=== PATIENT | male | born 1940 | race Caucasian/White ===

== ENCOUNTER 2016-11-11 07:38 | Outpatient (RCR) | payer MEDICARE ==
[2016-08-24] MEDS: OMALIZUMAB SUB-Q 150 MG (XOLAIR) VIAL SQ SCH (08:40)
[2016-08-24 08:45] VITALS: BP 122/71
[2016-09-07 07:50] VITALS: BP 112/60
[2016-09-07] MEDS: OMALIZUMAB SUB-Q 150 MG (XOLAIR) VIAL SQ SCH (07:55)
[2016-09-21] MEDS: OMALIZUMAB SUB-Q 150 MG (XOLAIR) VIAL SQ SCH (08:21)
[2016-09-21 08:27] VITALS: BP 125/58
[2016-10-05] MEDS: OMALIZUMAB SUB-Q 150 MG (XOLAIR) VIAL SQ SCH (08:27)
[2016-10-05 08:29] VITALS: BP 136/66
[2016-10-19] MEDS: OMALIZUMAB SUB-Q 150 MG (XOLAIR) VIAL SQ SCH (08:30)
[2016-10-19 09:19] VITALS: BP 118/66
[~2016-11-11] VITALS: Ht 180.3 cm; Wt 92.5 kg
[~2016-11-11 07:38] MED LIST: AC325T PO; ALPR0.5T3 PO; ASPI-892 PO; BO30SU PR; DOFE125C2 PO; ENAL20TA; ENAL5TAB PO; FLUT16SP22 NS; FNST5T PO; FURO40TA4 PO; FURO80TA3 PO; GLUC1TAB60 PO; HC A28.3 PR; KCL20TCR PO; LEVA0.63 IH; METO50TA7; MNTL10T PO; MTP25TSR PO; MULT-608 PO; MULT1CAP27 PO; NIA500ERT PO; NYST1000 PO; OMG1KC PO; OXYC-12 PO; PHYT1LIQ; PNT40TEC PO; POTA10CA43 PO; SIMV40TA2; SIMV40TA2 PO; TMSL.4C PO; WRF2.5T; WRF2.5T PO; WRF5T PO; [UNRECOGNIZED DRUG - CODE]
[2016-11-11 08:12] VITALS: BP 116/52
[2016-11-11] MEDS ORDERED: OMALIZUMAB SUB-Q 150 MG (XOLAIR) VIAL SQ SCH (08:15)
== END 2016-11-22 | disposition home or self-care (01) ==
LOC: SDC 07:38
PROVIDERS: ATTEND Nurse Practitioner Family
DX: J45.40 Moderate persistent asthma, uncomplicated (principal)
CPT/HCPCS: 96372

== ENCOUNTER 2017-02-22 07:51 | Outpatient (RCR) | payer MEDICARE ==
[2016-11-30 07:57] VITALS: BP 130/81
[2016-11-30] MEDS: OMALIZUMAB SUB-Q 150 MG (XOLAIR) VIAL SQ SCH (08:40)
[2016-12-14 07:50] VITALS: BP 138/70
[2016-12-14] MEDS: OMALIZUMAB SUB-Q 150 MG (XOLAIR) VIAL SQ SCH (08:30)
[2016-12-28] MEDS: OMALIZUMAB SUB-Q 150 MG (XOLAIR) VIAL SQ SCH (07:40)
[2016-12-28 07:45] VITALS: BP 136/67
[2017-01-11 07:50] VITALS: BP 125/70
[2017-01-11] MEDS: OMALIZUMAB SUB-Q 150 MG (XOLAIR) VIAL SQ SCH (07:50)
[2017-01-25] MEDS: OMALIZUMAB SUB-Q 150 MG (XOLAIR) VIAL SQ SCH (07:58)
[2017-01-25 07:59] VITALS: BP 127/79
[2017-02-08] MEDS: OMALIZUMAB SUB-Q 150 MG (XOLAIR) VIAL SQ SCH (07:52)
[2017-02-08 07:58] VITALS: BP 139/95
[~2017-02-22] VITALS: Ht 180.3 cm; Wt 95.7 kg
[2017-02-22] MEDS: OMALIZUMAB SUB-Q 150 MG (XOLAIR) VIAL SQ SCH (08:22)
[2017-02-22 08:23] VITALS: BP 124/62
== END 2017-02-28 | disposition home or self-care (01) ==
LOC: SDC 07:51
PROVIDERS: ATTEND Nurse Practitioner Family
DX: J45.40 Moderate persistent asthma, uncomplicated (principal)
CPT/HCPCS: 96372

== ENCOUNTER 2017-05-31 06:54 | Outpatient (RCR) | payer MEDICARE ==
[2017-03-08 07:45] VITALS: BP 129/69
[2017-03-08] MEDS: OMALIZUMAB SUB-Q 150 MG (XOLAIR) VIAL SQ SCH (08:32)
[2017-03-22] MEDS: OMALIZUMAB SUB-Q 150 MG (XOLAIR) VIAL SQ SCH (08:24)
[2017-03-22 08:34] VITALS: BP 135/74
[2017-04-05] MEDS: OMALIZUMAB SUB-Q 150 MG (XOLAIR) VIAL SQ SCH (08:25)
[2017-04-05 08:36] VITALS: BP 143/78
[2017-04-19] MEDS: OMALIZUMAB SUB-Q 150 MG (XOLAIR) VIAL SQ SCH (07:56)
[2017-04-19 08:00] VITALS: BP 124/70
[2017-05-03] MEDS: OMALIZUMAB SUB-Q 150 MG (XOLAIR) VIAL SQ SCH (08:29)
[2017-05-03 08:40] VITALS: BP 128/71
[2017-05-17] MEDS: OMALIZUMAB SUB-Q 150 MG (XOLAIR) VIAL SQ SCH (07:45)
[2017-05-17 08:25] VITALS: BP 121/60
[~2017-05-31] VITALS: Ht 180.3 cm; Wt 95.7 kg
[2017-05-31] MEDS: OMALIZUMAB SUB-Q 150 MG (XOLAIR) VIAL SQ SCH (08:01)
[2017-05-31 08:14] VITALS: BP 139/66
== END 2017-06-06 | disposition home or self-care (01) ==
LOC: SDC 06:54
PROVIDERS: ATTEND Nurse Practitioner Family
DX: J45.40 Moderate persistent asthma, uncomplicated (principal)
CPT/HCPCS: 96372

== ENCOUNTER 2017-07-12 06:35 | Outpatient (RCR) | payer MEDICARE ==
[2017-06-14 08:25] VITALS: BP 126/66
[2017-06-14] MEDS: OMALIZUMAB SUB-Q 150 MG (XOLAIR) VIAL SQ SCH (08:25)
[2017-06-28] MEDS: OMALIZUMAB SUB-Q 150 MG (XOLAIR) VIAL SQ SCH (10:07)
[2017-06-28 10:10] VITALS: BP 133/75
[~2017-07-12] VITALS: Ht 180.3 cm; Wt 95.7 kg
[2017-07-12] MEDS: OMALIZUMAB SUB-Q 150 MG (XOLAIR) VIAL SQ SCH (08:00)
[2017-07-12 08:23] VITALS: BP 132/66
== END 2017-07-23 | disposition home or self-care (01) ==
LOC: SDC 06:35
PROVIDERS: ATTEND Nurse Practitioner Family
DX: J45.40 Moderate persistent asthma, uncomplicated (principal)
CPT/HCPCS: 96372

== ENCOUNTER 2017-10-18 09:46 | Outpatient (RCR) | payer MEDICARE, OTHER ==
[2017-07-26] MEDS: OMALIZUMAB SUB-Q 150 MG (XOLAIR) VIAL SQ SCH (08:23)
[2017-07-26 08:26] VITALS: BP 125/67
[2017-08-09 09:05] VITALS: BP 129/60
[2017-08-09] MEDS: OMALIZUMAB SUB-Q 150 MG (XOLAIR) VIAL SQ SCH (09:06)
[2017-08-23 13:13] VITALS: BP 127/58
[2017-09-06] MEDS: OMALIZUMAB SUB-Q 150 MG (XOLAIR) VIAL SQ SCH (08:05)
[2017-09-06 08:11] VITALS: BP 138/71
[2017-09-20] MEDS: OMALIZUMAB SUB-Q 150 MG (XOLAIR) VIAL SQ SCH (08:10)
[2017-09-20 08:30] VITALS: BP 118/76
[2017-10-04 08:30] VITALS: BP 117/61
[2017-10-04] MEDS: OMALIZUMAB SUB-Q 150 MG (XOLAIR) VIAL SQ SCH (08:54)
[~2017-10-18] VITALS: Ht 180.3 cm; Wt 95.7 kg
== END 2017-10-24 | disposition home or self-care (01) ==
LOC: SDC 09:46
PROVIDERS: ATTEND Nurse Practitioner Family
DX: J45.40 Moderate persistent asthma, uncomplicated (principal)
CPT/HCPCS: 96372

== ENCOUNTER 2017-12-27 07:39 | Outpatient (RCR) | payer MEDICARE, OTHER ==
[2017-11-02] MEDS: OMALIZUMAB SUB-Q 150 MG (XOLAIR) VIAL SQ SCH (11:55)
[2017-11-02 12:14] VITALS: BP 129/65
[2017-11-15] MEDS: OMALIZUMAB SUB-Q 150 MG (XOLAIR) VIAL SQ SCH (07:55)
[2017-11-15 07:56] VITALS: BP 115/51
[2017-11-29] MEDS: OMALIZUMAB SUB-Q 150 MG (XOLAIR) VIAL SQ SCH (08:12)
[2017-11-29 08:21] VITALS: BP 121/48
[2017-12-13] MEDS: OMALIZUMAB SUB-Q 150 MG (XOLAIR) VIAL SQ SCH (07:52)
[2017-12-13 07:56] VITALS: BP 122/56
[~2017-12-27] VITALS: Ht 180.3 cm; Wt 95.7 kg
[2017-12-27] MEDS: OMALIZUMAB SUB-Q 150 MG (XOLAIR) VIAL SQ SCH (07:49)
[2017-12-27 07:50] VITALS: BP 125/55
== END 2018-01-31 | disposition home or self-care (01) ==
LOC: SDC 07:39
PROVIDERS: ATTEND Nurse Practitioner Family
DX: J45.40 Moderate persistent asthma, uncomplicated (principal)
CPT/HCPCS: 96372

== ENCOUNTER → 2018-11-01 | Outpatient (CLI) | payer MEDICARE ==
[~2018-11-01] MED LIST changes: +RT-ALBUTEROL SULF 2.5 MG/3 ML PRE-MIX VIAL INH ONE
== END ==
LOC: RT 11:35
PROVIDERS: ATTEND Nurse Practitioner Family
DX: G47.30 Sleep apnea, unspecified (principal); J44.9 Chronic obstructive pulmonary disease, unspecified; J30.2 Other seasonal allergic rhinitis
CPT/HCPCS: 94060; 94726; 94729

== ENCOUNTER → 2018-11-13 | Outpatient (CLI) | payer MEDICARE ==
[~2018-11-13] MED LIST changes: -RT-ALBUTEROL SULF 2.5 MG/3 ML PRE-MIX VIAL INH ONE
[2018-11-13 08:52] LABS: BASOPHILS # (AUTO) 0.1 10^3/uL (0.0-0.1); BASOPHILS % (AUTO) 1 % (0-10); EOSINOPHILS # (AUTO) 0.3 10^3/uL (0.0-0.3); EOSINOPHILS % (AUTO) 5 % (0-10); HEMATOCRIT 46 % (40-54); HEMOGLOBIN 14.5 G/DL (13.3-17.7); LYMPHOCYTES # (AUTO) 2.1 X 10^3 (1.0-4.0); LYMPHOCYTES % (AUTO) 30 % (12-44); MEAN CORPUSCULAR HEMOGLOBIN 31 PG (25-34); MEAN CORPUSCULAR HGB CONC 32 G/DL (32-36); MEAN CORPUSCULAR VOLUME 97 FL (80-99); MEAN PLATELET VOLUME 9.2 FL (7.4-10.4); MONOCYTES # (AUTO) 0.8 X 10^3 (0.0-1.0); MONOCYTES % (AUTO) 11 % (0-12); NEUTROPHILS # (AUTO) 3.7 X 10^3 (1.8-7.8); NEUTROPHILS % (AUTO) 53 % (42-75); PLATELET COUNT 158 10^3/uL (130-400); RED BLOOD COUNT 4.73 10^6/uL (4.35-5.85); RED CELL DISTRIBUTION WIDTH 15.5 % (10.0-14.5); WHITE BLOOD COUNT 7.1 10^3/uL (4.3-11.0)
[2018-11-13 09:09] LABS: CREATININE SERUM 1.98 MG/DL (0.60-1.30)
== END ==
LOC: LAB 08:35
PROVIDERS: ATTEND Nurse Practitioner Family
DX: R94.2 Abnormal results of pulmonary function studies (principal); J98.4 Other disorders of lung; J30.2 Other seasonal allergic rhinitis; G47.33 Obstructive sleep apnea (adult) (pediatric); J45.909 Unspecified asthma, uncomplicated
CPT/HCPCS: 36415; 82565; 84520; 85025

== ENCOUNTER → 2018-11-20 | Outpatient (CLI) | payer MEDICARE ==
[2018-11-20 08:59] LABS: CREATININE SERUM 2.11 MG/DL (0.60-1.30)
--- NOTE | 2018-11-20 11:51 | Diagnostic Imaging Report ---
PROCEDURE: CT chest without contrast. TECHNIQUE: Multiple contiguous axial images were obtained through the chest without the use of intravenous contrast. INDICATION: Decreased diffusion capacity of lungs. FINDINGS: The previous CT chest exam of 01/06/2011 noted cardiomegaly and right lower lobe atelectasis/infiltrate with a right pleural effusion. There were also coronary artery calcifications, sternotomy wires and surgical clips, and left-sided defibrillator device placed. On this exam, there is persistent cardiomegaly and coronary artery disease. The sternotomy wires and surgical clips and the left-sided defibrillator device seen previously are again evident and no different. The atelectasis/pneumonia and fluid involving the right lung base seen previously has resolved. There are mild chronic pulmonary changes present but there is no evidence for failure, pneumonia, or for significant pleural effusion. There is no mediastinal or hilar adenopathy. The aorta is not abnormally dilated. On the prior exam, the aortic root measured approximately 3.1 cm. On this exam, it measures 3.6 cm. The thyroid gland was not well visualized. There is increased density in both retroareolar regions. This has developed in the interval since the prior exam and most likely represents gynecomastia. Clinical followup is recommended. The sections through the upper abdomen fail to show any sign of an acute abnormality. In the interval since the prior study, however small gallstone has developed within the gallbladder. The bone windows show no evidence for fracture or for destructive lesion. 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 IMPRESSION: 1. There is cardiomegaly, coronary artery disease, and evidence of prior cardiac surgery. There are chronic pulmonary changes evident but there is no sign of an acute cardiopulmonary abnormality. 2. The increased density in both retroareolar regions does suggest gynecomastia. Clinical followup is recommended. 3. There is cholelithiasis but there is no evidence for acute cholecystitis. If further evaluation of the gallbladder is desired, then ultrasound would be recommended. 4. 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 Dictated by: Dictated on workstation # [id number]
== END ==
LOC: RAD 08:21
PROVIDERS: ATTEND Nurse Practitioner Family
DX: J45.909 Unspecified asthma, uncomplicated (principal); G47.33 Obstructive sleep apnea (adult) (pediatric); J98.4 Other disorders of lung; M89.9 Disorder of bone, unspecified; M50.30 Other cervical disc degeneration, unspecified cervical region; K80.20 Calculus of gallbladder without cholecystitis without obstruction; I25.10 Atherosclerotic heart disease of native coronary artery without angina pectoris; I51.7 Cardiomegaly; Z98.890 Other specified postprocedural states
CPT/HCPCS: 36415; 71250; 82565; 84520

== ENCOUNTER 2019-01-30 20:27 | Outpatient (CLI) | payer MEDICARE | END 2019-01-31 06:58 | disposition home or self-care (01) | LOC: SLEEP 20:27 | PROVIDERS: ATTEND Nurse Practitioner Family | DX: G47.33 Obstructive sleep apnea (adult) (pediatric) (principal) | CPT/HCPCS: 95811 ==

== ENCOUNTER 2019-04-28 06:31 | Emergency (ER) | payer MEDICARE ==
[~2019-04-28] VITALS: Ht 177.8 cm; Wt 89.8 kg
--- OUTSIDE RECORDS SUMMARY | 2019-04-28 06:40 | XMS REPORT | Continuity of Care Document ---
Author Organization Unknown Address Unknown Allergies Active Description Code Type Severity Reaction Onset Reported/Identified Relationship to Patient Clinical Status Yes No Known Drug Allergies [id number] Drug Allergy Unknown N/A 03/05/2009 Medications There is no data. 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 05/07/2011 Ot 401.9 HYPERTENSION NOS 05/07/2011 Ot 414.00 CORON ATHEROSCLER NOS TYPE VESSEL, NATIV 05/07/2011 Ot 414.8 CHR ISCHEMIC HRT DIS NEC 05/07/2011 Ot 425.4 PRIM CARDIOMYOPATHY NEC 05/07/2011 Ot 427.31 ATRIAL FIBRILLATION 05/07/2011 Ot 428.0 CONGESTIVE HEART FAILURE NOS 05/07/2011 Ot 428.23 ACUTE CHRONIC SYSTOLIC HRT FAILURE 05/07/2011 Ot 493.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 OBSTRUCTIVE ASTHMA, NOS 05/07/2011 Ot 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.5 POST TRAUM PULM INSUFFIC 05/07/2011 Ot 552.1 UMBILICAL HERNIA W OBSTR 05/07/2011 Ot 567.21 PERITONITIS (ACUTE) GENERALIZED 05/07/2011 Ot 569.83 PERFORATION OF INTESTINE 05/07/2011 Ot 571.5 CIRRHOSIS OF LIVER NOS 05/07/2011 Ot 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.0 BLADDER NECK OBSTRUCTION 05/07/2011 Ot 600.01 HYPERTROPHY (BENIGN) OF PROSTATE W URINA 05/07/2011 Ot 780.52 INSOMNIA, UNSPECIFIED 05/07/2011 Ot 788.20 RETENTION OF URINE NOS 05/07/2011 Ot 794.31 ABNORM ELECTROCARDIOGRAM 05/07/2011 Ot E937.8 ADV EFF SEDAT/HYPNOT NEC 05/07/2011 Ot E944.4 ADV EFF DIURETICS NEC 05/07/2011 Ot V45.02 AUTO IMPLANTABLE CARDIAC DEFIBRILLATOR I 05/07/2011 Ot V45.81 AORTOCORONARY BYPASS 03/01/2013 PAULETTE GONZALEZ, KELLY Fitch Ot 401.9 HYPERTENSION NOS 03/01/2013 PAULETTE GONZALEZ, KELLY Fitch Ot V58.69 OTH MED,LT,CURRENT USE 08/16/2013 LAKSHMI GONZALEZ, IGNACIO A Ot 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, NOS 10/17/2013 LAKSHMI GONZALEZ, IGNACIO A Ot 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, NOS 01/30/2014 LAKSHMI GONZALEZ, IGNACIO A Ot 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, NOS 05/06/2014 LAKSHMI GONZALEZ, IGNACIO A Ot 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, NOS 05/10/2014 BRIELLE WHITAKER SHEET METAL SUPERINTENDENT Ot 726.79 ANKLE ENTHESOPATHY NEC 05/10/2014 BRIELLE WHITAKER SHEET METAL SUPERINTENDENT Ot 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.5 JUV OSTEOCHONDROSIS FOOT 05/10/2014 BRIELLE WHITAKER SHEET METAL SUPERINTENDENT Ot V57.1 PHYSICAL THERAPY NEC 08/05/2014 LAKSHMI GONZALEZ, IGNACIO A Ot 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, NOS 09/17/2014 LAKSHMI GONZALEZ, IGNACIO A Ot 493.00 09/25/2014 LAKSHMI GONZALEZ, IGNACIO A Ot 493.00 10/01/2014 LAKSHMI GONZALEZ, IGNACIO A Ot 493.00 10/10/2014 LAKSHMI GONZALEZ, IGNACIO A Ot 493.00 10/10/2014 LAKSHMI GONZALEZ, IGNACIO A Ot 493.00 10/14/2014 LAKSHMI GONZALEZ, IGNACIO A Ot 493.00 10/15/2014 LAKSHMI GONZALEZ, IGNACIO A Ot 493.00 10/15/2014 LAKSHMI GONZALEZ, IGNACIO A Ot 493.00 10/29/2014 LAKSHMI GONZALEZ, IGNACIO A Ot 493.00 10/29/2014 LAKSHMI GONZALEZ, IGNACIO A Ot 493.00 11/04/2014 LAKSHMI GONZALEZ, IGNACIO A Ot 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, NOS 11/12/2014 ALEIDA BOYD DO Ot 493.00 11/12/2014 DEB DO, ALEIDA M Ot 493.00 11/12/2014 DEB DO, ALEIDA M Ot 493.00 11/12/2014 DEB DO, ALEIDA M Ot 493.00 11/13/2014 DEB DO, ALEIDA M Ot 493.00 11/15/2014 DEB DO, ALEIDA M Ot 493.00 11/20/2014 DEB DO, ALEIDA M Ot 493.00 11/22/2014 DEB DO, ALEIDA M Ot 493.00 11/26/2014 DEB DO, ALEIDA M Ot 493.00 11/26/2014 DEB DO, ALEIDA M Ot 493.00 12/10/2014 DEB DO, ALEIDA M Ot 493.00 12/10/2014 DEB DO, ALEIDA M Ot 493.00 12/13/2014 DEB DO, ALEIDA M Ot 493.00 12/13/2014 DEB DO, ALEIDA M Ot 493.00 12/19/2014 DEB DO, ALEIDA M Ot 493.00 01/14/2015 DEB DO, ALEIDA M Ot 493.00 01/14/2015 DEB DO, ALEIDA M Ot 493.00 01/22/2015 DEB DO, ALEIDA M Ot 493.00 01/28/2015 DEB DO, ALEIDA M Ot 493.00 02/10/2015 DEB DO, ALEIDA M Ot 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, NOS 02/11/2015 DEB DO, ALEIDA M Ot 493.00 02/11/2015 DEB DO, ALEIDA M Ot 493.00 02/11/2015 DEB DO, ALEIDA M Ot 493.00 02/11/2015 DEB DO, ALEIDA M Ot 493.00 02/11/2015 DEB DO, ALEIDA M Ot 493.00 02/11/2015 DEB DO, ALEIDA M Ot 493.00 02/11/2015 DEB DO, ALEIDA M Ot 493.00 02/12/2015 DEB DO, ALEIDA M Ot 493.00 02/19/2015 Ot 278.00 02/19/2015 Ot 493.20 02/19/2015 Ot 780.57 02/25/2015 DEB DO, ALEIDA M Ot 493.00 03/11/2015 DEB DO, ALEIDA M Ot 493.00 03/11/2015 DEB DO, ALEIDA M Ot 493.00 03/22/2015 DEB DO, ALEIDA M Ot 493.00 03/25/2015 DEB DO, ALEIDA M Ot 493.00 03/25/2015 DEB DO, ALEIDA M Ot 493.00 04/08/2015 DEB DO, ALEIDA M Ot 493.00 04/08/2015 DEB DO, ALEIDA M Ot 493.00 04/22/2015 DEB DO, ALEIDA M Ot 493.00 04/22/2015 DEB DO, ALEIDA M Ot 493.00 04/29/2015 DEB DO, ALEIDA M Ot 493.00 05/06/2015 DEB DO, ALEIDA M Ot 493.00 05/12/2015 DEB DO, ALEIDA M Ot 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, NOS 05/20/2015 DEB DO, ALEIDA M Ot 493.00 05/20/2015 DEB DO, ALEIDA M Ot 493.00 05/20/2015 DEB DO, ALEIDA M Ot 493.00 05/20/2015 DEB DO, ALEIDA M Ot 493.00 05/20/2015 DBE DO, ALEIDA M Ot 493.00 05/20/2015 DEB DO, ALEIDA M Ot 493.00 05/20/2015 DEB DO, ALEIDA M Ot 493.00 05/21/2015 DEB DO, ALEIDA M Ot 493.00 05/21/2015 DEB DO, ALEIDA M Ot 493.00 05/21/2015 DEB DO, ALEIDA M Ot 493.00 06/03/2015 DEB DO, ALEIDA M Ot 493.00 06/03/2015 DEB DO, ALEIDA M Ot 493.00 06/17/2015 DEB DO, ALEIDA M Ot 493.00 06/17/2015 DEB DO, ALEIDA M Ot 493.00 06/17/2015 DEB DO, ALEIDA M Ot 493.00 07/01/2015 DEB DO, ALEIDA M Ot 493.00 07/15/2015 DEB DO, ALEIDA M Ot 493.00 07/23/2015 DEB DO, ALEIDA M Ot 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, NOS 07/29/2015 Ot 433.10 07/29/2015 Ot 786.05 07/29/2015 Ot 397.0 07/29/2015 Ot 424.0 07/29/2015 Ot 511.9 07/29/2015 Ot 786.05 07/29/2015 Ot 511.9 07/29/2015 Ot 782.4 07/29/2015 Ot 511.9 07/29/2015 Ot 553.1 07/29/2015 Ot 600.00 07/29/2015 Ot 789.59 07/29/2015 Ot 789.59 07/29/2015 Ot 477.9 07/29/2015 Ot 397.0 07/29/2015 Ot 414.8 07/29/2015 Ot 424.0 07/29/2015 Ot 428.0 07/29/2015 Ot 493.00 07/29/2015 Ot 278.00 07/29/2015 Ot 493.20 07/29/2015 Ot 780.57 07/29/2015 ALEIDA BOYD DO Ot 493.00 08/12/2015 ALEIDA BOYD DO Ot J45.909 08/26/2015 ALEIDA BOYD DO Ot J45.909 09/09/2015 ALEIDA BOYD DO Ot J45.909 09/15/2015 ALEIDA BOYD DO Ot J45.909 09/23/2015 ALEIDA BOYD DO Ot J45.909 09/25/2015 ALEIDA BOYD DO Ot J45.909 10/07/2015 ALEIDA BOYD DO Ot J45.909 10/21/2015 ALEIDA BOYD DO Ot J45.909 10/23/2015 Ot I12.9 10/23/2015 Ot I50.22 10/23/2015 Ot N18.3 10/23/2015 Ot N40.1 10/27/2015 ALEIDA BOYD DO Ot J45.909 UNSPECIFIED ASTHMA, UNCOMPLICATED 11/04/2015 ALEIDA BOYD DO Ot J45.909 11/04/2015 ALEIDA BOYD DO Ot J45.909 11/05/2015 ALEIDA BOYD DO Ot J45.909 11/06/2015 Ot I12.9 11/06/2015 Ot I50.22 11/06/2015 Ot N18.3 11/06/2015 Ot N40.1 11/18/2015 ALEIDA BOYD DO Ot J45.909 11/18/2015 DEB TRACEY ALEIDA M Ot J45.909 11/18/2015 ALEIDA BOYD DO Ot J45.909 11/18/2015 DEB TRACEY ALEIDA M Ot J45.909 11/26/2015 ALEIDA BOYD DO Ot J45.909 12/02/2015 ALEIDA BOYD DO Ot J45.909 12/16/2015 ALEIDA BOYD DO Ot J45.909 12/16/2015 DEB TRACEY ALEIDA M Ot J45.909 12/19/2015 ALEIDA BOYD DO Ot J45.909 12/30/2015 ALEIDA BOYD DO Ot J45.909 12/30/2015 DEB TRACEY ALEIDA M Ot J45.909 01/13/2016 DEB TRACEY ALEIDA M Ot J45.909 01/13/2016 ALEIDA BOYD DO Ot J45.909 01/27/2016 ALEIDA BOYD DO Ot J45.909 01/27/2016 ALEIDA BOYD DO Ot J45.909 01/27/2016 DEB TRACEY ALEIDA M Ot J45.909 02/02/2016 ALEIDA BOYD DO Ot J45.909 UNSPECIFIED ASTHMA, UNCOMPLICATED 02/03/2016 ALEIDA BOYD DO Ot J45.909 02/10/2016 Ot 786.05 SHORTNESS OF BREATH 02/10/2016 Ot 397.0 TRICUSPID VALVE DISEASE 02/10/2016 Ot 424.0 MITRAL VALVE DISORDER 02/10/2016 Ot 511.9 PLEURAL EFFUSION NOS 02/10/2016 Ot 786.05 SHORTNESS OF BREATH 02/10/2016 Ot 511.9 PLEURAL EFFUSION NOS 02/10/2016 Ot 782.4 JAUNDICE NOS 02/10/2016 Ot 511.9 PLEURAL EFFUSION NOS 02/10/2016 Ot 553.1 UMBILICAL HERNIA 02/10/2016 Ot 600.00 HYPERTROPHY (BENIGN) OF PROSTATE W/O URI 02/10/2016 Ot 789.59 OTHER ASCITES 02/10/2016 Ot 789.59 OTHER ASCITES 02/10/2016 Ot 477.9 ALLERGIC RHINITIS NOS 02/10/2016 Ot 397.0 TRICUSPID VALVE DISEASE 02/10/2016 Ot 414.8 CHR ISCHEMIC HRT DIS NEC 02/10/2016 Ot 424.0 MITRAL VALVE DISORDER 02/10/2016 Ot 428.0 CONGESTIVE HEART FAILURE NOS 02/10/2016 Ot 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, NOS 02/10/2016 Ot 278.00 OBESITY, NOS 02/10/2016 Ot 493.20 CHRONIC OBSTRUCTIVE ASTHMA, NOS 02/10/2016 Ot 780.57 UNSPECIFIED SLEEP APNEA 02/10/2016 DEB TRACEY ALEIDA M Ot 493.00 02/10/2016 Ot I12.9 HYPERTENSIVE CHRONIC KIDNEY DISEASE W ST 02/10/2016 Ot I50.22 CHRONIC SYSTOLIC (CONGESTIVE) HEART FAIL 02/10/2016 Ot N18.3 CHRONIC KIDNEY DISEASE, STAGE 3 (MODERAT 02/10/2016 Ot N40.1 ENLARGED PROSTATE WITH LOWER URINARY TRA 02/10/2016 ALEXANDRO WILSON PIPE TURNER Ot J45.909 UNSPECIFIED ASTHMA, UNCOMPLICATED 02/10/2016 ALEXANDRO WILSON PIPE TURNER Ot J45.909 UNSPECIFIED ASTHMA, UNCOMPLICATED 02/10/2016 ALEXANDRO WILSON PIPE TURNER Ot J45.909 UNSPECIFIED ASTHMA, UNCOMPLICATED 02/10/2016 ALEXANDRO WILSON PIPE TURNER Ot J45.909 UNSPECIFIED ASTHMA, UNCOMPLICATED 02/11/2016 ALEXANDRO WILSON PIPE TURNER Ot J45.909 UNSPECIFIED ASTHMA, UNCOMPLICATED 02/23/2016 ALEXANDRO WILSON PIPE TURNER Ot J45.909 UNSPECIFIED ASTHMA, UNCOMPLICATED 02/26/2016 ALEXANDRO WILSON PIPE TURNER Ot J45.909 UNSPECIFIED ASTHMA, UNCOMPLICATED 02/26/2016 ALEXANDRO WILSON PIPE TURNER Ot J45.909 UNSPECIFIED ASTHMA, UNCOMPLICATED 03/11/2016 ALEXANDRO WILSON PIPE TURNER Ot J45.909 UNSPECIFIED ASTHMA, UNCOMPLICATED 03/11/2016 ALEXANDRO WILSON PIPE TURNER Ot J45.909 UNSPECIFIED ASTHMA, UNCOMPLICATED 03/15/2016 ALXEANDRO WILSON PIPE TURNER Ot J45.909 UNSPECIFIED ASTHMA, UNCOMPLICATED 03/23/2016 ALEXANDRO WILSON PIPE TURNER Ot J45.909 UNSPECIFIED ASTHMA, UNCOMPLICATED 2016 ALEXANDRO WILSON PIPE TURNER Ot J45.909 UNSPECIFIED ASTHMA, UNCOMPLICATED 04/22/2016 STEVE, ALEXANDRO E PIPE TURNER Ot J45.909 UNSPECIFIED ASTHMA, UNCOMPLICATED 05/10/2016 ALBA WILSONINE E PIPE TURNER Ot J45.909 UNSPECIFIED ASTHMA, UNCOMPLICATED 05/11/2016 ALBA WILSONINE E PIPE TURNER Ot J45.909 UNSPECIFIED ASTHMA, UNCOMPLICATED 05/11/2016 ALBA WILSONINE E PIPE TURNER Ot J45.909 UNSPECIFIED ASTHMA, UNCOMPLICATED 05/11/2016 ALBA WILSONINE E PIPE TURNER Ot J45.909 UNSPECIFIED ASTHMA, UNCOMPLICATED 05/12/2016 ALBA WILSONINE E PIPE TURNER Ot J45.909 UNSPECIFIED ASTHMA, UNCOMPLICATED 05/12/2016 ALBA WILSONINE E PIPE TURNER Ot J45.909 UNSPECIFIED ASTHMA, UNCOMPLICATED 05/12/2016 ALBA WILSONINE E PIPE TURNER Ot J45.909 UNSPECIFIED ASTHMA, UNCOMPLICATED 05/12/2016 ALBA WILSONINE E PIPE TURNER Ot J45.909 UNSPECIFIED ASTHMA, UNCOMPLICATED 05/13/2016 ALEXANDRO WILSON PIPE TURNER Ot J45.909 UNSPECIFIED ASTHMA, UNCOMPLICATED 06/01/2016 ALEXANDRO WILSON PIPE TURNER Ot J45.909 UNSPECIFIED ASTHMA, UNCOMPLICATED 06/01/2016 ALEXANDRO WILSON PIPE TURNER Ot J45.909 UNSPECIFIED ASTHMA, UNCOMPLICATED 06/08/2016 ALBA WILSONINE E PIPE TURNER Ot J45.909 UNSPECIFIED ASTHMA, UNCOMPLICATED 06/15/2016 ALBA WILSONINE E PIPE TURNER Ot J45.909 UNSPECIFIED ASTHMA, UNCOMPLICATED 06/15/2016 ALEXANDRO WILSON E PIPE TURNER Ot J45.909 UNSPECIFIED ASTHMA, UNCOMPLICATED 06/18/2016 ALEXANDRO WILSON E PIPE TURNER Ot J45.909 UNSPECIFIED ASTHMA, UNCOMPLICATED 06/21/2016 ALEXANDRO WILSON E PIPE TURNER Ot J45.909 UNSPECIFIED ASTHMA, UNCOMPLICATED 06/29/2016 ALBA WILSONINE E PIPE TURNER Ot J45.909 UNSPECIFIED ASTHMA, UNCOMPLICATED 07/13/2016 ALBA WILSONINE E PIPE TURNER Ot J45.909 UNSPECIFIED ASTHMA, UNCOMPLICATED 07/13/2016 ALBA WILSONINE E PIPE TURNER Ot J45.909 UNSPECIFIED ASTHMA, UNCOMPLICATED 07/27/2016 ALEXANDRO WILSON E PIPE TURNER Ot J45.909 UNSPECIFIED ASTHMA, UNCOMPLICATED 07/27/2016 ALBA WILSONINE E PIPE TURNER Ot J45.909 UNSPECIFIED ASTHMA, UNCOMPLICATED 08/10/2016 ALBA WILSONINE E PIPE TURNER Ot J45.909 UNSPECIFIED ASTHMA, UNCOMPLICATED 08/10/2016 ALBA WILSONINE E PIPE TURNER Ot J45.909 UNSPECIFIED ASTHMA, UNCOMPLICATED 08/10/2016 ALEXANDRO WILSON PIPE TURNER Ot J45.909 UNSPECIFIED ASTHMA, UNCOMPLICATED 08/11/2016 ALEXANDRO WILSON E PIPE TURNER Ot J45.909 UNSPECIFIED ASTHMA, UNCOMPLICATED 08/23/2016 ALBA WILSONINE E PIPE TURNER Ot J45.909 UNSPECIFIED ASTHMA, UNCOMPLICATED 08/24/2016 ALBA WILSONINE E PIPE TURNER Ot J45.909 UNSPECIFIED ASTHMA, UNCOMPLICATED 08/24/2016 ALBA WILSONINE E PIPE TURNER Ot J45.909 UNSPECIFIED ASTHMA, UNCOMPLICATED 08/24/2016 ALEXANDRO WILSON PIPE TURNER Ot J45.909 UNSPECIFIED ASTHMA, UNCOMPLICATED 08/24/2016 ALEXANDRO WILSON E PIPE TURNER Ot J45.909 UNSPECIFIED ASTHMA, UNCOMPLICATED 08/25/2016 ALBA WILSONINE E PIPE TURNER Ot J45.909 UNSPECIFIED ASTHMA, UNCOMPLICATED 09/07/2016 ALBA WILSONINE E PIPE TURNER Ot J45.909 UNSPECIFIED ASTHMA, UNCOMPLICATED 09/20/2016 ALEXANDRO WILSON E PIPE TURNER Ot J45.909 UNSPECIFIED ASTHMA, UNCOMPLICATED 09/21/2016 ALEXANDRO WILSON E PIPE TURNER Ot J45.909 UNSPECIFIED ASTHMA, UNCOMPLICATED 09/28/2016 ALEXANDRO WILSON PIPE TURNER Ot J45.909 UNSPECIFIED ASTHMA, UNCOMPLICATED 09/28/2016 ALEXANDRO WILSON E PIPE TURNER Ot J45.909 UNSPECIFIED ASTHMA, UNCOMPLICATED 09/28/2016 ALBA WILSONINE E PIPE TURNER Ot J45.909 UNSPECIFIED ASTHMA, UNCOMPLICATED 10/05/2016 ALEXANDRO WILSON E PIPE TURNER Ot J45.909 UNSPECIFIED ASTHMA, UNCOMPLICATED 10/19/2016 ALEXANDRO WILSON E PIPE TURNER Ot J45.909 UNSPECIFIED ASTHMA, UNCOMPLICATED 10/19/2016 ALEXANDRO WILSON PIPE TURNER Ot J45.909 UNSPECIFIED ASTHMA, UNCOMPLICATED 10/21/2016 ALEXANDRO WILSON PIPE TURNER Ot J45.909 UNSPECIFIED ASTHMA, UNCOMPLICATED 10/27/2016 ALEXANDRO WILSON PIPE TURNER Ot J45.909 UNSPECIFIED ASTHMA, UNCOMPLICATED 11/11/2016 ALEXANDRO WILSON PIPE TURNER Ot J45.909 UNSPECIFIED ASTHMA, UNCOMPLICATED 11/11/2016 ALEXANDRO WILSON PIPE TURNER Ot J45.909 UNSPECIFIED ASTHMA, UNCOMPLICATED 11/22/2016 ALEXANDRO WILSON E PIPE TURNER Ot 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, UNCOMPLICATE 11/22/2016 ALEXANDRO WILSON E PIPE TURNER Ot J45.909 UNSPECIFIED ASTHMA, UNCOMPLICATED 11/23/2016 ALBA WILSONINE E PIPE TURNER Ot J45.909 UNSPECIFIED ASTHMA, UNCOMPLICATED 11/30/2016 ALBA WILSONINE E PIPE TURNER Ot J45.909 UNSPECIFIED ASTHMA, UNCOMPLICATED 11/30/2016 ALEXANDRO WILSON PIPE TURNER Ot J45.909 UNSPECIFIED ASTHMA, UNCOMPLICATED 11/30/2016 ALEXANDRO WILSON PIPE TURNER Ot J45.909 UNSPECIFIED ASTHMA, UNCOMPLICATED 11/30/2016 ALEXANDRO WILSON PIPE TURNER Ot J45.909 UNSPECIFIED ASTHMA, UNCOMPLICATED 11/30/2016 ALEXANDRO WILSON PIPE TURNER Ot J45.909 UNSPECIFIED ASTHMA, UNCOMPLICATED 12/01/2016 ALBA WILSONINE E PIPE TURNER Ot J45.909 UNSPECIFIED ASTHMA, UNCOMPLICATED 12/14/2016 ALEXANDRO WILSON E PIPE TURNER Ot J45.909 UNSPECIFIED ASTHMA, UNCOMPLICATED 12/14/2016 ALEXANDRO WILSON E PIPE TURNER Ot J45.909 UNSPECIFIED ASTHMA, UNCOMPLICATED 12/14/2016 ALEXANDRO WILSON PIPE TURNER Ot J45.909 UNSPECIFIED ASTHMA, UNCOMPLICATED 12/28/2016 ALBA WILSONINE E PIPE TURNER Ot J45.909 UNSPECIFIED ASTHMA, UNCOMPLICATED 12/30/2016 ALEXANDRO WILSON PIPE TURNER Ot 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, UNCOMPLICATE 01/11/2017 ALEXANDRO WILSON PIPE TURNER Ot 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, UNCOMPLICATE 01/11/2017 ALEXANDRO IWLSON PIPE TURNER Ot 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, UNCOMPLICATE 01/25/2017 ALEXANDRO WILSON E PIPE TURNER Ot 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, UNCOMPLICATE 01/25/2017 ALEXANDRO WILSON E PIPE TURNER Ot 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, UNCOMPLICATE 01/31/2017 ALEXANDRO WILSON PIPE TURNER Ot 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, UNCOMPLICATE 02/08/2017 ALEXANDRO WILSON PIPE TURNER Ot 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, UNCOMPLICATE 02/08/2017 ALEXANDRO WILSON PIPE TURNER Ot 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, UNCOMPLICATE 02/14/2017 ALEXANDRO WILSON PIPE TURNER Ot 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, UNCOMPLICATE 02/22/2017 ALEXANDRO WILSON PIPE TURNER Ot 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, UNCOMPLICATE 02/22/2017 ALEXANDRO WILSON PIPE TURNER Ot 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, UNCOMPLICATE 02/28/2017 ALEXANDRO WILSON PIPE TURNER Ot 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0 TRICUSPID VALVE DISEASE 03/08/2017 Ot 414.8 CHR ISCHEMIC HRT DIS NEC 03/08/2017 Ot 424.0 MITRAL VALVE DISORDER 03/08/2017 Ot 428.0 CONGESTIVE HEART FAILURE NOS 03/08/2017 Ot 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, NOS 03/08/2017 Ot 278.00 OBESITY, NOS 03/08/2017 Ot 493.20 CHRONIC OBSTRUCTIVE ASTHMA, NOS 03/08/2017 Ot 780.57 UNSPECIFIED SLEEP APNEA 03/08/2017 ALEIDA BOYD DO Ot 493.00 03/08/2017 Ot I12.9 HYPERTENSIVE CHRONIC KIDNEY DISEASE W ST 03/08/2017 Ot I50.22 CHRONIC SYSTOLIC (CONGESTIVE) HEART FAIL 03/08/2017 Ot N18.3 CHRONIC KIDNEY DISEASE, STAGE 3 (MODERAT 03/08/2017 Ot N40.1 ENLARGED PROSTATE WITH LOWER URINARY TRA 03/08/2017 ALEXANDRO WILSON PIPE TURNER Ot 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, UNCOMPLICATE 03/08/2017 Ot 477.9 ALLERGIC RHINITIS NOS 03/08/2017 Ot 397.0 TRICUSPID VALVE DISEASE 03/08/2017 Ot 414.8 CHR ISCHEMIC HRT DIS NEC 03/08/2017 Ot 424.0 MITRAL VALVE DISORDER 03/08/2017 Ot 428.0 CONGESTIVE HEART FAILURE NOS 03/08/2017 Ot 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, NOS 03/08/2017 Ot 278.00 OBESITY, NOS 03/08/2017 Ot 493.20 CHRONIC OBSTRUCTIVE ASTHMA, NOS 03/08/2017 Ot 780.57 UNSPECIFIED SLEEP APNEA 03/08/2017 ALEIDA BOYD DO M Ot 493.00 03/08/2017 Ot I12.9 HYPERTENSIVE CHRONIC KIDNEY DISEASE W ST 03/08/2017 Ot I50.22 CHRONIC SYSTOLIC (CONGESTIVE) HEART FAIL 03/08/2017 Ot N18.3 CHRONIC KIDNEY DISEASE, STAGE 3 (MODERAT 03/08/2017 Ot N40.1 ENLARGED PROSTATE WITH LOWER URINARY TRA 03/08/2017 ALEXANDRO WILSON PIPE TURNER Ot 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, UNCOMPLICATE 03/08/2017 ALEXANDRO WILSON PIPE TURNER Ot 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, UNCOMPLICATE 03/09/2017 ALEXANDRO WILSON PIPE TURNER Ot 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, UNCOMPLICATE 03/18/2017 ALEXANDRO WILSON PIPE TURNER Ot 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, UNCOMPLICATE 03/22/2017 ALEXANDRO WILSON PIPE TURNER Ot 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, UNCOMPLICATE 03/29/2017 ALEXANDRO WILSON PIPE TURNER Ot 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, UNCOMPLICATE 04/05/2017 ALEXANDRO WILSON PIPE TURNER Ot 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, UNCOMPLICATE 04/14/2017 ALEXANDRO WILSON PIPE TURNER Ot 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, UNCOMPLICATE 04/19/2017 ALEXANDRO WILSON PIPE TURNER Ot 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, UNCOMPLICATE 04/19/2017 ALEXANDRO WILSON PIPE TURNER Ot 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, UNCOMPLICATE 05/03/2017 ALEXANDRO WILSON PIPE TURNER Ot 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, UNCOMPLICATE 05/09/2017 ALEXANDRO WILSON PIPE TURNER Ot 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, UNCOMPLICATE 05/17/2017 ALEXANDRO WILSON PIPE TURNER Ot 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, UNCOMPLICATE 05/31/2017 ALEXANDRO WILSON PIPE TURNER Ot 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, UNCOMPLICATE 05/31/2017 ALEXANDRO WILSON PIPE TURNER Ot 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, UNCOMPLICATE 05/31/2017 ALEXANDRO WILSON PIPE TURNER Ot 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, UNCOMPLICATE 05/31/2017 STEVEALBA ESTRADAINE Gray PIPE TURNER Ot 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, UNCOMPLICATE 06/06/2017 ALEXANDRO WILSON PIPE TURNER Ot 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, UNCOMPLICATE 06/07/2017 ALEXANDRO WILSON PIPE TURNER Ot 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, UNCOMPLICATE 06/10/2017 ALEXANDRO WILSON PIPE TURNER Ot 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, UNCOMPLICATE 06/12/2017 ALEXANDRO WILSON PIPE TURNER Ot 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, UNCOMPLICATE 06/14/2017 ALEXANDRO WILSON PIPE TURNER Ot 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, UNCOMPLICATE 06/14/2017 ALEXANDRO WILSON PIPE TURNER Ot 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, UNCOMPLICATE 06/14/2017 ALEXANDRO WILSON PIPE TURNER Ot 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, UNCOMPLICATE 06/15/2017 ALEXANDRO WILSON PIPE TURNER Ot 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, UNCOMPLICATE 06/28/2017 ALEXANDRO WILSON PIPE TURNER Ot 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, UNCOMPLICATE 07/12/2017 ALEXANDRO WILSON PIPE TURNER Ot 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, UNCOMPLICATE 07/12/2017 ALBA WILSONINE Gray PIPE TURNER Ot 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, UNCOMPLICATE 07/15/2017 ALEXANDRO WILSON PIPE TURNER Ot 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, UNCOMPLICATE 07/23/2017 ALEXANDRO WILSON PIPE TURNER Ot 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, UNCOMPLICATE 07/26/2017 ALEXANDRO WILSON PIPE TURNER Ot 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, UNCOMPLICATE 07/26/2017 ALEXANDRO WILSON PIPE TURNER Ot 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, UNCOMPLICATE 07/27/2017 STEVEALBA ESTRADAINE E PIPE TURNER Ot 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, UNCOMPLICATE 07/30/2017 ALBA WILSONINE E PIPE TURNER Ot 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, UNCOMPLICATE 08/09/2017 STEVEALBA ESTRADAINE E PIPE TURNER Ot 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, UNCOMPLICATE 08/22/2017 STEVEALBA ESTRADAINE E PIPE TURNER Ot 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, UNCOMPLICATE 08/22/2017 STEVEALBA ESTRADAINE E PIPE TURNER Ot 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, UNCOMPLICATE 08/22/2017 STEVEALBA ESTRADAINE E PIPE TURNER Ot 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, UNCOMPLICATE 08/23/2017 STEVEALBA ESTRADAINE E PIPE TURNER Ot 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, UNCOMPLICATE 09/06/2017 ALBA WILSONINE E PIPE TURNER Ot 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, UNCOMPLICATE 09/16/2017 ALBA WILSONINE E PIPE TURNER Ot 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, UNCOMPLICATE 09/20/2017 ALBA WILSONINE Gray PIPE TURNER Ot 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, UNCOMPLICATE 09/20/2017 ALBA WILSONINE E PIPE TURNER Ot 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, UNCOMPLICATE 10/04/2017 ALBA WILSONINE E PIPE TURNER Ot 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, UNCOMPLICATE 10/18/2017 ALBA WILSONINE E PIPE TURNER Ot 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, UNCOMPLICATE 10/18/2017 ALBA WILSONINE E PIPE TURNER Ot 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, UNCOMPLICATE 10/18/2017 ALBA WILSONINE E PIPE TURNER Ot 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, UNCOMPLICATE 10/24/2017 ALBA WILSONINE E PIPE TURNER Ot 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, UNCOMPLICATE 10/26/2017 ALBA WILSONINE E PIPE TURNER Ot 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, UNCOMPLICATE 11/02/2017 ALBA WILSONINE E PIPE TURNER Ot 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, UNCOMPLICATE 11/02/2017 ALBA WILSONINE E PIPE TURNER Ot 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, UNCOMPLICATE 11/02/2017 ALBA WILSONINE E PIPE TURNER Ot 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, UNCOMPLICATE 11/02/2017 ALBA WILSONINE E PIPE TURNER Ot 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, UNCOMPLICATE 11/02/2017 ALEXANDRO WILSON PIPE TURNER Ot 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, UNCOMPLICATE 11/02/2017 Ot 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, NOS 11/02/2017 Ot 278.00 OBESITY, NOS 11/02/2017 Ot 493.20 CHRONIC OBSTRUCTIVE ASTHMA, NOS 11/02/2017 Ot 780.57 UNSPECIFIED SLEEP APNEA 11/02/2017 DEB TRACEY ALEIDA M Ot 493.00 11/02/2017 Ot I12.9 HYPERTENSIVE CHRONIC KIDNEY DISEASE W ST 11/02/2017 Ot I50.22 CHRONIC SYSTOLIC (CONGESTIVE) HEART FAIL 11/02/2017 Ot N18.3 CHRONIC KIDNEY DISEASE, STAGE 3 (MODERAT 11/02/2017 Ot N40.1 ENLARGED PROSTATE WITH LOWER URINARY TRA 11/02/2017 ALEXANDRO WILSON PIPE TURNER Ot 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, UNCOMPLICATE 11/03/2017 ALEXANDRO WILSON PIPE TURNER Ot 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, UNCOMPLICATE 11/04/2017 ALEXANDRO WILSON PIPE TURNER Ot 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, UNCOMPLICATE 11/15/2017 ALEXANDRO WILSON PIPE TURNER Ot 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, UNCOMPLICATE 11/15/2017 ALEXANDRO WILSON PIPE TURNER Ot 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, UNCOMPLICATE 11/29/2017 ALEXANDRO WILSON PIPE TURNER Ot 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, UNCOMPLICATE 11/29/2017 ALEXANDRO WILSON PIPE TURNER Ot 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, UNCOMPLICATE 11/29/2017 ALEXANDRO WILSON PIPE TURNER Ot 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, UNCOMPLICATE 12/07/2017 ALEXANDRO WILSON PIPE TURNER Ot 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, UNCOMPLICATE 12/13/2017 ALEXANDRO WILSON PIPE TURNER Ot 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, UNCOMPLICATE 12/27/2017 ALEXANDRO WILSON PIPE TURNER Ot 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, UNCOMPLICATE 01/31/2018 ALEXANDRO WILSON PIPE TURNER Ot 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, UNCOMPLICATE 10/30/2018 Ot 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, NOS 10/30/2018 Ot 278.00 OBESITY, NOS 10/30/2018 Ot 493.20 CHRONIC OBSTRUCTIVE ASTHMA, NOS 10/30/2018 Ot 780.57 UNSPECIFIED SLEEP APNEA 10/30/2018 ALEIDA BOYD DO Ot 493.00 10/30/2018 Ot I12.9 HYPERTENSIVE CHRONIC KIDNEY DISEASE W ST 10/30/2018 Ot I50.22 CHRONIC SYSTOLIC (CONGESTIVE) HEART FAIL 10/30/2018 Ot N18.3 CHRONIC KIDNEY DISEASE, STAGE 3 (MODERAT 10/30/2018 Ot N40.1 ENLARGED PROSTATE WITH LOWER URINARY TRA 10/30/2018 ALEXANDRO WILSON PIPE TURNER Ot 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, UNCOMPLICATE 11/03/2018 ALEXANDRO WILSON PIPE TURNER Ot G47.30 SLEEP APNEA, UNSPECIFIED 11/03/2018 ALEXANDRO WILSON PIPE TURNER Ot J30.2 OTHER SEASONAL ALLERGIC RHINITIS 11/03/2018 ALEXANDRO WILSON APRN Ot J44.9 CHRONIC OBSTRUCTIVE PULMONARY DISEASE, U 11/15/2018 ALEXANDRO WILSON PIPE TURNER Ot G47.33 OBSTRUCTIVE SLEEP APNEA (ADULT) (PEDIATR 11/15/2018 ALEXANDRO WILSON APRN Ot J30.2 OTHER SEASONAL ALLERGIC RHINITIS 11/15/2018 ALEXANDRO WILSON PIPE TURNER Ot J45.909 UNSPECIFIED ASTHMA, UNCOMPLICATED 11/15/2018 ALEXANDRO WILSON PIPE TURNER Ot J98.4 OTHER DISORDERS OF LUNG 11/15/2018 ALEXANDRO WILSON PIPE TURNER Ot R94.2 ABNORMAL RESULTS OF PULMONARY FUNCTION S 11/20/2018 Ot 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, NOS 11/20/2018 Ot 278.00 OBESITY, NOS 11/20/2018 Ot 493.20 CHRONIC OBSTRUCTIVE ASTHMA, NOS 11/20/2018 Ot 780.57 UNSPECIFIED SLEEP APNEA 11/20/2018 ALEIDA BOYD DO Ot 493.00 11/20/2018 Ot I12.9 HYPERTENSIVE CHRONIC KIDNEY DISEASE W ST 11/20/2018 Ot I50.22 CHRONIC SYSTOLIC (CONGESTIVE) HEART FAIL 11/20/2018 Ot N18.3 CHRONIC KIDNEY DISEASE, STAGE 3 (MODERAT 11/20/2018 Ot N40.1 ENLARGED PROSTATE WITH LOWER URINARY TRA 11/20/2018 ALEXANDRO WILSON PIPE TURNER Ot 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, UNCOMPLICATE 11/20/2018 ALEXANDRO WILSON PIPE TURNER Ot G47.30 SLEEP APNEA, UNSPECIFIED 11/20/2018 ALEXANDRO WILSON PIPE TURNER Ot J30.2 OTHER SEASONAL ALLERGIC RHINITIS 11/20/2018 ALEXANDRO WILSON APRN Ot J44.9 CHRONIC OBSTRUCTIVE PULMONARY DISEASE, U 11/20/2018 ALEXANDRO WILSON PIPE TURNER Ot G47.33 OBSTRUCTIVE SLEEP APNEA (ADULT) (PEDIATR 11/20/2018 ALEXANDRO WILSON PIPE TURNER Ot J30.2 OTHER SEASONAL ALLERGIC RHINITIS 11/20/2018 ALEXADNRO WILSON PIPE TURNER Ot J45.909 UNSPECIFIED ASTHMA, UNCOMPLICATED 11/20/2018 ALEXANDRO WILSON PIPE TURNER Ot J98.4 OTHER DISORDERS OF LUNG 11/20/2018 ALEXANDRO WILSON APRN Ot R94.2 ABNORMAL RESULTS OF PULMONARY FUNCTION S 11/21/2018 ALEXANDRO WILSON APRN Ot G47.33 OBSTRUCTIVE SLEEP APNEA (ADULT) (PEDIATR 11/21/2018 ALEXANDRO WILSON PIPE TURNER Ot I25.10 ATHSCL HEART DISEASE OF [place] CORONARY 11/21/2018 ALEXANDRO WILSON PIPE TURNER Ot I51.7 CARDIOMEGALY 11/21/2018 ALEXANDRO WILSON APRN Ot J45.909 UNSPECIFIED ASTHMA, UNCOMPLICATED 11/21/2018 ALEXANDRO WILSON PIPE TURNER Ot J98.4 OTHER DISORDERS OF LUNG 11/21/2018 ALEXANDRO WILSON APRN Ot K80.20 CALCULUS OF GALLBLADDER W/O CHOLECYSTITI 11/21/2018 ALEXANDRO WILSON PIPE TURNER Ot 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, UNSP C 11/21/2018 ALEXANDRO WILSON PIPE TURNER Ot M89.9 DISORDER OF BONE, UNSPECIFIED 11/21/2018 ALEXANDRO WILSON APRN Ot Z98.890 OTHER SPECIFIED POSTPROCEDURAL STATES 11/23/2018 ALEXANDRO WILSON APRN Ot G47.30 SLEEP APNEA, UNSPECIFIED 11/23/2018 ALEXANDRO WILSON APRN Ot J30.2 OTHER SEASONAL ALLERGIC RHINITIS 11/23/2018 ALEXANDRO WILSON APRN Ot J44.9 CHRONIC OBSTRUCTIVE PULMONARY DISEASE, U 12/06/2018 ALEXANDRO WILSON APRN Ot G47.33 OBSTRUCTIVE SLEEP APNEA (ADULT) (PEDIATR 12/06/2018 ALEXANDRO WILSON PIPE TURNER Ot J30.2 OTHER SEASONAL ALLERGIC RHINITIS 12/06/2018 ALEXANDRO WILSON PIPE TURNER Ot J45.909 UNSPECIFIED ASTHMA, UNCOMPLICATED 12/06/2018 ALEXANDRO WILSON PIPE TURNER Ot J98.4 OTHER DISORDERS OF LUNG 12/06/2018 ALEXANDRO WILSON PIPE TURNER Ot R94.2 ABNORMAL RESULTS OF PULMONARY FUNCTION S 12/08/2018 ALEXANDRO WILSON PIPE TURNER Ot G47.30 SLEEP APNEA, UNSPECIFIED 12/08/2018 ALEXANDRO WILSON APRN Ot J30.2 OTHER SEASONAL ALLERGIC RHINITIS 12/08/2018 ALEXANDRO WILSON APRN Ot J44.9 CHRONIC OBSTRUCTIVE PULMONARY DISEASE, U 12/13/2018 ALEXANDRO WILSON PIPE TURNER Ot G47.33 OBSTRUCTIVE SLEEP APNEA (ADULT) (PEDIATR 12/13/2018 ALEXANDRO WILSON PIPE TURNER Ot I25.10 ATHSCL HEART DISEASE OF [place] CORONARY 12/13/2018 ALEXANDRO WILSON PIPE TURNER Ot I51.7 CARDIOMEGALY 12/13/2018 ALEXANDRO WILSON APRN Ot J45.909 UNSPECIFIED ASTHMA, UNCOMPLICATED 12/13/2018 ALEXANDRO WILSON APRN Ot J98.4 OTHER DISORDERS OF LUNG 12/13/2018 ALEXANDRO WILSON PIPE TURNER Ot K80.20 CALCULUS OF GALLBLADDER W/O CHOLECYSTITI 12/13/2018 ALEXANDRO WILSON PIPE TURNER Ot 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, UNSP C 12/13/2018 ALEXANDRO WILSON PIPE TURNER Ot M89.9 DISORDER OF BONE, UNSPECIFIED 12/13/2018 ALEXANDRO WILSON PIPE TURNER Ot Z98.890 OTHER SPECIFIED POSTPROCEDURAL STATES 12/28/2018 ALEXANDRO WILSON APRN Ot G47.33 OBSTRUCTIVE SLEEP APNEA (ADULT) (PEDIATR 12/28/2018 ALEXANDRO WILSON PIPE TURNER Ot I25.10 ATHSCL HEART DISEASE OF [place] CORONARY 12/28/2018 ALEXANDRO WILSON PIPE TURNER Ot I51.7 CARDIOMEGALY 12/28/2018 ALEXANDRO WILSON PIPE TURNER Ot J45.909 UNSPECIFIED ASTHMA, UNCOMPLICATED 12/28/2018 ALEXANDRO WILSON PIPE TURNER Ot J98.4 OTHER DISORDERS OF LUNG 12/28/2018 ALEXANDRO WILSON PIPE TURNER Ot K80.20 CALCULUS OF GALLBLADDER W/O CHOLECYSTITI 12/28/2018 ALEXANDRO WILSON APRN Ot 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, UNSP C 12/28/2018 ALEXANDRO WLISON APRN Ot M89.9 DISORDER OF BONE, UNSPECIFIED 12/28/2018 ALEXANDRO WILSON APRN Ot Z98.890 OTHER SPECIFIED POSTPROCEDURAL STATES 01/26/2019 Ot 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, NOS 01/26/2019 Ot 278.00 OBESITY, NOS 01/26/2019 Ot 493.20 CHRONIC OBSTRUCTIVE ASTHMA, NOS 01/26/2019 Ot 780.57 UNSPECIFIED SLEEP APNEA 01/26/2019 MARY BOYD DOSON M Ot 493.00 01/26/2019 Ot I12.9 HYPERTENSIVE CHRONIC KIDNEY DISEASE W ST 01/26/2019 Ot I50.22 CHRONIC SYSTOLIC (CONGESTIVE) HEART FAIL 01/26/2019 Ot N18.3 CHRONIC KIDNEY DISEASE, STAGE 3 (MODERAT 01/26/2019 Ot N40.1 ENLARGED PROSTATE WITH LOWER URINARY TRA 01/26/2019 ALEXANDRO WILSON APRN Ot 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, UNCOMPLICATE 01/26/2019 ALEXANDRO WILSON APRN Ot G47.30 SLEEP APNEA, UNSPECIFIED 01/26/2019 ALEXANDRO WILSON APRN Ot J30.2 OTHER SEASONAL ALLERGIC RHINITIS 01/26/2019 ALEXANDRO WILSON APRN Ot J44.9 CHRONIC OBSTRUCTIVE PULMONARY DISEASE, U 01/26/2019 ALEXANDRO WILSON APRN Ot G47.33 OBSTRUCTIVE SLEEP APNEA (ADULT) (PEDIATR 01/26/2019 ALEXANDRO WILSON APRN Ot J30.2 OTHER SEASONAL ALLERGIC RHINITIS 01/26/2019 ALEXANDRO WILSON APRN Ot J45.909 UNSPECIFIED ASTHMA, UNCOMPLICATED 01/26/2019 ALEXANDRO WILSON APRN Ot J98.4 OTHER DISORDERS OF LUNG 01/26/2019 ALEXANDRO WILSON APRN Ot R94.2 ABNORMAL RESULTS OF PULMONARY FUNCTION S 01/26/2019 ALEXANDRO WILSON APRN Ot G47.33 OBSTRUCTIVE SLEEP APNEA (ADULT) (PEDIATR 01/26/2019 ALEXANDRO WILSON APRN Ot I25.10 ATHSCL HEART DISEASE OF [place] CORONARY 01/26/2019 ALEXANDRO WILSON APRN Ot I51.7 CARDIOMEGALY 01/26/2019 ALEXANDRO WILSON APRN Ot J45.909 UNSPECIFIED ASTHMA, UNCOMPLICATED 01/26/2019 ALEXANDRO WILSON APRN Ot J98.4 OTHER DISORDERS OF LUNG 01/26/2019 ALEXANDRO WILSON APRN Ot K80.20 CALCULUS OF GALLBLADDER W/O CHOLECYSTITI 01/26/2019 ALEXANDRO WILSON APRN Ot 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, UNSP C 01/26/2019 ALEXANDRO WILSON APRN Ot M89.9 DISORDER OF BONE, UNSPECIFIED 01/26/2019 ALEXANDRO WILSON APRN Ot Z98.890 OTHER SPECIFIED POSTPROCEDURAL STATES 01/29/2019 ALEXANDRO WILSON APRN Ot G47.33 OBSTRUCTIVE SLEEP APNEA (ADULT) (PEDIATR 01/29/2019 ALEXANDRO WILSON APRN Ot G47.33 OBSTRUCTIVE SLEEP APNEA (ADULT) (PEDIATR 01/30/2019 ALEXANDRO WILSON APRN Ot G47.33 OBSTRUCTIVE SLEEP APNEA (ADULT) (PEDIATR 01/31/2019 ALEXANDRO WILSON APRN Ot G47.33 OBSTRUCTIVE SLEEP APNEA (ADULT) (PEDIATR 01/31/2019 ALEXANDRO WILSON APRN Ot G47.33 OBSTRUCTIVE SLEEP APNEA (ADULT) (PEDIATR Procedures Code Description Performed By Performed On 38.93 04/23/2011 45.62 04/23/2011 53.49 04/23/2011 96.71 04/23/2011 57.32 04/30/2011 Results Test Result Range Complete blood count (CBC) with automated white blood cell (WBC) differential - 11/13/18 08:47 Blood leukocytes automated count (number/volume) 7.1 10*3/uL 4.3-11.0 Blood erythrocytes automated count (number/volume) 4.73 10*6/uL 4.35-5.85 Venous blood hemoglobin measurement (mass/volume) 14.5 g/dL 13.3-17.7 Blood hematocrit (volume fraction) 46 % 40-54 Automated erythrocyte mean corpuscular volume 97 [foz_us] 80-99 Automated erythrocyte mean corpuscular hemoglobin (mass per erythrocyte) 31 pg 25-34 Automated erythrocyte mean corpuscular hemoglobin concentration measurement (mass/volume) 32 g/dL 32-36 Automated erythrocyte distribution width ratio 15.5 % 10.0- 14.5 Automated blood platelet count (count/volume) 158 10*3/uL 130-400 Automated blood platelet mean volume measurement 9.2 [foz_us] 7.4-10.4 Automated blood neutrophils/100 leukocytes 53 % 42-75 Automated blood lymphocytes/100 leukocytes 30 % 12-44 Blood monocytes/100 leukocytes 11 % 0-12 Automated blood eosinophils/100 leukocytes 5 % 0-10 Automated blood basophils/100 leukocytes 1 % 0-10 Blood neutrophils automated count (number/volume) 3.7 10*3 1.8-7.8 Blood lymphocytes automated count (number/volume) 2.1 10*3 1.0-4.0 Blood monocytes automated count (number/volume) 0.8 10*3 0.0- 1.0 Automated eosinophil count 0.3 10*3/uL 0.0-0.3 Automated blood basophil count (count/volume) 0.1 10*3/uL 0.0-0.1 [id number] - 11/13/18 08:47 Serum or plasma urea nitrogen measurement (mass/volume) 49 mg/dL 7-18 Serum or plasma creatinine measurement (mass/volume) 1.98 mg/dL 0.60-1.30 Serum or plasma urea nitrogen/creatinine mass ratio 25 NRG Serum or plasma creatinine measurement with calculation of estimated glomerular filtration rate 33 NRG Encounters ACCT No. Visit Date/Time Discharge Status Pt. Type Provider Facility Loc./Unit Complaint [id number] 01/30/2019 20:27:00 01/31/2019 06:58:00 DIS Outpatient ALEXANDRO WILSON APRN [facility] SLEEP SLEEP APNEA [id number] 11/20/2018 10:33:00 11/20/2018 23:59:59 CLS Preadmit ALEXANDRO WILSON APRN [facility] RAD ABN RESULTS OF PULMONARY FUNCTION STUDIES [id number] 11/20/2018 08:21:00 11/20/2018 23:59:59 CLS Outpatient ALEXANDRO WILSON APRN [facility] RAD DECREASED DIFFUSION CAPACITY OF LUNG [id number] 11/13/2018 08:35:00 11/13/2018 23:59:59 CLS Outpatient ALEXANDRO WILSON APRN [facility] LAB DECREASED DIFFUSION CAPACITY OF LUNG [id number] 11/01/2018 11:35:00 11/01/2018 23:59:59 CLS Outpatient ALBA WILSONINE E PIPE TURNER [facility] RT SLEEP APNEA,COPD [id number] 02/01/2018 08:00:00 02/01/2018 23:59:59 CLS Preadmit ALBA WILSONINE E PIPE TURNER [facility] ASTHMA [id number] 12/27/2017 07:39:00 01/31/2018 00:01:00 DIS Outpatient ALBA WILSONINE E PIPE TURNER [facility] ASTH[place] [id number] 10/18/2017 09:46:00 10/24/2017 00:01:00 DIS Outpatient ALBA WILSONINE E PIPE TURNER [facility] ASTH[place] [id number] 07/12/2017 06:35:00 07/23/2017 00:01:00 DIS Outpatient ALBA WILSONINE E PIPE TURNER [facility] ASTH[place] [id number] 05/31/2017 06:54:00 06/06/2017 00:01:00 DIS Outpatient STEVE ALEXANDRO E PIPE TURNER [facility] [place] [id number] 02/22/2017 07:51:00 02/28/2017 00:01:00 DIS Outpatient STEVE ALEXANDRO E PIPE TURNER [facility] ASTH[place] [id number] 11/11/2016 07:38:00 11/22/2016 00:01:00 DIS Outpatient ALBA WILSONINE E PIPE TURNER [facility] AST[place] [id number] 08/10/2016 06:40:00 08/10/2016 00:01:00 DIS Outpatient STEVE, ALEXANDRO E PIPE TURNER [facility] ASTH[place] [id number] 04/22/2016 09:10:00 05/10/2016 00:01:00 DIS Outpatient STEVE ALEXANDRO E PIPE TURNER [facility] [place] [id number] 01/27/2016 06:23:00 02/02/2016 00:01:00 DIS Outpatient ALEIDA BOYD DO [facility] [place] [id number] 10/21/2015 16:55:00 10/27/2015 00:01:00 DIS Outpatient ALEIDA BOYD DO [facility] [place] [id number] 07/24/2015 00:49:00 07/24/2015 23:59:59 CLS Preadmit ALEIDA BOYD DO [facility] ASTH[place] [id number] 07/15/2015 07:30:00 07/23/2015 00:01:00 DIS Outpatient ALEIDA BOYD DO [facility] [place] [id number] 05/06/2015 06:38:00 05/12/2015 00:01:00 DIS Outpatient ALEIDA BOYD DO [facility] [place] [id number] 12/10/2014 07:15:00 12/10/2014 23:59:59 CLS Outpatient ALEIDA BOYD DO [facility] AST[place] [id number] 10/29/2014 07:53:00 11/04/2014 00:01:00 DIS Outpatient LAKSHMI GONZALEZ, IGNACIO A [facility] ASTHMA [id number] 07/23/2014 06:35:00 08/05/2014 00:01:00 DIS Outpatient LAKSHMI GONZALEZ, IGNACIO A [facility] ASTHMA [id number] 05/10/2014 15:00:00 05/10/2014 16:02:00 DIS Outpatient BRIELLE WHITAKER [facility] REHAB LT KHADRA'S DEFORMITY W/RETROCALCANEAL BURSITIS [id number] 04/23/2014 07:37:00 05/06/2014 00:01:00 DIS Outpatient LAKSHMI GONZALEZ, IGNACIO A [facility] ASTHMA [id number] 01/15/2014 08:26:00 01/30/2014 00:01:00 DIS Outpatient LAKSHMI GONZALEZ, IGNACIO A [facility] ASTH[place] [id number] 09/26/2013 07:41:00 10/17/2013 00:01:00 DIS Outpatient IGNACIO MARTINS MD [facility] SDC ASTHMA [id number] 06/28/2013 12:57:00 08/16/2013 00:01:00 DIS Outpatient LAKSHMI GONZALEZ, IGNACIO Preston [facility] ONC [id number] 03/01/2013 20:55:00 03/01/2013 22:56:00 DIS Emergency KELLY CALDWELL MD [facility] ER HIGH BLOOD PRESSURE [id number] 10/01/2015 06:47:00 Document Registration [id number] 07/29/2015 07:43:00 Document Registration [id number] 07/29/2015 07:43:00 Document Registration [id number] 07/29/2015 07:43:00 Document Registration [id number] 07/29/2015 07:43:00 Document Registration [id number] 07/29/2015 07:43:00 Document Registration [id number] 12/18/2014 12:37:00 Document Registration [id number] 08/17/2013 00:00:00 Document Registration [id number] 12/13/2011 13:43:00 Document Registration [id number] 04/05/2011 20:30:00 Document Registration [id number] 03/11/2011 08:35:00 Document Registration [id number] 03/03/2011 07:45:00 Document Registration [id number] 01/06/2011 08:20:00 Document Registration [id number] 12/29/2010 14:19:00 Document Registration
[2019-04-28 07:19] LABS: BASOPHILS % (AUTO) 0 % (0-10); EOSINOPHILS # (AUTO) 0.2 10^3/uL (0.0-0.3); EOSINOPHILS % (AUTO) 2 % (0-10); HEMATOCRIT 40 % (40-54); HEMOGLOBIN 13.4 G/DL (13.3-17.7); LYMPHOCYTES # (AUTO) 2.1 X 10^3 (1.0-4.0); LYMPHOCYTES % (AUTO) 18 % (12-44); MEAN CORPUSCULAR HEMOGLOBIN 31 PG (25-34); MEAN CORPUSCULAR HGB CONC 34 G/DL (32-36); MEAN CORPUSCULAR VOLUME 91 FL (80-99); MEAN PLATELET VOLUME 8.7 FL (7.4-10.4); MONOCYTES # (AUTO) 1.3 X 10^3 (0.0-1.0); MONOCYTES % (AUTO) 11 % (0-12); NEUTROPHILS # (AUTO) 7.9 X 10^3 (1.8-7.8); NEUTROPHILS % (AUTO) 69 % (42-75); PLATELET COUNT 309 10^3/uL (130-400); RED CELL DISTRIBUTION WIDTH 14.5 % (10.0-14.5); WHITE BLOOD COUNT 11.5 10^3/uL (4.3-11.0)
[2019-04-28 07:31] LABS: INR 1.6 (0.8-1.4); PROTHROMBIN TIME PATIENT 19.3 SEC (12.2-14.7)
--- NOTE | 2019-04-28 07:33 | Diagnostic Imaging Report ---
Indication: Shortness of breath weakness and dizziness. Comparison made with prior examination of 04/30/2011. Findings: There is cardiomegaly. There is a left basilar infiltrate. There is a left pleural effusion. No pneumothorax. Mediastinum unremarkable. There has been a previous median sternotomy. Pacemaker overlies the left hemithorax. Impression: Left basilar infiltrate suspect for pneumonia with left pleural effusion. Cardiomegaly. Dictated by: Dictated on workstation # [id number]
[2019-04-28 07:39] LABS: ALANINE AMINOTRANSFERASE 38 U/L (0-55); ALBUMIN 4.3 GM/DL (3.2-4.5); ALKALINE PHOSPHATASE 144 U/L (40-136); BILIRUBIN,TOTAL 0.8 MG/DL (0.1-1.0); BUN/CREATININE RATIO 36; CALCIUM 9.4 MG/DL (8.5-10.1); CARBON DIOXIDE 21 MMOL/L (21-32); CHLORIDE 84 MMOL/L (98-107); CREATININE SERUM 2.96 MG/DL (0.60-1.30); GFR ESTIMATED 21; GLUCOSE 251 MG/DL (70-105); MAGNESIUM 2.4 MG/DL (1.8-2.4); POTASSIUM 4.5 MMOL/L (3.6-5.0); TOTAL PROTEIN 7.4 GM/DL (6.4-8.2)
--- NOTE | 2019-04-28 07:43 | ED General ---
General Chief Complaint: Dizziness/Syncope Stated Complaint: FEELS FAINT Nursing Triage Note: pt arrived at ed for episodes of syncope. Was seen at the [facility] for mitral valve clip. was unable to have clip done but was diuresed. Nursing Sepsis Screen: No Definite Risk Source of Information: Patient, Spouse ( DOES ALL TALKING FOR PT--TALKS NON-STOP AT LENGTH ) History of Present Illness Date Seen by Provider: Apr 28, 2019 Time Seen by Provider: 07:01 Initial Comments PT ARRIVES VIA POV FROM HOME WITH C/O GENERALIZED WEAKNESS SINCE HE WAS RELEASED FROM [facility] 04/24/19 PT WAS AT [facility] FOR A WEEK, HE WAS BEING EVALUATED FOR POSSIBLE SURGERY--MITRAL VALVE CLIP PT WAS DIURESED FOR SEVERAL DAYS, BUT DID NOT QUALIFY FOR THE SURGERY DUE TO POOR KIDNEY FUNCTION WAS DISMISSED ON O04/24/19 AND GOT HOME ON 04/25/19 PT WAS STARTED ON DEMADEX, AND LASIX WAS STOPPED; PT WAS RESTARTED ON ALLOPURINOL. NO OTHER MEDICATION CHANGES. PT HAS HAD PROGRESSIVE WEAKNESS, AND HAS BEEN TOO WEAK TO STAND--HAS NOT ACTUALLY FALLEN, JUST SLOWLY WENT DOWN ON HIS KNEES--PT DID INJURE HIS RIGHT KNEE OVER A MONTH AGO, AND HAS HAD MULTIPLE EVALUATIONS BY MULTIPLE PROVIDERS, INCLUDING DR. JOSE AND A MULTITUDE OF PHYSICIANS AT [facility]--NO ABNORMALITIES OF BONE/JOINT. PT IS ON COUMADIN, SO HAD SIGNIFICANT SWELLING AND BRUISING TO THE KNEE. NO NEW INJURY PT DENIES ANY ACTUAL SYNCOPE, BUT THOUGHT THAT TODAY HE WAS SHAKING AND THOUGHT HE MIGHT BE HAVING A SMALL SEIZURE, BUT PT DENIES. NO INCONTINENCE OR POST ICTAL SYMPTOMS NO CHEST PAIN NO SHORTNESS OF BREATH NO SWELLING IN LEGS/ FEET NO PALPITATIONS NO FEVER/SWEATS/CHILLS NO COUGH NO HEADACHE NO VISION CHANGES NO PARESTHESIAS OR MOTOR DEFICITS PT DENIES PAIN ANYWHERE LAB VALUES AT [facility] ON 04/24/19: NA 128 K 4.6 BUN 86 CR 2.46 CA 9.3 GLU 177 PCP:DR. OLIVEROS IRON SETTER: DR. NARANJO INSURANCE CLAIMS SPECIALIST: DR. BOYD BUILDING CONTRACTOR: DR. OCAMPO AT [place] Allergies and Home Medications Allergies Coded Allergies: No Known Drug Allergies (Verified , 03/05/09) Home Medications Acetaminophen 325 Mg Tablet, 650 MG PO Q4H PRN, (Reported) Aspirin 81 Mg Tablet.dr, 81 MG PO DAILY, (Reported) Belladonna Alkaloids/Opium 1 Each Supp.rect, 30 MG TN Q6H PRN, (Reported) Enalapril Maleate 5 Mg Tablet, 5 MG PO BID, (Reported) Finasteride 5 Mg Tab, 5 MG PO DAILY, (Reported) Fluticasone Propionate 16 Gm Naspr, 16 GM NS DAILY, (Reported) 2 SPRAYS EACH NOSTRIC DAILY Furosemide 80 Mg Tablet, 1 EACH PO DAILY, (Reported) Lpupljql-Mrzpsmd-Dmmy 149-Hyal 1 Each Tablet, 2 EACH PO DAILY, (Reported) Hydrocortisone/Pramoxine 30 Gm Cream.gm., 0 TN QID, (Reported) APPLY TO AFFECTED AREA Metoprolol Succinate 25 Mg Tab.sr.24h, 1 EACH PO BID, (Reported) Montelukast Sodium 10 Mg Tablet, 10 MG PO DAILY, (Reported) Multivitamins 1 Tab Tablet, 1 TAB PO DAILY, (Reported) Niacin 500 Mg Tablet.sa, 500 MG PO DAILY, (Reported) [place] 3 Polyunsat Fatty Acids 1,000 Mg Cap, 1,000 MG PO DAILY, (Reported) Oxycodone Hcl/Acetaminophen 1 Each Tablet, 1-2 TAB PO Q4H PRN, (Reported) Potassium Chloride 20 Meq Tab, 20 MEQ PO DAILY, (Reported) Simvastatin 40 Mg Tablet, 40 MG PO DAILY, (Reported) Tamsulosin Hcl 0.4 Mg Cap, 0.4 MG PO 1/2 hr after supper, (Reported) Warfarin Sod 5 Mg Tab, 3 MG PO DAILY, (Reported) Patient Home Medication List Home Medication List Reviewed: Yes Review of Systems Review of Systems Constitutional: No chills, No diaphoresis, No dizziness, No fever; weakness EENTM: no symptoms reported Respiratory: no symptoms reported; No cough, No dyspnea on exertion, No short of breath Cardiovascular: No chest pain, No edema, No palpitations, No syncope Gastrointestinal: no symptoms reported; No abdominal pain, No nausea, No vomiting Genitourinary: no symptoms reported Musculoskeletal: see HPI Skin: no symptoms reported Psychiatric/Neurological: See HPI; Denies Headache, Denies Numbness, Denies Paresthesia, Denies Tingling; Tremors, Weakness (GENERALIZED) Hematologic/Lymphatic: No Symptoms Reported Immunological/Allergic: no symptoms reported Past Tsqrjyx-Qkwohw-Uceccb Hx Patient Social History Alcohol Use: Occasionally Uses Recreational Drug Use: No Smoking Status: Former Smoker Type Used: Cigarettes 2nd Hand Smoke Exposure: No Recent Foreign Travel: No Contact w/Someone Who Travel: No Recent Infectious Disease Expo: No Recent Hopitalizations: Yes Immunizations Up To Date Date of Pneumonia Vaccine: Aug 18, 2012 Date of Influenza Vaccine: Jul 24, 2016 Past Medical History Surgeries: Yes (carotid; pacemaker; defibrillator; stent; open heart surgery) Cardiac, CABG, Coronary Stent, Defibrillator, Pacemaker, Vascular Surgery Respiratory: Yes (asthma) Currently Using CPAP: No Currently Using BIPAP: No Cardiac: Yes Atrial Fibrillation, Coronary Artery Disease, High Cholesterol, Hypertension, Syncope, Valvular Heart Disease Neurological: No Reproductive Disorders: No Genitourinary: Yes Renal Failure Gastrointestinal: No Musculoskeletal: No Endocrine: Yes (Hyperglycemia) Diabetes, Non-Insulin dep HEENT: No Cancer: No Psychosocial: No Integumentary: No Blood Disorders: No Family Medical History Hypertension Physical Exam Vital Signs Vital Signs - First Documented 04/28/19 04/28/19 07:11 07:45 Temp 97.5 Pulse 75 Resp 14 B/P (MAP) 101/61 (74) Pulse Ox 95 O2 Delivery Room Air O2 Flow Rate 2.00 FiO2 88 Capillary Refill : Less Than 3 Seconds Height, Weight, BMI Height: 5'10.00" Weight: 198lbs. 0.0oz. [id number]; 29.4 BMI Method:Stated General Appearance: No Apparent Distress, WD/WN, Other (MILDLY LETHARGIC) HEENT: PERRL/EOMI Neck: Full Range of Motion, Normal Inspection, Non Tender, Supple; No Carotid Bruit, No JVD Respiratory: Normal Breath Sounds, No Accessory Muscle Use, No Respiratory Distress, Decreased Breath Sounds (IN LEFT > RIGHT BASE) Cardiovascular: Regular Rate, Rhythm, No Edema, No JVD, Normal Peripheral Pulses, Systolic Murmur (FAINT) Gastrointestinal: Normal Bowel Sounds, No Organomegaly, No Pulsatile Mass, Non Tender, Soft Back: No CVA Tenderness Extremity: No Calf Tenderness, No Pedal Edema, Other (MODERATE SWELLING, OLD ECCHYMOSIS AND OLD SCABBED WOUND TO RIGHT KNEE--IS UNCHANGED, PER PT AND --INJURY OCCURRED OVER A MONTH AGO) Neurologic/Psychiatric: Alert, Oriented x3, No Motor/Sensory Deficits, contact representative II- XII Norm as Tested, Other (FLAT AFFECT) Skin: Normal Color, Warm/Dry, Ecchymosis Focused Exam Lactate Level 04/28/19 07:53: Lactic Acid Level 2.55*H 04/28/19 09:30: Lactic Acid Level 1.84 Lactic Acid Level Laboratory Tests Test 04/28/19 07:53 04/28/19 09:30 Lactic Acid Level 2.55 MMOL/L (0.50-2.00) *H 1.84 MMOL/L (0.50-2.00) Progress/Results/Core Measures Suspected Sepsis Recent Fever Within 48 Hours: No Infection Criteria Present: None New/Unexplained Altered Menta: No Sepsis Screen: No Definite Risk SIRS Temperature:97.5 Pulse: 75 Respiratory Rate: 14 Laboratory Tests 04/28/19 07:12: White Blood Count 11.5H Blood Pressure 101 /61 Mean: 74 04/28/19 07:53: Lactic Acid Level 2.55*H 04/28/19 09:30: Lactic Acid Level 1.84 Laboratory Tests 04/28/19 07:12: Creatinine 2.96H, INR Comment 1.6H, Platelet Count 309, Total Bilirubin 0.8 Results/Orders Lab Results Laboratory Tests Test 04/28/19 07:12 04/28/19 07:53 04/28/19 09:15 04/28/19 09:30 Range/Units White Blood Count 11.5 H 4.3-11.0 10^3/uL Red Blood Count 4.37 4.35-5.85 10^6/uL Hemoglobin 13.4 13.3-17.7 G/DL Hematocrit 40 40-54 % Mean Corpuscular Volume 91 80-99 FL Mean Corpuscular Hemoglobin 31 25-34 PG Mean Corpuscular Hemoglobin Concent 34 32-36 G/DL Red Cell Distribution Width 14.5 10.0-14.5 % Platelet Count 309 130-400 10^3/uL Mean Platelet Volume 8.7 7.4-10.4 FL Neutrophils (%) (Auto) 69 42-75 % Lymphocytes (%) (Auto) 18 12-44 % Monocytes (%) (Auto) 11 0-12 % Eosinophils (%) (Auto) 2 0-10 % Basophils (%) (Auto) 0 0-10 % Neutrophils # (Auto) 7.9 H 1.8-7.8 X 10^3 Lymphocytes # (Auto) 2.1 1.0-4.0 X 10^3 Monocytes # (Auto) 1.3 H 0.0-1.0 X 10^3 Eosinophils # (Auto) 0.2 0.0-0.3 10^3/uL Basophils # (Auto) 0.0 0.0-0.1 10^3/uL Prothrombin Time 19.3 H 12.2-14.7 SEC INR Comment 1.6 H 0.8-1.4 Activated Partial Thromboplast Time 36 H 24-35 SEC Sodium Level 121 *L 135-145 MMOL/L Potassium Level 4.5 3.6-5.0 MMOL/L Chloride Level 84 L 98-107 MMOL/L Carbon Dioxide Level 21 21-32 MMOL/L Anion Gap 16 H 5-14 MMOL/L Blood Urea Nitrogen 108 *H 7-18 MG/DL Creatinine 2.96 H 0.60-1.30 MG/DL Estimat Glomerular Filtration Rate 21 BUN/Creatinine Ratio 36 Glucose Level 251 H 70-105 MG/DL Calcium Level 9.4 8.5-10.1 MG/DL Corrected Calcium 9.2 8.5-10.1 MG/DL Magnesium Level 2.4 1.8-2.4 MG/DL Total Bilirubin 0.8 0.1-1.0 MG/DL Aspartate Amino Transf (AST/SGOT) 25 5-34 U/L Alanine Aminotransferase (ALT/SGPT) 38 0-55 U/L Alkaline Phosphatase 144 H 40-136 U/L Troponin I < 0.028 <0.028 NG/ML B-Type Natriuretic Peptide 110.0 H <100.0 PG/ML Total Protein 7.4 6.4-8.2 GM/DL Albumin 4.3 3.2-4.5 GM/DL TSH Hardin Testing 3.72 0.35-4.94 UIU/ML Digoxin Level 0.45 L 0.80-2.00 NG/ML Lactic Acid Level 2.55 *H 1.84 0.50-2.00 MMOL/L Urine Color YELLOW Urine Clarity CLEAR Urine pH 5 5-9 Urine Specific [place] 1.010 L 1.016-1.022 Urine Protein NEGATIVE NEGATIVE Urine Glucose (UA) NEGATIVE NEGATIVE Urine Ketones NEGATIVE NEGATIVE Urine Nitrite NEGATIVE NEGATIVE Urine Bilirubin NEGATIVE NEGATIVE Urine Urobilinogen NORMAL NORMAL MG/DL Urine Leukocyte Esterase NEGATIVE NEGATIVE Urine RBC (Auto) NEGATIVE NEGATIVE Urine RBC NONE /HPF Urine WBC NONE /HPF Urine Squamous Epithelial Cells RARE /HPF Urine Crystals NONE /LPF Urine Bacteria NEGATIVE /HPF Urine Casts PRESENT /LPF Urine Hyaline Casts >50 H /LPF Urine Mucus NEGATIVE /LPF Urine Culture Indicated NO My Orders Orders - JASEN PANTOJA DO Ekg Tracing (04/28/19 06:59) Ed Iv/Invasive Line Start (04/28/19 07:08) Monitor-Rhythm Ecg Trace Only (04/28/19 07:08) Chest 1 View, Ap/Pa Only (04/28/19 07:08) BNP (04/28/19 07:08) Cbc With Automated Diff (04/28/19 07:08) Comprehensive Metabolic Panel (04/28/19 07:08) Digoxin (04/28/19 07:08) Magnesium (04/28/19 07:08) Protime With Inr (04/28/19 07:08) Partial Thromboplastin Time (04/28/19 07:08) Thyroid Analyzer (04/28/19 07:08) Troponin I (04/28/19 07:08) Lactic Acid Analyzer (04/28/19 07:43) Blood Culture (04/28/19 07:43) Ct Chest Wo (04/28/19 07:43) Urinalysis (04/28/19 07:49) Urine Culture (04/28/19 07:49) Ed Iv/Invasive Line Start (04/28/19 07:49) Vital Signs Adult Sepsis Patie Q15M (04/28/19 07:49) O2 (04/28/19 07:49) Remove Rings In Anticipation O (04/28/19 07:49) Cefepime Injection (Maxipime Injection) (04/28/19 08:00) Ed Iv/Invasive Line Start (04/28/19 07:49) Ns Iv 1000 Ml (Sodium Chloride 0.9%) (04/28/19 07:49) Medications Given in ED Current Medications Medications Dose Ordered Sig/Sammy Route Start Time Stop Time Status Last Admin Dose Admin Cefepime HCl 1000 mg/Sterile Water 10 ml @ 200 mls/hr ONCE ONCE IV 04/28/19 08:00 04/28/19 08:02 DC 04/28/19 08:41 200 MLS/HR Vital Signs/I&O 04/28/19 04/28/19 04/28/19 07:11 07:45 10:41 Temp 97.5 Pulse 75 75 Resp 14 14 B/P (MAP) 101/61 (74) 115/64 (81) Pulse Ox 95 99 O2 Delivery Room Air Nasal Cannula Nasal Cannula O2 Flow Rate 2.00 2.00 FiO2 88 Capillary Refill : Less Than 3 Seconds Blood Pressure Mean: 74 Progress Note : Progress Note BP UP TO 120'S/70'S PT WEARS HOME O2 AT HS AND PRN--DID HAVE ECG Initial ECG Impression Date: Apr 28, 2019 Initial ECG Impression Time: 07:03 Initial ECG Rate: 79 Comment 100% VENTRICULAR PACED Diagnostic Imaging Comments CXR--LEFT BASILAR INFILTRATE WITH LEFT PLEURAL EFFUSION, [place] [address] CT CHEST--CARDIOMEGALY WITHOUT FAILURE--[place] RADIOLOGIST [place] AT 0838 Reviewed: Reviewed by Al Departure Communication (Admissions) 0855--SPOKE WITH DR. WILLAMS, ADVISES TRANSFER, DUE TO VERY POOR RENAL FUNCTION 0910--SPOKE WITH STEFAN, ON COMPLETE DIVERSION 0922--CALLED [facility], SPOKE WITH DR. TRAN, HOSPITALIST, ACCEPTS PT FOR ADMIT/TRANSFER. Impression Primary Impression: WORSENING OF CHRONIC RENAL FAILURE Additional Impressions: Generalized weakness Hyponatremia Cardiomyopathy Hyperglycemia Valvular heart disease CAD (coronary artery disease) Disposition: XFER SHT-TRM HOSP Condition: Stable Transfer Transfer Facility: [facility] Method of Transfer: EMS Departure-Patient Inst. Referrals: NICHOLAS OLIVEROS DO (PCP/Family) Primary Care Physician JASEN PANTOJA DO Apr 28, 2019 07:43
[2019-04-28 07:46] LABS: SODIUM 121 MMOL/L (135-145)
[2019-04-28] MEDS ORDERED: NS IV 1000 ML 1,000 ML IV SCH (07:49)
--- NOTE | 2019-04-28 07:50 | NUR ---
Pt O2 level increased to 98% after 2 lpm O2 applied.
[2019-04-28 07:59] LABS: TSH (THYROID ANALYZER) 3.72 UIU/ML (0.35-4.94)
[2019-04-28] MEDS ORDERED: CEFEPIME INJECTION 1,000 MG in WATER (STERILE) FOR INJECTION 10 ML IV ONE (08:00)
--- NOTE | 2019-04-28 08:25 | Diagnostic Imaging Report ---
PROCEDURE: CT chest without contrast. TECHNIQUE: Multiple contiguous axial images were obtained through the chest without the use of intravenous contrast. Auto Exposure Controls were utilized during the CT exam to meet ALARA standards for radiation dose reduction. INDICATION: Dyspnea with weakness and dizziness. COMPARISON: 11/20/2018. DISCUSSION: Exam is degraded by patient motion. 2 mm nodules are noted bilaterally which are statistically benign, some of which are calcified. Calcified pleural plaque on the left is stable. Cardiomegaly is again noted. Left-sided pacemaker is present. The thoracic aorta is normal in caliber and configuration and contain scattered atherosclerotic disease. Coronary artery disease is again noted. Pulmonary arteries are not dilated. No focal consolidation. Cholelithiasis is present. Right renal atrophy is incompletely viewed. The upper abdomen is otherwise unremarkable. No acute osseous abnormality identified. No pathologically enlarged lymph nodes are identified. IMPRESSION: 1. Cardiomegaly without failure, stable. No acute abnormality otherwise. Dictated by: Dictated on workstation # [id number]
--- NOTE | 2019-04-28 08:45 | NUR ---
Dr. Frazier in room speaking with patient.
[2019-04-28 09:20] LABS: BILIRUBIN,URINE NEGATIVE (NEGATIVE); CLARITY,URINE CLEAR; COLOR,URINE YELLOW; GLUCOSE, URINE (UA) NEGATIVE (NEGATIVE); KETONES,URINE NEGATIVE (NEGATIVE); LEUKOCYTE ESTERASE ,URINE NEGATIVE (NEGATIVE); NITRITE,URINE NEGATIVE (NEGATIVE); PH,URINE 5 (5-9); PROTEIN,URINE NEGATIVE (NEGATIVE); UROBILINOGEN,URINE NORMAL (NORMAL)
--- NOTE | 2019-04-28 09:20 | NUR ---
60mL urine output when give sample for ua.
[2019-04-28 09:30] LABS: BACTERIA,URINE NEGATIVE /HPF; SQUAMOUS EPITHELIAL CELL,UR RARE /HPF
[2019-04-28 09:32] LABS: HYALINE CASTS, URINE >50 /LPF
--- NOTE | 2019-04-28 10:04 | NUR ---
Dispatch notified of transfer.
--- NOTE | 2019-04-28 10:10 | NUR ---
Seema flores [facility] called for patient report.
[2019-04-28 10:41] VITALS: BP 115/64
== END 2019-04-28 10:41 | disposition short-term general hospital (02) ==
LOC: EDUNIT# 06:31 → ER 06:33
DX: I12.9 Hypertensive chronic kidney disease with stage 1 through stage 4 chronic kidney disease, or unspecified chronic kidney disease (principal); E11.22 Type 2 diabetes mellitus with diabetic chronic kidney disease; N18.9 Chronic kidney disease, unspecified; E87.1 Hypo-osmolality and hyponatremia; I42.9 Cardiomyopathy, unspecified; I25.10 Atherosclerotic heart disease of native coronary artery without angina pectoris; E11.65 Type 2 diabetes mellitus with hyperglycemia; I38 Endocarditis, valve unspecified; R53.1 Weakness; J45.909 Unspecified asthma, uncomplicated; E78.00 Pure hypercholesterolemia, unspecified; I48.91 Unspecified atrial fibrillation; Z95.810 Presence of automatic (implantable) cardiac defibrillator; Z95.1 Presence of aortocoronary bypass graft; Z95.5 Presence of coronary angioplasty implant and graft; Z79.82 Long term (current) use of aspirin; Z79.52 Long term (current) use of systemic steroids; Z79.01 Long term (current) use of anticoagulants; Z87.891 Personal history of nicotine dependence; Z82.49 Family history of ischemic heart disease and other diseases of the circulatory system
CPT/HCPCS: 36415; 71045; 71250; 80053; 80162; 81000; 83605; 83735; 83880; 84443; 84484; 85025; 85610; 85730; 87040; 87088; 93005; 93041; 96361; 96374

== ENCOUNTER → 2021-02-06 | Outpatient (CLI) | payer MEDICARE ==
--- NOTE | 2021-02-06 15:11 | Diagnostic Imaging Report ---
PROCEDURE: CT lumbar spine without contrast. TECHNIQUE: Multiple contiguous axial images were obtained through the lumbar spine without the use of intravenous contrast. Sagittal and coronal reformations were then performed. Auto Exposure Controls were utilized during the CT exam to meet ALARA standards for radiation dose reduction. INDICATION: Back pain. Spinal stenosis. COMPARISON: None. FINDINGS: There are five lumbar-type vertebral bodies. Normal alignment. Vertebral body heights are preserved. No fractures. Advanced degenerative endplate changes at L2-L5. Mild facet arthropathy is greatest on the right at L4-S1. No evidence of high-grade spinal canal stenosis on soft tissue windows. Osteophytic ridging and disc space height loss result in moderate neuroforaminal narrowing on the right at L4-L5. Moderate degenerative changes in the sacroiliac joints. Advanced colonic diverticulosis without evidence of active diverticulitis within the [id number]-[id number]. IMPRESSION: 1. Advanced spondylotic changes at L2-L5. No acute CT findings in the lumbar spine. 2. No high-grade spinal canal stenosis is evident on soft tissue windows. There is moderate neuroforaminal narrowing on the right at L4-L5. 3. Moderate degenerative changes in the sacroiliac joints. 4. Advanced colonic diverticulosis without evidence of active diverticulitis within the iqyob-la-zjfg. Dictated by: Dictated on workstation # [id number]
== END ==
LOC: RAD 14:45
PROVIDERS: ATTEND Nurse Practitioner
DX: M51.26 Other intervertebral disc displacement, lumbar region (principal); M48.061 Spinal stenosis, lumbar region without neurogenic claudication; M19.90 Unspecified osteoarthritis, unspecified site; K57.30 Diverticulosis of large intestine without perforation or abscess without bleeding
CPT/HCPCS: 72131

== ENCOUNTER → 2021-06-23 | Outpatient (CLI) | payer MEDICARE ==
[~2021-06-23] MED LIST changes: +RT-ALBUTEROL SULF 2.5 MG/3 ML PRE-MIX VIAL INH ONE
== END ==
LOC: RT 08:00
PROVIDERS: ATTEND Nurse Practitioner Family
DX: J98.4 Other disorders of lung (principal)
CPT/HCPCS: 94060; 94726; 94729

== ENCOUNTER → 2021-11-03 | Outpatient (CLI) | payer MEDICARE ==
[~2021-11-03] MED LIST changes: -RT-ALBUTEROL SULF 2.5 MG/3 ML PRE-MIX VIAL INH ONE
--- NOTE | 2021-11-03 09:48 | Diagnostic Imaging Report ---
INDICATION: Pain in right side of abdomen. PROCEDURE: Ultrasound abdomen complete. TECHNIQUE: Multiple Real-time grayscale images were obtained of the abdomen in various projections. The study is technically difficult due to body habitus and bowel gas. FINDINGS: The liver measures 17 cm. No liver lesions are seen. The bile ducts are not dilated. The common duct measures 2 mm. There are multiple gallstones. The gallbladder is mildly distended. There is thickening of the gallbladder wall measuring 4 mm with mild pericholecystic fluid. The aorta is obscured by bowel gas. The pancreas is also obscured. The spleen measures 13 cm. The IVC and portal vein appear normal with Doppler sampling. The right kidney measures 8.5 x 4.6 x 3.6 cm. There is a 1.4 cm simple cyst off the lower pole. The left kidney measures 11.7 x 6.2 x 6.3 cm and appears normal. There is no ascites. Negative Reeder sign. IMPRESSION: 1. Cholelithiasis with a thickened gallbladder wall suggesting cholecystitis. The bile ducts are not dilated. 2. Simple cyst off the lower pole of the right kidney measuring 1.4 cm. Dictated by: Dictated on workstation # [id number]
== END ==
LOC: RAD 08:30
PROVIDERS: ATTEND Family Medicine
DX: K80.20 Calculus of gallbladder without cholecystitis without obstruction (principal); N28.1 Cyst of kidney, acquired; K82.8 Other specified diseases of gallbladder
CPT/HCPCS: 76700

== ENCOUNTER 2021-11-24 05:41 | Outpatient (CLI) | payer MEDICARE ==
[~2021-11-24] VITALS: Ht 180.3 cm; Wt 83.4 kg
[2021-11-24] MEDS ORDERED: FURO40TA4 PO (12:47)
[2021-11-24] MEDS ORDERED: METF-397 PO (13:01)
[2021-11-24] MEDS ORDERED: CALC0.253 PO (13:01)
[2021-11-24] MEDS ORDERED: DIGO125T3 PO (13:01)
[2021-11-24] MEDS ORDERED: TERA2CAP4 PO (13:01)
[2021-11-24] MEDS ORDERED: PSYL1PAC10 PO (13:01)
[2021-11-24] MEDS ORDERED: VITAMIN D (13:01)
[2021-11-24] MEDS ORDERED: APIX2.5T PO (13:01)
[2021-11-24] MEDS ORDERED: CETI5TAB6 PO (13:01)
[2021-11-24] MEDS ORDERED: SPIR25TA PO (13:01)
[2021-11-24] MEDS ORDERED: ESCI-2 PO (13:01)
[2021-11-24] MEDS ORDERED: RT-ALBUINH IH (13:01)
[2021-11-24] MEDS ORDERED: FLUT1BLS IH (13:01)
[2021-11-24] MEDS ORDERED: LOPE-134 PO (13:01)
[2021-11-24] MEDS ORDERED: FINA5TAB6 PO (13:01)
[2021-11-24] MEDS ORDERED: ALLO100T PO (13:01)
== END 2021-11-24 13:07 | disposition home or self-care (01) ==
LOC: PREOP 05:41
PROVIDERS: ATTEND Surgery
DX: Z01.818 Encounter for other preprocedural examination (principal)

== ENCOUNTER 2021-11-26 10:00 | Day surgery (SDC) | payer MEDICARE ==
[~2021-11-26] VITALS: Ht 180.3 cm; Wt 83.4 kg
[2021-11-26] VITALS (11 sets, daily range): BP systolic 128–160; BP diastolic 63–80
[~2021-11-26 10:00] MED LIST changes: +ALLO100T PO; +APIX2.5T PO; +CALC0.253 PO; +CETI5TAB6 PO; +DIGO125T3 PO; +ESCI-2 PO; +FINA5TAB6 PO; +FLUT1BLS IH; +LOPE-134 PO; +METF-397 PO; +PSYL1PAC10 PO; +RT-ALBUINH IH; +SPIR25TA PO; +TERA2CAP4 PO; +VITAMIN D
[2021-11-26] MEDS ORDERED: ceFAZolin 2 GM IV Premixed 50 ML IV ONE (10:15)
--- NOTE | 2021-11-26 10:17 | Progress Note-Pre Operative ---
Pre-Operative Progress Note H&P Reviewed The H&P was reviewed, patient examined and no changes noted. Date Seen by Provider: Nov 26, 2021 Time Seen by Provider: 10:15 Date H&P Reviewed: Nov 26, 2021 Time H&P Reviewed: 10:10 Pre-Operative Diagnosis: Chronic calculous cholecystitis, Incisional hernia, Screening colonoscopy JUAN MANUEL WEN APRN Nov 26, 2021 10:17
[2021-11-26] MEDS ORDERED: HYDR-3817 PO (10:19)
--- NOTE | 2021-11-26 10:20 | Discharge Inst-Surgical ---
D/C Lap Instructions-KIDO Reconcile Patient Problems Problems Reviewed?: Yes New, Converted, or Re-Newed RX: RX on Chart Follow Up Appt in 2 weeks Activity as tolerated No driving for 24 hours No driving while on pain medications Incentive Spirometry use every 2 hours while awake Regular Diet High Fiber Diet 25g or more per day Drink 64 fluid oz or more of fluids per day. Symptoms to Report: Fever over 101 degree F, Nausea/Vomiting Infection Signs and Symptoms to report: Increased redness, Foul odor of wound, Increased drainage Bathing instructions: May shower Operative Area Clean/Dry; Keep incision clean/dry If any problems/questions: Contact your physician or go to Emergency Room JUAN MANUEL WEN APRN Nov 26, 2021 10:20
[2021-11-26] MEDS ORDERED: HYDROcodone/APAP 5 MG/325 MG (LORTAB) TAB PO ONE (10:30)
[2021-11-26] MEDS ORDERED: ACETAMINOPHEN 325 MG TABLET PO PRN (10:30)
[2021-11-26] MEDS ORDERED: morphine INJ 10 MG/ML 1ML (SYR OR VIAL) IVP PRN (10:30)
[2021-11-26] MEDS ORDERED: ONDANSETRON 4 MG/2 ML (SDV) Z0FRAN IVP PRN ×2 (10:30→14:15)
[2021-11-26] MEDS: LACTATED RINGERS 1,000 ML IV PRN ×2 (10:37→13:18)
[2021-11-26] MEDS ORDERED: ceFAZolin 2 GM IV Premixed 50 ML ONE (11:16)
[2021-11-26] MEDS ORDERED: fentaNYL INJ 100 MCG/2 ML AMP ONE (11:26)
[2021-11-26] MEDS ORDERED: proPOfol 200 MG/20 ML (DIPRIVAN) VIAL IV ONE (11:26)
[2021-11-26] MEDS ORDERED: LIDOCAINE PF 2% 5 ML (XYLOCAINE) VIAL ONE (11:26)
[2021-11-26] MEDS ORDERED: SEVOFLURANE (ULTANE) 15 ML INHAL SOLN ONE ×2 (11:26→13:32)
[2021-11-26] MEDS ORDERED: ONDANSETRON 4 MG/2 ML (SDV) Z0FRAN ONE (11:26)
[2021-11-26] MEDS ORDERED: ROCURONIUM 50 MG/5 ML (ZEMURON) VIAL IV ONE (11:27)
[2021-11-26] MEDS ORDERED: LIDOCAINE/EPI 1%-1:200,000 (XYLOCAINE) 30 ML VIAL ONE (11:53)
--- NOTE | 2021-11-26 13:59 | Progress Note-Post Operative ---
Post-Operative Progess Note Surgeon (s)/Clay Dry Press Helper (s) Surgeon Dr. Shaun Rodríguez M.D. Clay Dry Press Helper: Jamie Wen DUSTER TENDER Pre-Operative Diagnosis Chronic calculous cholecystitis, Incisional hernia, Screening colonoscopy Post-Operative Diagnosis Chronic calculous cholecystitis, ventral abdominal Incision hernia 1.5 cm in size, Moderate descending colon diverticulosis, mild cecal inflammation Procedure & Operative Findings Date of Procedure 11/26/21 Procedure Performed/Findings Laparoscopic cholecystectomy, incision hernia repair with mesh, colonoscopy Anesthesia Type GET Estimated Blood Loss Estimated blood loss (mL): Minimal Specimens/Packing Specimens Removed 1) Gallbladder 2) Cecal Biopsy JAMIE WEN DUSTER TENDER Nov 26, 2021 13:59
[2021-11-26] MEDS ORDERED: HYDROmorphone 2 MG/ML VIAL (DILAUDID) ONE (14:15)
[2021-11-26] MEDS ORDERED: HYDROmorphone 2 MG/ML VIAL (DILAUDID) IV ONE (14:15)
--- NOTE | 2021-11-26 14:30 | Anesthesia-General Post-Op ---
General Patient Condition Mental Status/LOC: Same as Preop Cardiovascular: Satisfactory Nausea/Vomiting: Absent Respiratory: Satisfactory Pain: Controlled Complications: Absent Post Op Complications Complications None Follow Up Care/Instructions Patient Instructions None needed. Anesthesia/Patient Condition Patient Condition Patient is doing well, no complaints, stable vital signs, no apparent adverse anesthesia problems. No complications reported per nursing. D/C home per [facility] Criteria: Yes SOLEDAD LEWIS CRNA Nov 26, 2021 14:30
[2021-11-26] MEDS ORDERED: HYDROcodone/APAP 5 MG/325 MG (LORTAB) TAB ONE (16:00)
--- NOTE | 2021-11-26 21:30 | OPERATIVE REPORT ---
DATE OF SERVICE: 11/26/2021 ATTENDING PRIMARY CARE PHYSICIAN: Dr. Marek Tamayo. PREOPERATIVE DIAGNOSES: Symptomatic chronic calculous cholecystitis, symptomatic reducible ventral abdominal incisional hernia, weight loss with history of perforated diverticulitis. POSTOPERATIVE DIAGNOSES: Liver cirrhosis, mild gallbladder wall inflammation, small ventral abdominal incisional hernia, moderate to severe descending colonic diverticulosis, mild cecal inflammation. PROCEDURE: Laparoscopic cholecystectomy and ventral abdominal incisional hernia repair with mesh, colonoscopy. SURGEON: Jose L Perez MD LASER SYSTEMS ENGINEER: Jamie Rosario APRN. ANESTHESIA: General endotracheal. ESTIMATED BLOOD LOSS: Minimal. FINDINGS: Liver cirrhosis, mild gallbladder wall inflammation, small ventral abdominal incisional hernia, moderate to severe descending colonic diverticulosis, mild cecal inflammation. DISPOSITION: The patient tolerated the procedure well. INDICATIONS: The patient is an 81-year-old male, who has had pain in the right upper abdominal quadrant, usually after eating meals and this is associated with abdominal bloating and distention as well as nausea; however, no vomiting. He states that this has worsened over time. He simultaneously states that he has had pain in the umbilical region. He states that he had a midline laparotomy incision for perforated diverticulitis in the past. There is a palpable hernia, which is reducible; however, tender to palpation. He is also in need of a screening colonoscopy. He states that during that time that he did have a perforated diverticulitis with his last colonoscopy, which was greater than 10 years ago. He also had a Cologuard test, which was found to be positive. DESCRIPTION OF PROCEDURE: The patient was brought to the operating room, laid supine on the table. After adequate IV pain and sedative medications and general endotracheal intubation, the abdomen was prepped and draped in standard surgical fashion. A 0.5% Marcaine with epinephrine was used to anesthetize overlying skin left upper abdominal quadrant and transverse skin incision made using 15 blade. An 0 silk suture was applied to the medial aspect incision for retraction and a Veress needle inserted with a low opening pressure of 0 mmHg. The abdomen was then insufflated to 15 mmHg pressure. The Veress needle removed and a 5 mm XL trocar placed followed by a 5 mm 45-degree angle laparoscope visualizing the peritoneal cavity. A 4-quadrant abdominal exploration was performed. There was a ventral abdominal incisional hernia, which was small, approximately 1.5 cm in size with greater omentum within the hernia sac as well as some adhesion tissue. We then proceeded to place a right upper abdominal quadrant 5 mm port and the omentum and adhesion tissues were taken down using electrocautery on the hook instrument and through the hernia sac, a 10 mm port placed after the skin and peritoneal lining were anesthetized using 0.5% Marcaine with epinephrine and a transverse supraumbilical skin incision made using a 15 blade. A 4-quadrant abdominal exploration was performed. The patient did appear to have liver cirrhosis as well as a mild amount of ascites in the peritoneal cavity. There was a mild gallbladder wall thickening. The patient was then placed in Trendelenburg position as well as plane right side up, left side down. The fundus of the gallbladder was then retracted anteriorly and superiorly and hepatoduodenal ligament was then dissected opened using blunt dissection as well as electrocautery on the hook instrument as well as a [place] dissector. The entire critical view of safety was identified including the triangle of Calot as well as the cystic duct and artery as only two structures going into the gallbladder as well as the cystic plate behind the proximal gallbladder. A timeout was then taken and the cystic duct and artery were then clipped proximally and distally and cut with EndoShears. The gallbladder was then dissected off the liver bed using cautery on hook instrument with visualization of good hemostasis as well as no leaking ducts of Luschka. The gallbladder was removed through the 10 mm port site using an EndoCatch bag. We then proceeded with a repair of the ventral abdominal incisional hernia laparoscopically, a 6.4 cm round coated polypropylene mesh was placed through the 10 mm port site and tacked to the fascia using absorbable tacks in a concentric manner. The abdomen was desufflated and we then proceeded to place transfascial sutures concentrically to the mesh using interrupted 0 Prolene sutures. Abdomen was desufflated and remaining ports removed. All skin incisions were closed using 4-0 Monocryl running subcuticular suture. The patient was then placed in frog leg position and a digital rectal examination was performed, which revealed chronic stage II external and internal hemorrhoids, normal sphincter tone was felt and there were no palpable masses. Prostate gland was palpable and appeared normal. The endoscope was then intubated into the anus and rectum gently insufflated. The endoscope was then advanced through the remnant of the rectum with no polyps or any neoplasms identified. The colorectal anastomosis appeared normal. There was moderate to severe descending colonic diverticulosis; however, no mucosal inflammatory changes to indicate any active diverticulitis. The endoscope was then advanced to the remainder of the transverse and ascending colon to the cecum. At the level of cecum, a mild mucosal inflammation identified consistent with some low-level colitis. Biopsy was taken with forceps with visualization of good hemostasis. Endoscope was slowly withdrawn while taking a second look and suctioning of residual air with no additional findings. The patient tolerated the procedure well. We will start IV and oral pain medication as well as a clear liquid diet. When he is tolerating clears, has good pain control with oral pain medications, ambulating well, we will discharge him home where he will be instructed to do no heavy lifting or exertion for the next two weeks. We will also have him address the liver cirrhosis with medical management with a low-fat diet as well any alcohol cessation if he does drink alcohol. We will also recommend the incorporation of a high-fiber diet with fiber supplementation, which should make his stools are soft on a regular everyday basis and should equal or exceed 30 grams daily. Job ID: [id number] DocumentID: [id number] Dictated Date: 11/26/2021 14:15:49 Chart Writer Date: 11/26/2021 21:29:08 Dictated By: JOSE L PEREZ MD
== END 2021-11-26 17:14 ==
LOC: SDC 10:00
PROVIDERS: ATTEND Surgery
DX: K80.10 Calculus of gallbladder with chronic cholecystitis without obstruction (principal); K43.2 Incisional hernia without obstruction or gangrene; R63.4 Abnormal weight loss; K74.60 Unspecified cirrhosis of liver; K57.30 Diverticulosis of large intestine without perforation or abscess without bleeding; K63.89 Other specified diseases of intestine; K66.0 Peritoneal adhesions (postprocedural) (postinfection); I25.10 Atherosclerotic heart disease of native coronary artery without angina pectoris; I42.0 Dilated cardiomyopathy; I50.9 Heart failure, unspecified; I11.0 Hypertensive heart disease with heart failure; I08.1 Rheumatic disorders of both mitral and tricuspid valves; I48.91 Unspecified atrial fibrillation; E78.5 Hyperlipidemia, unspecified; E11.9 Type 2 diabetes mellitus without complications; J44.9 Chronic obstructive pulmonary disease, unspecified; G47.33 Obstructive sleep apnea (adult) (pediatric); F32.A Depression, unspecified; Z87.891 Personal history of nicotine dependence; Z99.81 Dependence on supplemental oxygen; Z95.1 Presence of aortocoronary bypass graft; Z79.01 Long term (current) use of anticoagulants; Z79.82 Long term (current) use of aspirin; Z79.84 Long term (current) use of oral hypoglycemic drugs; Z79.899 Other long term (current) drug therapy
CPT/HCPCS: 47562; 49654; 82947; 87081; C1781

== ENCOUNTER 2021-12-05 14:46 | Emergency (ER) | payer MEDICARE ==
[~2021-12-05] VITALS: Ht 185.4 cm; Wt 83.6 kg
[~2021-12-05 14:46] MED LIST changes: +HYDR-3817 PO
[2021-12-05] MEDS ORDERED: LACTATED RINGERS 1,000 ML IV ONE (15:15)
[2021-12-05 15:21] LABS: BASOPHILS # (AUTO) 0.1 10^3/uL (0.0-0.1); BASOPHILS % (AUTO) 1 % (0-10); EOSINOPHILS # (AUTO) 0.4 10^3/uL (0.0-0.3); EOSINOPHILS % (AUTO) 4 % (0-10); HEMATOCRIT 36 % (40-54); LYMPHOCYTES # (AUTO) 1.6 X 10^3 (1.0-4.0); LYMPHOCYTES % (AUTO) 18 % (12-44); MEAN CORPUSCULAR HEMOGLOBIN 29 pg (25-34); MEAN CORPUSCULAR HGB CONC 31 g/dL (32-36); MEAN CORPUSCULAR VOLUME 94 fL (80-99); MEAN PLATELET VOLUME 8.6 fL (9.0-12.2); MONOCYTES # (AUTO) 0.8 X 10^3 (0.0-1.0); MONOCYTES % (AUTO) 9 % (0-12); NEUTROPHILS % (AUTO) 66 % (42-75); PLATELET COUNT 252 10^3/uL (130-400)
[2021-12-05 15:27] LABS: ALBUMIN 3.5 GM/DL (3.2-4.5); POTASSIUM 4.6 MMOL/L (3.6-5.0)
[2021-12-05 15:28] LABS: CALCIUM 9.4 MG/DL (8.5-10.1)
[2021-12-05 15:29] LABS: INR 1.3 (0.8-1.4); TOTAL PROTEIN 6.4 GM/DL (6.4-8.2)
[2021-12-05 15:31] LABS: BILIRUBIN,TOTAL 1.2 MG/DL (0.1-1.0)
[2021-12-05 15:33] LABS: CREATININE SERUM 1.38 MG/DL (0.60-1.30)
--- NOTE | 2021-12-05 15:36 | ED GI ---
General Chief Complaint: Abdominal/GI Problems Stated Complaint: BLOOD IN STOOLS-POST OP Nursing Triage Note: AMB TO ROOM WITH WALKER PATIENT AND REPORT ON 11/30 HAD COLONOSCOPY.HERNIA REPAIR AND GALLBLADDER SURG BY DR RODRÍGUEZ. LAST 2 DAYS HAS NOTICED BRIGHT RED BLOOD IN STOOL. BRUSING NOTED ON ABD FROM SURG. HAS BEEN IN CONTACT WITH JUAN MANUEL RODRÍGUEZ PA. STAES HE IS NOT ALLERGIC TO HYDROCODONE BUT MAKES HIM CRAZY AND WILL NO LET HIM TAKE IT AGAIN. History of Present Illness Date Seen by Provider: Dec 05, 2021 Time Seen by Provider: 14:53 Initial Comments 81-year-old male presents to the emergency department for visible blood in stools for the last 2 days. On 11/26/2021 he had colonoscopy, laparoscopic cholecystectomy and hernia repair by Dr. Rodríguez. He has been in contact with the nurse practitioner from Dr. Rodríguez's office over the last 2 days for pain in RLQ and blood intermittently in his stools. He is on Eliquis for A- Fib and valvular heart disease, he was instructed to stop it today. He resumed it 5 days post op, 2.5 mg BID. He reports 3-4 soft stools today, denies issues with hemorrhoids. He has experienced this in the past but was more concerned because of the recent surgery. He was instructed by Juan Manuel Wen APRN to present to ED for labs. He took Tylenol at 0900 today. Previous Hgb 12-13, but results at [facility]. has pictures of toilet with blood streaked stools, no significant pink or red tinge to the stool water. Patient reports history of changes in bowel habits over the last few years, with intermittent diarrhea and passing up to 10 stools a day. He reports the symptoms have improved since the colonoscopy. He was diagnosed with diverticulosis. Timing/Duration: 2-3 Days Severity/Quality: Moderate Location: RLQ Radiation: No Radiation Associated Symptoms: Denies Symptoms; No Back Pain, No Fever/Chills, No Fatigue, No Nausea/Vomiting, No Swelling/Mass in Abdomen Allergies and Home Medications Allergies Coded Allergies: No Known Drug Allergies (Verified , 11/24/21) Patient Home Medication List Home Medication List Reviewed: Yes Albuterol Sulfate (Proair Hfa) 1 Puff Puff, 2 PUFF IH Q4H, (Reported) Entered as Reported by: OLIVA FIELD on 11/24/21 130 Allopurinol (Allopurinol) 100 Mg Tablet, 100 MG PO DAILY, (Reported) Entered as Reported by: OLIVA FIELD on 11/24/21 130 Apixaban (Eliquis) 2.5 Mg Tablet, 2.5 MG PO BID, (Reported) Entered as Reported by: OLIVA FIELD on 11/24/211300 Aspirin (Ecotrin) 81 Mg Tablet.dr, 81 MG PO DAILY, (Reported) Entered as Reported by: MACIEL CAMERON on 03/05/09 0828 Calcitriol (Calcitriol) 0.25 Mcg Capsule, 0.25 MCG PO UD, (Reported) Entered as Reported by: OLIVA FIELD on 11/24/211300 Cetirizine HCl (Cetirizine HCl) 5 Mg Tablet, 5 MG PO DAILY, (Reported) Entered as Reported by: OLIVA FIELD on 11/24/211300 Digoxin (Digoxin) 125 Mcg Tablet, 125 MCG PO DAILY, (Reported) Entered as Reported by: OLIVA FIELD on 11/24/211300 Enalapril Maleate (Enalapril Maleate) 5 Mg Tablet, 5 MG PO BID, (Reported) Entered as Reported by: ADALI WOOD on 05/07/111536 Escitalopram Oxalate (Escitalopram Oxalate) 10 Mg Tablet, 10 MG PO DAILY, (Reported) Entered as Reported by: OLIVA FIELD on 11/24/211300 Finasteride (Proscar) 5 Mg Tab, 5 MG PO BID, (Reported) Entered as Reported by: ADALI WOOD on 05/07/111536 Finasteride (Finasteride) 5 Mg Tablet, 5 MG PO HS, (Reported) Entered as Reported by: OLIVA FIELD on 11/24/21 130 Fluticasone Propionate (Flonase Nasal [place]) 16 Gm Naspr, 16 GM NS DAILY, (Reported) Entered as Reported by: JOSE L TRACY on 04/22/111940 Fluticasone/Vilanterol (Breo Ellipta 200-25 Mcg INH) 1 Each Blst.w.dev, 1-2 EACH IH DAILY, (Reported) Entered as Reported by: OLIVA FIELD on 11/24/21 1301 Furosemide (Furosemide) 40 Mg Tablet, 40 MG PO DAILY, (Reported) Entered as Reported by: OLIVA FIELD on 11/24/21 1247 Gvibmaht-Whejgir-Jciw 149-Hyal (Glucosamine Chondroitin Tablet) 1 Each Tablet, 1 EACH PO DAILY, (Reported) Entered as Reported by: MACIEL CMAERON on 03/05/09 0830 Hydrocodone/Acetaminophen (Hydrocodone-Acetamin 7.5-325) 1 Each Tablet, 1 EACH PO Q4H PRN for PAIN-BREAKTHROUGH Prescribed by: JUAN MANUEL WEN on 11/26/21 1019 Loperamide HCl (Imodium A-D) 2 Mg Tablet, 2 MG PO UD, (Reported) Entered as Reported by: OLIVA FIELD on 11/24/21 1301 Metformin HCl (Metformin HCl) 500 Mg Tablet, 500 MG PO BID, (Reported) Entered as Reported by: OLIVA FIELD on 11/24/21 1301 Metoprolol Succinate (Toprol Xl 25MG) 25 Mg Tab.sr.24h, 1 EACH PO UD, (Reported) Entered as Reported by: ADALI WOOD on 05/07/11 1537 Montelukast Sodium (Singulair 10 Mg) 10 Mg Tablet, 10 MG PO DAILY, (Reported) Entered as Reported by: JOSE L TRACY on 04/22/11 194 Multivitamins (Multiple Vitamin) 1 Tab Tablet, 1 TAB PO DAILY, (Reported) Entered as Reported by: CACHORRO MOBLEY on 08/25/09 1821 [place] 3 Polyunsat Fatty Acids (Fish Oil) 1,000 Mg Cap, 1,000 MG PO HS, (Rep orted) Entered as Reported by: MACIEL CAMERON on 03/05/09 0830 Potassium Chloride (K-Dur) 20 Meq Tab, 20 MEQ PO DAILY, (Reported) Entered as Reported by: ADALI WOOD on 05/07/11 1541 Psyllium Husk (with Sugar) (Metamucil Packet) 3.4 Gm Powd.pack, 3.4 GM PO UD, (Reported) Entered as Reported by: OLIVA FIELD on 11/24/21 1301 Simvastatin (Zocor) 40 Mg Tablet, 40 MG PO DAILY, (Reported) Entered as Reported by: CACHORRO MOBLEY on 08/25/09 1817 Spironolactone (Aldactone) 25 Mg Tablet, 25 MG PO UD, (Reported) Entered as Reported by: OLIVA FIELD on 11/24/21 1301 Tamsulosin Hcl (Flomax) 0.4 Mg Cap, 0.4 MG PO DAILY, (Reported) Entered as Reported by: ADALI WOOD on 05/07/11 1537 Terazosin HCl (Terazosin HCl) 2 Mg Capsule, 2 MG PO DAILY, (Reported) Entered as Reported by: OLIVA FIELD on 11/24/21 1301 [Vitamin D500iu] , (Reported) Entered as Reported by: OLIVA FIELD on 11/24/21 1301 Review of Systems Review of Systems Constitutional: no symptoms reported, see HPI Gastrointestinal: See HPI, Abdominal Pain, Blood Streaked Stools All Other Systems Reviewed Negative Unless Noted: Yes Past Izhwunb-Jvults-Terceb Hx Immunizations Up To Date First/Initial COVID19 Vaccinat: DEC 14 Second COVID19 Vaccination Eder: DEC 14 Third COVID19 Vaccination Date: 07/17/21 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 NARANJO) Atrial Fibrillation, Coronary Artery Disease, High Cholesterol, Hypertension, Syncope, Valvular Heart Disease Neurological: No Reproductive Disorders: No Genitourinary: Yes (STAGE 3) Renal Failure Gastrointestinal: Yes (HERNIA REPAIR, 3-4 MONTHS FREQUENT BM'S) Musculoskeletal: Yes Degenerate Disk Disease, Arthritis Endocrine: Yes Diabetes, Non-Insulin dep HEENT: Yes Hearing Impairment: Hard of Hearing, Bilateral Hearing Aide Cancer: No Psychosocial: No Anxiety Integumentary: No Blood Disorders: No Family Medical History Reviewed Nursing Family Hx Hypertension Physical Exam Vital Signs Vital Signs - First Documented 12/05/21 14:54 Temp 35.3 Pulse 80 Resp 18 B/P (MAP) 134/68 (90) Pulse Ox 97 Capillary Refill : Less Than 3 Seconds Height/Weight/BMI Height: 5'10.00" Weight: 198lbs. 0.0oz. 89.432518xs; 24.00 BMI Method:Stated General Appearance: WD/WN, no apparent distress Neck: non-tender, full range of motion, supple, normal inspection Respiratory: chest non-tender, lungs clear, normal breath sounds Cardiovascular: normal peripheral pulses, regular rate, rhythm, no edema Gastrointestinal: normal bowel sounds, soft, distended, tenderness (RLQ); No hernia, No mass; other (Ecchymosis noted to abdomen, resolving, most significantly in the right lower quadrant.) Back: normal inspection, no CVA tenderness, no vertebral tenderness Neurologic/Psychiatric: no motor/sensory deficits, alert, normal mood/affect, oriented x 3 Skin: normal color, warm/dry, ecchymosis (abdomen) Progress/Results/Core Measures Results/Orders Lab Results Laboratory Tests Test 12/05/21 15:08 Range/Units White Blood Count 9.0 4.3-11.0 10^3/uL Red Blood Count 3.78 L 4.30-5.52 10^6/uL Hemoglobin 11.0 L 13.3-17.7 g/dL Hematocrit 36 L 40-54 % Mean Corpuscular Volume 94 80-99 fL Mean Corpuscular Hemoglobin 29 25-34 pg Mean Corpuscular Hemoglobin Concent 31 L 32-36 g/dL Red Cell Distribution Width 15.8 H 10.0-14.5 % Platelet Count 252 130-400 10^3/uL Mean Platelet Volume 8.6 L 9.0-12.2 fL Immature Granulocyte % (Auto) 2 % Neutrophils (%) (Auto) 66 42-75 % Lymphocytes (%) (Auto) 18 12-44 % Monocytes (%) (Auto) 9 0-12 % Eosinophils (%) (Auto) 4 0-10 % Basophils (%) (Auto) 1 0-10 % Neutrophils # (Auto) 6.0 1.8-7.8 X 10^3 Lymphocytes # (Auto) 1.6 1.0-4.0 X 10^3 Monocytes # (Auto) 0.8 0.0-1.0 X 10^3 Eosinophils # (Auto) 0.4 H 0.0-0.3 10^3/uL Basophils # (Auto) 0.1 0.0-0.1 10^3/uL Immature Granulocyte # (Auto) 0.1 0.0-0.1 10^3/uL Prothrombin Time 17.0 H 12.2-14.7 SEC INR Comment 1.3 0.8-1.4 Activated Partial Thromboplast Time 37 H 24-35 SEC Sodium Level 136 135-145 MMOL/L Potassium Level 4.6 3.6-5.0 MMOL/L Chloride Level 100 98-107 MMOL/L Carbon Dioxide Level 22 21-32 MMOL/L Anion Gap 14 5-14 MMOL/L Blood Urea Nitrogen 37 H 7-18 MG/DL Creatinine 1.38 H 0.60-1.30 MG/DL Estimat Glomerular Filtration Rate 51 BUN/Creatinine Ratio 27 Glucose Level 160 H 70-105 MG/DL Calcium Level 9.4 8.5-10.1 MG/DL Corrected Calcium 9.8 8.5-10.1 MG/DL Total Bilirubin 1.2 H 0.1-1.0 MG/DL Aspartate Amino Transf (AST/SGOT) 32 5-34 U/L Alanine Aminotransferase (ALT/SGPT) 33 0-55 U/L Alkaline Phosphatase 367 H 40-136 U/L Total Protein 6.4 6.4-8.2 GM/DL Albumin 3.5 3.2-4.5 GM/DL My Orders Orders - MINI WARD Cbc With Automated Diff (12/05/21 15:08) Comprehensive Metabolic Panel (12/05/21 15:08) Protime With Inr (12/05/21 15:08) Partial Thromboplastin Time (12/05/21 15:08) Ed Iv/Invasive Line Start (12/05/21 15:08) Lactated Ringers (Lr 1000 Ml Iv Solution (12/05/21 15:15) Ct Abdomen/Pelvis Wo (12/05/21 16:00) Medications Given in ED Current Medications Medications Dose Ordered Sig/Sammy Route Start Time Stop Time Status Last Admin Dose Admin Lactated Ringer's 1,000 ml @ 0 mls/hr Q0M ONCE IV 12/05/21 15:15 12/05/21 15:17 DC 12/05/21 15:25 1,000 MLS/HR Vital Signs/I&O 12/05/21 12/05/21 14:54 17:36 Temp 35.3 Pulse 80 76 Resp 18 18 B/P (MAP) 134/68 (90) 140/71 Pulse Ox 97 Blood Pressure Mean: 90 Progress Progress Note : Time: 14:53 Progress Note Patient seen and evaluated, will obtain labs, normal saline 1 L per IV. 1540 hgb 11, patient reports swelling to RLQ and right flank. Will complete CT abd/pelvis, he is not candidate for contrast due to kidney failure. 1630 CT results reviewed with patient and , no acute findings. Discharge instructions and return precautions reviewed with the patient. Diagnostic Imaging Diagonstic Imaging: CT Plain Films/CT/US/NM/MRI: abdomen, pelvis Comments NAME: KELSEA LOVE [facility] REC#: [id number] PT STATUS: REG ER : 1940 PHYSICIAN: MINI WARD ADMIT DATE: 12/05/21/ER Draft Date of Exam:12/05/21 CT ABDOMEN/PELVIS WO PROCEDURE: CT abdomen and pelvis without contrast. TECHNIQUE: Multiple contiguous axial images were obtained through the abdomen and pelvis without the use of intravenous contrast. Auto Exposure Controls were utilized during the CT exam to meet ALARA standards for radiation dose reduction. INDICATION: Abdominal pain, blood in stools. COMPARISON: 03/03/2011 and ultrasound dated 11/03/2021. FINDINGS: Pacer leads are partially visualized. The heart is significantly enlarged. No significant pericardial effusion. No left pleural effusion. Small right pleural effusion with adjacent atelectasis. Median sternotomy. Extensive soft tissue gas is identified throughout the subcutaneous tissues and musculature of the anterior abdominal wall. Tiny hiatal hernia. Cholecystectomy. No significant focal fluid collection within the gallbladder fossa. Small sized narrowneck fat-containing supraumbilical midline anterior abdominal wall hernia at the level of the stomach. The unenhanced liver is unremarkable. Calcified splenic granuloma. Otherwise, the unenhanced spleen is unremarkable. The adrenal glands are unremarkable. The pancreas is unremarkable. Vascular stent is noted within the left renal artery. Atrophy of the right kidney. The left kidney is unremarkable for age. No hydronephrosis. Advanced vascular calcifications within the abdominal aorta and its branch vessels. No aneurysmal dilatation of the abdominal aorta. The urinary bladder is unremarkable. The prostate gland is enlarged. Extensive colonic diverticulosis, greatest involving the sigmoid colon. Mural thickening of the ascending colon and cecum is noted with mild adjacent inflammatory stranding. No pneumatosis. Prominent loop of small bowel is identified within the left mid abdomen measuring up to 3.6 cm. This is at a site of post surgical changes with anastomosis seen at this location. No additional dilated loops of bowel proximal or distal to this location. Equalization of distal small bowel contents. No significant adenopathy, free fluid or free intraperitoneal air. Recent appearing posterolateral and lateral right 10th, 9th and 8th rib fractures. Mild superior endplate compression deformity with sclerosis involving T8 is identified with associated approximately 10% loss of vertebral body height. Scattered osseous degenerative changes. IMPRESSION: Mural thickening with mild adjacent inflammatory stranding associated with the cecum and ascending colon without pneumatosis or free air. Findings are suspect for colitis of uncertain etiology. Focally dilated loop of small bowel in the left abdomen associated with post surgical changes. This is felt to simply be postsurgical in nature related to the anastomosis as no additional dilated loops of bowel are identified. Recent appearing mild superior endplate compression deformity of T8 with multiple recent appearing posterior lateral and lateral right-sided rib fractures. Small right pleural effusion with adjacent atelectasis. Tiny hiatal hernia. Atrophy of the right kidney. Fat-containing supraumbilical midline anterior abdominal hernia. Extensive soft tissue gas seen throughout the anterior abdominal wall. No free intraperitoneal gas. Dictated on workstation # [id number] Dict: 12/05/21 1636 Trans: 12/05/[address] [facility] [id number] Interpreted by: SERVANDO DE LA CRUZ MD Electronically signed by: Departure Impression Primary Impression: Bloody stools Additional Impression: Colitis Disposition: 01 HOME, SELF-CARE Condition: Improved Departure-Patient Inst. Decision time for Depature: 16:10 Referrals: NICHOLAS OLIVEROS DO (PCP/Family) Primary Care Physician RACHEL RODRÍGUEZ MD Patient Instructions: Colitis (DC) Add. Discharge Instructions: Clear liquid diet for the next 4 to 6 hours then bland diet as tolerated. Continue to monitor symptoms. Follow-up with your surgeon on Tuesday if symptoms are not improving or worsen. Return to the emergency department for new, urgent healthcare problems. All discharge instructions reviewed with patient and/or family. Voiced understanding. Copy Copies To 1: RACHEL RODRÍGUEZ MD, AMY ARNP Dec 05, 2021 15:36
--- NOTE | 2021-12-05 16:56 | Diagnostic Imaging Report ---
PROCEDURE: CT abdomen and pelvis without contrast. TECHNIQUE: Multiple contiguous axial images were obtained through the abdomen and pelvis without the use of intravenous contrast. Auto Exposure Controls were utilized during the CT exam to meet ALARA standards for radiation dose reduction. INDICATION: Abdominal pain, blood in stools. COMPARISON: 03/03/2011 and ultrasound dated 11/03/2021. FINDINGS: Pacer leads are partially visualized. The heart is significantly enlarged. No significant pericardial effusion. No left pleural effusion. Small right pleural effusion with adjacent atelectasis. Median sternotomy. Extensive soft tissue gas is identified throughout the subcutaneous tissues and musculature of the anterior abdominal wall. Tiny hiatal hernia. Cholecystectomy. No significant focal fluid collection within the gallbladder fossa. Small sized narrowneck fat-containing supraumbilical midline anterior abdominal wall hernia at the level of the stomach. The unenhanced liver is unremarkable. Calcified splenic granuloma. Otherwise, the unenhanced spleen is unremarkable. The adrenal glands are unremarkable. The pancreas is unremarkable. Vascular stent is noted within the left renal artery. Atrophy of the right kidney. The left kidney is unremarkable for age. No hydronephrosis. Advanced vascular calcifications within the abdominal aorta and its branch vessels. No aneurysmal dilatation of the abdominal aorta. The urinary bladder is unremarkable. The prostate gland is enlarged. Extensive colonic diverticulosis, greatest involving the sigmoid colon. Mural thickening of the ascending colon and cecum is noted with mild adjacent inflammatory stranding. No pneumatosis. Prominent loop of small bowel is identified within the left mid abdomen measuring up to 3.6 cm. This is at a site of post surgical changes with anastomosis seen at this location. No additional dilated loops of bowel proximal or distal to this location. Equalization of distal small bowel contents. No significant adenopathy, free fluid or free intraperitoneal air. Recent appearing posterolateral and lateral right 10th, 9th and 8th rib fractures. Mild superior endplate compression deformity with sclerosis involving T8 is identified with associated approximately 10% loss of vertebral body height. Scattered osseous degenerative changes. IMPRESSION: Mural thickening with mild adjacent inflammatory stranding associated with the cecum and ascending colon without pneumatosis or free air. Findings are suspect for colitis of uncertain etiology. Focally dilated loop of small bowel in the left abdomen associated with post surgical changes. This is felt to simply be postsurgical in nature related to the anastomosis as no additional dilated loops of bowel are identified. Recent appearing mild superior endplate compression deformity of T8 with multiple recent appearing posterior lateral and lateral right-sided rib fractures. Small right pleural effusion with adjacent atelectasis. Tiny hiatal hernia. Atrophy of the right kidney. Fat-containing supraumbilical midline anterior abdominal hernia. Extensive soft tissue gas seen throughout the anterior abdominal wall. No free intraperitoneal gas. Dictated by: Dictated on workstation # [id number]
[2021-12-05 17:36] VITALS: BP 140/71
== END 2021-12-05 17:35 | disposition home or self-care (01) ==
LOC: EDUNIT# 14:46 → ER 14:51
DX: K52.9 Noninfective gastroenteritis and colitis, unspecified (principal); I10 Essential (primary) hypertension; E11.9 Type 2 diabetes mellitus without complications; I25.10 Atherosclerotic heart disease of native coronary artery without angina pectoris; I48.91 Unspecified atrial fibrillation; E78.00 Pure hypercholesterolemia, unspecified; J44.9 Chronic obstructive pulmonary disease, unspecified; Z95.810 Presence of automatic (implantable) cardiac defibrillator; Z95.5 Presence of coronary angioplasty implant and graft; Z95.1 Presence of aortocoronary bypass graft; Z79.84 Long term (current) use of oral hypoglycemic drugs; Z79.51 Long term (current) use of inhaled steroids; Z79.82 Long term (current) use of aspirin; Z79.01 Long term (current) use of anticoagulants; Z79.899 Other long term (current) drug therapy
CPT/HCPCS: 36415; 74176; 80053; 85025; 85610; 85730

== ENCOUNTER → 2022-04-19 | Outpatient (CLI) | payer MEDICARE | LOC: CARD 14:00 | PROVIDERS: ATTEND Internal Medicine Cardiovascular Disease | DX: I08.3 Combined rheumatic disorders of mitral, aortic and tricuspid valves (principal); I50.22 Chronic systolic (congestive) heart failure | CPT/HCPCS: 93306 ==

== ENCOUNTER 2022-06-13 12:19 | Observation (INO) | payer MEDICARE ==
[~2022-06-13] VITALS: Ht 177 cm; Wt 75.0 kg
[2022-06-13 13:09] VITALS: BP_SYST 128; BP_SYST 132; BP_SYST 143; BP_DIAS 62; BP_DIAS 65; BP_DIAS 71
[2022-06-13 13:11] LABS: BASOPHILS # (AUTO) 0.1 10^3/uL (0.0-0.1); BASOPHILS % (AUTO) 1 % (0-10); EOSINOPHILS # (AUTO) 0.3 10^3/uL (0.0-0.3); EOSINOPHILS % (AUTO) 3 % (0-10); HEMATOCRIT 44 % (40-54); HEMOGLOBIN 14.6 g/dL (13.3-17.7); LYMPHOCYTES # (AUTO) 2.9 10^3/uL (1.0-4.0); LYMPHOCYTES % (AUTO) 30 % (12-44); MEAN CORPUSCULAR HEMOGLOBIN 31 pg (25-34); MEAN CORPUSCULAR HGB CONC 33 g/dL (32-36); MEAN CORPUSCULAR VOLUME 93 fL (80-99); MEAN PLATELET VOLUME 8.9 fL (9.0-12.2); MONOCYTES % (AUTO) 10 % (0-12); NEUTROPHILS # (AUTO) 5.3 10^3/uL (1.8-7.8); NEUTROPHILS % (AUTO) 54 % (42-75); PLATELET COUNT 190 10^3/uL (130-400); WHITE BLOOD COUNT 9.8 10^3/uL (4.3-11.0)
--- NOTE | 2022-06-13 13:11 | ED Syncope ---
General Chief Complaint: Trauma-Non Activation Stated Complaint: FALL Nursing Triage Note: PT TO [facility] BY [facility] WITH CC OF SAME LEVEL FALL AT HOME. STATES PT STARTED FEELING WEAK IN THE RT LEG YESTERDAY AND WAS USING A WALKER THAT HE NORMALLY DOES NOT USE. HEARD THE FALL AND FOUND PT ON HIS BACK WITH THE WALKER IN FRONT OF HIM AND HIS GLASSES A FEW FEET AWAY ABOVE HIS HEAD. PT IS ON ELEQUIS, DENIES NECK PAIN ON PALPATION, STATES HIS NOSE HURTS, HAS A SMALL SKIN TEAR ON RT FOREARM Source of Information: Patient, Family Exam Limitations: No Limitations History of Present Illness Date Seen by Provider: Jun 13, 2022 Time Seen by Provider: 13:08 Initial Comments This is an 82-year-old male with history of A. fib currently on Eliquis the presents to the emergency room for evaluation of a fall. He states that since Tuesday he has felt like his right leg has been weak and he has had some dizziness/unsteadiness. However, they were watching his symptoms until they see the tilting saw operator on Tuesday. Today the was in the kitchen and the patient apparently was trying to come out of the bedroom using a walker (he does not normally use a walker) and the heard a loud bang. When she went into the bedroom she found her laying on his back with his glasses and hearing aids strewn about the room. The patient does not recall any of this and states that he does not feel like he hit his head. However, the states that he h ad a "glazed look" when she was talking to him. When he further describes his right leg weakness that he has been having he sta christian it feels like he has to take an extra step because he cannot take it.. He also reports that he feels like the room is spinning when he stands up. Symptoms Prior to Episode: Injury Loss of Consciousness: Dazed Current Symptoms: Injury Allergies and Home Medications Allergies Coded Allergies: No Known Drug Allergies (Verified , 11/24/21) Patient Home Medication List Home Medication List Reviewed: Yes Albuterol Sulfate (Proair Hfa) 1 Puff Puff, 2 PUFF IH Q4H, (Reported) Entered as Reported by: OLIVA FIELD on 11/24/21 1301 Allopurinol (Allopurinol) 100 Mg Tablet, 100 MG PO DAILY, (Reported) Entered as Reported by: OLIVA FIELD on 11/24/21 130 Apixaban (Eliquis) 2.5 Mg Tablet, 2.5 MG PO BID, (Reported) Entered as Reported by: OLIVA FIELD on 11/24/21 130 Aspirin (Ecotrin) 81 Mg Tablet.dr, 81 MG PO DAILY, (Reported) Entered as Reported by: MACIEL CAMERON on 03/05/09 0828 Calcitriol (Calcitriol) 0.25 Mcg Capsule, 0.25 MCG PO UD, (Reported) Entered as Reported by: OLIVA FIELD on 11/24/21 130 Cetirizine HCl (Cetirizine HCl) 5 Mg Tablet, 5 MG PO DAILY, (Reported) Entered as Reported by: OLIVA FIELD on 11/24/211300 Digoxin (Digoxin) 125 Mcg Tablet, 125 MCG PO DAILY, (Reported) Entered as Reported by: OLIVA FIELD on 11/24/21 130 Enalapril Maleate (Enalapril Maleate) 5 Mg Tablet, 5 MG PO BID, (Reported) Entered as Reported by: ADALI WOOD on 05/07/11 153 Escitalopram Oxalate (Escitalopram Oxalate) 10 Mg Tablet, 10 MG PO DAILY, (Repor butch) Entered as Reported by: OLIVA FIELD on 11/24/211300 Finasteride (Proscar) 5 Mg Tab, 5 MG PO BID, (Reported) Entered as Reported by: ADALI WOOD on 05/07/11 153 Finasteride (Finasteride) 5 Mg Tablet, 5 MG PO HS, (Reported) Entered as Reported by: OLIVA FIELD on 11/24/21 130 Fluticasone Propionate (Flonase Nasal [place]) 16 Gm Naspr, 16 GM NS DAILY, (Reported) Entered as Reported by: JOSE L TRACY on 04/22/111940 Fluticasone/Vilanterol (Breo Ellipta 200-25 Mcg INH) 1 Each Blst.w.dev, 1-2 EACH IH DAILY, (Reported) Entered as Reported by: OLIVA FIELD on 11/24/21 130 Furosemide (Furosemide) 40 Mg Tablet, 40 MG PO DAILY, (Reported) Entered as Reported by: OLIVA FIELD on 11/24/21 1247 Akevmapf-Kagfzlv-Yrfn 149-Hyal (Glucosamine Chondroitin Tablet) 1 Each Tablet, 1 EACH PO DAILY, (Reported) Entered as Reported by: MACIEL CAMERON on 03/05/09 0830 Hydrocodone/Acetaminophen (Hydrocodone-Acetamin 7.5-325) 1 Each Tablet, 1 EACH PO Q4H PRN for PAIN-BREAKTHROUGH Prescribed by: JUAN MANUEL WEN on 11/26/21 1019 Loperamide HCl (Imodium A-D) 2 Mg Tablet, 2 MG PO UD, (Reported) Entered as Reported by: OLIVA FIELD on 11/24/21 1301 Metformin HCl (Metformin HCl) 500 Mg Tablet, 500 MG PO BID, (Reported) Entered as Reported by: OLIVA FIELD on 11/24/21 1301 Metoprolol Succinate (Toprol Xl 25MG) 25 Mg Tab.sr.24h, 1 EACH PO UD, (Reported) Entered as Reported by: ADALI WOOD on 05/07/11 1537 Montelukast Sodium (Singulair 10 Mg) 10 Mg Tablet, 10 MG PO DAILY, (Reported) Entered as Reported by: JOSE L TRACY on 04/22/11 194 Multivitamins (Multiple Vitamin) 1 Tab Tablet, 1 TAB PO DAILY, (Reported) Entered as Reported by: CACHORRO MOBLEY on 08/25/09 182 [place] 3 Polyunsat Fatty Acids (Fish Oil) 1,000 Mg Cap, 1,000 MG PO HS, (Reported) Entered as Reported by: MACIEL CAMERON on 03/05/09 0830 Potassium Chloride (K-Dur) 20 Meq Tab, 20 MEQ PO DAILY, (Reported) Entered as Reported by: ADALI WOOD on 05/07/11 154 Psyllium Husk (with Sugar) (Metamucil Packet) 3.4 Gm Powd.pack, 3.4 GM PO UD, (Reported) Entered as Reported by: OLIVA FIELD on 11/24/21 1301 Simvastatin (Zocor) 40 Mg Tablet, 40 MG PO DAILY, (Reported) Entered as Reported by: CACHORRO MOBLEY on 08/25/09 181 Spironolactone (Aldactone) 25 Mg Tablet, 25 MG PO UD, (Reported) Entered as Reported by: OLIVA FIELD on 11/24/21 1301 Tamsulosin Hcl (Flomax) 0.4 Mg Cap, 0.4 MG PO DAILY, (Reported) Entered as Reported by: ADALI WOOD on 05/07/11 1537 Terazosin HCl (Terazosin HCl) 2 Mg Capsule, 2 MG PO DAILY, (Reported) Entered as Reported by: OLIVA FIELD on 11/24/21 1301 [Vitamin D500iu] , (Reported) Entered as Reported by: OLIVA FIELD on 11/24/21 1301 Review of Systems Constitutional: dizziness, malaise EENTM: no symptoms reported Respiratory: no symptoms reported Cardiovascular: syncope Gastrointestinal: no symptoms reported Genitourinary: no symptoms reported Musculoskeletal: muscle weakness Skin: other (skin tear right forearm ) Psychiatric/Neurological: No Symptoms Reported Past Ltegvkv-Ermrgr-Chjyqr Hx Patient Social History Tobacco Use?: No Substance use?: No Alcohol Use?: No Immunizations Up To Date First/Initial COVID19 Vaccinat: DEC 14 Second COVID19 Vaccination Eder: DEC 14 Third COVID19 Vaccination Date: JUN Seasonal Allergies Seasonal Allergies: Yes Past Medical History Surgery/Hospitalization HX: COPD, CHF, DIABETIC, NON ALCOHOLIC FATTY LIVER DISEASE, A FIB, PACEMAKER*DEPENDANT ON PACEMAKER*, Surgeries: Yes (carotid; pacemaker; defibrillator; stent; open heart surgery) Cardiac, CABG, Coronary Stent, Defibrillator, Pacemaker, Vascular Surgery Respiratory: Yes (asthma, MILD COPD) Asthma, Pneumonia, Sleep Apnea, COPD Currently Using CPAP: No Currently Using BIPAP: No Cardiac: Yes (POSSIBLE HEART ATTACK PER DR. NARANJO) Atrial Fibrillation, Coronary Artery Disease, High Cholesterol, Hypertension, Syncope, Valvular Heart Disease Neurological: No Reproductive Disorders: No Genitourinary: Yes (STAGE 3) Renal Failure Gastrointestinal: Yes (HERNIA REPAIR, 3-4 MONTHS FREQUENT BM'S) Musculoskeletal: Yes Degenerate Disk Disease, Arthritis Endocrine: Yes Diabetes, Non-Insulin dep HEENT: Yes Hearing Impairment: Hard of Hearing, Bilateral Hearing Aide Cancer: No Psychosocial: No Anxiety Integumentary: No Blood Disorders: No Family Medical History Hypertension Physical Exam Vital Signs Vital Signs - First Documented 06/13/22 12:20 Temp 36.5 Pulse 79 B/P (MAP) 142/80 (100) Pulse Ox 96 O2 Delivery Room Air Capillary Refill : Less Than 3 Seconds Height, Weight, BMI Height: 5'10.00" Weight: 198lbs. 0.0oz. 89.159158tg; 23.00 BMI Method:Stated General Appearance: No Apparent Distress, WD/WN HEENT: PERRL/EOMI Neck: Full Range of Motion Cardiovascular: Regular Rate, Rhythm Respiratory: Chest Non Tender, Lungs Clear Back: Normal Inspection, No CVA Tenderness, No Vertebral Tenderness Extremities: Normal Capillary Refill, Normal Inspection, Normal Range of Motion, No Calf Tenderness, No Pedal Edema Neurologic/Psychiatric: Alert, Oriented x3, No Motor/Sensory Deficits, Normal Mood/Affect, sales and marketing associate II-XII Norm as Tested Coordination/Gait: Normal Finger to Nose Motor/Sensory: No Motor Deficit, No Sensory Deficit, No Pronator Drift Skin: Normal Color, Warm/Dry Progress/Results/Core Measures Results/Orders Lab Results Laboratory Tests Test 06/13/22 12:25 Range/Units White Blood Count 9.8 4.3-11.0 10^3/uL Red Blood Count 4.74 4.30-5.52 10^6/uL Hemoglobin 14.6 13.3-17.7 g/dL Hematocrit 44 40-54 % Mean Corpuscular Volume 93 80-99 fL Mean Corpuscular Hemoglobin 31 25-34 pg Mean Corpuscular Hemoglobin Concent 33 32-36 g/dL Red Cell Distribution Width 14.9 H 10.0-14.5 % Platelet Count 190 130-400 10^3/uL Mean Platelet Volume 8.9 L 9.0-12.2 fL Immature Granulocyte % (Auto) 1 % Neutrophils (%) (Auto) 54 42-75 % Lymphocytes (%) (Auto) 30 12-44 % Monocytes (%) (Auto) 10 0-12 % Eosinophils (%) (Auto) 3 0-10 % Basophils (%) (Auto) 1 0-10 % Neutrophils # (Auto) 5.3 1.8-7.8 10^3/uL Lymphocytes # (Auto) 2.9 1.0-4.0 10^3/uL Monocytes # (Auto) 1.0 0.0-1.0 10^3/uL Eosinophils # (Auto) 0.3 0.0-0.3 10^3/uL Basophils # (Auto) 0.1 0.0-0.1 10^3/uL Immature Granulocyte # (Auto) 0.1 0.0-0.1 10^3/uL Sodium Level 135 135-145 MMOL/L Potassium Level 4.2 3.6-5.0 MMOL/L Chloride Level 97 L 98-107 MMOL/L Carbon Dioxide Level 25 21-32 MMOL/L Anion Gap 13 5-14 MMOL/L Blood Urea Nitrogen 49 H 7-18 MG/DL Creatinine 1.66 H 0.60-1.30 MG/DL Estimat Glomerular Filtration Rate 41 BUN/Creatinine Ratio 30 Glucose Level 214 H 70-105 MG/DL Calcium Level 8.9 8.5-10.1 MG/DL Corrected Calcium 9.1 8.5-10.1 MG/DL Total Bilirubin 0.6 0.1-1.0 MG/DL Aspartate Amino Transf (AST/SGOT) 37 H 5-34 U/L Alanine Aminotransferase (ALT/SGPT) 65 H 0-55 U/L Alkaline Phosphatase 265 H 40-136 U/L Troponin I < 0.028 <0.028 NG/ML Total Protein 7.0 6.4-8.2 GM/DL Albumin 3.7 3.2-4.5 GM/DL My Orders Orders - FAIZAN BECKFORD Ct Head/Neck Wo (06/13/22 13:02) Ed Iv/Invasive Line Start (06/13/22 13:02) Cbc With Automated Diff (06/13/22 13:02) Comprehensive Metabolic Panel (06/13/22 13:02) Troponin I Lexie (06/13/22 13:02) Chest 1 View, Ap/Pa Only (06/13/22 13:02) Ekg Tracing (06/13/22 13:02) Vital Signs/I&O 06/13/22 12:20 Temp 36.5 Pulse 79 B/P (MAP) 142/80 (100) Pulse Ox 96 O2 Delivery Room Air Blood Pressure Mean: 100 Departure Communication (Admissions) Time/Spoke to Admitting Phy: 14:[address] Wang and he agrees to accept care of the patient for further evaluation of his syncopal event. I spoke to and patient and they are in agreement to the care plan to be admitted at this time. Impression Primary Impression: Syncopal episodes Additional Impression: Right leg weakness Disposition: ADMITTED INPATIENT Condition: Stable Admissions Decision to Admit Reason: Admit from ER (General) Decision to Admit/Date: Jun 13, 2022 Time/Decision to Admit Time: 14:08 Departure-Patient Inst. Referrals: NICHOLAS OLIVEROS DO (PCP/Family) Primary Care Physician FAIZAN BECKFORD Jun 13, 2022 13:11
[2022-06-13 13:13] LABS: ALBUMIN 3.7 GM/DL (3.2-4.5); CHLORIDE 97 MMOL/L (98-107); POTASSIUM 4.2 MMOL/L (3.6-5.0); SODIUM 135 MMOL/L (135-145)
[2022-06-13 13:15] LABS: CALCIUM 8.9 MG/DL (8.5-10.1)
[2022-06-13 13:16] LABS: GLUCOSE 214 MG/DL (70-105)
[2022-06-13 13:17] LABS: CARBON DIOXIDE 25 MMOL/L (21-32)
[2022-06-13 13:18] LABS: BILIRUBIN,TOTAL 0.6 MG/DL (0.1-1.0)
[2022-06-13 13:19] LABS: ALKALINE PHOSPHATASE 265 U/L (40-136); CREATININE SERUM 1.66 MG/DL (0.60-1.30); GFR ESTIMATED 41
[2022-06-13 13:20] LABS: BUN/CREATININE RATIO 30
[2022-06-13 13:22] LABS: ALANINE AMINOTRANSFERASE 65 U/L (0-55)
--- NOTE | 2022-06-13 13:36 | Diagnostic Imaging Report ---
INDICATION: Syncope. COMPARISON: 04/28/2019. FINDINGS: Leftward rotation limits evaluation of the hilar and mediastinal contours and is grossly unchanged. The cardiomegaly has not clearly changed. The sternal wires appear intact. The pacemaker device is stable. The lungs themselves appear clear and nonfocal at followup. No effusion or pneumothorax. No chest wall fracture deformity. IMPRESSION: Cardiomegaly as a chronic finding but no overt failure, focal pneumonia, or acute pleural pathology and no visualized fracture. Dictated by: Dictated on workstation # [id number]
--- NOTE | 2022-06-13 13:46 | Diagnostic Imaging Report ---
PROCEDURE: CT head and neck without contrast. TECHNIQUE: Contiguous axial images were obtained from the skull base through the vertex. Noncontrast axial images were then obtained of the soft tissue of the neck. Auto Exposure Controls were utilized during the CT exam to meet ALARA standards for radiation dose reduction. INDICATION: Right leg weakness, difficulty walking, and fall. Patient is anticoagulated. FINDINGS: CT HEAD: The CT head shows no hemorrhage, hydrocephalus, edema, mass, mass effect, or evidence for elevated intracerebral pressures. There is generalized cerebral cortical atrophy with the ventricular calibers congruent with the degree of sulcation. No oni hydrocephalus. The basilar cistern is patent. There is no sulcal effacement. There is no evidence for an elevation of the intracerebral pressures. The orbits, sinuses, and calvarium appear nonacute. There are intracranial atherosclerotic vascular calcifications. There is chronic periventricular white matter small vessel disease but no edema. SOFT TISSUE NECK: The cervical vertebral statures are normal. Their alignment is within normal limits. No cervical spinal fracture or facet dislocation. There are advanced degenerative changes to the mid to lower cervical spine. The nasopharynx, oropharynx, and hypopharynx are unremarkable. There are extensive atherosclerotic carotid vascular calcifications. No airway embarrassment. No cervical fluid collection or hematoma. No appreciable lymphadenopathy. IMPRESSION: CT HEAD: Chronic senescent changes but no hemorrhage, fracture, or acute/post traumatic abnormalities. CT NECK: 1. No mass or fluid collection. There are cervical spinal degenerative changes without fracture or traumatic malalignment. 2. Intracranial and cervical atherosclerotic vascular disease. Dictated by: Dictated on workstation # [id number]
[2022-06-13 16:14] VITALS: BP 159/80
[2022-06-13] MEDS ORDERED: ENLP5T PO (17:30)
[2022-06-13] MEDS ORDERED: DAPA10TA PO (17:30)
[2022-06-13] MEDS ORDERED: COLE625T9 PO (17:30)
[2022-06-13] MEDS ORDERED: LACTULOSE SYRUP 10GM/15ML (ENULOSE) 30ML UDC PO PRN (18:00)
[2022-06-13] MEDS ORDERED: MELATONIN 3 MG TABLET PO PRN (18:00)
[2022-06-13] MEDS ORDERED: ANTACID SUSP 30 ML UDC (MYLANTA) PO PRN (18:00)
[2022-06-13] MEDS ORDERED: ONDANSETRON 4 MG (ZOFRAN) ORAL DISSOLVE TAB PO PRN (18:00)
[2022-06-13] MEDS ORDERED: polyethylene glycoL POWDER 17 GM (MIRALAX) PACK PO PRN (18:00)
[2022-06-13] MEDS ORDERED: ONDANSETRON 4 MG/2 ML (SDV) Z0FRAN IV PRN (18:00)
[2022-06-13] MEDS ORDERED: TAMSULOSIN 0.4 MG (FLOMAX) CAP PO SCH (18:00)
[2022-06-13] MEDS ORDERED: MILK OF MAGNESIA 400 MG/5 ML 30 ML UDC PO PRN (18:00)
[2022-06-13] MEDS ORDERED: CALCIUM CARBONATE 500 MG (TUMS) TAB.CHEW PO PRN (18:00)
[2022-06-13] MEDS ORDERED: BISACODYL 10 MG SUPP (DULCOLAX) PR PRN (18:00)
[2022-06-13] MEDS ORDERED: ACETAMINOPHEN 325 MG TABLET PO PRN (18:00)
[2022-06-13] MEDS ORDERED: TAMSULOSIN 0.4 MG (FLOMAX) CAP PO ONE (18:37)
[2022-06-13] MEDS ORDERED: NS IV 1000 ML 1,000 ML ONE (18:37)
[2022-06-13] MEDS: NS IV 1000 ML 1,000 ML IV SCH (18:39)
[2022-06-13 18:55] LABS: BILIRUBIN,URINE NEGATIVE (NEGATIVE); CLARITY,URINE CLEAR; COLOR,URINE YELLOW; GLUCOSE, URINE (UA) 3+ (NEGATIVE); KETONES,URINE NEGATIVE (NEGATIVE); LEUKOCYTE ESTERASE ,URINE NEGATIVE (NEGATIVE); NITRITE,URINE NEGATIVE (NEGATIVE); PH,URINE 5.5 (5-9); PROTEIN,URINE NEGATIVE (NEGATIVE)
[2022-06-13 19:02] LABS: BACTERIA,URINE NEGATIVE /HPF; SQUAMOUS EPITHELIAL CELL,UR RARE /HPF
[2022-06-13] MEDS ORDERED: RT-ALBUTEROL SULF 2.5 MG/3 ML PRE-MIX VIAL INH PRN (19:45)
[2022-06-13 19:47] VITALS: BP 136/81
[2022-06-13] MEDS: inSUlin ASPART (NovoLOG) 1 UNIT/0.01 ML (CHARGE PER UNIT) SC SCH (20:57)
[2022-06-13] MEDS: APIXABAN 2.5 MG (ELIQUIS) TABLET PO SCH (20:57)
[2022-06-13] MEDS: SENNOSIDES 8.6 MG (SENOKOT) TAB PO SCH (20:58)
[2022-06-13] MEDS: DOCUSATE SODIUM 100 MG (COLACE) CAP PO SCH (20:58)
[2022-06-13] MEDS: ENALAPRIL 5 MG (VASOTEC) TAB PO SCH (20:58)
[2022-06-13] MEDS ORDERED: TERAZOSIN 1 MG CAP (HYTRIN) PO SCH (21:00)
[2022-06-13] MEDS ORDERED: MONTELUKAST 10 MG (SINGULAIR) TAB PO SCH (21:00)
[2022-06-13 23:15] VITALS: BP 115/67
[2022-06-14 03:23] VITALS: BP 115/67
[2022-06-14] MEDS: inSUlin ASPART (NovoLOG) 1 UNIT/0.01 ML (CHARGE PER UNIT) SC SCH (05:13)
[2022-06-14 05:53] LABS: BASOPHILS # (AUTO) 0.1 10^3/uL (0.0-0.1); BASOPHILS % (AUTO) 1 % (0-10); EOSINOPHILS # (AUTO) 0.3 10^3/uL (0.0-0.3); EOSINOPHILS % (AUTO) 3 % (0-10); HEMATOCRIT 44 % (40-54); LYMPHOCYTES # (AUTO) 1.9 10^3/uL (1.0-4.0); LYMPHOCYTES % (AUTO) 21 % (12-44); MEAN CORPUSCULAR HEMOGLOBIN 30 pg (25-34); MEAN CORPUSCULAR HGB CONC 32 g/dL (32-36); MEAN CORPUSCULAR VOLUME 94 fL (80-99); MEAN PLATELET VOLUME 8.7 fL (9.0-12.2); MONOCYTES % (AUTO) 11 % (0-12); NEUTROPHILS # (AUTO) 5.7 10^3/uL (1.8-7.8); NEUTROPHILS % (AUTO) 63 % (42-75); PLATELET COUNT 170 10^3/uL (130-400); WHITE BLOOD COUNT 8.9 10^3/uL (4.3-11.0)
[2022-06-14] MEDS: NS IV 1000 ML 1,000 ML IV SCH (05:54)
[2022-06-14 06:08] LABS: POTASSIUM 4.3 MMOL/L (3.6-5.0)
[2022-06-14 06:09] LABS: CALCIUM 8.7 MG/DL (8.5-10.1)
[2022-06-14 06:13] LABS: CREATININE SERUM 1.61 MG/DL (0.60-1.30)
[2022-06-14 08:00] VITALS: BP 131/71
[2022-06-14] MEDS ORDERED: FLUTICASONE/VILANTEROL 200 MCG 14'S (BREO) IH SCH (08:00)
[2022-06-14] MEDS: ENALAPRIL 5 MG (VASOTEC) TAB PO SCH (08:38)
[2022-06-14] MEDS: APIXABAN 2.5 MG (ELIQUIS) TABLET PO SCH (08:38)
[2022-06-14] MEDS: DOCUSATE SODIUM 100 MG (COLACE) CAP PO SCH (08:38)
[2022-06-14] MEDS: SENNOSIDES 8.6 MG (SENOKOT) TAB PO SCH (08:38)
[2022-06-14] MEDS ORDERED: ALLOPURINOL 100 MG (ZYLOPRIM) TAB PO SCH (09:00)
[2022-06-14] MEDS ORDERED: DIGOXIN 0.125 MG (LANOXIN) TAB PO SCH (09:00)
[2022-06-14] MEDS ORDERED: FINASTERIDE (PROSCAR) 5 MG TAB PO SCH (09:00)
--- NOTE | 2022-06-14 09:37 | Short Stay Summary-Hospitalist ---
History of Present Illness HPI/Chief Complaint Pt is an 82yoCF with a PMH of HTN. CAD, atrial fibrillation s/p pacemaker defibrillator who presented to the ER due to fall. He states he hasn't been feeling well for a couple of days and thought his right leg was weak. He was was found down by his after a fall and she thought he looked dazed. He was uncertain if passed out or just fell. He does not feel like he hit his head though. He had a CT head in the Er which was negative for bleed but he was admitted for observation due to his weakness. 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 He does have a pacemaker (the same kind as René Arnold per patient) so unable to get MRI today. He denies any palpitations and reports his pacemaker is monitor by [facility]. He has already been up with therapy and walked and had no issues. Source: patient Date Seen 06/14/22 Time Seen by a Provider: 09:37 Attending Physician Marek Tamayo DO PCP Admitting Physician: Cristel Gonzales MD Attending Physician: Tarah Pollard MD Referring Physician Date of Admission Jun 13, 2022 at 14:08 Home Medications & Allergies Home Medications Reviewed patient Home Medication Reconciliation performed by pharmacy medication reconciliations airframe technician and/or nursing. Patients Allergies have been reviewed. Allergies Allergies Coded Allergies No Known Drug Allergies (Verified11/24/21) Past Kozzshq-Wstoaz-Qjqufy Hx Patient Social History Tobacco Use?: No Smoking Status: Never a Smoker Smokeless Tobacco Frequency: Never a User Use of E-Cig and/or Vaping dev: No Substance use?: No Alcohol Use?: No Pt feels they are or have been: No Immunizations Up To Date Date of Influenza Vaccine: Jul 24, 2021 First/Initial COVID19 Vaccinat: DEC 14 Second COVID19 Vaccination Eder: DEC 14 Tetanus Booster (TDap): Less Than 5 Years Hepatitis A: Yes Hepatitis B: Yes Date of Pneumonia Vaccine: Aug 18, 2021 Seasonal Allergies Seasonal Allergies: Yes Current Status Advance Directives: Yes Advance Directive Location: Copy from prev record Communicates: Verbally Primary Language: Bengali Preferred Spoken Language: Bengali Is interpretation needed?: No Sensory deficits: Vision impairment, Hearing impairment Implanted or Applied Medical D: Pacemaker Past Medical History Surgeries: Cardiac, CABG, Coronary Stent, Defibrillator, Pacemaker, Vascular Surgery Asthma, Pneumonia, Sleep Apnea, COPD Currently Using CPAP: No Currently Using BIPAP: No Atrial Fibrillation, Coronary Artery Disease, High Cholesterol, Hypertension, Syncope, Valvular Heart Disease Renal Failure Degenerate Disk Disease, Arthritis Diabetes, Non-Insulin dep Hearing Impairment: Hard of Hearing, Bilateral Hearing Aide Anxiety Blood Disorders: No Family Medical History Hypertension Review of Systems Constitutional: No chills, No fever EENTM: no symptoms reported Respiratory: no symptoms reported Cardiovascular: No chest pain, No edema; Hx of Intervention; No palpitations; syncope Gastrointestinal: no symptoms reported Genitourinary: no symptoms reported Musculoskeletal: no symptoms reported Skin: no symptoms reported Psychiatric/Neurological: Denies Headache, Denies Numbness, Denies Seizure, Denies Tingling, Denies Weakness Physical Exam Physical Exam Vital Signs Vital Signs - First Documented 06/13/22 06/13/22 06/13/22 12:20 15:00 19:37 Temp 36.5 Pulse 79 Resp 18 B/P (MAP) 142/80 (100) Pulse Ox 96 O2 Delivery Room Air FiO2 21 Capillary Refill : Less Than 3 Seconds Height, Weight, BMI Height: 5'10.00" Weight: 198lbs. 0.0oz. 89.244372th; 23.93 BMI Method:Stated General Appearance: No Apparent Distress, WD/WN HEENT: PERRL/EOMI, Moist Mucous Membranes; No Scleral Icterus (L), No Scleral Icterus (R) Neck: Full Range of Motion, Supple; No Lymphadenopathy (L), No Lymphadenopathy (R) Respiratory: Lungs Clear, No Accessory Muscle Use, No Respiratory Distress Cardiovascular: Regular Rate, Rhythm, No JVD, No Murmur, Normal Peripheral Pulses Gastrointestinal: Normal Bowel Sounds, Non Tender, Soft Extremity: Normal Capillary Refill, Normal Inspection, No Calf Tenderness, No Pedal Edema; No Swelling Neurologic/Psychiatric: Alert, Oriented x3, Normal Mood/Affect; No Abnormal Gait, No Aphasia, No Facial Droop, No Motor Weakness Skin: Normal Color, Warm/Dry Results Results/Procedures Labs Patient resulted labs reviewed. Short Stay Diagnosis Discharge Diagnosis-Short Stay Admission Diagnosis Syncope Final Discharge Diagnosis Syncope Conclusion Plan Syncope Likely orthostatic in nature States pacemaker.defibillator monitored remotely by [facility] Follows with Dr Maida taveras appt next week with him Patient reports feeling back to normal and requesting DC home I called and updated Dr Tamayo who will see him in follow up Diagnosis/Problems Diagnosis/Problems (1) Non-insulin dependent type 2 diabetes mellitus (2) Syncope (3) Valvular heart disease Status: Acute (4) Cardiomyopathy Status: Acute (5) CAD (coronary artery disease) Status: Acute TARAH POLLARD MD Jun 14, 2022 09:37
--- NOTE | 2022-06-14 09:41 | Discharge Inst-Simple/Standard ---
Discharge Inst-Standard Patient Instructions/Follow Up Plan of Care/Instructions/FU: Please continue to take your medications as written. Please follow up with your primary care doctor to follow up this hospital stay. Activity as Tolerated: Yes Discharge Diet: ADA Diet, Cardiac Diet Return to The Hospital For: Chest pain, syncope, shortness of breath, fever, weakness, if you feel you are getting worse. TARAH GUTIERREZ MD Jun 14, 2022 09:41
--- NOTE | 2022-06-14 09:58 | Physical Therapy Evaluation ---
PT Evaluation-General Medical Diagnosis Admission Date Jun 13, 2022 at 14:08 Medical Diagnosis: sycope Onset Date: Jun 13, 2022 Therapy Diagnosis Therapy Diagnosis: debility Height/Weight Height (Feet): 5 Height (Inches): 10.00 Weight (Pounds): 198 Weight (Ounces): 0.0 Precautions Precautions/Isolations: Standard Precautions Referral Physician: Janet Reason for Referral: Evaluation/Treatment Medical History Pertinent Medical History: Atrial Fib (pacemaker), CABG, CAD, COPD, DM, Heart Failure, HTN, PVD, Renal Insufficiency Current History EMS secondary to fall with right LE weakness Reviewed History: Yes Social History Home: Single Level Current Living Status: Spouse Entry Into Home: Level Entry Prior Prior Level of Function SCALE: Activities may be completed with or without assistive devices. 0-Ndgwdnrhud-ndgwqav completes the activity by him/herself with no assistance from a helper. 5-Set-up or Clean-up Assistance-helper sets up or cleans up; patient completes activity. [place] assists only prior to or following the activity. 4-Supervision or Touching Assistance-helper provides verbal cues and/or touching/steadying and/or contact guard assistance as patient completes activity. Assistance may be provided throughout the activity or intermittently. 3-Partial/Moderate Assistance-helper does LESS THAN HALF the effort. [place] lifts, holds or supports trunk or limbs, but provides less than half the effort. 2-Substantial/Maximal Assistance-helper does MORE THAN HALF the effort. [place] lifts or holds trunk or limbs and provides more than half the effort. 0-Sqysuirne-rtwkks does ALL the effort. Patient does none of the effort to co mplete the activity. Or, the assistance of 2 or more helpers is required for the patient to complete the activity. If activity was not attempted, code reason: 7-Patient Refused. 9-Not Applicable-not attempted and the patient did not perform the activity before the current illness, exacerbation or injury. 10-Not Attempted due to Environmental Limitations-(lack of equipment, weather restraints, etc.). 88-Not Attempted due to Medical Conditions or Safety Concerns. Bed Mobility: 6 Transfers (B,C,W/C): 6 Gait: 6 Indoor Mobility (Ambulation): Independent Stairs: Independent patient reports he goes to PT outpatient 3-5/week PT Evaluation-Current Subjective Patient agrees to PT. Objective Patient Orientation: Normal For Age Attachments: IV ROM/Strength ROM Lower Extremities bilateral LE WFL Strength Lower Extremities 4/5 grossly bilateral LE all planes Integumentary/Posture Bowel Incontinence: No Bladder Incontinence: No Posture slightly kyphotic Neuromuscular (Tone, Coordination, Reflexes) grossly intact Sensory Vision: Wears Glasses Hearing: Impaired Transfers Lying to Sitting/Side of Bed(Q: 6 Sit to Stand (QC): 4 Chair/Ujb-vx-Diubh Xfer(QC): 4 Toilet Transfer (QC): 6 SBA for initial evaluation Gait Does the Patient Walk?: Yes Mode of Locomotion: Walk Anticipated Mode of Locomotion: Walk Walk 10 feet (QC): 5 Walk 50 ft with 2 Turns(QC): 5 Walk 150 ft (QC): 5 Distance: 500' Gait Assistive Device: FWW Comments/Gait Description safe and functional with no deviation Balance Sitting Static: Normal Sitting Dynamic: Normal Standing Static: Normal Standing Dynamic: Normal Picking up an Object (QC): 6 Assessment/Needs Patient will be seen short term by skilled PT to ensure safe and functional mobility to return to home safely with spouse and to resume outpatient therapy/wellness program. Rehab Potential: Fair PT Short Term Goals Short Term Goals Time Frame: Jun 18, 2022 Roll Left & Right: 6 Sit to lyin Lying to sitting on side of be: 6 Sit to stand: 6 Chair/zrz-ac-oabhf transfer: 6 Toilet transfer: 6 Walk 10 feet: 6 Walk 50 feet with two turns: 6 Walk 150 feet: 6 PT Plan Treatment/Plan Treatment Plan: Continue Plan of Care Treatment Plan: Education, Functional Activity Jeet, Functional Strength, Gait, Safety, Therapeutic Exercise, Transfers Treatment Duration: Jun 18, 2022 Frequency: 5 times per week Estimated Hrs Per Day: .25 hour per day Patient and/or Family Agrees t: Yes Time/GCodes Time In: 843 Time Out: 901 Total Billed Treatment Time: 18 Total Billed Treatment 1 visit EVMod 18 min DARELL CHRISTENSEN PT Jun 14, 2022 09:58
[2022-06-14 10:45] VITALS: BP 131/71
== END 2022-06-14 10:05 | disposition home or self-care (01) ==
LOC: EDUNIT# 12:19 → ER 12:21 → UNDOADMOB 14:08 → 4TH 14:08 → UNDODISOB 06-14 10:05
PROVIDERS: ADMIT Internal Medicine; ATTEND Family Medicine
DX: R55 Syncope and collapse (principal); E11.9 Type 2 diabetes mellitus without complications; I25.10 Atherosclerotic heart disease of native coronary artery without angina pectoris; I42.9 Cardiomyopathy, unspecified; I35.9 Nonrheumatic aortic valve disorder, unspecified; Z79.899 Other long term (current) drug therapy; R53.1 Weakness
CPT/HCPCS: 70450; 70490; 71045; 80048; 80053; 81000; 82947; 84484; 85025 ×2; 93005; 94664; 94760; 97162; 99284; G0378; 36415

== ENCOUNTER 2022-09-07 08:44 | Day surgery (SDC) | payer MEDICARE ==
[~2022-09-07] VITALS: Ht 177.8 cm; Wt 76.1 kg
[2022-09-07] VITALS (8 sets, daily range): BP systolic 96–140; BP diastolic 67–80
[~2022-09-07 08:44] MED LIST changes: +ALBU8.5H6 IH; +COLE625T30 PO; +DAPA10TA PO; +ENLP5T PO; -RT-ALBUINH IH
[2022-09-07] MEDS ORDERED: ceFAZolin INJECTION 1,000 MG ONE (08:59)
[2022-09-07] MEDS ORDERED: HEParin (CATH LAB) 0 ML IV ONE (08:59)
[2022-09-07] MEDS ORDERED: LIDOCAINE 1% INJ 30 ML (XYLOCAINE) VIAL ONE (08:59)
[2022-09-07] MEDS ORDERED: NS IV 1000 ML 2,000 ML ONE (08:59)
[2022-09-07] MEDS ORDERED: ceFAZolin INJECTION 1,000 MG VIAL IV ONE (09:00)
[2022-09-07] MEDS ORDERED: NS IV 1000 ML 1,000 ML IV ONE (09:00)
[2022-09-07 09:27] LABS: BILIRUBIN,URINE NEGATIVE (NEGATIVE); CLARITY,URINE CLEAR; COLOR,URINE YELLOW; GLUCOSE, URINE (UA) 3+ (NEGATIVE); KETONES,URINE NEGATIVE (NEGATIVE); LEUKOCYTE ESTERASE ,URINE NEGATIVE (NEGATIVE); NITRITE,URINE NEGATIVE (NEGATIVE); PROTEIN,URINE NEGATIVE (NEGATIVE)
[2022-09-07 09:28] LABS: HEMATOCRIT 49 % (40-54); HEMOGLOBIN 15.3 g/dL (13.3-17.7); MEAN CORPUSCULAR HEMOGLOBIN 29 pg (25-34); MEAN CORPUSCULAR HGB CONC 32 g/dL (32-36); MEAN CORPUSCULAR VOLUME 92 fL (80-99); MEAN PLATELET VOLUME 8.9 fL (9.0-12.2); PLATELET COUNT 211 10^3/uL (130-400); WHITE BLOOD COUNT 8.5 10^3/uL (4.3-11.0)
[2022-09-07 09:34] LABS: BACTERIA,URINE NEGATIVE /HPF; SQUAMOUS EPITHELIAL CELL,UR RARE /HPF
[2022-09-07 09:56] LABS: INR 1.2 (0.8-1.4); PROTHROMBIN TIME PATIENT 15.5 SEC (12.2-14.7)
[2022-09-07 10:07] LABS: ALBUMIN 4.1 GM/DL (3.2-4.5); BILIRUBIN,TOTAL 0.9 MG/DL (0.1-1.0); CALCIUM 9.4 MG/DL (8.5-10.1); CREATININE SERUM 1.62 MG/DL (0.60-1.30); POTASSIUM 4.3 MMOL/L (3.6-5.0); TOTAL PROTEIN 7.6 GM/DL (6.4-8.2)
[2022-09-07] MEDS ORDERED: CALC-250 PO (10:15)
[2022-09-07] MEDS ORDERED: TMSL.4C PO (10:15)
[2022-09-07] MEDS ORDERED: APIX5TAB PO (10:15)
[2022-09-07] MEDS ORDERED: MONT-40 PO (10:15)
[2022-09-07] MEDS ORDERED: GLUC1TAB21 PO (10:15)
[2022-09-07] MEDS ORDERED: DAPA10TA PO (10:15)
[2022-09-07] MEDS ORDERED: FLUT1AER IH (10:15)
[2022-09-07] MEDS ORDERED: OMEG100032 PO (10:15)
[2022-09-07] MEDS ORDERED: FLUT9.9S NS (10:15)
[2022-09-07] MEDS ORDERED: MTP25TSR PO (10:15)
[2022-09-07] MEDS ORDERED: MULT-1136 PO (10:15)
[2022-09-07] MEDS ORDERED: ALLO100T PO (10:15)
[2022-09-07] MEDS ORDERED: CETI10TA17 PO (10:15)
[2022-09-07] MEDS ORDERED: FURO80TA3 PO (10:21)
[2022-09-07] MEDS ORDERED: MIDAZOLAM 5 MG/5 ML (VERSED) VIAL ONE ×2 (12:50→13:33)
[2022-09-07] MEDS ORDERED: fentaNYL INJ 100 MCG/2 ML AMP ONE ×2 (12:50→13:32)
--- NOTE | 2022-09-07 13:16 | Cardiac Procedure Note-CS/ASA ---
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 Also, for patients with a history of failed moderate sedation consider anesthesia. Airway Lungs Heart ASA score ASA 1: a normal healthy patient ASA 2: a patient with a mild systemic disease (mid diabetes, controlled hypertension, obesity ASA 3: a patient with a severe systemic disease that limits activity (angina, COPD, prior Myocardial infarction) ASA 4: a patient with an incapacitating disease that is a constant threat to life (CHF, renal failure) ASA 5: a moribund patient not expected to survive 24 hrs. (ruptured aneurysm) ASA 6: a declared brain- patient whose organs are being harvested. For emergent operations, add the letter E after the classification Mallampati Classification Grade 2 Sedation Plan Analgesia, Amnesia, Plan communicated to team members The patient is an appropriate candidate to undergo the planned procedure, sedation, and anesthesia. The patient immediately re-assessed prior to indication. JAIME NARANJO MD FACP FAC CCDS Sep 07, 2022 13:16
[2022-09-07] MEDS ORDERED: PATIENT MAY USE OWN MEDS, ALL PO SCH (14:45)
[2022-09-07] MEDS ORDERED: NS IV 1000 ML 1,000 ML IV SCH (14:45)
[2022-09-07] MEDS ORDERED: CEFU500T63 PO (14:47)
--- NOTE | 2022-09-07 14:48 | Discharge Inst-Cardiology ---
Discharge Inst-Cardiac Discharge Medications New Medications: Cefuroxime Axetil (Cefuroxime) 500 Mg Tablet 500 MG PO BID, #10 TAB Continued Medications: Allopurinol (Allopurinol) 100 Mg Tablet 100 MG PO DAILY, TAB Apixaban (Eliquis) 5 Mg Tablet 2.5 MG PO BID, TAB TAKES OF A 5MG TABLET Calcitriol (Calcitriol) 0.25 Mcg Capsule 0.25 MCG PO TUESDAY, CAP Cetirizine HCl (Cetirizine HCl) 10 Mg Tablet 10 MG PO HS, TAB Cholecalciferol (Vitamin D3) (Vitamin D3) 125 Mcg (5000 Unit) Tablet 125 MCG PO TUE,TUE,SAT, TAB Dapagliflozin Propanediol (Farxiga) 10 Mg Tablet 10 MG PO DAILY, TAB Digoxin (Digoxin) 125 Mcg (0.125 Mg) Tablet 125 MCG PO HS, TAB Enalapril Maleate (Enalapril Maleate) 5 Mg Tablet 5 MG PO HS, TAB Escitalopram Oxalate (Escitalopram Oxalate) 10 Mg Tablet 10 MG PO DAILY, TAB Finasteride (Finasteride) 5 Mg Tablet 5 MG PO HS, TAB Fluticasone Propionate (Flonase Allergy Relief) 50 Mcg/Actuation [employer].susp 2 SPRAY NS DAILY, EACH Fluticasone/Vilanterol (Breo Ellipta 100-25 Mcg INH) 100 Mcg-25 Mcg/Dose Blst.w.dev 1 EACH IH DAILY Furosemide (Furosemide) 80 Mg Tablet 40 MG PO DAILY PRN for WATER RETENTION, TAB TAKES OF A 80MG TABLET Gluc Webster/Chondro Webster A/Vit C/Mn (Glucosamine Chondroitin Tab) 750 Mg-600 Mg-55 Mg- 5 Mg Tablet 1 EACH PO DAILY, TAB Loperamide HCl (Imodium A-D) 2 Mg Tablet 2 MG PO BID, TAB Metoprolol Succinate (Metoprolol Succinate) 25 Mg Tab.er.24h 25 MG PO BID, TAB Montelukast Sodium (Montelukast Sodium) 10 Mg Tablet 10 MG PO HS, TAB Multivitamin (Multivitamin) 1 Each Tablet 1 EACH PO DAILY, TAB [place]-3/Dha/Epa/Fish Oil (Fish Oil 1,000 mg Softgel) 1,000 Mg (120 Mg-180 Mg) Capsule 1000 MG PO DAILY, CAP Tamsulosin HCl (Flomax) 0.4 Mg Cap 0.4 MG PO HS, CAP JAIME NARANJO MD FACP FACC CCDS Sep 07, 2022 14:47
--- NOTE | 2022-09-07 14:49 | Discharge Inst-Post Device ---
Discharge Inst-Post Device Follow up/Plan F/u at Dr Villatoro's on Tuesday09/10/22 F/u with Dr Villatoro in one month Heart Healthy Diet Do not lift arm on side of device placement above head for 4 weeks. Do not push and pull heavy objects for 4 weeks. Activity as tolerated. No driving for one week. Leave dressing on until follow up at the office. JAIME VILLATORO MD FACP FAC CCDS Sep 07, 2022 14:49
--- NOTE | 2022-09-08 00:59 | OPERATIVE REPORT ---
DATE OF SERVICE: 09/07/2022 PREOPERATIVE DIAGNOSIS: ADMISSIONS DEAN-D at elective replacement indicator. POSTOPERATIVE DIAGNOSIS: ADMISSIONS DEAN-D at elective replacement indicator. PROCEDURE: ADMISSIONS DEAN-D pulse generator change. DESCRIPTION OF PROCEDURE: The patient is an 82-year-old gentleman who has severe dilated cardiomyopathy. He has a ADMISSIONS DEAN-D device in place. This was last replaced at the [facility] in 2019. It has reached elective replacement indicator. Device change was carried out today after having obtained an informed consent. He was brought to the heart center in a fasting state. The left prepectoral area is the site of previous device implantation. This was prepped and draped in the usual sterile fashion. A 1% lidocaine was used for local anesthesia. Sharp and blunt dissection was used to open the device pocket and the device was removed from the pocket and detached from the leads. A new device was attached to the old leads. The leads were tested and found to be functioning normally. The explanted device is Long model 3369-40C with serial number [id number]. The new device is Long model 3369-40C with serial number [id number]. The device is functioning normally and is currently enabled for therapies. The patient tolerated the procedure well. Job ID: [id number] DocumentID: [id number] Dictated Date: 09/07/2022 14:37:57 [employer] Packer Date: 09/08/2022 00:57:00 Dictated By: JAIME NARAJNO MD; CLARA; FACP; FACC;
== END 2022-09-07 17:40 | disposition home or self-care (01) ==
LOC: SDC 08:44 → CATH 17:40
PROVIDERS: ATTEND Internal Medicine Cardiovascular Disease
DX: Z45.02 Encounter for adjustment and management of automatic implantable cardiac defibrillator (principal); I42.0 Dilated cardiomyopathy
CPT/HCPCS: 33264; 36415; 80053; 80061; 81000; 85027; 85610; 85730; 87081; 93005

== ENCOUNTER 2022-10-22 08:57 | Emergency (ER) | payer MEDICARE ==
[~2022-10-22] VITALS: Ht 177 cm; Wt 78.0 kg
[~2022-10-22 08:57] MED LIST changes: +APIX5TAB PO; +CALC-250 PO; +CEFU500T63 PO; +CETI10TA17 PO; +FLUT1AER IH; +FLUT9.9S NS; +GLUC1TAB21 PO; +MONT-40 PO; +MULT-1136 PO; +OMEG100032 PO
[2022-10-22] MEDS ORDERED: DOXY100T2 PO (09:56)
--- NOTE | 2022-10-22 09:56 | ED Integumentary General ---
General Chief Complaint: Skin/Wound Problems Stated Complaint: POST OP PACEMAKER INFECTION Nursing Triage Note: PT TO RM 8 PER W/C PT SENT TO ED BY DR POTTER OFFICE, PT HAS PACEMAKER ON L CHEST WALL THAT NURSE WANTS TO BE CHECKED. WOUND ON L CHEST WALL. HEALING SL REDDNESS ON BOTH ENDS, WOUND NORMAL TEMPERATURE. CLEANED W CLORHEXADINE. SCAB FELL OFF AREA. HAS BEEN PUTTING ANTIBIOIC OINT ON WOUND. AREA ON ENDS OF WOUNDS SL MOIST. PT HAS BEEN AFEBRILE. Source: patient Exam Limitations: no limitations History of Present Illness Date Seen by Provider: Oct 22, 2022 Time Seen by Provider: 09:40 Initial Comments Here with report of wound at pacemaker insertion site. Apparently had pacemaker defibrillator placed 6 weeks ago. As the surgical wound healed, the ends did not close completely. He has had a small amount of drainage that is not purulent with some surrounding erythema of approximately half a centimeter around the wound and. Denies fever or chills. Called his cardiology office who recommended he come here for evaluation. They do have appointment with a financial accounting analyst on next Tuesday. Timing/Duration: week, getting worse Severity: mild Location: torso Possible Cause: other (Postop) Associated Symptoms: other (Erythema) Allergies and Home Medications Allergies Coded Allergies: No Known Drug Allergies (Verified , 11/24/21) Patient Home Medication List Home Medication List Reviewed: Yes Allopurinol (Allopurinol) 100 Mg Tablet, 100 MG PO DAILY, (Reported) Entered as Reported by: DEVEN CARBALLO on 09/07/22 1015 Apixaban (Eliquis) 5 Mg Tablet, 2.5 MG PO BID, (Reported) Entered as Reported by: DEVEN CARBALLO on 09/07/22 1015 Calcitriol (Calcitriol) 0.25 Mcg Capsule, 0.25 MCG PO TUESDAY, (Reported) Entered as Reported by: OLIVA FIELD on 11/24/21 1301 Cefuroxime Axetil (Cefuroxime) 500 Mg Tablet, 500 MG PO BID Prescribed by: JAIME NARANJO on 09/07/22 1447 Cetirizine HCl (Cetirizine HCl) 10 Mg Tablet, 10 MG PO HS, (Reported) Entered as Reported by: DEVEN CARBALLO on 09/07/22 1015 Cholecalciferol (Vitamin D3) (Vitamin D3) 125 Mcg (5000 Unit) Tablet, 125 MCG PO MON,WED,SAT, (Reported) Entered as Reported by: DEVEN CARBALLO on 09/07/22 1015 Dapagliflozin Propanediol (Farxiga) 10 Mg Tablet, 10 MG PO DAILY, (Reported) Entered as Reported by: DEVEN CARBALLO on 09/07/22 1015 Digoxin (Digoxin) 125 Mcg (0.125 Mg) Tablet, 125 MCG PO HS, (Reported) Entered as Reported by: OLIVA FIELD on 11/24/21 1301 Doxycycline Hyclate (Doxycycline Hyclate) 100 Mg Tablet, 100 MG PO BID Prescribed by: KELLY CALDWELL on 10/22/22 0956 Enalapril Maleate (Enalapril Maleate) 5 Mg Tablet, 5 MG PO HS, (Reported) Entered as Reported by: MOSHE KAPLAN on 06/13/22 1730 Escitalopram Oxalate (Escitalopram Oxalate) 10 Mg Tablet, 10 MG PO DAILY, (Reported) Entered as Reported by: OLIVA FIELD on 11/24/21 1301 Finasteride (Finasteride) 5 Mg Tablet, 5 MG PO HS, (Reported) Entered as Reported by: OLIVA FIELD on 11/24/21 1301 Fluticasone Propionate (Flonase Allergy Relief) 50 Mcg/Actuation [place].susp, 2 SPRAY NS DAILY, (Reported) Entered as Reported by: DEVEN CARBALLO on 09/07/22 1015 Fluticasone/Vilanterol (Breo Ellipta 100-25 Mcg INH) 100 Mcg-25 Mcg/Dose Blst.w.dev, 1 EACH IH DAILY, (Reported) Entered as Reported by: DEVEN CARBALLO on 09/07/22 1015 Furosemide (Furosemide) 80 Mg Tablet, 40 MG PO DAILY PRN for WATER RETENTION, (Reported) Entered as Reported by: DEVEN CARBALLO on 09/07/22 1021 Gluc Webster/Chondro Webster A/Vit C/Mn (Glucosamine Chondroitin Tab) 750 Mg-600 Mg-55 Mg- 5 Mg Tablet, 1 EACH PO DAILY, (Reported) Entered as Reported by: DEVEN CARBALLO on 09/07/22 1015 Loperamide HCl (Imodium A-D) 2 Mg Tablet, 2 MG PO BID, (Reported) Entered as Reported by: OLIVA FIELD on 11/24/21 1301 Metoprolol Succinate (Metoprolol Succinate) 25 Mg Tab.er.24h, 25 MG PO BID, (Reported) Entered as Reported by: DEVEN CARBALLO on 09/07/22 1015 Montelukast Sodium (Montelukast Sodium) 10 Mg Tablet, 10 MG PO HS, (Reported) Entered as Reported by: DEVEN CARBALLO on 09/07/22 1015 Multivitamin (Multivitamin) 1 Each Tablet, 1 EACH PO DAILY, (Reported) Entered as Reported by: DEVEN CARBALLO on 09/07/22 1015 [place]-3/Dha/Epa/Fish Oil (Fish Oil 1,000 mg Softgel) 1,000 Mg (120 Mg-180 Mg) Capsule, 1,000 MG PO DAILY, (Reported) Entered as Reported by: DEVEN CARBALLO on 09/07/22 1015 Tamsulosin HCl (Flomax) 0.4 Mg Cap, 0.4 MG PO HS, (Reported) Entered as Reported by: DEVEN CARBALLO on 09/07/22 1015 Review of Systems Review of Systems Constitutional: No chills, No fever Respiratory: no symptoms reported Cardiovascular: no symptoms reported Skin: change in color, lesions Past Nfkdyxw-Gqfagp-Ezhxup Hx Patient Social History Tobacco Use?: No Substance use?: No Alcohol Use?: No Pt feels they are or have been: No Immunizations Up To Date Influenza Vaccine Up-to-Date: Yes; Up-to-Date First/Initial COVID19 Vaccinat: DEC 14 Second COVID19 Vaccination Eder: DEC 14 Third COVID19 Vaccination Date: JUN Seasonal Allergies Seasonal Allergies: Yes Past Medical History Surgery/Hospitalization HX: COPD, CHF, DIABETIC, NON ALCOHOLIC FATTY LIVER DISEASE, A FIB, PACEMAKER*DEPENDANT ON PACEMAKER*, Surgeries: Yes (carotid; pacemaker; defibrillator; stent; open heart surgery) Cardiac, CABG, Coronary Stent, Defibrillator, Pacemaker, Vascular Surgery Respiratory: Yes (asthma, MILD COPD) Asthma, Pneumonia, Sleep Apnea, COPD Currently Using CPAP: No Currently Using BIPAP: No Cardiac: Yes (POSSIBLE HEART ATTACK PER DR. NARANJO) Atrial Fibrillation, Coronary Artery Disease, High Cholesterol, Hypertension, Syncope, Valvular Heart Disease Neurological: No Reproductive Disorders: No Genitourinary: Yes (STAGE 3) Renal Failure Gastrointestinal: Yes (HERNIA REPAIR, 3-4 MONTHS FREQUENT BM'S) Musculoskeletal: Yes Degenerate Disk Disease, Arthritis Endocrine: Yes Diabetes, Non-Insulin dep HEENT: Yes Hearing Impairment: Hard of Hearing, Bilateral Hearing Aide Cancer: No Psychosocial: No Anxiety Integumentary: No Blood Disorders: No Family Medical History Reviewed Nursing Family Hx Hypertension Physical Exam Vital Signs Vital Signs - First Documented 10/22/22 09:05 Temp 36.4 Pulse 76 Resp 18 B/P (MAP) 138/83 (101) Pulse Ox 99 Capillary Refill : Less Than 3 Seconds General Appearance: WD/WN, no apparent distress Cardiovascular: regular rate, rhythm, no murmur Respiratory: lungs clear, normal breath sounds Skin: warm/dry, other (Pacemaker insertion surgical site medial and lateral as pect at end of wound has incomplete healing with clear drainage and half to 1 centimeter of surrounding erythema on each and) Skin Problem Character: erythema Progress/Results/Core Measures Results/Orders Vital Signs/I&O 10/22/22 09:05 Temp 36.4 Pulse 76 Resp 18 B/P (MAP) 138/83 (101) Pulse Ox 99 2 Blood Pressure Mean: 101 Progress Progress Note : Progress Note Seen and evaluated. Wound evaluated. No indication of abscess or severe infection. Given that it is close to pacemaker site but it seems very superficial, oral antibiotic therapy would be reasonable with close follow-up. He has close follow-up with his financial accounting analyst on 10/26/22. We will initiate doxycycline twice daily for 10 days. Patient reports no allergies to antibiotics. Discharged home with return precautions. Patient verbalized understanding instructions and agreement with plan. verbalized agreement as well. Departure Impression Primary Impression: Postoperative wound infection Disposition: 01 HOME, SELF-CARE Condition: Stable Departure-Patient Inst. Decision time for Depature: 09:54 Referrals: NICHOLAS OLIVEROS DO (PCP/Family) Primary Care Physician Patient Instructions: Wound Care Add. Discharge Instructions: All discharge instructions reviewed with patient and/or family. Voiced understanding. Take medications as directed. Follow-up with Dr Naranjo's office next week as scheduled. You may use topical antibiotic cream or ointment and cover with dressing. Monitor for increasing redness, foul-smelling drainage or fever. Return for any of those. Return for other concerns as needed. Continue other medications as previously prescribed. Scripts Doxycycline Hyclate (Doxycycline Hyclate) 100 Mg Tablet 100 MG PO BID, #20 TAB 0 Refills Prov: KELLY CALDWELL MD 10/22/22 Copy Copies To 1: JAIME NARANJO MD [facility] KELLY CALDWELL MD Oct 22, 2022 09:56
[2022-10-22 10:20] VITALS: BP 138/83
== END 2022-10-22 10:20 | disposition home or self-care (01) ==
LOC: EDUNIT# 08:57 → ER 08:58
DX: T81.49XA Infection following a procedure, other surgical site, initial encounter (principal); Z95.0 Presence of cardiac pacemaker
CPT/HCPCS: 99281

== ENCOUNTER 2022-11-18 10:55 | Observation (INO) | payer MEDICARE ==
[~2022-11-18] VITALS: Ht 180.3 cm; Wt 75.7 kg
[~2022-11-18 10:55] MED LIST changes: +DOXY100T2 PO
--- NOTE | 2022-11-18 11:04 | ED Fall/Injury ---
General Chief Complaint: Trauma-Non Activation Stated Complaint: FALL | HEAD INJ History of Present Illness Date Seen by Provider: Nov 18, 2022 Time Seen by Provider: 11:04 Initial Comments 82-year-old male with PMH of CAD/cardiomyopathy/valvular heart disease on Eliquis/pacemaker/DM2/orthostatic hypotension, is brought in by EMS with complaints of syncope resulting in a fall where patient fell on his face as he was getting out of the car and had LOC for approximately 2 minutes. Patient's neighbor witnessed the entire event. Denies seizures, chest pain, palpitations, shortness of breath, fever, dizziness, headache, neck pain or neck stiffness. Patient does not seem to remember what happened in the morning. Patient was actually coming back home from his cardiology appointment and was getting out of the car to go to his house when this occurred. Patient has laceration to the r ight side of his forehead and is following and bruising on his face on the right side. Patient is alert and oriented in the ER but still appears confused as to events of the morning. Allergies and Home Medications Allergies Coded Allergies: No Known Drug Allergies (Verified , 11/24/21) Patient Home Medication List Home Medication List Reviewed: Yes Allopurinol (Allopurinol) 100 Mg Tablet, 100 MG PO DAILY, (Reported) Entered as Reported by: DEVEN CARBALLO on 09/07/22 1015 Apixaban (Eliquis) 5 Mg Tablet, 2.5 MG PO BID, (Reported) Entered as Reported by: DEVEN CARBALLO on 09/07/22 1015 Calcitriol (Calcitriol) 0.25 Mcg Capsule, 0.25 MCG PO TUESDAY, (Reported) Entered as Reported by: OLIVA FIELD on 11/24/21 1301 Cefuroxime Axetil (Cefuroxime) 500 Mg Tablet, 500 MG PO BID Prescribed by: JAIME NARANJO on 09/07/22 1447 Cetirizine HCl (Cetirizine HCl) 10 Mg Tablet, 10 MG PO HS, (Reported) Entered as Reported by: DEVEN CARBALLO on 09/07/22 1015 Cholecalciferol (Vitamin D3) (Vitamin D3) 125 Mcg (5000 Unit) Tablet, 125 MCG PO TUE,WED,TUE, (Reported) Entered as Reported by: DEVEN CARBALLO on 09/07/22 1015 Dapagliflozin Propanediol (Farxiga) 10 Mg Tablet, 10 MG PO DAILY, (Reported) Entered as Reported by: DEVEN CARBALLO on 09/07/22 1015 Digoxin (Digoxin) 125 Mcg (0.125 Mg) Tablet, 125 MCG PO HS, (Reported) Entered as Reported by: OLIVA FIELD on 11/24/21 1301 Doxycycline Hyclate (Doxycycline Hyclate) 100 Mg Tablet, 100 MG PO BID Prescribed by: KELLY CALDWELL on 10/22/22 0956 Enalapril Maleate (Enalapril Maleate) 5 Mg Tablet, 5 MG PO HS, (Reported) Entered as Reported by: MOSHE KAPLAN on 06/13/22 1730 Escitalopram Oxalate (Escitalopram Oxalate) 10 Mg Tablet, 10 MG PO DAILY, (Reported) Entered as Reported by: OLIVA FIELD on 11/24/21 1301 Finasteride (Finasteride) 5 Mg Tablet, 5 MG PO HS, (Reported) Entered as Reported by: OLIVA FIELD on 11/24/21 1301 Fluticasone Propionate (Flonase Allergy Relief) 50 Mcg/Actuation [place].susp, 2 SPRAY NS DAILY, (Reported) Entered as Reported by: DEVEN CARBALLO on 09/07/22 1015 Fluticasone/Vilanterol (Breo Ellipta 100-25 Mcg INH) 100 Mcg-25 Mcg/Dose Blst.w.dev, 1 EACH IH DAILY, (Reported) Entered as Reported by: DEVEN CARBALLO on 09/07/22 1015 Furosemide (Furosemide) 80 Mg Tablet, 40 MG PO DAILY PRN for WATER RETENTION, (Reported) Entered as Reported by: DEVEN CARBALLO on 09/07/22 1021 Gluc [place]/Chondro [place] A/Vit C/Mn (Glucosamine Chondroitin Tab) 750 Mg-600 Mg-55 Mg- 5 Mg Tablet, 1 EACH PO DAILY, (Reported) Entered as Reported by: DEVEN CARBALLO on 09/07/22 1015 Loperamide HCl (Imodium A-D) 2 Mg Tablet, 2 MG PO BID, (Reported) Entered as Reported by: OLIVA FIELD on 11/24/21 1301 Metoprolol Succinate (Metoprolol Succinate) 25 Mg Tab.er.24h, 25 MG PO BID, (Reported) Entered as Reported by: DEVEN CARBALLO on 09/07/22 1015 Montelukast Sodium (Montelukast Sodium) 10 Mg Tablet, 10 MG PO HS, (Reported) Entered as Reported by: DEVEN CARBALLO on 09/07/22 1015 Multivitamin (Multivitamin) 1 Each Tablet, 1 EACH PO DAILY, (Reported) Entered as Reported by: DEVEN CARBALLO on 09/07/22 1015 Cost-3/Dha/Epa/Fish Oil (Fish Oil 1,000 mg Softgel) 1,000 Mg (120 Mg-180 Mg) Capsule, 1,000 MG PO DAILY, (Reported) Entered as Reported by: DEVEN CARBALLO on 09/07/22 1015 Tamsulosin HCl (Flomax) 0.4 Mg Cap, 0.4 MG PO HS, (Reported) Entered as Reported by: DEVEN CARBALLO on 09/07/22 1015 Review of Systems Review of Systems Constitutional: no symptoms reported Eyes: No Symptoms Reported Ears, Nose, Mouth, Throat: see HPI Respiratory: no symptoms reported Cardiovascular: no symptoms reported Gastrointestinal: no symptoms reported Genitourinary: no symptoms reported Musculoskeletal: no symptoms reported Skin: no symptoms reported Psychiatric/Neurological: No Symptoms Reported Past Pxylnem-Bbpeaq-Dcgngi Hx Immunizations Up To Date First/Initial COVID19 Vaccinat: DEC 14 Second COVID19 Vaccination Eder: DEC 14 Third COVID19 Vaccination Date: JUN Seasonal Allergies Seasonal Allergies: Yes Past Medical History Surgery/Hospitalization HX: COPD, CHF, DIABETIC, NON ALCOHOLIC FATTY LIVER DISEASE, A FIB, PACEMAKER*DEPENDANT ON PACEMAKER*, Surgeries: Yes (carotid; pacemaker; defibrillator; stent; open heart surgery) Cardiac, CABG, Coronary Stent, Defibrillator, Pacemaker, Vascular Surgery Respiratory: Yes (asthma, MILD COPD) Asthma, Pneumonia, Sleep Apnea, COPD Currently Using CPAP: No Currently Using BIPAP: No Cardiac: Yes (POSSIBLE HEART ATTACK PER DR. NARANJO) Atrial Fibrillation, Coronary Artery Disease, High Cholesterol, Hypertension, Syncope, Valvular Heart Disease Neurological: No Reproductive Disorders: No Genitourinary: Yes (STAGE 3) Renal Failure Gastrointestinal: Yes (HERNIA REPAIR, 3-4 MONTHS FREQUENT BM'S) Musculoskeletal: Yes Degenerate Disk Disease, Arthritis Endocrine: Yes Diabetes, Non-Insulin dep HEENT: Yes Hearing Impairment: Hard of Hearing, Bilateral Hearing Aide Cancer: No Psychosocial: No Anxiety Integumentary: No Blood Disorders: No Family Medical History Hypertension Physical Exam Vital Signs Vital Signs - First Documented 11/18/22 11/18/22 11:01 11:06 Pulse 73 Resp 15 B/P (MAP) 155/79 (104) Pulse Ox 97 O2 Delivery Room Air Capillary Refill : Height, Weight, BMI Height: 5'10.00" Weight: 198lbs. 0.0oz. 89.738589sm; 24.00 BMI Method:Stated General Appearance: WD/WN, mild distress HEENT: PERRL/EOMI, other (4 cm laceration on the right frontotemporal area of the face which is moderately bleeding. Second avulsion laceration right below this with a triangular shaped flap which is about 2 cm in size. No foreign body seen within the wounds.) Neck: non-tender, full range of motion, supple, normal inspection Cardiovascular: regular rate, rhythm Respiratory: chest non-tender, lungs clear, normal breath sounds Gastrointestinal: normal bowel sounds, non tender, soft Extremities: normal range of motion, other (Right knee pain with minor abrasion on the knee which measures 1 x 1 cm. Patient has full ROM, N/V bundle intact.) Neurologic/Psychiatric: cloth mercerizer back tender II-XII nml as tested, no motor/sensory deficits, alert, normal mood/affect, oriented x 3 Skin: ecchymosis [place] Coma Score Best Eye Response: (4) Open Spontaneously Best Verbal Response: (5) Oriented Best Motor Response: (6) Obeys Commands Stefania Total: 15 Progress/Results/Core Measures Results/Orders Lab Results Laboratory Tests Test 11/18/22 11:05 11/18/22 13:00 11/18/22 14:08 Range/Units White Blood Count 11.3 H 4.3-11.0 10^3/uL Red Blood Count 5.44 4.30-5.52 10^6/uL Hemoglobin 15.3 13.3-17.7 g/dL Hematocrit 50 40-54 % Mean Corpuscular Volume 91 80-99 fL Mean Corpuscular Hemoglobin 28 25-34 pg Mean Corpuscular Hemoglobin Concent 31 L 32-36 g/dL Red Cell Distribution Width 16.2 H 10.0-14.5 % Platelet Count 185 130-400 10^3/uL Mean Platelet Volume 9.0 9.0-12.2 fL Immature Granulocyte % (Auto) 1 % Neutrophils (%) (Auto) 52 42-75 % Lymphocytes (%) (Auto) 34 12-44 % Monocytes (%) (Auto) 10 0-12 % Eosinophils (%) (Auto) 3 0-10 % Basophils (%) (Auto) 1 0-10 % Neutrophils # (Auto) 5.9 1.8-7.8 10^3/uL Lymphocytes # (Auto) 3.8 1.0-4.0 10^3/uL Monocytes # (Auto) 1.1 H 0.0-1.0 10^3/uL Eosinophils # (Auto) 0.3 0.0-0.3 10^3/uL Basophils # (Auto) 0.1 0.0-0.1 10^3/uL Immature Granulocyte # (Auto) 0.1 0.0-0.1 10^3/uL Prothrombin Time 16.4 H 12.2-14.7 SEC INR Comment 1.3 0.8-1.4 Activated Partial Thromboplast Time 36 H 24-35 SEC D-Dimer 4.75 H 0.00-0.49 UG/ML Sodium Level 136 135-145 MMOL/L Potassium Level 5.1 H 3.6-5.0 MMOL/L Chloride Level 100 98-107 MMOL/L Carbon Dioxide Level 24 21-32 MMOL/L Anion Gap 12 5-14 MMOL/L Blood Urea Nitrogen 34 H 7-18 MG/DL Creatinine 1.69 H 0.60-1.30 MG/DL Estimat Glomerular Filtration Rate 40 BUN/Creatinine Ratio 20 Glucose Level 165 H 70-105 MG/DL Calcium Level 9.7 8.5-10.1 MG/DL Corrected Calcium 9.8 8.5-10.1 MG/DL Magnesium Level 2.3 1.6-2.4 MG/DL Total Bilirubin 1.1 H 0.1-1.0 MG/DL Aspartate Amino Transf (AST/SGOT) 36 H 5-34 U/L Alanine Aminotransferase (ALT/SGPT) 29 0-55 U/L Alkaline Phosphatase 214 H 40-136 U/L Troponin I 0.042 H < 0.028 <0.028 NG/ML B-Type Natriuretic Peptide 607.7 H <100.0 PG/ML Total Protein 7.9 6.4-8.2 GM/DL Albumin 3.9 3.2-4.5 GM/DL Urine Color YELLOW Urine Clarity CLEAR Urine pH 6.0 5-9 Urine Specific [place] 1.015 L 1.016-1.022 Urine Protein TRACE H NEGATIVE Urine Glucose (UA) 3+ H NEGATIVE Urine Ketones NEGATIVE NEGATIVE Urine Nitrite NEGATIVE NEGATIVE Urine Bilirubin NEGATIVE NEGATIVE Urine Urobilinogen 0.2 < = 1.0 MG/DL Urine Leukocyte Esterase NEGATIVE NEGATIVE Urine RBC (Auto) NEGATIVE NEGATIVE Urine RBC NONE /HPF Urine WBC NONE /HPF Urine Squamous Epithelial Cells NONE /HPF Urine Crystals NONE /LPF Urine Bacteria TRACE /HPF Urine Casts NONE /LPF Urine Mucus NEGATIVE /LPF Urine Culture Indicated NO My Orders Orders - LUCIE MCKEE MD Ct Head/Face/Cervical Wo (11/18/22 11:15) Cbc With Automated Diff (11/18/22 11:16) Comprehensive Metabolic Panel (11/18/22 11:16) Fibrin Degradation Products (11/18/22 11:16) Magnesium (11/18/22 11:16) Protime With Inr (11/18/22 11:16) Partial Thromboplastin Time (11/18/22 11:16) Ua Culture If Indicated (11/18/22 11:16) Troponin I Lexie (11/18/22 11:16) Knee, Right, 3 Views (11/18/22 11:17) Chest 1 View, Ap/Pa Only (11/18/22 11:17) Furosemide Injection (Lasix Injection) (11/18/22 13:00) Ct Angio Chest W (R/O Pe) (11/18/22 12:52) Troponin I Lexie (11/18/22 12:52) Bnp Price (11/18/22 12:54) Ampicillin/Sulbactam Injection (Unasyn 3 (11/18/22 13:00) Iohexol Injection (Omnipaque 350 Mg/Ml 1 (11/18/22 13:15) Ns (Ivpb) (Sodium Chloride 0.9% Ivpb Bag (11/18/22 13:15) Ekg Tracing (11/18/22 13:56) Oxycodone/Apap 5/325mg Tablet (Percocet (11/18/22 14:45) Acetaminophen Tablet/Caplet (Tylenol T (11/18/22 14:45) Ed Admission (Communication) (11/18/22 15:14) Medications Given in ED Current Medications Medications Dose Ordered Sig/Sammy Route Start Time Stop Time Status Last Admin Dose Admin Acetaminophen 325 mg ONCE ONCE PO 11/18/22 14:45 11/18/22 14:55 DC 11/18/22 15:19 325 MG Ampicillin Sodium/ Sulbactam Sodium 3 gm/Sodium Chloride 100 ml @ 200 mls/hr ONCE ONCE IV 11/18/22 13:00 11/18/22 13:29 DC 11/18/22 14:05 200 MLS/HR Furosemide 60 mg ONCE ONCE IVP 11/18/22 13:00 11/18/22 13:01 DC 11/18/22 13:07 60 MG Iohexol 100 ml ONCE ONCE IV 11/18/22 13:15 11/18/22 13:16 DC 11/18/22 13:55 72 ML Oxycodone/ Acetaminophen 1 tab ONCE ONCE PO 11/18/22 14:45 11/18/22 14:55 DC 11/18/22 15:19 1 TAB Sodium Chloride 100 ml ONCE ONCE IV 11/18/22 13:15 11/18/22 13:16 DC 11/18/22 13:55 70 ML Vital Signs/I&O 11/18/22 11/18/22 11:01 11:06 Pulse 73 76 Resp 15 15 B/P (MAP) 155/79 (104) 161/79 (106) Pulse Ox 97 O2 Delivery Room Air Room Air Progress Progress Note : Progress Note 1. SYNCOPE / FALL/ CONCUSSION/ MAXILLARY SINUS FRACTURE/ LACERATION FACE: - CT HEAD/ C-SPINE/ MAXILLOFACIAL: Right-sided anterior and lateral wall maxillary sinus fractures. - Labs:Troponin x1: 0.042, x2: normal 0.028 - UA: normal - Tetanus up to date - Total of 6 steri strips and dermabond placed over lacerations with good apposition. - Unasyn 3gm iv STAT in ER -We will admit patient to observation for overnight monitoring. Discussed with hospitalist and accepted. Patient still unsteady on his feet and will need assistance to move around. 2. ELEVATED D-DIMER/ PULMONARY EDEMA/ DEMAND ISCHEMIA: - D-dimer is 4.75 - CTA CHEST: Negative for PE, but shows pulmonary edema. -First troponin was 0.042, and elevated likely due to demand ischemia contributing to syncope and fall. The second troponin is normal at 0.028. Patient's states that patient always has a borderline elevated troponin when they check it. -EKG is paced rhythm, nonischemic. Patient denies any chest pain during entire ER stay. -Lasix 60 mg IV stat in ER for pulmonary edema. 3. HYPERKALEMIA: - s. K is 5.1 - EKG: no changes reflecting potassium aberrancy Diagnostic Imaging Diagonstic Imaging: Xray, CT Plain Films/CT/US/NM/MRI: facial bones, chest, c-spine, knee, head Comments [facility] [place], [place] NAME: KELSEA LOVE [facility] REC#: [id number] PT STATUS: REG ER : 1940 PHYSICIAN: LUCIE MCKEE MD ADMIT DATE: 11/18/22/ER Draft Date of Exam:11/18/22 CT HEAD/FACE/CERVICAL WO PROCEDURE: CT head, face, and cervical spine without contrast. TECHNIQUE: Multiple contiguous axial images were obtained through the head, neck, and facial bones without the use of intravenous contrast. Sagittal and coronal reformations through the cervical spine and facial bones were also performed. Auto Exposure Controls were utilized during the CT exam to meet ALARA standards for radiation dose reduction. INDICATION: Fall with right eye bruising. COMPARISON: Correlation is made with prior CT from 06/13/2022. CT HEAD: FINDINGS: Ventricles and sulci are prominent consistent with cerebral volume loss. No sulcal effacement or midline shift is identified. No acute intra-axial or extra-axial hemorrhage is detected. Cisterns are patent. Evaluation of the paranasal sinuses does show a small amount of fluid in the right maxillary sinus. There appears to be probable fracture of the right maxillary sinus anterior and lateral wall. This will be evaluated on CT maxillofacial study. IMPRESSION: 1. No acute intracranial process is detected. 2. Probable right maxillary sinus fractures. This will be further evaluated on maxillofacial CT. CT CERVICAL SPINE: FINDINGS: Alignment of the cervical spine is normal. There is significant multilevel degenerative disc disease with disc space narrowing and marginal spurring, greatest at the C3-C4, C4-C5, C5-C6, and C6-C7 levels. There is also multilevel facet arthropathy. No fractures are identified. Prevertebral tissues are within normal limits. Odontoid is intact. IMPRESSION: Cervical spondylosis. No acute bony abnormality is detected. CT FACE: FINDINGS: The mandible is intact. The zygomatic arches are intact. There are fractures involving the anterior and lateral wall of the right maxillary sinus. There does not appear to be involvement of the orbital floor. There is a small amount of fluid in the right maxillary sinus. Left maxillary sinus is intact. Nasal bones are intact. The medial and lateral orbital burch appear to be intact. The frontal sinus as well as sphenoid sinus are clear. There is some mucosal thickening of ethmoid air cells. The mastoids are well aerated. IMPRESSION: Right-sided anterior and lateral wall maxillary sinus fractures. No definite involvement of the orbital floor is detected. No other significant abnormality is detected. Dictated on workstation # [id number] Dict: 11/18/22 1151 Trans: 11/18/22 1202 [id number] Interpreted by: LIEN LÓPEZ MD Electronically signed by: [employer] [facility] [place], [place] NAME: KELSEA LOVE [facility] REC#: [id number] PT STATUS: REG ER : 1940 PHYSICIAN: LUCIE MCKEE MD ADMIT DATE: 11/18/22/ER Draft Date of Exam:11/18/22 CHEST 1 VIEW, AP/PA ONLY Indication: Syncope Portable AP view of chest is obtained. Since 06/13/2022, cardiomegaly persists with increasing pulmonary venous congestion and bilateral airspace disease. There is no evidence of pneumothorax. Surgical findings in the chest are stable. IMPRESSION: Findings indicate congestive heart failure with worsening bilateral pulmonary edema. Superimposed pneumonitis is not excluded. Dictated on workstation # [id number] Dict: 11/18/22 1159 Trans: 11/18/22 1201 [facility] [id number] Interpreted by: SABINA TORIBIO MD Electronically signed by: [employer] [facility] HLTHParent Media GroupFARMINGTON, [place] NAME: KELSEA LOVE [facility] REC#: [id number] PT STATUS: REG ER : 1940 PHYSICIAN: LUCIE MCKEE MD ADMIT DATE: 11/18/22/ER Draft Date of Exam:11/18/22 KNEE, RIGHT, 3 VIEWS INDICATION: Right knee pain. AP, oblique, and lateral views of the right knee are obtained. FINDINGS: No fracture or acute bony abnormality is seen. There is mild chondrocalcinosis. There is no significant joint space narrowing. There is no overt joint effusion. Vascular calcifications are noted. IMPRESSION: No acute fracture or significant joint space narrowing. Chondrocalcinosis is noted. Dictated on workstation # [id number] Dict: 11/18/22 1203 Trans: 11/18/22 1205 [id number] Interpreted by: FRANK BREEN MD Electronically signed by: [facility] [place] [place] NAME: KELSEA LOVE [facility] REC#: [id number] PT STATUS: REG ER : 1940 PHYSICIAN: LUCIE MCKEE MD ADMIT DATE: 11/18/22/ER Draft Date of Exam:11/18/22 CT ANGIO CHEST W (R/O PE) INDICATION: Pulmonary edema. TECHNIQUE: All CT scans use one or more of the following dose optimizing techniques: Automated exposure control, MA and/or KvP adjustment based on patient size and exam type or iterative reconstruction FINDINGS: Pulmonary arterial branches are patent. No filling defect. No PE. There is cardiomegaly present. There is prominence of the IVC and opacified distended hepatic veins. There may be an element of elevated right heart pressures. Pulmonary arterial branches proximally are somewhat prominent. Chronic pulmonary hypertension may be present. There are small right and minute left pleural effusions, nonloculated. There is some septal thickening and ground-glass opacity, likely mild interstitial-type edema. Aorta is nonaneurysmal. No intracardiac chamber mass or thrombus. There are coronary artery atherosclerotic vascular calcifications. No pericardial effusion. The upper abdomen is nonacute. IMPRESSION: Negative for PE; however, underlying pulmonary artery hypertension may be present with mild interstitial pulmonary edema and small nonloculated pleural effusions noted. Dictated on workstation # [id number] Dict: 11/18/22 1409 Trans: 11/18/22 1420 [id number] Interpreted by: SABINA DELCID Electronically signed by: Departure Communication (Admissions) Time/Spoke to Admitting Phy: 14:[address] Pollard. 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 Impression Primary Impression: Maxillary fracture, right side, initial encounter for closed fracture Additional Impressions: Syncope and collapse Pulmonary edema Hyperkalemia Fall Elevated d-dimer Concussion Disposition: 30 STILL A PATIENT Condition: Stable Admissions Decision to Admit Reason: Admit from ER (General) Decision to Admit/Date: Nov 18, 2022 Time/Decision to Admit Time: 15:00 Departure-Patient Inst. Referrals: NICHOLAS OLIVEROS DO (PCP/Family) Primary Care Physician LUCIE MCKEE MD Nov 18, 2022 11:04
[2022-11-18 11:21] LABS: BASOPHILS # (AUTO) 0.1 10^3/uL (0.0-0.1); BASOPHILS % (AUTO) 1 % (0-10); EOSINOPHILS # (AUTO) 0.3 10^3/uL (0.0-0.3); EOSINOPHILS % (AUTO) 3 % (0-10); HEMATOCRIT 50 % (40-54); HEMOGLOBIN 15.3 g/dL (13.3-17.7); LYMPHOCYTES # (AUTO) 3.8 10^3/uL (1.0-4.0); LYMPHOCYTES % (AUTO) 34 % (12-44); MEAN CORPUSCULAR HEMOGLOBIN 28 pg (25-34); MEAN CORPUSCULAR HGB CONC 31 g/dL (32-36); MEAN CORPUSCULAR VOLUME 91 fL (80-99); MONOCYTES # (AUTO) 1.1 10^3/uL (0.0-1.0); MONOCYTES % (AUTO) 10 % (0-12); NEUTROPHILS # (AUTO) 5.9 10^3/uL (1.8-7.8); NEUTROPHILS % (AUTO) 52 % (42-75); PLATELET COUNT 185 10^3/uL (130-400); WHITE BLOOD COUNT 11.3 10^3/uL (4.3-11.0)
[2022-11-18 11:35] LABS: ALBUMIN 3.9 GM/DL (3.2-4.5)
[2022-11-18 11:37] LABS: CALCIUM 9.7 MG/DL (8.5-10.1); POTASSIUM 5.1 MMOL/L (3.6-5.0)
[2022-11-18 11:38] LABS: TOTAL PROTEIN 7.9 GM/DL (6.4-8.2)
[2022-11-18 11:40] LABS: BILIRUBIN,TOTAL 1.1 MG/DL (0.1-1.0)
[2022-11-18 11:41] LABS: CREATININE SERUM 1.69 MG/DL (0.60-1.30)
[2022-11-18 11:44] LABS: MAGNESIUM 2.3 MG/DL (1.6-2.4)
[2022-11-18 11:50] LABS: FIBRIN DEGRADATION PRODUCTS 4.75 UG/ML (0.00-0.49); INR 1.3 (0.8-1.4); PROTHROMBIN TIME PATIENT 16.4 SEC (12.2-14.7)
--- NOTE | 2022-11-18 12:01 | Diagnostic Imaging Report ---
Indication: Syncope Portable AP view of chest is obtained. Since 06/13/2022, cardiomegaly persists with increasing pulmonary venous congestion and bilateral airspace disease. There is no evidence of pneumothorax. Surgical findings in the chest are stable. IMPRESSION: Findings indicate congestive heart failure with worsening bilateral pulmonary edema. Superimposed pneumonitis is not excluded. Dictated by: Dictated on workstation # [id number]
--- NOTE | 2022-11-18 12:03 | Diagnostic Imaging Report ---
PROCEDURE: CT head, face, and cervical spine without contrast. TECHNIQUE: Multiple contiguous axial images were obtained through the head, neck, and facial bones without the use of intravenous contrast. Sagittal and coronal reformations through the cervical spine and facial bones were also performed. Auto Exposure Controls were utilized during the CT exam to meet ALARA standards for radiation dose reduction. INDICATION: Fall with right eye bruising. COMPARISON: Correlation is made with prior CT from 06/13/2022. CT HEAD: FINDINGS: Ventricles and sulci are prominent consistent with cerebral volume loss. No sulcal effacement or midline shift is identified. No acute intra-axial or extra-axial hemorrhage is detected. Cisterns are patent. Evaluation of the paranasal sinuses does show a small amount of fluid in the right maxillary sinus. There appears to be probable fracture of the right maxillary sinus anterior and lateral wall. This will be evaluated on CT maxillofacial study. IMPRESSION: 1. No acute intracranial process is detected. 2. Probable right maxillary sinus fractures. This will be further evaluated on maxillofacial CT. CT CERVICAL SPINE: FINDINGS: Alignment of the cervical spine is normal. There is significant multilevel degenerative disc disease with disc space narrowing and marginal spurring, greatest at the C3-C4, C4-C5, C5-C6, and C6-C7 levels. There is also multilevel facet arthropathy. No fractures are identified. Prevertebral tissues are within normal limits. Odontoid is intact. IMPRESSION: Cervical spondylosis. No acute bony abnormality is detected. CT FACE: FINDINGS: The mandible is intact. The zygomatic arches are intact. There are fractures involving the anterior and lateral wall of the right maxillary sinus. There does not appear to be involvement of the orbital floor. There is a small amount of fluid in the right maxillary sinus. Left maxillary sinus is intact. Nasal bones are intact. The medial and lateral orbital burch appear to be intact. The frontal sinus as well as sphenoid sinus are clear. There is some mucosal thickening of ethmoid air cells. The mastoids are well aerated. IMPRESSION: Right-sided anterior and lateral wall maxillary sinus fractures. No definite involvement of the orbital floor is detected. No other significant abnormality is detected. Dictated by: Dictated on workstation # [id number]
--- NOTE | 2022-11-18 12:05 | Diagnostic Imaging Report ---
INDICATION: Right knee pain. AP, oblique, and lateral views of the right knee are obtained. FINDINGS: No fracture or acute bony abnormality is seen. There is mild chondrocalcinosis. There is no significant joint space narrowing. There is no overt joint effusion. Vascular calcifications are noted. IMPRESSION: No acute fracture or significant joint space narrowing. Chondrocalcinosis is noted. Dictated by: Dictated on workstation # [id number]
[2022-11-18] MEDS ORDERED: AMPICILLIN/SULBACTAM INJECTION 3 GM in NS (IVPB) 100 ML IV ONE (13:00)
[2022-11-18] MEDS ORDERED: FUROSEMIDE 40 MG/4 ML INJ (LASIX) IVP ONE (13:00)
[2022-11-18 13:09] LABS: BILIRUBIN,URINE NEGATIVE (NEGATIVE); CLARITY,URINE CLEAR; COLOR,URINE YELLOW; GLUCOSE, URINE (UA) 3+ (NEGATIVE); KETONES,URINE NEGATIVE (NEGATIVE); LEUKOCYTE ESTERASE ,URINE NEGATIVE (NEGATIVE); NITRITE,URINE NEGATIVE (NEGATIVE); PROTEIN,URINE TRACE (NEGATIVE)
[2022-11-18] MEDS ORDERED: IOHEXOL 350 MG/ML 100 ML (OMNIPAQUE 350) VIAL IV ONE (13:15)
[2022-11-18] MEDS ORDERED: NS 100 ML (IVPB) BAG IV ONE (13:15)
[2022-11-18 13:26] LABS: BACTERIA,URINE TRACE /HPF
--- NOTE | 2022-11-18 14:21 | Diagnostic Imaging Report ---
INDICATION: Pulmonary edema. TECHNIQUE: All CT scans use one or more of the following dose optimizing techniques: Automated exposure control, MA and/or KvP adjustment based on patient size and exam type or iterative reconstruction FINDINGS: Pulmonary arterial branches are patent. No filling defect. No PE. There is cardiomegaly present. There is prominence of the IVC and opacified distended hepatic veins. There may be an element of elevated right heart pressures. Pulmonary arterial branches proximally are somewhat prominent. Chronic pulmonary hypertension may be present. There are small right and minute left pleural effusions, nonloculated. There is some septal thickening and ground-glass opacity, likely mild interstitial-type edema. Aorta is nonaneurysmal. No intracardiac chamber mass or thrombus. There are coronary artery atherosclerotic vascular calcifications. No pericardial effusion. The upper abdomen is nonacute. IMPRESSION: Negative for PE; however, underlying pulmonary artery hypertension may be present with mild interstitial pulmonary edema and small nonloculated pleural effusions noted. Dictated by: Dictated on workstation # [id number]
[2022-11-18] MEDS ORDERED: ACETAMINOPHEN 325 MG TABLET PO ONE (14:45)
[2022-11-18] MEDS ORDERED: oxyCODONE/APAP 5/325MG (PERCOCET 5) TABLET PO ONE (14:45)
--- NOTE | 2022-11-18 15:53 | History & Physical-Hospitalist ---
History of Present Illness HPI/Chief Complaint Pt is an 82yoCM with a PMH of HTN. CAD, atrial fibrillation s/p pacemaker defibrillator who presented to the ER due to syncope. He was seen at his PCP's office this morning for a follow up afte rhis pacemaker was placed 8 weeks ago and the site healed slowly. He was given clearance to resume water activities at the visit and generally was feeling well. When he returned home he was standing to get out of the car and passed out. He had no prodomal symptoms. Per his daughter in law's report he was out for roughly 2 minutes. He does not remember much of the event and for a while did not remember the morning either. When I saw him he was starting to regain some of his morning memory. He complains of head and knee pain and was found to have a right saided lateral wall maxillary sinus fracture on imaging. Knee imaging was negative for acute findings. Source: patient Date Seen 11/18/22 Time Seen by a Provider: 15:47 Attending Physician Marek Tamayo DO PCP Admitting Physician: Attending Physician: Referring Physician Date of Admission Home Medications & Allergies Home Medications Reviewed patient Home Medication Reconciliation performed by pharmacy medication reconciliations plastic technician and/or nursing. Patients Allergies have been reviewed. 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) Tobacco Use?: No Smoking Status: Never a Smoker Smokeless Tobacco Frequency: Never a User Use of E-Cig and/or Vaping dev: No Use of E-Cig and/or Vaping Channing: Never a User Substance use?: No Alcohol Use?: No Pt feels they are or have been: No Immunizations Up To Date Date of Influenza Vaccine: Jul 24, 2021 First/Initial COVID19 Vaccinat: DEC 14 Second COVID19 Vaccination Eder: DEC 14 Tetanus Booster (TDap): Less Than 5 Years Hepatitis A: Yes Hepatitis B: Yes Date of Pneumonia Vaccine: Aug 18, 2021 Seasonal Allergies Seasonal Allergies: Yes Current Status Advance Directives: No Communicates: Verbally Primary Language: Persian Preferred Spoken Language: Persian Is interpretation needed?: No Sensory deficits: Vision impairment Implanted or Applied Medical D: Implantable cardioverter Past Medical History Surgeries: Cardiac, CABG, Coronary Stent, Defibrillator, Pacemaker, Vascular Surgery Asthma, Pneumonia, Sleep Apnea, COPD Currently Using CPAP: No Currently Using BIPAP: No Atrial Fibrillation, Coronary Artery Disease, High Cholesterol, Hypertension, Syncope, Valvular Heart Disease Renal Failure Degenerate Disk Disease, Arthritis Diabetes, Non-Insulin dep Hearing Impairment: Hard of Hearing, Bilateral Hearing Aide Anxiety Blood Disorders: No Family Medical History Reviewed Nursing Family Hx Hypertension Review of Systems Constitutional: see HPI Physical Exam Physical Exam Vital Signs Vital Signs - First Documented 11/18/22 11/18/22 11/18/22 11/18/22 11/18/22 11:01 11:06 16:48 18:36 21:45 Temp 37.0 Pulse 73 Resp 15 B/P (MAP) 155/79 (104) Pulse Ox 97 O2 Delivery Room Air O2 Flow Rate 0.00 FiO2 21 Capillary Refill : Less Than 3 Seconds Height, Weight, BMI Height: 5'10.00" Weight: 198lbs. 0.0oz. 89.372988kw; 25.00 BMI Method:Stated General Appearance: No Apparent Distress, Thin, Other (ecchymosis and abrasions to right forehead) HEENT: PERRL/EOMI, Moist Mucous Membranes; No Scleral Icterus (L), No Scleral Icterus (R) Neck: Normal Inspection, Supple Respiratory: Lungs Clear, No Accessory Muscle Use, No Respiratory Distress Cardiovascular: Regular Rate, Rhythm, No Murmur Gastrointestinal: Normal Bowel Sounds, Non Tender, Soft Extremity: No Calf Tenderness, Pedal Edema, Swelling (bilateral lower extremity edema L>R) Neurologic/Psychiatric: Alert, Oriented x3 (some poor short term recall and repetitiveness) Skin: Normal Color, Warm/Dry, Ecchymosis Results Results/Procedures Labs Laboratory Tests 11/18/22 11:05 11/19/22 04:02 Patient resulted labs reviewed. Imaging [facility] [place], [place] NAME: KELSEA LOVE [facility] REC#: [id number] PT STATUS: REG ER : 1940 PHYSICIAN: LUCIE MCKEE MD ADMIT DATE: 11/18/22/ER Draft Date of Exam:11/18/22 CT HEAD/FACE/CERVICAL WO PROCEDURE: CT head, face, and cervical spine without contrast. TECHNIQUE: Multiple contiguous axial images were obtained through the head, neck, and facial bones without the use of intravenous contrast. Sagittal and coronal reformations through the cervical spine and facial bones were also performed. Auto Exposure Controls were utilized during the CT exam to meet ALARA standards for radiation dose reduction. INDICATION: Fall with right eye bruising. COMPARISON: Correlation is made with prior CT from 06/13/2022. CT HEAD: FINDINGS: Ventricles and sulci are prominent consistent with cerebral volume loss. No sulcal effacement or midline shift is identified. No acute intra-axial or extra-axial hemorrhage is detected. Cisterns are patent. Evaluation of the paranasal sinuses does show a small amount of fluid in the right maxillary sinus. There appears to be probable fracture of the right maxillary sinus anterior and lateral wall. This will be evaluated on CT maxillofacial study. IMPRESSION: 1. No acute intracranial process is detected. 2. Probable right maxillary sinus fractures. This will be further evaluated on maxillofacial CT. CT CERVICAL SPINE: FINDINGS: Alignment of the cervical spine is normal. There is significant multilevel degenerative disc disease with disc space narrowing and marginal spurring, greatest at the C3-C4, C4-C5, C5-C6, and C6-C7 levels. There is also multilevel facet arthropathy. No fractures are identified. Prevertebral tissues are within normal limits. Odontoid is intact. IMPRESSION: Cervical spondylosis. No acute bony abnormality is detected. CT FACE: FINDINGS: The mandible is intact. The zygomatic arches are intact. There are fractures involving the anterior and lateral wall of the right maxillary sinus. There does not appear to be involvement of the orbital floor. There is a small amount of fluid in the right maxillary sinus. Left maxillary sinus is intact. Nasal bones are intact. The medial and lateral orbital burch appear to be intact. The frontal sinus as well as sphenoid sinus are clear. There is some mucosal thickening of ethmoid air cells. The mastoids are well aerated. IMPRESSION: Right-sided anterior and lateral wall maxillary sinus fractures. No definite involvement of the orbital floor is detected. No other significant abnormality is detected. Dictated on workstation # [id number] Dict: 11/18/22 1151 Trans: 11/18/22 1202 [id number] Interpreted by: LIEN LÓPEZ MD Electronically signed by: [facility], [place] NAME: KELSEA LOVE [facility] REC#: [id number] PT STATUS: REG ER : 1940 PHYSICIAN: LUCIE MCKEE MD ADMIT DATE: 11/18/22/ER Draft Date of Exam:11/18/22 CHEST 1 VIEW, AP/PA ONLY Indication: Syncope Portable AP view of chest is obtained. Since 06/13/2022, cardiomegaly persists with increasing pulmonary venous congestion and bilateral airspace disease. There is no evidence of pneumothorax. Surgical findings in the chest are stable. IMPRESSION: Findings indicate congestive heart failure with worsening bilateral pulmonary edema. Superimposed pneumonitis is not excluded. Dictated on workstation # [id number] Dict: 11/18/22 1159 Trans: 11/18/22 1201 [facility] [id number] Interpreted by: SABINA TORIBIO MD Electronically signed by: [place], [place] NAME: KELSEA LOVE [facility] REC#: [id number] PT STATUS: REG ER : 1940 PHYSICIAN: LUCIE MCKEE MD ADMIT DATE: 11/18/22/ER Draft Date of Exam:11/18/22 KNEE, RIGHT, 3 VIEWS INDICATION: Right knee pain. AP, oblique, and lateral views of the right knee are obtained. FINDINGS: No fracture or acute bony abnormality is seen. There is mild chondrocalcinosis. There is no significant joint space narrowing. There is no overt joint effusion. Vascular calcifications are noted. IMPRESSION: No acute fracture or significant joint space narrowing. Chondrocalcinosis is noted. Dictated on workstation # [id number] Dict: 11/18/22 1203 Trans: 11/18/22 1205 [id number] Interpreted by: FRANK BREEN MD Electronically signed by: [place], [place] NAME: KELSEA LOVE [facility] REC#: [id number] PT STATUS: REG ER : 1940 PHYSICIAN: LUCIE MCKEE MD ADMIT DATE: 11/18/22/ER Draft Date of Exam:11/18/22 CT ANGIO CHEST W (R/O PE) INDICATION: Pulmonary edema. TECHNIQUE: All CT scans use one or more of the following dose optimizing techniques: Automated exposure control, MA and/or KvP adjustment based on patient size and exam type or iterative reconstruction FINDINGS: Pulmonary arterial branches are patent. No filling defect. No PE. There is cardiomegaly present. There is prominence of the IVC and opacified distended hepatic veins. There may be an element of elevated right heart pressures. Pulmonary arterial branches proximally are somewhat prominent. Chronic pulmonary hypertension may be present. There are small right and minute left pleural effusions, nonloculated. There is some septal thickening and ground-glass opacity, likely mild interstitial-type edema. Aorta is nonaneurysmal. No intracardiac chamber mass or thrombus. There are coronary artery atherosclerotic vascular calcifications. No pericardial effusion. The upper abdomen is nonacute. IMPRESSION: Negative for PE; however, underlying pulmonary artery hypertension may be present with mild interstitial pulmonary edema and small nonloculated pleural effusions noted. Dictated on workstation # [id number] Dict: 11/18/22 1409 Trans: 11/18/22 1420 [id number] Interpreted by: SABINA DELCID Electronically signed by: Assessment/Plan Admission Diagnosis Syncope Admission Status: Observation Assessment and Plan Syncope head trauma Maxillary sinus fracture Admit with telemetry I called and spoke with WILLIE Sutton for Dr Villatoro and updated her on admission- they will see in consult ER discussed case with WILLIE Valverde for Dr Cabello- they will see in outpatient followup, no acute need for surgical intervention per report Will interrogate pacemaker PT/OT Consider IRF eval Hold anticoauglation TARAH GUTIERREZ MD Nov 18, 2022 15:53
--- NOTE | 2022-11-18 16:14 | Consultation-Cardiology ---
HPI-Cardiology Cardiology Consultation: Date of Consultation 11/18/22 Time Seen by a Provider: 16:10 Date of Admission 11-18-22 Attending Physician Marek Tamayo DO Admitting Physician Admitting Physician: Atiya Pollard MD Attending Physician: Atiya Pollard MD Consulting Physician Jack Villatoro MD HPI: Chief Complaint: Syncope Mr. Byrne is an 82 yr old male being admitted from the ED d/t syncope. He reports he remembers getting his cane and opening the car door and the next thing he remembers is being at the hospital. He was with his daughter in law at the time, who is not with him at this time. His is at his bedside. She reports when he first arrived in the ED he could not remember any events of the morning, but this is gradually improving. He denies any palpitations or AICD shocks. He denies any CP or SOB. He states he is feeling better at this time. He reports his BP at home has been variable running high and then going low. Review of Systems-Cardiology Review of Systems Constitutional: No chills, No fever, No malaise Eyes: No vision change Ears/Nose/Throat: No epistaxis, No recent hearing loss Respiratory: As described under HPI Cardiovascular: As described under HPI Gastrointestinal: No constipation, No diarrhea, No nausea, No vomiting Genitourinary: No dysuria Musculoskeletal: no symptoms reported Skin: other (bruising to the right side of his face with steri-strips in place following fall) Psychiatric/Neurological: syncope; No anxiety, No depression, No seizure, No focal weakness Hematologic: No bleeding abnormalities AXX-Hevhzk-Knzakn Hx Patient Social History Marrital Status: 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 Family Medical History Family Medical History: No reported family h/o CAD. Allergies and Home Medications Allergies Coded Allergies: No Known Drug Allergies (Verified , 11/24/21) Patient Home Medication List Allopurinol (Allopurinol) 100 Mg Tablet, 100 MG PO DAILY, (Reported) Entered as Reported by: DEVEN CARBALLO on 09/07/22 1015 Apixaban (Eliquis) 5 Mg Tablet, 2.5 MG PO BID, (Reported) Entered as Reported by: DEVEN CARBALLO on 09/07/22 1015 Calcitriol (Calcitriol) 0.25 Mcg Capsule, 0.25 MCG PO TUESDAY, (Reported) Entered as Reported by: OLIVA FIELD on 11/24/21 1301 Cefuroxime Axetil (Cefuroxime) 500 Mg Tablet, 500 MG PO BID Prescribed by: JACK VILLATORO on 09/07/22 1447 Cetirizine HCl (Cetirizine HCl) 10 Mg Tablet, 10 MG PO HS, (Reported) Entered as Reported by: DEVEN CARBALLO on 09/07/22 1015 Cholecalciferol (Vitamin D3) (Vitamin D3) 125 Mcg (5000 Unit) Tablet, 125 MCG PO TUE,TUE,TUE, (Reported) Entered as Reported by: DEVEN CARBALLO on 09/07/22 1015 Dapagliflozin Propanediol (Farxiga) 10 Mg Tablet, 10 MG PO DAILY, (Reported) Entered as Reported by: DEVEN CARBALLO on 09/07/22 1015 Digoxin (Digoxin) 125 Mcg (0.125 Mg) Tablet, 125 MCG PO HS, (Reported) Entered as Reported by: OLIVA FIELD on 11/24/21 1301 Doxycycline Hyclate (Doxycycline Hyclate) 100 Mg Tablet, 100 MG PO BID Prescribed by: KELLY CALDWELL on 10/22/22 0956 Enalapril Maleate (Enalapril Maleate) 5 Mg Tablet, 5 MG PO HS, (Reported) Entered as Reported by: MOSHE KAPLAN on 06/13/22 1730 Escitalopram Oxalate (Escitalopram Oxalate) 10 Mg Tablet, 10 MG PO DAILY, (Reported) Entered as Reported by: OLIVA FIELD on 11/24/21 1301 Finasteride (Finasteride) 5 Mg Tablet, 5 MG PO HS, (Reported) Entered as Reported by: OLIVA FIELD on 11/24/21 1301 Fluticasone Propionate (Flonase Allergy Relief) 50 Mcg/Actuation [place].susp, 2 SPRAY NS DAILY, (Reported) Entered as Reported by: DEVEN CARBALLO on 09/07/22 1015 Fluticasone/Vilanterol (Breo Ellipta 100-25 Mcg INH) 100 Mcg-25 Mcg/Dose Blst.w.dev, 1 EACH IH DAILY, (Reported) Entered as Reported by: DEVEN CARBALLO on 09/07/22 1015 Furosemide (Furosemide) 80 Mg Tablet, 40 MG PO DAILY PRN for WATER RETENTION, (Reported) Entered as Reported by: DEVEN CARBALLO on 09/07/22 1021 Gluc [place]/Chondro Webster A/Vit C/Mn (Glucosamine Chondroitin Tab) 750 Mg-600 Mg-55 Mg- 5 Mg Tablet, 1 EACH PO DAILY, (Reported) Entered as Reported by: DEVEN CARBALLO on 09/07/22 1015 Loperamide HCl (Imodium A-D) 2 Mg Tablet, 2 MG PO BID, (Reported) Entered as Reported by: OLIVA FIELD on 11/24/21 1301 Metoprolol Succinate (Metoprolol Succinate) 25 Mg Tab.er.24h, 25 MG PO BID, (Reported) Entered as Reported by: DEVEN CARBALLO on 09/07/22 1015 Montelukast Sodium (Montelukast Sodium) 10 Mg Tablet, 10 MG PO HS, (Reported) Entered as Reported by: DEVEN CARBALLO on 09/07/22 1015 Multivitamin (Multivitamin) 1 Each Tablet, 1 EACH PO DAILY, (Reported) Entered as Reported by: DEVEN CARBALLO on 09/07/22 1015 [place]-3/Dha/Epa/Fish Oil (Fish Oil 1,000 mg Softgel) 1,000 Mg (120 Mg-180 Mg) Capsule, 1,000 MG PO DAILY, (Reported) Entered as Reported by: DEVEN CARBALLO on 09/07/22 1015 Tamsulosin HCl (Flomax) 0.4 Mg Cap, 0.4 MG PO HS, (Reported) Entered as Reported by: DEVEN CARBALLO on 09/07/22 1015 Physical Exam-Cardiology Physical Exam Vital Signs/I&O 11/18/22 11/18/22 11/18/22 11/18/22 20:00 20:00 20:00 21:45 Temp 36.5 Pulse 76 Resp 16 B/P (MAP) 142/78 (99) Pulse Ox 100 97 99 O2 Delivery Room Air Room Air Room Air O2 Flow Rate 0.00 11/18/22 11/18/22 11/19/22 11/19/22 22:11 22:14 00:00 00:12 Temp 36.7 Pulse 75 Resp 18 B/P (MAP) 127/70 (89) Pulse Ox 99 O2 Delivery Nasal Cannula Nasal Cannula Nasal Cannula O2 Flow Rate 2.00 2.00 2.00 FiO2 99 11/19/22 11/19/22 11/19/22 11/19/22 01:00 04:00 04:00 07:20 Temp 36.4 36.5 Pulse 75 75 75 Resp 11 18 B/P (MAP) 132/82 (99) 127/71 (89) Pulse Ox 100 94 O2 Delivery Room Air Room Air Room Air 11/19/22 00:00 Intake Total 340 ml Output Total 600 ml Balance -260 ml Capillary Refill : Less Than 3 Seconds Constitutional: AAO x 3, well-developed, well-nourished HEENT: PERRL, hearing is well preserved, oral hygience is good Neck: No carotid bruit; carotid pulses are 2 + bilaterally Respiratory: No accessory muscle use, No respiratory distress; chest expansion is symmetric, chest is bilaterally symmetric, lungs clear to auscultation Cardiovascular: regular rate-rhythm; No JVD; S1 and S2 Gastrointestinal: No tender; soft, round, audible bowel sounds Extremities: no lower extremity edema bilateral Neurologic/Psychiatric: grossly intact (moves all extremities) Skin: other (bruising to the right side of his face with steri-strips in place) Data Review Labs Laboratory Tests 11/18/22 11:05: White Blood Count 11.3H, Red Blood Count 5.44, Hemoglobin 15.3, Hematocrit 50, Mean Corpuscular Volume 91, Mean Corpuscular Hemoglobin 28, Mean Corpuscular Hemoglobin Concent 31L, Red Cell Distribution Width 16.2H, Platelet Count 185, Mean Platelet Volume 9.0, Immature Granulocyte % (Auto) 1, Neutrophils (%) (Auto) 52, Lymphocytes (%) (Auto) 34, Monocytes (%) (Auto) 10, Eosinophils (%) (Auto) 3, Basophils (%) (Auto) 1, Neutrophils # (Auto) 5.9, Lymphocytes # (Auto) 3.8, Monocytes # (Auto) 1.1H, Eosinophils # (Auto) 0.3, Basophils # (Auto) 0.1, Immature Granulocyte # (Auto) 0.1, Prothrombin Time 16.4H, INR Comment 1.3, Activated Partial Thromboplast Time 36H, D-Dimer 4.75H, Sodium Level 136, Potassium Level 5.1H, Chloride Level 100, Carbon Dioxide Level 24, Anion Gap 12, Blood Urea Nitrogen 34H, Creatinine 1.69H, Estimat Glomerular Filtration Rate 40, BUN/Creatinine Ratio 20, Glucose Level 165H, Calcium Level 9.7, Corrected Calcium 9.8, Magnesium Level 2.3, Total Bilirubin 1.1H, Aspartate Amino Transf (AST/SGOT) 36H, Alanine Aminotransferase (ALT/SGPT) 29, Alkaline Phosphatase 214H, Troponin I 0.042H, B-Type Natriuretic Peptide 607.7H, Total Protein 7.9, Albumin 3.9 11/18/22 13:00: Urine Color YELLOW, Urine Clarity CLEAR, Urine pH 6.0, Urine Specific [place] 1.015L, Urine Protein TRACEH, Urine Glucose (UA) 3+H, Urine Ketones NEGATIVE, Urine Nitrite NEGATIVE, Urine Bilirubin NEGATIVE, Urine Urobilinogen 0.2, Urine Leukocyte Esterase NEGATIVE, Urine RBC (Auto) NEGATIVE, Urine RBC NONE, Urine WBC NONE, Urine Squamous Epithelial Cells NONE, Urine Crystals NONE, Urine Bacteria TRACE, Urine Casts NONE, Urine Mucus NEGATIVE, Urine Culture Indicated NO 11/18/22 14:08: Troponin I < 0.028 11/19/22 04:02: White Blood Count 9.6, Red Blood Count 5.31, Hemoglobin 14.8, Hematocrit 48, Mean Corpuscular Volume 91, Mean Corpuscular Hemoglobin 28, Mean Corpuscular Hemoglobin Concent 31L, Red Cell Distribution Width 16.0H, Platelet Count 181, Mean Platelet Volume 9.6, Sodium Level 138, Potassium Level 4.0, Chloride Level 99, Carbon Dioxide Level 25, Anion Gap 14, Blood Urea Nitrogen 38H, Creatinine 1.72H, Estimat Glomerular Filtration Rate 39, BUN/Creatinine Ratio 22, Glucose Level 130H, Calcium Level 9.5, Digoxin Level < 0.30L Radiology NAME: KELSEA BYRNE [facility] REC#: [id number] PT STATUS: REG ER : 1940 PHYSICIAN: LUCIE MCKEE MD ADMIT DATE: 11/18/22/ER Draft Date of Exam:11/18/22 CT ANGIO CHEST W (R/O PE) INDICATION: Pulmonary edema. TECHNIQUE: All CT scans use one or more of the following dose optimizing techniques: Automated exposure control, MA and/or KvP adjustment based on patient size and exam type or iterative reconstruction FINDINGS: Pulmonary arterial branches are patent. No filling defect. No PE. There is cardiomegaly present. There is prominence of the IVC and opacified distended hepatic veins. There may be an element of elevated right heart pressures. Pulmonary arterial branches proximally are somewhat prominent. Chronic pulmonary hypertension may be present. There are small right and minute left pleural effusions, nonloculated. There is some septal thickening and ground-glass opacity, likely mild interstitial-type edema. Aorta is nonaneurysmal. No intracardiac chamber mass or thrombus. There are coronary artery atherosclerotic vascular calcifications. No pericardial effusion. The upper abdomen is nonacute. IMPRESSION: Negative for PE; however, underlying pulmonary artery hypertension may be present with mild interstitial pulmonary edema and small nonloculated pleural effusions noted. Dictated on workstation # [id number] Dict: 11/18/22 1409 Trans: 11/18/22 1420 ANGEL [id number] Interpreted by: SABINA DELCID Electronically signed by: NAME: KELSEA BYRNE [facility] REC#: [id number] PT STATUS: REG ER : 1940 PHYSICIAN: LUCIE MCKEE MD ADMIT DATE: 11/18/22/ER Draft Date of Exam:11/18/22 CHEST 1 VIEW, AP/PA ONLY Indication: Syncope Portable AP view of chest is obtained. Since 06/13/2022, cardiomegaly persists with increasing pulmonary venous congestion and bilateral airspace disease. There is no evidence of pneumothorax. Surgical findings in the chest are stable. IMPRESSION: Findings indicate congestive heart failure with worsening bilateral pulmonary edema. Superimposed pneumonitis is not excluded. Dictated on workstation # [id number] Dict: 11/18/22 1159 Trans: 11/18/22 1201 [facility] [id number] Interpreted by: SABINA TORIBIO MD Electronically signed by: NAME: KELSEA BYRNE [facility] REC#: [id number] PT STATUS: REG ER : 1940 PHYSICIAN: LUCIE MCKEE MD ADMIT DATE: 11/18/22/ER Signed Date of Exam:11/18/22 CT HEAD/FACE/CERVICAL WO PROCEDURE: CT head, face, and cervical spine without contrast. TECHNIQUE: Multiple contiguous axial images were obtained through the head, neck, and facial bones without the use of intravenous contrast. Sagittal and coronal reformations through the cervical spine and facial bones were also performed. Auto Exposure Controls were utilized during the CT exam to meet ALARA standards for radiation dose reduction. INDICATION: Fall with right eye bruising. COMPARISON: Correlation is made with prior CT from 06/13/2022. CT HEAD: FINDINGS: Ventricles and sulci are prominent consistent with cerebral volume loss. No sulcal effacement or midline shift is identified. No acute intra-axial or extra-axial hemorrhage is detected. Cisterns are patent. Evaluation of the paranasal sinuses does show a small amount of fluid in the right maxillary sinus. There appears to be probable fracture of the right maxillary sinus anterior and lateral wall. This will be evaluated on CT maxillofacial study. IMPRESSION: 1. No acute intracranial process is detected. 2. Probable right maxillary sinus fractures. This will be further evaluated on maxillofacial CT. CT CERVICAL SPINE: FINDINGS: Alignment of the cervical spine is normal. There is significant multilevel degenerative disc disease with disc space narrowing and marginal spurring, greatest at the C3-C4, C4-C5, C5-C6, and C6-C7 levels. There is also multilevel facet arthropathy. No fractures are identified. Prevertebral tissues are within normal limits. Odontoid is intact. IMPRESSION: Cervical spondylosis. No acute bony abnormality is detected. CT FACE: FINDINGS: The mandible is intact. The zygomatic arches are intact. There are fractures involving the anterior and lateral wall of the right maxillary sinus. There does not appear to be involvement of the orbital floor. There is a small amount of fluid in the right maxillary sinus. Left maxillary sinus is intact. Nasal bones are intact. The medial and lateral orbital burch appear to be intact. The frontal sinus as well as sphenoid sinus are clear. There is some mucosal thickening of ethmoid air cells. The mastoids are well aerated. IMPRESSION: Right-sided anterior and lateral wall maxillary sinus fractures. No definite involvement of the orbital floor is detected. No other significant abnormality is detected. Dictated by: Dictated on workstation # [id number] Dict: 11/18/22 1151 Trans: 11/18/22 1557 [id number] Interpreted by: LIEN LÓPEZ MD Electronically signed by: LIEN LÓPEZ MD 11/18/22 1557 ECG Impression ECG Comment V-paced A/P-Cardiology Assessment/Admission Diagnosis Syncopal episode of undetermined etiology Severe dilated cardiomyopathy - with an ejection fraction of 15% on echocardiography of November 2011, improved after treatment - Echo of 05/26/16 at the [facility]: LVEF 47%, borderline LVE, inf and inf-lat hypokinesis, mod RVE, severe MR (posteriorly directed), mod to sev TR, asc aortic dilatation 43 mm at mid level). - He has not been considered to be a suitable candidate for MV surg or MitraClip at the [facility]. - Last echo was in April 2019 at [facility] LVEF 48%, mod RV enlargement and dysfunction, severe MR, mod TR, RVSP 33 mmHg - Echocardiogram of 04-19-22 showed LVEF 35-40%. Mod diffuse hypokinesis. Grade 3 diastolic dysfunction. LA and RA are severely dilated. Trivial AoR. Mild to mod TR. 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 - Chronic anticoagulation for stroke prophylaxis with Eliquis GI/Surgery - History of bowel surgery that included surgery for incarcerated hernia and surgery of bowel perforation and removal of a segment of small bowel with a significant amount of weight loss postoperatively. Coronary artery disease - with a history of left internal mammary artery graft to left anterior descending and a saphenous vein to left circumflex obtuse marginal system in 1988. (CABG) - Last cardiac catheterization was in February 2009 and has showed severe [place] coronary artery disease with widely patent left internal mammary artery graft to mid left anterior descending and widely patent vein graft to obtuse marginal system of the left circumflex. The right coronary artery was very small. The left ventricular ejection fraction at the time of cardiac catheterization was 25 to 30%. History of pacemaker/ defibrillator implantation - by Dr. Lopez in September 2008. - This was upgraded to a DICE MANAGER-D at the [facility] in 2010. - This was replaced at [facility] in February 2019. Replaced again on 09/07/22 Chronic intraventricular conduction delay. Carotid arterial disease - with a history of carotid endarterectomy. - Ultrasound of of January 2017: 50-60% R ICA and 40% LICA stenoses. Ultrasound of 07/29/17: approx 40% R ICA and less than 40% L ICA stenoses - Carotid u/s of 09-21-21: 60-79% R ICA stenosis; less than 40% L ICA stenosis History of anxiety - currently controlled. 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 Pollard for this consult HUMPHREY GRIJALVA Nov 18, 2022 16:14
[2022-11-18] MEDS ORDERED: polyethylene glycoL POWDER 17 GM (MIRALAX) PACK PO PRN (17:15)
[2022-11-18] MEDS ORDERED: CALCIUM CARBONATE 500 MG (TUMS) TAB.CHEW PO PRN (17:15)
[2022-11-18] MEDS ORDERED: ONDANSETRON 4 MG/2 ML (SDV) Z0FRAN IV PRN (17:15)
[2022-11-18] MEDS ORDERED: oxyCODONE/APAP 10/325MG (PERCOCET 10) TABLET PO PRN (17:15)
[2022-11-18] MEDS ORDERED: MELATONIN 3 MG TABLET PO PRN (17:15)
[2022-11-18] MEDS ORDERED: BISACODYL 10 MG SUPP (DULCOLAX) PR PRN (17:15)
[2022-11-18 17:22] VITALS: BP 154/81
--- NOTE | 2022-11-18 17:47 | Consultation-Cardiology ---
HPI-Cardiology Cardiology Consultation: Date of Consultation 11/18/22 Time Seen by a Provider: 17:35 Date of Admission Attending Physician Marek Tamayo DO Admitting Physician Admitting Physician: Atiya Pollard MD Attending Physician: Atiya Pollard MD Consulting Physician JAIME NARANJO MD, MA, FACP, FACC, FSCAI, CCDS HPI: Chief Complaint: Syncope Mr. Byrne is an 82 yr old male being admitted from the ED d/t syncope. He reports he remembers getting his cane and opening the car door and the next th ing he remembers is being at the hospital. He was with his daughter in law at the time, who is not with him at this time. His is at his bedside. She reports when he first arrived in the ED he could not remember any events of the morning, but this is gradually improving. He denies any palpitations or AICD shocks. He denies any CP or SOB. He states he is feeling better at this time. He reports his BP at home has been variable running high and then going low. Review of Systems-Cardiology Review of Systems Constitutional: No chills, No fever, No malaise Eyes: No vision change Ears/Nose/Throat: No epistaxis, No recent hearing loss Respiratory: As described under HPI Cardiovascular: As described under HPI Gastrointestinal: No constipation, No diarrhea, No nausea, No vomiting Genitourinary: No dysuria Musculoskeletal: no symptoms reported Skin: other (bruising to the right side of his face with steri-strips in place following fall) Psychiatric/Neurological: syncope; No anxiety, No depression, No seizure, No focal weakness Hematologic: No bleeding abnormalities BVE-Lyrdcp-Qxrzic Hx Patient Social History Marrital Status: 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 Family Medical History Family Medical History: No reported family h/o CAD. Allergies and Home Medications Allergies Coded Allergies: No Known Drug Allergies (Verified , 11/24/21) Patient Home Medication List Home Medication List Reviewed: Yes Allopurinol (Allopurinol) 100 Mg Tablet, 100 MG PO DAILY, (Reported) Entered as Reported by: DEVEN CARBALLO on 09/07/22 1015 Apixaban (Eliquis) 5 Mg Tablet, 2.5 MG PO BID, (Reported) Entered as Reported by: DEVEN CARBALLO on 09/07/22 1015 Calcitriol (Calcitriol) 0.25 Mcg Capsule, 0.25 MCG PO TUESDAY, (Reported) Entered as Reported by: OLIVA FIELD on 11/24/21 1301 Cefuroxime Axetil (Cefuroxime) 500 Mg Tablet, 500 MG PO BID Prescribed by: JAIME NARANJO on 09/07/22 1447 Cetirizine HCl (Cetirizine HCl) 10 Mg Tablet, 10 MG PO HS, (Reported) Entered as Reported by: DEVEN CARBALLO on 09/07/22 1015 Cholecalciferol (Vitamin D3) (Vitamin D3) 125 Mcg (5000 Unit) Tablet, 125 MCG PO TUE,TUE,TUE, (Reported) Entered as Reported by: EDVEN CARBALLO on 09/07/22 1015 Dapagliflozin Propanediol (Farxiga) 10 Mg Tablet, 10 MG PO DAILY, (Reported) Entered as Reported by: DEVEN CARBALLO on 09/07/22 1015 Digoxin (Digoxin) 125 Mcg (0.125 Mg) Tablet, 125 MCG PO HS, (Reported) Entered as Reported by: OLIVA FIELD on 11/24/21 1301 Doxycycline Hyclate (Doxycycline Hyclate) 100 Mg Tablet, 100 MG PO BID Prescribed by: KELLY CALDWELL on 10/22/22 0956 Enalapril Maleate (Enalapril Maleate) 5 Mg Tablet, 5 MG PO HS, (Reported) Entered as Reported by: MOSHE KAPLAN on 06/13/22 1730 Escitalopram Oxalate (Escitalopram Oxalate) 10 Mg Tablet, 10 MG PO DAILY, (Reported) Entered as Reported by: OLIVA FIELD on 11/24/21 1301 Finasteride (Finasteride) 5 Mg Tablet, 5 MG PO HS, (Reported) Entered as Reported by: OLIVA FIELD on 11/24/21 1301 Fluticasone Propionate (Flonase Allergy Relief) 50 Mcg/Actuation [place].susp, 2 SPRAY NS DAILY, (Reported) Entered as Reported by: DEVEN CARBALLO on 09/07/22 1015 Fluticasone/Vilanterol (Breo Ellipta 100-25 Mcg INH) 100 Mcg-25 Mcg/Dose Bl st.w.dev, 1 EACH IH DAILY, (Reported) Entered as Reported by: DEVEN CARBALLO on 09/07/22 1015 Furosemide (Furosemide) 80 Mg Tablet, 40 MG PO DAILY PRN for WATER RETENTION, (Reported) Entered as Reported by: DEVEN CARBALLO on 09/07/22 1021 Gluc [place]/Chondro [place] A/Vit C/Mn (Glucosamine Chondroitin Tab) 750 Mg-600 Mg-55 Mg- 5 Mg Tablet, 1 EACH PO DAILY, (Reported) Entered as Reported by: DEVEN CARBALLO on 09/07/22 1015 Loperamide HCl (Imodium A-D) 2 Mg Tablet, 2 MG PO BID, (Reported) Entered as Reported by: OLIVA FIELD on 11/24/21 1301 Metoprolol Succinate (Metoprolol Succinate) 25 Mg Tab.er.24h, 25 MG PO BID, (Reported) Entered as Reported by: DEVEN CARBALLO on 09/07/22 1015 Montelukast Sodium (Montelukast Sodium) 10 Mg Tablet, 10 MG PO HS, (Reported) Entered as Reported by: DEVEN CARBALLO on 09/07/22 1015 Multivitamin (Multivitamin) 1 Each Tablet, 1 EACH PO DAILY, (Reported) Entered as Reported by: DEVEN CARBALLO on 09/07/22 1015 [place]-3/Dha/Epa/Fish Oil (Fish Oil 1,000 mg Softgel) 1,000 Mg (120 Mg-180 Mg) Capsule, 1,000 MG PO DAILY, (Reported) Entered as Reported by: DEVEN CARBALLO on 09/07/22 1015 Tamsulosin HCl (Flomax) 0.4 Mg Cap, 0.4 MG PO HS, (Reported) Entered as Reported by: DEVEN CARBALLO on 09/07/22 1015 Physical Exam-Cardiology Physical Exam Vital Signs/I&O 11/18/22 11/18/22 11/18/22 11/18/22 11:01 11:06 16:48 17:22 Temp 37.0 36.3 Pulse 73 76 75 75 Resp 15 15 15 25 B/P (MAP) 155/79 (104) 161/79 (106) 147/83 154/81 (105) Pulse Ox 97 98 100 O2 Delivery Room Air Room Air Room Air Room Air 11/18/22 17:27 Pulse 75 Capillary Refill : Less Than 3 Seconds Constitutional: AAO x 3, well-developed, well-nourished HEENT: PERRL, other (Brusing and swelling around R orbit and R maxilla), hearing is well preserved, xanthelasmas are seen Neck: No carotid bruit; carotid pulses are 2 + bilaterally Respiratory: No accessory muscle use, No respiratory distress; chest expansion is symmetric, chest is bilaterally symmetric, lungs clear to auscultation Cardiovascular: regular rate-rhythm; No JVD; S1 and S2 Gastrointestinal: No tender; soft, round, audible bowel sounds Extremities: no lower extremity edema bilateral Neurologic/Psychiatric: grossly intact (moves all extremities) Skin: other (bruising to the right side of his face with steri-strips in place) Data Review Labs Laboratory Tests 11/18/22 11:05: White Blood Count 11.3H, Red Blood Count 5.44, Hemoglobin 15.3, Hematocrit 50, Mean Corpuscular Volume 91, Mean Corpuscular Hemoglobin 28, Mean Corpuscular Hemoglobin Concent 31L, Red Cell Distribution Width 16.2H, Platelet Count 185, Mean Platelet Volume 9.0, Immature Granulocyte % (Auto) 1, Neutrophils (%) (Auto) 52, Lymphocytes (%) (Auto) 34, Monocytes (%) (Auto) 10, Eosinophils (%) (Auto) 3, Basophils (%) (Auto) 1, Neutrophils # (Auto) 5.9, Lymphocytes # (Auto) 3.8, Monocytes # (Auto) 1.1H, Eosinophils # (Auto) 0.3, Basophils # (Auto) 0.1, Immature Granulocyte # (Auto) 0.1, Prothrombin Time 16.4H, INR Comment 1.3, Activated Partial Thromboplast Time 36H, D-Dimer 4.75H, Sodium Level 136, Potassium Level 5.1H, Chloride Level 100, Carbon Dioxide Level 24, Anion Gap 12, Blood Urea Nitrogen 34H, Creatinine 1.69H, Estimat Glomerular Filtration Rate 40, BUN/Creatinine Ratio 20, Glucose Level 165H, Calcium Level 9.7, Corrected Calcium 9.8, Magnesium Level 2.3, Total Bilirubin 1.1H, Aspartate Amino Transf (AST/SGOT) 36H, Alanine Aminotransferase (ALT/SGPT) 29, Alkaline Phosphatase 214H, Troponin I 0.042H, B-Type Natriuretic Peptide 607.7H, Total Protein 7.9, Albumin 3.9 11/18/22 13:00: Urine Color YELLOW, Urine Clarity CLEAR, Urine pH 6.0, Urine Specific [place] 1.015L, Urine Protein TRACEH, Urine Glucose (UA) 3+H, Urine Ketones NEGATIVE, Urine Nitrite NEGATIVE, Urine Bilirubin NEGATIVE, Urine Urobilinogen 0.2, Urine Leukocyte Esterase NEGATIVE, Urine RBC (Auto) NEGATIVE, Urine RBC NONE, Urine WBC NONE, Urine Squamous Epithelial Cells NONE, Urine Crystals NONE, Urine Bacteria TRACE, Urine Casts NONE, Urine Mucus NEGATIVE, Urine Culture Indicated NO 11/18/22 14:08: Troponin I < 0.028 Laboratory Tests 11/18/22 11:05 A/P-Cardiology Assessment/Admission Diagnosis Syncopal episode of undetermined etiology - no evidence any arrhythmic event on his CASE REVIEWER-D to account for syncope (chronic A Fib is present) - R maxillary sinus fractures, no head bleed on CT head and face of 11/18/22 Severe dilated cardiomyopathy - with an ejection fraction of 15% on echocardiography of November 2011, improved after treatment - Echo of 05/26/16 at the [facility]: LVEF 47%, borderline LVE, inf and inf-lat hypokinesis, mod RVE, severe MR (posteriorly directed), mod to sev TR, asc aortic dilatation 43 mm at mid level). - He has not been considered to be a suitable candidate for MV surg or MitraClip at the [facility]. - Last echo was in April 2019 at [place] LVEF 48%, mod RV enlargement and dys function, severe MR, mod TR, RVSP 33 mmHg - Echocardiogram of 04-19-22 showed LVEF 35-40%. Mod diffuse hypokinesis. Grade 3 diastolic dysfunction. LA and RA are severely dilated. Trivial AoR. Mild to mod TR. PASP 35-40 mmHg Chronic systolic heart failure, NYHA III - currently clinically compensated Cardiac cachexia, cardiac congestive cirrhosis, and cardiac enteropathy H/O syncope, likely due to postural hypotension on 06/13/22 Hyperlipidemia - statin tx - managed by PCP Anomalous pulmonary venous return (as mentioned in his letter from the [facility] dated 06/18/16) Chronic atrial fibrillation, longstanding. - Chronic anticoagulation for stroke prophylaxis with Eliquis GI/Surgery - History of bowel surgery that included surgery for incarcerated hernia and surgery of bowel perforation and removal of a segment of small bowel with a significant amount of weight loss postoperatively. Coronary artery disease - with a history of left internal mammary artery graft to left anterior de scending and a saphenous vein to left circumflex obtuse marginal system in 1988. (CABG) - Last cardiac catheterization was in February 2009 and has showed severe [place] coronary artery disease with widely patent left internal mammary artery graft to mid left anterior descending and widely patent vein graft to obtuse marginal system of the left circumflex. The right coronary artery was very small. The l eft ventricular ejection fraction at the time of cardiac catheterization was 25 to 30%. History of pacemaker/ defibrillator implantation - by Dr. Lopez in September 2008. - This was upgraded to a CASE REVIEWER-D at the [facility] in 2010. - This was replaced at [place] in February 2019. Replaced again on 09/07/22 Chronic intraventricular conduction delay. Carotid arterial disease - with a history of carotid endarterectomy. - Ultrasound of of January 2017: 50-60% R ICA and 40% LICA stenoses. Ultrasound of 07/29/17: approx 40% R ICA and less than 40% L ICA stenoses - Carotid u/s of 09-21-21: 60-79% R ICA stenosis; less than 40% L ICA stenosis History of anxiety - currently controlled. 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 Reduce meds * Monitor labs * Monitor on tele * We would like to thank Dr. Pollard for this consult JAIME NARANJO MD [facility] Nov 18, 2022 17:47
[2022-11-18 18:36] VITALS: BP 155/79
[2022-11-18] MEDS ORDERED: RT-ALBUTEROL SULF 2.5 MG/3 ML PRE-MIX VIAL INH PRN (18:45)
[2022-11-18] MEDS ORDERED: PATIENT MAY USE OWN MEDS, ALL MC SCH (19:00)
[2022-11-18 20:00] VITALS: BP 142/78
[2022-11-18] MEDS ORDERED: APIXABAN 2.5 MG (ELIQUIS) TABLET PO SCH (21:00)
[2022-11-18] MEDS: RT-ALBUTEROL SULF 2.5 MG/3 ML PRE-MIX VIAL INH SCH (21:45)
[2022-11-19] VITALS: BP 127/70
[2022-11-19 04:00] VITALS: BP 132/82
[2022-11-19 04:55] LABS: HEMATOCRIT 48 % (40-54); HEMOGLOBIN 14.8 g/dL (13.3-17.7); MEAN CORPUSCULAR HEMOGLOBIN 28 pg (25-34); MEAN CORPUSCULAR HGB CONC 31 g/dL (32-36); MEAN CORPUSCULAR VOLUME 91 fL (80-99); MEAN PLATELET VOLUME 9.6 fL (9.0-12.2); PLATELET COUNT 181 10^3/uL (130-400); WHITE BLOOD COUNT 9.6 10^3/uL (4.3-11.0)
[2022-11-19 05:05] LABS: CHLORIDE 99 MMOL/L (98-107); SODIUM 138 MMOL/L (135-145)
[2022-11-19 05:06] LABS: CALCIUM 9.5 MG/DL (8.5-10.1); GLUCOSE 130 MG/DL (70-105)
[2022-11-19 05:08] LABS: CARBON DIOXIDE 25 MMOL/L (21-32)
[2022-11-19 05:10] LABS: CREATININE SERUM 1.72 MG/DL (0.60-1.30); GFR ESTIMATED 39
[2022-11-19 05:11] LABS: BUN/CREATININE RATIO 22
[2022-11-19 07:20] VITALS: BP 127/71
[2022-11-19] MEDS: RT-ALBUTEROL SULF 2.5 MG/3 ML PRE-MIX VIAL INH SCH (08:01)
[2022-11-19] MEDS ORDERED: METO-351 PO (08:11)
[2022-11-19] MEDS ORDERED: ENLP2.5T PO ×2 (08:11→08:43)
--- NOTE | 2022-11-19 08:45 | Progress Note - Cardiology ---
Cardiology SOAP Progress Note Subjective: Sitting up in recliner at the bedside No further episodes of syncope or near syncope No c/o CP, SOB or palpitations Objective: I&O/Vital Signs Weight (Pounds): 198 Weight (Ounces): 0.0 Weight (Calculated Kilograms): 89.151606 Constitutional: AAO x 3, well-developed, well-nourished Respiratory: No accessory muscle use, No respiratory distress; chest expansion is symmetric, chest is bilaterally symmetric, lungs clear to auscultation Cardiovascular: regular rate-rhythm; No JVD; S1 and S2 Gastrointestional: No tender; soft, round, audible bowel sounds Extremities: no lower extremity edema bilateral Neurologic/Psychiatric: grossly intact (moves all extremities) Skin: other (bruising to the right side of his face with steri-strips in place) Results/Procedures: Labs A/P: Assessment: Syncopal episode of undetermined etiology - possible orthostatic hypotension - no evidence any arrhythmic event on his DIRECTOR MERIT SYSTEM-D to account for syncope (chronic A Fib is present) - R maxillary sinus fractures, no head bleed on CT head and face of 11/18/22 Severe dilated cardiomyopathy - with an ejection fraction of 15% on echocardiography of November 2011, improved after treatment - Echo of 05/26/16 at the [facility]: LVEF 47%, borderline LVE, inf and inf-lat hypokinesis, mod RVE, severe MR (posteriorly directed), mod to sev TR, asc aortic dilatation 43 mm at mid level). - He has not been considered to be a suitable candidate for MV surg or MitraClip at the [facility]. - Last echo was in April 2019 at [place] LVEF 48%, mod RV enlargement and dysfunction, severe MR, mod TR, RVSP 33 mmHg - Echocardiogram of 04-19-22 showed LVEF 35-40%. Mod diffuse hypokinesis. Grade 3 diastolic dysfunction. LA and RA are severely dilated. Trivial AoR. Mild to mod TR. PASP 35-40 mmHg Chronic systolic heart failure, NYHA III - currently clinically compensated Cardiac cachexia, cardiac congestive cirrhosis, and cardiac enteropathy H/O syncope, likely due to postural hypotension on 06/13/22 Hyperlipidemia - statin tx - managed by PCP Anomalous pulmonary venous return (as mentioned in his letter from the [facility] dated 06/18/16) Chronic atrial fibrillation, longstanding. - Chronic anticoagulation for stroke prophylaxis with Eliquis GI/Surgery - History of bowel surgery that included surgery for incarcerated hernia and surgery of bowel perforation and removal of a segment of small bowel with a significant amount of weight loss postoperatively. Coronary artery disease - with a history of left internal mammary artery graft to left anterior descending and a saphenous vein to left circumflex obtuse marginal system in 1988. (CABG) - Last cardiac catheterization was in February 2009 and has showed severe [place] coronary artery disease with widely patent left internal mammary artery graft to mid left anterior descending and widely patent vein graft to obtuse marginal system of the left circumflex. The right coronary artery was very small. The left ventricular ejection fraction at the time of cardiac catheterization was 25 to 30%. History of pacemaker/ defibrillator implantation - by Dr. Lopez in September 2008. - This was upgraded to a DIRECTOR MERIT SYSTEM-D at the [facility] in 2010. - This was replaced at [place] in February 2019. Replaced again on 09/07/22 Chronic intraventricular conduction delay. Carotid arterial disease - with a history of carotid endarterectomy. - Ultrasound of of January 2017: 50-60% R ICA and 40% LICA stenoses. Ultrasound of 07/29/17: approx 40% R ICA and less than 40% L ICA stenoses - Carotid u/s of 09-21-21: 60-79% R ICA stenosis; less than 40% L ICA stenosis History of anxiety - currently controlled. 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
[2022-11-19] MEDS ORDERED: ENALAPRIL 2.5 MG (VASOTEC) TAB PO SCH ×2 (09:00→11:00)
[2022-11-19] MEDS ORDERED: DIGOXIN 0.125 MG (LANOXIN) TAB PO SCH ×2 (09:00→11:00)
[2022-11-19] MEDS ORDERED: PATIENT MAY USE OWN MED,SINGLE MED PO SCH ×3 (09:15)
--- NOTE | 2022-11-19 09:47 | Discharge Inst-Simple/Standard ---
Discharge Inst-Standard Discharge Medications New, Converted or Re-Newed RX: Transmitted to Pharmacy Patient Instructions/Follow Up Plan of Care/Instructions/FU: Please continue to take your medications as written. Please follow up with your primary care doctor to follow up this hospital stay. Activity as Tolerated: Yes Discharge Diet: Cardiac Diet Return to The Hospital For: Chest pain, shortness of breath, fever, weakness, if you feel you are getting worse. TARAH GUTIERREZ MD Nov 19, 2022 09:47
--- NOTE | 2022-11-19 09:56 | Progress Note - Cardiology ---
Cardiology SOAP Progress Note Subjective: Does not report focal weakness Has some chronic gen weakness, but reports its to be mild and unchanged Shortness of breath with exertion No cp or palp or syncope No n/v/d Did not sleep well in the hospital Wishes to go home Objective: I&O/Vital Signs 11/18/22 11/18/22 11/19/22 11/19/22 22:11 22:14 00:00 00:12 Temp 36.7 Pulse 75 Resp 18 B/P (MAP) 127/70 (89) Pulse Ox 99 O2 Delivery Nasal Cannula Nasal Cannula Nasal Cannula O2 Flow Rate 2.00 2.00 2.00 FiO2 99 11/19/22 11/19/22 11/19/22 11/19/22 01:00 04:00 04:00 07:00 Temp 36.4 Pulse 75 75 75 Resp 11 B/P (MAP) 132/82 (99) Pulse Ox 100 O2 Delivery Room Air Room Air 11/19/22 11/19/22 07:20 08:01 Temp 36.5 Pulse 75 Resp 18 B/P (MAP) 127/71 (89) Pulse Ox 94 99 O2 Delivery Room Air Room Air 11/19/22 00:00 Intake Total 340 ml Output Total 600 ml Balance -260 ml Weight (Pounds): 198 Weight (Ounces): 0.0 Weight (Calculated Kilograms): 89.084486 Constitutional: AAO x 3, well-developed, well-nourished, other (mild to mod sw elling and bruising over the R orbit and cheekbone) Respiratory: No accessory muscle use, No respiratory distress; chest expansion is symmetric, chest is bilaterally symmetric, lungs clear to auscultation Cardiovascular: regular rate-rhythm; No JVD; S1 and S2 Gastrointestional: No tender; soft, round, audible bowel sounds Extremities: no lower extremity edema bilateral Neurologic/Psychiatric: oriented x 3, other (moves all limbs equally) Skin: other (bruising to the right side of his face with steri-strips in place) Results/Procedures: Labs Laboratory Tests 11/18/22 11:05: White Blood Count 11.3H, Red Blood Count 5.44, Hemoglobin 15.3, Hematocrit 50, Mean Corpuscular Volume 91, Mean Corpuscular Hemoglobin 28, Mean Corpuscular Hemoglobin Concent 31L, Red Cell Distribution Width 16.2H, Platelet Count 185, Mean Platelet Volume 9.0, Immature Granulocyte % (Auto) 1, Neutrophils (%) (Au to) 52, Lymphocytes (%) (Auto) 34, Monocytes (%) (Auto) 10, Eosinophils (%) (Auto) 3, Basophils (%) (Auto) 1, Neutrophils # (Auto) 5.9, Lymphocytes # (Auto) 3.8, Monocytes # (Auto) 1.1H, Eosinophils # (Auto) 0.3, Basophils # (Auto) 0.1, Immature Granulocyte # (Auto) 0.1, Prothrombin Time 16.4H, INR Comment 1.3, Activated Partial Thromboplast Time 36H, D-Dimer 4.75H, Sodium Level 136, Potassium Level 5.1H, Chloride Level 100, Carbon Dioxide Level 24, Anion Gap 12, Blood Urea Nitrogen 34H, Creatinine 1.69H, Estimat Glomerular Filtration Rate 40, BUN/Creatinine Ratio 20, Glucose Level 165H, Calcium Level 9.7, Corrected Calcium 9.8, Magnesium Level 2.3, Total Bilirubin 1.1H, Aspartate Amino Transf (AST/SGOT) 36H, Alanine Aminotransferase (ALT/SGPT) 29, Alkaline Phosphatase 214H, Troponin I 0.042H, B-Type Natriuretic Peptide 607.7H, Total Protein 7.9, Albumin 3.9 11/18/22 13:00: Urine Color YELLOW, Urine Clarity CLEAR, Urine pH 6.0, Urine Specific Mcmillan 1.015L, Urine Protein TRACEH, Urine Glucose (UA) 3+H, Urine Ketones NEGATIVE, Urine Nitrite NEGATIVE, Urine Bilirubin NEGATIVE, Urine Urobilinogen 0.2, Urine Leukocyte Esterase NEGATIVE, Urine RBC (Auto) NEGATIVE, Urine RBC NONE, Urine WBC NONE, Urine Squamous Epithelial Cells NONE, Urine Crystals NONE, Urine Bacteria TRACE, Urine Casts NONE, Urine Mucus NEGATIVE, Urine Culture Indicated NO 11/18/22 14:08: Troponin I < 0.028 11/19/22 04:02: White Blood Count 9.6, Red Blood Count 5.31, Hemoglobin 14.8, Hematocrit 48, Mean Corpuscular Volume 91, Mean Corpuscular Hemoglobin 28, Mean Corpuscular Hemoglobin Concent 31L, Red Cell Distribution Width 16.0H, Platelet Count 181, Mean Platelet Volume 9.6, Sodium Level 138, Potassium Level 4.0, Chloride Level 99, Carbon Dioxide Level 25, Anion Gap 14, Blood Urea Nitrogen 38H, Creatinine 1.72H, Estimat Glomerular Filtration Rate 39, BUN/Creatinine Ratio 22, Glucose Level 130H, Calcium Level 9.5, Digoxin Level < 0.30L Laboratory Tests 11/18/22 11:05 11/19/22 04:02 A/P: Assessment: Syncopal episode of undetermined etiology - suspect orthostatic hypotension - no evidence any arrhythmic event on his TWISTER IN-D to account for syncope (chronic A Fib is present) - R maxillary sinus fractures, no head bleed on CT head and face of 11/18/22 Severe dilated cardiomyopathy - with an ejection fraction of 15% on echocardiography of November 2011, improved after treatment - Echo of 05/26/16 at the [facility]: LVEF 47%, borderline LVE, inf and inf-lat hypokinesis, mod RVE, severe MR (posteriorly directed), mod to sev TR, asc aortic dilatation 43 mm at mid level). - He has not been considered to be a suitable candidate for MV surg or MitraClip at the [facility]. - Last echo was in April 2019 at [place] LVEF 48%, mod RV enlargement and dysfunction, severe MR, mod TR, RVSP 33 mmHg - Echocardiogram of 04-19-22 showed LVEF 35-40%. Mod diffuse hypokinesis. Grade 3 diastolic dysfunction. LA and RA are severely dilated. Trivial AoR. Mild to mod TR. PASP 35-40 mmHg Chronic systolic heart failure, NYHA III - currently clinically compensated Cardiac cachexia, cardiac congestive cirrhosis, and cardiac enteropathy H/O syncope, likely due to postural hypotension on 06/13/22 Hyperlipidemia - statin tx - managed by PCP Anomalous pulmonary venous return (as mentioned in his letter from the [facility] dated 06/18/16) Chronic atrial fibrillation, longstanding. - Chronic anticoagulation for stroke prophylaxis with Eliquis GI/Surgery - History of bowel surgery that included surgery for incarcerated hernia and surgery of bowel perforation and removal of a segment of small bowel with a significant amount of weight loss postoperatively. Coronary artery disease - with a history of left internal mammary artery graft to left anterior descending and a saphenous vein to left circumflex obtuse marginal system in 1988. (CABG) - Last cardiac catheterization was in February 2009 and has showed severe [place] coronary artery disease with widely patent left internal mammary artery graft to mid left anterior descending and widely patent vein graft to obtuse marginal system of the left circumflex. The right coronary artery was very small. The left ventricular ejection fraction at the time of cardiac catheterization was 25 to 30%. History of pacemaker/ defibrillator implantation - by Dr. Lopez in September 2008. - This was upgraded to a TWISTER IN-D at the [facility] in 2010. - This was replaced at [place] in February 2019. Replaced again on 09/07/22 Chronic intraventricular conduction delay. Carotid arterial disease - with a history of carotid endarterectomy. - Ultrasound of of January 2017: 50-60% R ICA and 40% LICA stenoses. Ultrasound of 07/29/17: approx 40% R ICA and less than 40% L ICA stenoses - Carotid u/s of 09-21-21: 60-79% R ICA stenosis; less than 40% L ICA stenosis History of anxiety - currently controlled. 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
[2022-11-19] MEDS ORDERED: GLUC1TAB21 PO (10:11)
[2022-11-19] MEDS ORDERED: CALC0.5C11 PO (10:21)
[2022-11-19] MEDS ORDERED: SPIR25TA5 PO (10:21)
--- NOTE | 2022-11-19 10:43 | Physical Therapy Evaluation ---
PT Evaluation-General Medical Diagnosis Admission Date Nov 18, 2022 at 17:07 Medical Diagnosis: maxillary fracture right Onset Date: Nov 18, 2022 Therapy Diagnosis Therapy Diagnosis: debility/weakness Height/Weight Height (Feet): 5 Height (Inches): 10.00 Weight (Pounds): 198 Weight (Ounces): 0.0 Precautions Precautions/Isolations: Fall Prevention, Standard Precautions Referral Physician: Latrice Medical History Pertinent Medical History: Atrial Fib (pacemaker), CABG, CAD, COPD, DM, Heart Failure, HTN, PVD, Renal Insufficiency Current History EMS secondary to syncopal episode getting out of the car. Reviewed History: Yes Social History Home: Single Level Current Living Status: Spouse Prior Prior Level of Function SCALE: Activities may be completed with or without assistive devices. 1-Avqgistxfj-tkkalpr completes the activity by him/herself with no assistance from a helper. 5-Set-up or Clean-up Assistance-helper sets up or cleans up; patient completes activity. [place] assists only prior to or following the activity. 4-Supervision or Touching Assistance-helper provides verbal cues and/or touching/steadying and/or contact guard assistance as patient completes activity. Assistance may be provided throughout the activity or intermittently. 3-Partial/Moderate Assistance-helper does LESS THAN HALF the effort. [place] lifts, holds or supports trunk or limbs, but provides less than half the effort. 2-Substantial/Maximal Assistance-helper does MORE THAN HALF the effort. [place] lifts or holds trunk or limbs and provides more than half the effort. 4-Ruamikbjs-qiqrbp does ALL the effort. Patient does none of the effort to complete the activity. Or, the assistance of 2 or more helpers is required for the patient to complete the activity. If activity was not attempted, code reason: 7-Patient Refused. 9-Not Applicable-not attempted and the patient did not perform the activity before the current illness, exacerbation or injury. 10-Not Attempted due to Environmental Limitations-(lack of equipment, weather restraints, etc.). 88-Not Attempted due to Medical Conditions or Safety Concerns. Bed Mobility: 6 Transfers (B,C,W/C): 6 Gait: 6 Stairs: 6 Indoor Mobility (Ambulation): Independent Stairs: Independent Prior Devices Use: Walker (4WW), Other-see list below Prior Device Use: cane PT Evaluation-Current Subjective Patient agrees to PT. Objective Patient Orientation: Person, Time Attachments: Quiroz Catheter ROM/Strength ROM Lower Extremities bilateral LE WFL Strength Lower Extremities 4-/5 grossly bilateral LE all planes Integumentary/Posture Integumentary refer to nursing notes Bladder Incontinence: Quiroz Cath Posture WFL Neuromuscular (Tone, Coordination, Reflexes) grossly intact Sensory Vision: Wears Glasses Hearing: Impaired Transfers Lying to Sitting/Side of Bed(Q: 4 Sit to Stand (QC): 4 Chair/Tzp-to-Htvdg Xfer(QC): 4 CGA for safety Gait Does the Patient Walk?: Yes Mode of Locomotion: Walk Anticipated Mode of Locomotion: Walk Walk 10 feet (QC): 4 Walk 50 ft with 2 Turns(QC): 4 Walk 150 ft (QC): 4 Distance: 300' Gait Assistive Device: FWW Comments/Gait Description steady gait sequence/noted minimal foot clearance/CGA for safety Balance Sitting Static: Normal Sitting Dynamic: Normal Standing Static: Fair Standing Dynamic: Fair Assessment/Needs Patient will benefit from skilled PT to address functional strength and mobility to improve current LOF to safely return to home at maximum LOF. Rehab Potential: Fair PT [facility] Goals Presentation Designer Goals PT [facility] Goals Time Frame: Nov 27, 2022 Roll Left & Right (QC): 6 Sit to Lying (QC): 6 Lying-Sitting on Side/Bed(QC): 6 Sit to Stand (QC): 6 Chair/Aex-gb-Wvhqz Xfer(QC): 6 Toilet Transfer (QC): 6 Walk 10 feet (QC): 6 Walk 50ft with 2 Turns (QC): 6 Walk 150 ft (QC): 6 PT Plan Problem List Problem List: Activity Tolerance, Functional Strength, Safety, Balance, Gait, Transfer Treatment/Plan Treatment Plan: Continue Plan of Care Treatment Plan: Bed Mobility, Education, Functional Activity Jeet, Functional Strength, Group Therapy, Gait, Safety, Therapeutic Exercise, Transfers Treatment Duration: Nov 27, 2022 Frequency: 6 times per week Estimated Hrs Per Day: .25 hour per day Patient and/or Family Agrees t: Yes Time Time In: 730 Time Out: 749 DATE: Nov 19, 2022 Total Billed Treatment Time: 19 Total Billed Treatment 1 visit EVMod 19 min DARELL CHRISTENSEN PT Nov 19, 2022 10:43
--- NOTE | 2022-11-19 10:52 | Occupational Therapy Eval ---
OT Evaluation-General/PLF Medical Diagnosis Admission Date Nov 18, 2022 at 17:07 Medical Diagnosis: maxillary fracture right Onset Date: Nov 18, 2022 Therapy Diagnosis Therapy Diagnosis: impiared balance Height/Weight Height (Feet): 5 Height (Inches): 10.00 Weight (Pounds): 198 Weight (Ounces): 0.0 Precautions Precautions/Isolations: Fall Prevention, Standard Precautions Safety Interventions: Bed Exit Alarm Weight Bear Status Weight Bearing Restriction: Weight Bearing/Tolerated Referral Physician: Latrice Referral Reason: Evaluation/Treatment Medical History Pertinent Medical History: Atrial Fib (pacemaker), CABG, CAD, COPD, DM, Heart Failure, HTN, PVD, Renal Insufficiency Current History EMS arrival secondary to syncopal episode getting out of the car at home, fell on face. Reviewed History: Yes Social History Home: Single Level Current Living Status: Spouse Home modified and adapted w/ several GBs, rails and ADS throughout home, bed rail, elevated commode with safety frame, Walk in shower w. surround GBs, shower seat, 4ww/seat. Frequent LOB at home, spouse assist with dressing tasks as needed ADL-Prior Level of Function SCALE: Activities may be completed with or without assistive devices. 1-Eqcrnxovia-ntpknwh completes the activity by him/herself with no assistance from a helper. 5-Set-up or Clean-up Assistance-helper sets up or cleans up; patient completes activity. [place] assists only prior to or following the activity. 4-Supervision or Touching Assistance-helper provides verbal cues and/or touching/steadying and/or contact guard assistance as patient completes activity. Assistance may be provided throughout the activity or intermittently. 3-Partial/Moderate Assistance-helper does LESS THAN HALF the effort. [place] lifts, holds or supports trunk or limbs, but provides less than half the effort. 2-Substantial/Maximal Assistance-helper does MORE THAN HALF the effort. [place] lifts or holds trunk or limbs and provides more than half the effort. 3-Phblvhaej-uligwq does ALL the effort. Patient does none of the effort to complete the activity. Or, the assistance of 2 or more helpers is required for the patient to complete the activity. If activity was not attempted, code reason: 7-Patient Refused. 9-Not Applicable-not attempted and the patient did not perform the activity before the current illness, exacerbation or injury. 10-Not Attempted due to Environmental Limitations-(lack of equipment, weather restraints, etc.). 88-Not Attempted due to Medical Conditions or Safety Concerns. Self Care: Needed Some Help Functional Cognition: Needed Some Help (patient is forgetful, limited recall of therapy intreventions) DME/Equipment: Grab Bars, Shower Hose Warehouse Insulation Worker, Tall Toilet Drive Self: No OT Current Status Subjective Supine in bed, resting w/ at bedside, request to wear pants, pt/ provides extensive information of Outpatient therapy process and aquatics, frequ ency of falls and neurological consults Mental Status/Objective Patient Orientation: Person, Place, Situation Attachments: Quiroz Catheter, IV, SCD's, Telemetry Current Glasses/Contacts: Yes Upper Extremity ROM BUE WFLS Upper Extremity Coordination Impaired, slight tremors noted, impaired hand eye coordination Upper Extremity Strength -4/5 BUE grossly, IV port in left hand ADL-Treatment ADL-Current In hospital gown. pt request donning elastic waist shorts and shoes. intervention to assist Upper Body Dressing (QC): 3 Lower Body Dressing (QC): 2 (LOB and sways while sitting EOB, use of hand rail to sustain sitting resolves over 1 minute) On/Off Footwear (QC): 2 (slip ons) Toileting Hygiene (QC): 88 (Quiroz cath) Other Treatments Static and dynamic balance strategies. safe reach distance and object retrieval education Education OT Patient Education: Correct positioning, Energy conservation, Exercise program, Instructions to caregiver, Modified ADL techniques, Progress toward Goal/Update tx plan, Purpose of tx/functional activities, Reviewed precautions, Rehab process, Safety issues, Transfer techniques, Use of adapted equipment Teaching Recipient: Patient, Family Teaching Methods: Demonstration, Discussion Response to Teaching: Verbalize Understanding, Return Demonstration, Reinforcement Needed OT Assisted Goals Assisted Goals Eating (QC): 6 Oral Hygiene (QC): 6 Toileting Hygiene (QC): 6 Shower/Bathe Self (QC): 4 Upper Body Dressing (QC): 6 Lower Body Dressing (QC): 5 On/Off Footwear (QC): 5 1=Demonstrate adherence to instructed precautions during ADL tasks. 2=Patient will verbalize/demonstrate understanding of assistive devices/modifications for ADL. 3=Patient will improve strength/tolerance for activity to enable patient to perform ADL's. OT Education/Plan Problem List/Assessment Assessment: Decreased Activ Tolerance, Decreased Safety Aware, Impaired Coordination, Impaired Funct Balance, Impaired Self-Care Skills Discharge Recommendations Plan/Recommendations: Continue POC Therapy Discharge Recommendati: Post Acute OT Treatment Plan/Plan of Care Treatment,Training & Education: Yes Patient would benefit from OT for education, treatment and training to promote independence in ADL's, mobility, safety and/or upper extremity function for ADL's. Plan of Care: ADL Retraining, Caregiver Training, Functional Mobility, Group Exercise/Act as Ind, UE Funct Exercise/Act, UE Neuromus Re-Ed/Coord Treatment Duration: Dec 04, 2022 Frequency: 3 times per week (3-5 times per week) Estimated Hrs Per Day: .25 hour per day Agreement: Yes Rehab Potential: Fair Time Start Time: 09:48 Stop Time: 10:32 DATE: Nov 19, 2022 Total Time Billed (hr/min): 42 Billed Treatment Time EVM 10 FA 32 CHRISTINE MAGDALENO OT Nov 19, 2022 10:52
[2022-11-19] MEDS ORDERED: APIXABAN 2.5 MG (ELIQUIS) TABLET PO SCH (11:00)
--- NOTE | 2022-11-19 11:02 | Discharge Summary ---
Diagnosis/Chief Complaint Date of Admission Nov 18, 2022 at 17:07 Date of Discharge Discharge Date: Nov 19, 2022 Admission Diagnosis Syncope Primary Care Marek Tamayo DO Discharge Summary Discharge Physical Exam Allergies: Coded Allergies: No Known Drug Allergies (Verified , 11/24/21) Vitals & I&Os Vital Signs Date Time Temp Pulse Resp B/P (MAP) Pulse Ox O2 Delivery O2 Flow Rate FiO2 11/19/22 08:01 99 Room Air 11/19/22 07:20 36.5 75 18 127/71 (89) 11/19/22 00:00 2.00 11/18/22 22:14 99 General Appearance: No Apparent Distress, WD/WN Hospital Course Patient was admitted to the hospital secondary to a syncopal episode with right maxillary sinus fracture. He had just seen his supplier quality engineer and had a pacemaker placed roughly 8 weeks ago. He was admitted overnight for observation and pacemaker was interrogated which showed chronic A. fib. Syncope was likley from orthostasis as he had been given lasix before his syncopal episode. He did well overnight and was able to work with physical therapy in the morning. He did have to use a walker which he states he has at home. He and his felt comfortable with plan for discharge home. I did discuss with him on admission given severity of trauma to his face he likely has some concussive symptoms as well. Encouraged him to do brain rest in his recovery. He is to follow-up with Dr. Cabello, swamper, regarding his facial fracture. He is to follow-up with Dr. Gordon his primary supplier quality engineer in 2 weeks. He should also follow-up with Dr. Tamayo to follow-up this hospital stay. Labs (last 24 hrs) Laboratory Tests 11/18/22 14:08: Troponin I < 0.028 11/19/22 04:02: White Blood Count 9.6, Red Blood Count 5.31, Hemoglobin 14.8, Hematocrit 48, Mean Corpuscular Volume 91, Mean Corpuscular Hemoglobin 28, Mean Corpuscular Hemoglobin Concent 31L, Red Cell Distribution Width 16.0H, Platelet Count 181, Mean Platelet Volume 9.6, Sodium Level 138, Potassium Level 4.0, Chloride Level 99, Carbon Dioxide Level 25, Anion Gap 14, Blood Urea Nitrogen 38H, Creatinine 1.72H, Estimat Glomerular Filtration Rate 39, BUN/Creatinine Ratio 22, Glucose Level 130H, Calcium Level 9.5, Digoxin Level < 0.30L Patient resulted labs reviewed. Pending Labs Discussion & Recommendations Discharge Planning: >30 minutes discharge planning Discharge Home Medications: Active Scripts Active Enalapril Maleate 2.5 Mg Tablet 2.5 Mg PO BID 30 Days Toprol Xl (Metoprolol Succinate) 25 Mg Tab.er.24h 25 Mg PO DAILY Reported Spironolactone 25 Mg Tablet 25 Mg PO DAILY PRN ONLY TAKES WHEN FUROSEMIDE THERAPY IS NOT SUFFICIENT Calcitriol 0.5 Mcg Capsule 0.5 Mcg PO WED Glucosamine Chondroitin Tab (Gluc Webster/Chondro Webster A/Vit C/Mn) 750 Mg-600 Mg-55 Mg- 5 Mg Tablet 1 Each PO DAILY Furosemide 80 Mg Tablet 40 Mg PO DAILY PRN TAKES OF A 80MG TABLET Multivitamin 1 Each Tablet 1 Each PO DAILY Breo Ellipta 100-25 Mcg INH (Fluticasone/Vilanterol) 100 Mcg-25 Mcg/Dose Blst.w.dev 1 Each IH DAILY Eliquis (Apixaban) 5 Mg Tablet 2.5 Mg PO BID TAKES OF A 5MG TABLET Flomax (Tamsulosin HCl) 0.4 Mg Cap 0.4 Mg PO HS Fish Oil 1,000 mg Softgel ([place]-3/Dha/Epa/Fish Oil) 1,000 Mg (120 Mg-180 Mg) Capsule 1,000 Mg PO DAILY Montelukast Sodium 10 Mg Tablet 10 Mg PO HS Flonase Allergy Relief (Fluticasone Propionate) 50 Mcg/Actuation [place].susp 1-2 [place] NS DAILY Farxiga (Dapagliflozin Propanediol) 10 Mg Tablet 10 Mg PO DAILY Vitamin D3 (Cholecalciferol (Vitamin D3)) 125 Mcg (5000 Unit) Tablet 125 Mcg PO MON,WED,SAT Cetirizine HCl 10 Mg Tablet 10 Mg PO HS Allopurinol 100 Mg Tablet 100 Mg PO DAILY Digoxin 125 Mcg (0.125 Mg) Tablet 125 Mcg PO HS Finasteride 5 Mg Tablet 5 Mg PO HS Escitalopram Oxalate 10 Mg Tablet 10 Mg PO DAILY Imodium A-D (Loperamide HCl) 2 Mg Tablet 2 Mg PO BID Instructions to patient/family Please see electronic discharge instructions given to patient. TARAH GUTIERREZ MD Nov 19, 2022 11:02
== END 2022-11-19 11:50 | disposition home or self-care (01) ==
LOC: EDUNIT# 10:55 → ER 10:57 → 4TH 15:15 → CSD 16:48 → OBSVTOIN 17:07 → INTOOBSV 17:07
PROVIDERS: ADMIT Family Medicine; ATTEND Family Medicine
DX: R55 Syncope and collapse (principal); I48.20 Chronic atrial fibrillation, unspecified; S02.40CA Maxillary fracture, right side, initial encounter for closed fracture; I42.0 Dilated cardiomyopathy; I50.22 Chronic systolic (congestive) heart failure; E78.5 Hyperlipidemia, unspecified; S06.0XAA Concussion with loss of consciousness status unknown, initial encounter; R64 Cachexia; Q26.4 Anomalous pulmonary venous connection, unspecified; I25.10 Atherosclerotic heart disease of native coronary artery without angina pectoris; I77.9 Disorder of arteries and arterioles, unspecified; G47.30 Sleep apnea, unspecified; N18.4 Chronic kidney disease, stage 4 (severe); I13.0 Hypertensive heart and chronic kidney disease with heart failure and stage 1 through stage 4 chronic kidney disease, or unspecified chronic kidney disease; F41.9 Anxiety disorder, unspecified; N40.0 Benign prostatic hyperplasia without lower urinary tract symptoms; R79.1 Abnormal coagulation profile; J81.1 Chronic pulmonary edema; W19.XXXA Unspecified fall, initial encounter; Z79.899 Other long term (current) drug therapy; Z95.0 Presence of cardiac pacemaker; Z95.818 Presence of other cardiac implants and grafts
CPT/HCPCS: 70450; 70486; 71045; 71275; 72125; 73562; 80048; 80053; 80162; 81000; 83735; 83880; 84484; 85025; 85027; 85379; 85610; 85730; 93005; 94640 ×2; 96365; 96375; 97162; 97165; 97530; 99284; G0378; 36415

== ENCOUNTER 2023-02-16 11:35 | Inpatient (IN) | payer MEDICARE ==
[~2023-02-16] VITALS: Ht 177 cm; Wt 98.3 kg
[~2023-02-16 11:35] MED LIST changes: +CALC0.5C11 PO; +ENAL-66 PO; +ENLP2.5T PO; -ENLP5T PO; -FLUT9.9S NS; +FLUT9.9S NSEACH; +METO-351 PO; +SPIR25TA5 PO
[2023-02-16 12:29] VITALS: BP 143/67
[2023-02-16] MEDS ORDERED: ONDANSETRON 4 MG (ZOFRAN) ORAL DISSOLVE TAB PO PRN (12:30)
[2023-02-16] MEDS ORDERED: BISACODYL 10 MG SUPP (DULCOLAX) PR PRN (12:30)
[2023-02-16] MEDS ORDERED: ANTACID SUSP 30 ML UDC (MYLANTA) PO PRN (12:30)
[2023-02-16] MEDS ORDERED: NS IV 1000 ML 1,000 ML IV SCH ×2 (12:30→13:30)
[2023-02-16] MEDS ORDERED: LACTULOSE SYRUP 10GM/15ML (ENULOSE) 30ML UDC PO PRN (12:30)
[2023-02-16] MEDS ORDERED: MILK OF MAGNESIA 400 MG/5 ML 30 ML UDC PO PRN (12:30)
[2023-02-16] MEDS ORDERED: polyethylene glycoL POWDER 17 GM (MIRALAX) PACK PO PRN (12:30)
[2023-02-16] MEDS ORDERED: ONDANSETRON 4 MG/2 ML (SDV) Z0FRAN IV PRN (12:30)
[2023-02-16] MEDS ORDERED: PIPERACILLIN SODIUM/TAZOBACTAM 4.5 GM in NS (IVPB) 100 ML IV NR (13:30)
[2023-02-16] MEDS ORDERED: VANCOMYCIN INJECTION 0.1 MG in NS (IVPB) 250 ML IV SCH (13:30)
[2023-02-16] MEDS ORDERED: VANCOMYCIN 1500MG/300ML PREMIX IV SCH (14:00)
[2023-02-16 14:21] LABS: BASOPHILS # (AUTO) 0.1 10^3/uL (0.0-0.1); BASOPHILS % (AUTO) 1 % (0-10); EOSINOPHILS % (AUTO) 0 % (0-10); HEMATOCRIT 48 % (40-54); HEMOGLOBIN 15.2 g/dL (13.3-17.7); LYMPHOCYTES # (AUTO) 0.7 10^3/uL (1.0-4.0); LYMPHOCYTES % (AUTO) 6 % (12-44); MEAN CORPUSCULAR HEMOGLOBIN 29 pg (25-34); MEAN CORPUSCULAR HGB CONC 32 g/dL (32-36); MEAN CORPUSCULAR VOLUME 91 fL (80-99); MEAN PLATELET VOLUME 9.2 fL (9.0-12.2); MONOCYTES # (AUTO) 1.1 10^3/uL (0.0-1.0); MONOCYTES % (AUTO) 10 % (0-12); NEUTROPHILS # (AUTO) 8.7 10^3/uL (1.8-7.8); NEUTROPHILS % (AUTO) 82 % (42-75); PLATELET COUNT 179 10^3/uL (130-400); WHITE BLOOD COUNT 10.6 10^3/uL (4.3-11.0)
[2023-02-16 14:42] LABS: ERYTHROCYTE SEDIMENTATION RATE 5 MM/HR (0-30); LYMPHOCYTES % (MANUAL) 5 %; MONOCYTES % (MANUAL) 7 %; NEUTROPHILS % (MANUAL) 88 %; RBC MORPH NORMAL
[2023-02-16 14:43] LABS: CALCIUM 9.4 MG/DL (8.5-10.1); CREATININE SERUM 1.64 MG/DL (0.60-1.30); POTASSIUM 3.9 MMOL/L (3.6-5.0)
[2023-02-16 15:24] VITALS: BP 126/69
[2023-02-16] MEDS: inSUlin ASPART (NovoLOG) 1 UNIT/0.01 ML (CHARGE PER UNIT) SC SCH ×2 (16:49→20:28)
--- NOTE | 2023-02-16 16:53 | History & Physical-Hospitalist ---
History of Present Illness HPI/Chief Complaint Edgar Byrne is an 82 year old male with PMH HTN, T2DM, CHF, BPH, depression, who presented with a foot wound. He was direct admitted from Dr. Means's clinic. He has a wound that has been present for a long time, but over the past couple days it worsened. He had it debrided today. He denies fevers. He denies nausea and vomiting. He denies chest pain. He denies shortness of breath. He denies abdominal pain. He has leg swelling. His says it has improved. Source: patient Exam Limitations: no limitations Date Seen 02/16/23 Time Seen by a Provider: 13:00 Attending Physician Marek Tamayo DO PCP Admitting Physician: Stefan Caban MD Attending Physician: Stefan Caban MD Referring Physician Date of Admission Feb 16, 2023 at 11:55 Home Medications & Allergies Home Medications Reviewed patient Home Medication Reconciliation performed by pharmacy medication reconciliations photo optics technician and/or nursing. Patients Allergies have been reviewed. Allergies Allergies Coded Allergies No Known Drug Allergies (Verified11/24/21) Past Osxcytx-Reyvzb-Codcpc Hx Patient Social History Tobacco Use?: No Smoking Status: Former Smoker Use of E-Cig and/or Vaping dev: No Substance use?: No Alcohol Use?: No Pt feels they are or have been: No Immunizations Up To Date Date of Influenza Vaccine: Sep 23, 2022 First/Initial COVID19 Vaccinat: DEC 14 Second COVID19 Vaccination Eder: DEC 14 Tetanus Booster (TDap): Less Than 5 Years Hepatitis A: Yes Hepatitis B: Yes Date of Pneumonia Vaccine: Aug 18, 2021 Seasonal Allergies Seasonal Allergies: Yes Current Status Advance Directives: Yes Advance Directive Location: Copy from prev record Communicates: Verbally Primary Language: Tongan Preferred Spoken Language: Tongan Is interpretation needed?: No Sensory deficits: Vision impairment, Hearing impairment Implanted or Applied Medical D: Pacemaker, Stents Past Medical History Surgeries: Cardiac, CABG, Coronary Stent, Defibrillator, Pacemaker, Vascular Surgery Asthma, Pneumonia, Sleep Apnea, COPD Currently Using CPAP: No Currently Using BIPAP: No Atrial Fibrillation, Coronary Artery Disease, High Cholesterol, Hypertension, Syncope, Valvular Heart Disease Renal Failure Degenerate Disk Disease, Arthritis Diabetes, Non-Insulin dep Hearing Impairment: Hard of Hearing, Bilateral Hearing Aide Anxiety Blood Disorders: No Family Medical History Hypertension Review of Systems Constitutional: no symptoms reported Respiratory: no symptoms reported Cardiovascular: no symptoms reported Gastrointestinal: no symptoms reported Physical Exam Physical Exam Vital Signs Vital Signs - First Documented 02/16/23 02/16/23 12:17 12:29 Temp 36.6 Pulse 77 Resp 18 B/P (MAP) 143/67 (92) Pulse Ox 100 O2 Delivery Room Air Capillary Refill : Height, Weight, BMI Height: 5'10.00" Weight: 198lbs. 0.0oz. 89.164999fl; 25.21 BMI Method:Stated General Appearance: No Apparent Distress, WD/WN HEENT: PERRL/EOMI, Pharynx Normal Neck: Normal Inspection, Supple Respiratory: Lungs Clear, No Respiratory Distress Cardiovascular: Regular Rate, Rhythm, No Murmur Gastrointestinal: Normal Bowel Sounds, Soft Extremity: Non Tender, Pedal Edema, Other (right foot bandaged) Neurologic/Psychiatric: Alert, Normal Mood/Affect Skin: Normal Color, Warm/Dry Results Results/Procedures Labs Laboratory Tests 02/16/23 14:14 Patient resulted labs reviewed. Assessment/Plan Admission Diagnosis Diabetic foot infection Admission Status: Inpatient Order (span 2 midnights) Reason for Inpatient Admission: IV antibiotics Assessment and Plan Diabetic foot infection T2DM with foot ulcer Direct admit from Dr. Means's clinic Culture obtained in his office Repeat wound culture Labs ordered XR ordered Chest xray ordered for MRI clearance Sliding scale insulin A1C pending Case discussed with Dr. Means, he will consult and follow along HTN CHF AFib BPH Depression Continue home meds as able Diagnosis/Problems Diagnosis/Problems (1) Diabetic foot ulcer Status: Acute (2) T2DM (type 2 diabetes mellitus) Status: Acute Qualifiers: Diabetes mellitus intermediate teacher insulin use: with penitentiary use Diabetes mellitus complication status: with skin complications Diabetes mellitus complication detail: with foot ulcer Qualified Codes: E11.621 - Type 2 diabetes mellitus with foot ulcer; L97.509 - Non-pressure chronic ulcer of other part of unspecified foot with unspecified severity; Z79.4 - halfway (current) use of insulin (3) HTN (hypertension) Status: Chronic (4) BPH (benign prostatic hyperplasia) Status: Chronic (5) Afib Status: Chronic (6) CHF (congestive heart failure) Status: Chronic STEFAN CABAN MD Feb 16, 2023 16:53
--- NOTE | 2023-02-16 17:02 | Diagnostic Imaging Report ---
EXAMINATION: Chest, one view. HISTORY: Pre-MRI screening. COMPARISON: 11/18/2022. FINDINGS: A pacemaker is present. There are two right ventricular leads likely representing an abandoned old lead and a new lead. Heart is enlarged with an opacity projecting over the cardiac silhouette. There is mild edema. No pneumothorax. There are median sternotomy wires. IMPRESSION: 1. There are two right ventricular leads, which likely indicates an abandoned right ventricular lead is present. 2. Large opacity projecting over the heart may represent pneumonia with a mass felt to be less likely given that it is new from prior exam. 3. Mild edema. Dictated by: Dictated on workstation # [id number]
--- NOTE | 2023-02-16 17:09 | Diagnostic Imaging Report ---
INDICATION: Diabetic foot ulcer. EXAMINATION: AP, oblique and lateral views of right foot were obtained. FINDINGS: There is contracture deformity of the toes which limits assessment. There is no evidence of definite fracture. No dislocation is seen. There is moderate swelling along the forefoot with diffuse atherosclerotic calcification present. IMPRESSION: Forefoot swelling may be due to edema or cellulitis. No definite bone destruction, fracture or dislocation is identified. Dictated by: Dictated on workstation # [id number]
[2023-02-16] MEDS: TAMSULOSIN 0.4 MG (FLOMAX) CAP PO SCH (18:44)
[2023-02-16 19:54] VITALS: BP 121/63
[2023-02-16] MEDS: PIPERACILLIN SODIUM/TAZOBACTAM 4.5 GM in NS (IVPB) 100 ML IV SCH (20:08)
[2023-02-16] MEDS: MONTELUKAST 10 MG (SINGULAIR) TAB PO SCH (20:08)
[2023-02-16] MEDS: DIGOXIN 0.125 MG (LANOXIN) TAB PO SCH (20:08)
[2023-02-16] MEDS: APIXABAN 5 MG (ELIQUIS) TABLET PO SCH (20:08)
[2023-02-16] MEDS: ACETAMINOPHEN 325 MG TABLET PO PRN (20:09)
[2023-02-16] MEDS: SENNOSIDES 8.6 MG (SENOKOT) TAB PO SCH (20:09)
[2023-02-16] MEDS: DOCUSATE SODIUM 100 MG (COLACE) CAP PO SCH (20:09)
[2023-02-17] VITALS (7 sets, daily range): BP systolic 104–134; BP diastolic 59–70
[2023-02-17] MEDS: PIPERACILLIN SODIUM/TAZOBACTAM 4.5 GM in NS (IVPB) 100 ML IV SCH ×3 (04:02→20:34)
[2023-02-17 05:30] LABS: BASOPHILS # (AUTO) 0.1 10^3/uL (0.0-0.1); BASOPHILS % (AUTO) 1 % (0-10); EOSINOPHILS # (AUTO) 0.2 10^3/uL (0.0-0.3); EOSINOPHILS % (AUTO) 2 % (0-10); HEMATOCRIT 43 % (40-54); HEMOGLOBIN 13.6 g/dL (13.3-17.7); LYMPHOCYTES # (AUTO) 0.9 10^3/uL (1.0-4.0); LYMPHOCYTES % (AUTO) 11 % (12-44); MEAN CORPUSCULAR HEMOGLOBIN 29 pg (25-34); MEAN CORPUSCULAR HGB CONC 32 g/dL (32-36); MEAN CORPUSCULAR VOLUME 90 fL (80-99); MEAN PLATELET VOLUME 9.1 fL (9.0-12.2); MONOCYTES # (AUTO) 1.2 10^3/uL (0.0-1.0); MONOCYTES % (AUTO) 14 % (0-12); NEUTROPHILS # (AUTO) 6.1 10^3/uL (1.8-7.8); NEUTROPHILS % (AUTO) 72 % (42-75); PLATELET COUNT 158 10^3/uL (130-400); WHITE BLOOD COUNT 8.5 10^3/uL (4.3-11.0)
[2023-02-17 05:52] LABS: POTASSIUM 3.7 MMOL/L (3.6-5.0)
[2023-02-17 05:53] LABS: CALCIUM 8.4 MG/DL (8.5-10.1)
[2023-02-17] MEDS: inSUlin ASPART (NovoLOG) 1 UNIT/0.01 ML (CHARGE PER UNIT) SC SCH ×4 (05:55→21:02)
[2023-02-17 05:58] LABS: CREATININE SERUM 1.43 MG/DL (0.60-1.30)
[2023-02-17] MEDS: ALLOPURINOL 100 MG (ZYLOPRIM) TAB PO SCH (08:21)
[2023-02-17] MEDS: FUROSEMIDE 40 MG (LASIX) TAB PO SCH (08:21)
[2023-02-17] MEDS: ENALAPRIL 5 MG (VASOTEC) TAB PO SCH (08:21)
[2023-02-17] MEDS: APIXABAN 5 MG (ELIQUIS) TABLET PO SCH (08:21)
[2023-02-17] MEDS: FINASTERIDE (PROSCAR) 5 MG TAB PO SCH (08:24)
[2023-02-17] MEDS: SENNOSIDES 8.6 MG (SENOKOT) TAB PO SCH ×2 (08:24→20:34)
[2023-02-17] MEDS: DOCUSATE SODIUM 100 MG (COLACE) CAP PO SCH ×2 (08:25→20:34)
[2023-02-17] MEDS ORDERED: DIPH1TAB25 PO (10:25)
[2023-02-17] MEDS ORDERED: DIPH1TAB PO (10:25)
[2023-02-17] MEDS ORDERED: GLUC1TAB21 PO (10:25)
[2023-02-17] MEDS ORDERED: HOLD METFORMIN - RECEIVED CONTRAST 20 ML VIAL IV SCH (11:45)
[2023-02-17] MEDS ORDERED: NS 100 ML (IVPB) BAG IV ONE (11:45)
[2023-02-17] MEDS ORDERED: IOHEXOL 350 MG/ML 100 ML (OMNIPAQUE 350) VIAL IV ONE (11:45)
[2023-02-17] MEDS ORDERED: MTP25TSR PO (12:39)
[2023-02-17] MEDS ORDERED: ENAL-66 PO (12:39)
[2023-02-17] MEDS ORDERED: ALPR0.254 PO (12:39)
--- NOTE | 2023-02-17 12:54 | Diagnostic Imaging Report ---
EXAMINATION: CT right lower extremity with contrast from 02/17/2023. TECHNIQUE: Multiple contiguous axial CT images of the right extremity were obtained after intravenous administration of iodinated contrast. Auto Exposure Controls were utilized during the CT exam to meet ALARA standards for radiation dose reduction. INDICATION: Question osteomyelitis. Diabetic foot ulcer. COMPARISON: Correlation made to radiographs from 02/16/2023. FINDINGS: There are subchondral cystic changes throughout the midfoot. There are no fractures or dislocations. There are hammertoe deformities of the second, third, fourth, and possibly fifth toes. No destructive changes suggestive of osteomyelitis. However, early osteomyelitis can be missed on CT and better characterized with MRI if clinically warranted. There is fat stranding within the subcutaneous soft tissues about the foot, consistent with edema and/or cellulitis. There is a more focal abnormality within the plantar soft tissues of the great toe extending to overlie the second and possibly portions of the third metatarsophalangeal joint levels. There appears to be fluid within the plantar soft tissues with mild peripheral enhancement, suggesting abscess. This measures approximately 1.7 x 1.9 x 0.7 cm in size. IMPRESSION: 1. Abnormal soft tissue findings within the plantar aspect of the foot, suspicious for abscess, as described above. Otherwise, edema versus cellulitis throughout the remaining soft tissues of the forefoot. 2. Chronic changes within the osseous structures with no destructive findings to suggest osteomyelitis, however if there is continued concern, early osteomyelitis could be better characterized with MRI. Dictated by: Dictated on workstation # [id number]
[2023-02-17] MEDS: VANCOMYCIN 1 GM/NS 250 ML IVPB IV SCH ×2 (14:32)
--- NOTE | 2023-02-17 15:56 | Physical Therapy Evaluation ---
PT Evaluation-General Medical Diagnosis Admission Date Feb 16, 2023 at 11:55 Medical Diagnosis: Diabetic foot ulcer Onset Date: Feb 16, 2023 Therapy Diagnosis Therapy Diagnosis: Gait deficit, strength deficit Height/Weight Height (Feet): 5 Height (Inches): 10.00 Weight (Pounds): 198 Weight (Ounces): 0.0 Precautions Precautions/Isolations: Standard Precautions Weight Bear Status Right Lower Extremity: Right Non Weight Bearing Left Lower Extremity: Left Non Weight Bearing Patient reports he was told by Dr. Means not to put weight on either foot, but patient is unsure why he cannot put weight on the left LE Referral Physician: Dr. Gonzales Reason for Referral: Evaluation/Treatment Medical History Pertinent Medical History: Atrial Fib, CABG, CAD, COPD, DM, Heart Failure, HTN, PVD, Renal Insufficiency Social History Home: Single Level Current Living Status: Spouse Entry Into Home: Stairs Without Railing PT Steps Into Home: 1 Prior Prior Level of Function SCALE: Activities may be completed with or without assistive devices. 4-Fefcmizncp-bkquubx completes the activity by him/herself with no assistance from a helper. 5-Set-up or Clean-up Assistance-helper sets up or cleans up; patient completes activity. [place] assists only prior to or following the activity. 4-Supervision or Touching Assistance-helper provides verbal cues and/or touching/steadying and/or contact guard assistance as patient completes activity. Assistance may be provided throughout the activity or intermittently. 3-Partial/Moderate Assistance-helper does LESS THAN HALF the effort. [place] lifts, holds or supports trunk or limbs, but provides less than half the effort. 2-Substantial/Maximal Assistance-helper does MORE THAN HALF the effort. [place] lifts or holds trunk or limbs and provides more than half the effort. 4-Pxsgfcrik-gdgrjj does ALL the effort. Patient does none of the effort to complete the activity. Or, the assistance of 2 or more helpers is required for the patient to complete the activity. If activity was not attempted, code reason: 7-Patient Refused. 9-Not Applicable-not attempted and the patient did not perform the activity before the current illness, exacerbation or injury. 10-Not Attempted due to Environmental Limitations-(lack of equipment, weather restraints, etc.). 88-Not Attempted due to Medical Conditions or Safety Concerns. Bed Mobility: 6 Transfers (B,C,W/C): 6 Gait: 6 Stairs: 6 Indoor Mobility (Ambulation): Independent Stairs: Independent Prior Devices Use: Walker PT Evaluation-Current Subjective Patient lying supine in bed upon PT arrival, agreeable to treatment. Objective Patient Orientation: Person Attachments: Quiroz Catheter, IV ROM/Strength ROM Lower Extremities Patient limited all planes BLEs, however right ankle N/A due to recent surgery. Strength Lower Extremities Hip flexion 3+/5 BLEs, Knee extension 4-/5 BLEs, all other LLE motions 5/5. Right ankle N/A due to recent surgery. Sensory Vision: Functional Hearing: Hearing Aid/Aides Sensation Right Lower Extremit: Intact Sensation Left Lower Extremity: Intact Transfers Roll Left to Right (QC): 3 Sit to Lying (QC): 3 Lying to Sitting/Side of Bed(Q: 3 Sit to Stand (QC): 1 Gait Does the Patient Walk?: No and Walking Goal IS indicated Mode of Locomotion: Both Anticipated Mode of Locomotion: Both Balance Sitting Static: Fair Sitting Dynamic: Poor Standing Static: Poor Standing Dynamic: Poor Special Test Comments Patient moderately retropulsive sitting EOB. Patient initially able to sit well with no assistance or cues, however as evaluation progressed, he leaned further backwards and was unable to control at times requiring max A to return to neutral. Assessment/Needs Patient tolerated treatment poorly. He requires mod A for all observed bed mobility and transfers, except for sit to stand with max A x 2. Patient seems confused about recent surgery and expectations, limitations and precautions. Order in EMR states "WBAT", however does not specify which foot. Due to recent surgery, therapy will keep NWB right LE to avoid any potential damage to recent surgery until order can be clarified. Patient stood at bedside for ~ 1 minute with max A. Patient in bed post treatment with all needs met, nursing notified, call light in reach. Rehab Potential: Guarded PT Alf Goals Alf Goals PT Alf Goals Time Frame: March 19, 2023 Roll Left & Right (QC): 6 Sit to Lying (QC): 6 Lying-Sitting on Side/Bed(QC): 6 Sit to Stand (QC): 4 Chair/Jty-qe-Ozncn Xfer(QC): 4 Toilet Transfer (QC): 4 Does the Patient Walk: No and Walking Goal IS indicated Walk 10 feet (QC): 2 PT Plan Problem List Problem List: Activity Tolerance, Functional Strength, Safety, Balance, Gait, Transfer, Bed Mobility, ROM Treatment/Plan Treatment Plan: Continue Plan of Care Treatment Plan: Bed Mobility, Education, Functional Activity Jeet, Functional Strength, Group Therapy, Gait, Safety, Therapeutic Exercise, Transfers Treatment Duration: March 19, 2023 Frequency: 6 times per week Estimated Hrs Per Day: .25 hour per day Patient and/or Family Agrees t: Yes Safety Risks/Education Patient Education: Transfer Techniques Teaching Recipient: Patient Teaching Methods: Demonstration, Discussion Response to Teaching: Verbalize Understanding, Return Demonstration Time Time In: 1528 Time Out: 1550 DATE: Feb 17, 2023 Total Billed Treatment Time: 22 Total Billed Treatment Visit, ALLIE KINNEY PT Feb 17, 2023 15:56
--- NOTE | 2023-02-17 16:00 | Occupational Therapy Eval ---
OT Evaluation-General/PLF Medical Diagnosis Admission Date Feb 16, 2023 at 11:55 Medical Diagnosis: Diabetic foot infection Onset Date: Feb 16, 2023 Therapy Diagnosis Therapy Diagnosis: weakness, debility Height/Weight Height (Feet): 5 Height (Inches): 10.00 Weight (Pounds): 198 Weight (Ounces): 0.0 Precautions Precautions/Isolations: Fall Prevention, Standard Precautions Weight Bear Status Weight Bearing Restriction: Non Weight Bearing Location Restriction: RT FOOT per patient report, patient reports Dr. 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 Lives with who is in declining medical status to care for patient and requests placement at [facility] Home: Single Level Current Living Status: Significant Other Entry Into Home: Level Entry ADL-Prior Level of Function SCALE: Activities may be completed with or without assistive devices. 5-[place]gsmkblha-[place] completes the activity by him/herself with no assistance from a helper. 5-Set-up or Clean-up Assistance-helper sets up or cleans up; patient completes activity. [place] assists only prior to or following the activity. 4-Supervision or Touching Assistance-helper provides verbal cues and/or touching/steadying and/or contact guard assistance as patient completes activity. Assistance may be provided throughout the activity or intermittently. 3-Partial/Moderate Assistance-helper does LESS THAN HALF the effort. [place] lifts, holds or supports trunk or limbs, but provides less than half the effort. 2-Substantial/Maximal Assistance-helper does MORE THAN HALF the effort. [place] lifts or holds trunk or limbs and provides more than half the effort. 9-Zylfxeedl-gcqrrk does ALL the effort. Patient does none of the effort to complete the activity. Or, the assistance of 2 or more helpers is required for the patient to complete the activity. If activity was not attempted, code reason: 7-Patient Refused. 9-Not Applicable-not attempted and the patient did not perform the activity before the current illness, exacerbation or injury. 10-Not Attempted due to Environmental Limitations-(lack of equipment, weather restraints, etc.). 88-Not Attempted due to Medical Conditions or Safety Concerns. Self Care: Independent (questionable and seems inconsistent in PLOF and expectation following surgery) Functional Cognition: Independent (difficulty sustianing conversation of topic) OT Current Status Subjective Supine in bed agreeable to OT Pain Numeric Pain Scale: 0-No Pain Mental Status/Objective Patient Orientation: Person, Place, Situation (somewhat confused) Attachments: Quiroz Catheter, IV, Other-See Comments (RAFFAELE wrap RLE) Current Upper Extremity ROM IMPAIRED, PT REPORT LEFT ROTATOR CUFF INJURY NON OPERATIVE TREATMENT. ABLE TO PERFORM FUNCTIONAL DYNAMIC REACH ASSESSMENT 90 FLEXION AND ABDUCTION. Upper Extremity Coordination IMPAIRED, RETROPULSIVE SITING EOB AND STATIC STANDING, MOTOR PLANNING DELAY, MILD RIGHT LEFT DISCREPANCY Upper Extremity Strength RUE +3/5, LUE -3/5 ADL-Treatment Eating (QC): 6 Oral Hygiene (QC): 5 Shower/Bathe Self (QC): 88 Upper Body Dressing (QC): 3 Lower Body Dressing (QC): 1 On/Off Footwear (QC): 1 Toileting Hygiene (QC): 1 Education OT Patient Education: Correct positioning, Modified ADL techniques, Progress toward Goal/Update tx plan, Purpose of tx/functional activities, Reviewed precautions, Rehab process, Safety issues, Transfer techniques Teaching Recipient: Patient Teaching Methods: Demonstration, Discussion Response to Teaching: Reinforcement Needed OT Napper Grinder Goals Senior Living Goals Eating (QC): 6 Oral Hygiene (QC): 6 Toileting Hygiene (QC): 4 Shower/Bathe Self (QC): 3 Upper Body Dressing (QC): 4 Lower Body Dressing (QC): 4 On/Off Footwear (QC): 4 1=Demonstrate adherence to instructed precautions during ADL tasks. 2=Patient will verbalize/demonstrate understanding of assistive devices/modifications for ADL. 3=Patient will improve strength/tolerance for activity to enable patient to perform ADL's. OT Education/Plan Problem List/Assessment Assessment: Decreased Activ Tolerance, Decreased Safety Aware, Decreased UE Strength, Dependent Transfers, Impaired Coordination, Impaired Funct Balance, Impaired Self-Care Skills, Restricted Funct UE ROM Discharge Recommendations Plan/Recommendations: Continue POC Therapy Discharge Recommendati: Post Acute OT Patient/Family Goals REQUEST [facility] SNF Treatment Plan/Plan of Care Treatment,Training & Education: Yes Patient would benefit from OT for education, treatment and training to promote independence in ADL's, mobility, safety and/or upper extremity function for ADL's. Plan of Care: ADL Retraining, Cognitive Retraining, Concurrent Therapy, Functional Mobility, Group Exercise/Act as Ind, UE Funct Exercise/Act, UE Neuromus Re-Ed/Coord Treatment Duration: February 26, 2023 Frequency: 3 times per week (3-5 TIMES PER WEEK) Estimated Hrs Per Day: .25 hour per day Rehab Potential: Fair NURSING NOTIFIED OF WB STATUS CONCERNS AND LEAKING IV ON RUE Time Start Time: 15:30 Stop Time: 15:51 DATE: Feb 17, 2023 Total Time Billed (hr/min): 20 Billed Treatment Time EVM 21 MIN CHRISTINE MAGDALENO OT Feb 17, 2023 16:00
[2023-02-17] MEDS: HYPOCHLOROUS ACID/NaCl (VASHE) 250 ML IR PRN (16:21)
--- NOTE | 2023-02-17 16:44 | Wound Care Assessment ---
Wound Care Assessment Date Seen by Provider: Feb 17, 2023 Time Seen by Provider: 16:38 Chief Complaint Abscess R. foot (diabetic foot ulcer) HPI This pleasant 82 year old gentleman presented to Dr. Means's office after 1 month h/o callosity on plantar foot. He is diabetic and noted increasing pain, redness and swelling prior to presentation that started within last several days. He has an extensive cardiac history and does have type 2 diabetes but it is well controlled (A1C 6.6 in hospital). Upon presentation, Dr. Means had concerns for deep infection and performed small bedside I&D. Culture is pending. He was subsequently admitted to hospital and started on Vanc and Zosyn. CT appropriately ordered without obvious evidence of osteomyelitis (I could not feel bone when probing on exam) but there is a 1.7x1.9x0.7cm abscess that would benefit from debridement. Dr. Means did consult general surgery and we will aw ait their input. Sed rate was reassuring but CRP quite elevated. He is on Vanc and Zosyn. Until this area is opened and cleaned further, I will continue to pack with iodoform gauze and flush with Vashe. Once he is discharged he will need continued wound care and should be scheduled for follow up with Dr. Means as such. I did discuss with his and she notes that while he is usually independent, he has required more care in the last couple of weeks. She asks today about inpatient rehab and he may be a good candidate as such. I did ask that she discuss with the surgeon train conductor (after they have assessed the patient and determine plan of care) or Dr. Suarez. Dr. Means notes that he is available should there be any need for his services further as well. Past Medical History: Admits Diabetes Type II, Admits Heart Disease Atrial fibrillation with pacer, CHF, COPD, CKD Smoking Status: Former Smoker Recreational Drug Use: No Alcohol Use: Denies Use Review of Systems General: Fatigue, Malaise Cardiovascular: Edema Neurological: Weakness, Numbness Exam Vital Signs Date Time Temp Pulse Resp B/P (MAP) Pulse Ox O2 Delivery O2 Flow Rate FiO2 02/17/23 15:19 36.2 75 20 127/68 (87) 96 Room Air Capillary Refill : General Appearance: WD/WN, no apparent distress HEENT: other (normal hearing) Respiratory: no respiratory distress, no accessory muscle use Extremities: pedal edema Neurologic/Psychiatric: alert, normal mood/affect, oriented x 3 Skin Character: abscess, drainage Wound assessment: 0.3x0.3x2.1 cm. The epithelialization is none. There is no tunneling but there is undermining from 2-6. Drainage is large and purulent. Granulation is none. Necrotic is none. The margins are flat. There is fluctuance in the periwound consistent with abscess cavity. Results Laboratory Tests 02/16/23 20:17: Glucometer 169H 02/17/23 05:07: White Blood Count 8.5, Red Blood Count 4.73, Hemoglobin 13.6, Hematocrit 43, Mean Corpuscular Volume 90, Mean Corpuscular Hemoglobin 29, Mean Corpuscular Hemoglobin Concent 32, Red Cell Distribution Width 15.3H, Platelet Count 158, Mean Platelet Volume 9.1, Immature Granulocyte % (Auto) 1, Neutrophils (%) (Auto) 72, Lymphocytes (%) (Auto) 11L, Monocytes (%) (Auto) 14H, Eosinophils (%) (Auto) 2, Basophils (%) (Auto) 1, Neutrophils # (Auto) 6.1, Lymphocytes # (Auto) 0.9L, Monocytes # (Auto) 1.2H, Eosinophils # (Auto) 0.2, Basophils # (Auto) 0.1, Immature Granulocyte # (Auto) 0.1, Sodium Level 132L, Potassium Level 3.7, Chloride Level 99, Carbon Dioxide Level 20L, Anion Gap 13, Blood Urea Nitrogen 42H, Creatinine 1.43H, Estimat Glomerular Filtration Rate 49, BUN/Creatinine Ratio 29, Glucose Level 93, Calcium Level 8.4L 02/17/23 10:50: Glucometer 188H 02/17/23 16:08: Glucometer 148H Assessment/Plan/Dx Assessment: 1. Cutaneous Abscess plantar R. foot 2. Diabetes with foot ulcer and associated abscess 3. CHF/CAD/atrial fibrillation with pace maker 4. CKD stage 3 Plan: 1. I did discuss with both Drs. Means and Chetan. Possibility of further incision/debridement as indicated per their insight. I will continue to pack with iodoform until surgical plan is in place. Following debridement, I will reassess and following along with dressing recommendations as indicated. Patient to follow up with Dr. Means on d/c home. Continue current broad spectrum antibiotics. 2. Tight glycemic control indicated (looks like good control currently). Defer to primary team. His does mention issues with past PEM. I will check prealbumin. 3. With his extensive cardiac history, I will order arterial doppler while he is inpatient to assess if there is a vascular component to his foot issues. He is already a patient of Dr. Villatoro'tiki and will ask his input if necessary 4. Defer to primary team. 5. Disp: I do think inpatient rehab might be a reasonable consideration for Edgar following his surgical intervention (if deemed necessary per Dr. Benton) MAYRA CRONIN MD Feb 17, 2023 16:44
--- NOTE | 2023-02-17 17:17 | Consultation - Surgery ---
History of Present Illness History of Present Illness Patient Consulted On(scottie/time) 02/17/23 17:11 Time Seen by Provider: 16:56 History of Present Illness Surgery asked to consult regarding Right foot abscess HPI per Hospitalist: Edgar Byrne is an 82 year old male with PMH HTN, T2DM, CHF, BPH, depression, who presented with a foot wound. He was direct admitted from Dr. Means's clinic. He has a wound that has been present for a long time, but over the past couple days it worsened. He had it debrided today. He denies fevers. He denies nausea and vomiting. He denies chest pain. He denies shortness of breath. He denies abdominal pain. He has leg swelling. His says it has improved. When I saw pt he was lying in his bed with at bedside. Pt states he only get occasional pain in the foot, he has some neuropathy but still has feeling. He went to see Dr. Means, who did a small puncture of the area and sent him directly to the hospital. He denies fever or chills. Allergies and Home Medications Allergies Coded Allergies: No Known Drug Allergies (Verified , 11/24/21) Patient Home Medication List Home Medication List Reviewed: Yes ALPRAZolam (ALPRAZolam) 0.25 Mg Tablet, 0.25 MG PO HS PRN for SLEEP, (Reported) Entered as Reported by: ESAU WALTER on 02/17/23 1239 Last Action: Reviewed Allopurinol (Allopurinol) 100 Mg Tablet, 100 MG PO DAILY, (Reported) Entered as Reported by: DEVEN CARBALLO on 09/07/22 1015 Last Action: Reviewed Apixaban (Eliquis) 5 Mg Tablet, 2.5 MG PO BID, (Reported) Entered as Reported by: DEVEN CARBALLO on 09/07/22 1015 Last Action: Reviewed Calcitriol (Calcitriol) 0.5 Mcg Capsule, 0.5 MCG PO WED, (Reported) Entered as Reported by: ESAU WALTER on 11/19/22 1021 Last Action: Reviewed Cetirizine HCl (Cetirizine HCl) 10 Mg Tablet, 10 MG PO HS, (Reported) Entered as Reported by: DEVEN CARBALLO on 09/07/22 1015 Last Action: Reviewed Cholecalciferol (Vitamin D3) (Vitamin D3) 125 Mcg (5000 Unit) Tablet, 125 MCG PO MON,WED,SAT, (Reported) Entered as Reported by: DEVEN CARBALLO on 09/07/22 101 Last Action: Reviewed Dapagliflozin Propanediol (Farxiga) 10 Mg Tablet, 10 MG PO DAILY, (Reported) Entered as Reported by: DEVEN CARBALLO on 09/07/22 101 Last Action: Reviewed Digoxin (Digoxin) 125 Mcg (0.125 Mg) Tablet, 125 MCG PO HS, (Reported) Entered as Reported by: OLIVA FIELD on 11/24/21 130 Last Action: Reviewed Diphenoxylate HCl/Atropine (Diphenoxylate-Atrop 2.5-0.025) 2.5 Mg-0.025 Mg Tablet, 1 EA PO DAILY, (Reported) Entered as Reported by: ESAU WALTER on 02/17/23 102 Last Action: Reviewed Diphenoxylate HCl/Atropine (Lomotil 2.5-0.025 mg Tablet) 2.5 Mg-0.025 Mg Tablet, 1 EACH PO HS PRN for DIARRHEA, (Reported) Entered as Reported by: ESAU WALTER on 02/17/23 102 Last Action: Reviewed Enalapril Maleate (Enalapril Maleate) 5 Mg Tablet, 2.5 MG PO BID, (Reported) Entered as Reported by: ESAU WALTER on 02/17/23 1239 Last Action: Reviewed Escitalopram Oxalate (Escitalopram Oxalate) 10 Mg Tablet, 10 MG PO DAILY, (Reported) Entered as Reported by: OLIVA FIELD on 11/24/21 130 Last Action: Reviewed Finasteride (Finasteride) 5 Mg Tablet, 5 MG PO HS, (Reported) Entered as Reported by: OLIVA FIELD on 11/24/21 130 Last Action: Reviewed Fluticasone Propionate (Flonase Allergy Relief) 50 Mcg/Actuation [place].susp, 2 SPRAY NSEACH DAILY, (Reported) Entered as Reported by: DEVEN CARBALLO on 09/07/22 101 Last Action: Reviewed Fluticasone/Vilanterol (Breo Ellipta 100-25 Mcg INH) 100 Mcg-25 Mcg/Dose Blst.w.dev, 1 EACH IH DAILY, (Reported) Entered as Reported by: DEVEN CARBALLO on 09/07/22 1015 Last Action: Reviewed Furosemide (Furosemide) 80 Mg Tablet, 40 MG PO DAILY, (Reported) Entered as Reported by: DEVEN CARBALLO on 09/07/22 102 Last Action: Reviewed Gluc [place]/Chondro Webster A/Vit C/Mn (Glucosamine Chondroitin Tab) 750 Mg-600 Mg-55 Mg- 5 Mg Tablet, 1 EACH PO DAILY, (Reported) Entered as Reported by: ESAU WALTER on 02/17/23 1025 Last Action: Reviewed Metoprolol Succinate (Metoprolol Succinate) 25 Mg Tab.er.24h, 25 MG PO DAILY, (Reported) Entered as Reported by: ESAU WALTER on 02/17/23 1239 Last Action: Reviewed Montelukast Sodium (Montelukast Sodium) 10 Mg Tablet, 10 MG PO HS, (Reported) Entered as Reported by: DEVEN CARBALLO on 09/07/22 101 Last Action: Reviewed Multivitamin (Multivitamin) 1 Each Tablet, 1 EACH PO DAILY, (Reported) Entered as Reported by: DEVEN CARBALLO on 09/07/221014 Last Action: Reviewed [place]-3/Dha/Epa/Fish Oil (Fish Oil 1,000 mg Softgel) 1,000 Mg (120 Mg-180 Mg) Capsule, 1,000 MG PO HS, (Reported) Entered as Reported by: DEVEN CARBALLO on 09/07/221014 Last Action: Reviewed Spironolactone (Spironolactone) 25 Mg Tablet, 25 MG PO Q48H @HS, (Reported) Entered as Reported by: ESAU WALTER on 11/19/22 102 Last Action: Reviewed Tamsulosin HCl (Flomax) 0.4 Mg Cap, 0.4 MG PO HS, (Reported) Entered as Reported by: DEVEN CARBALLO on 09/07/22 101 Last Action: Reviewed Discontinued Medications Enalapril Maleate (Enalapril Maleate) 2.5 Mg Tablet, 2.5 MG PO BID Discontinued Reason: No Longer Taking Prescribed by: HUMPHREY GRIJALVA on 11/19/22 9074 Last Action: Discontinued Gluc Webster/Chondro Webster A/Vit C/Mn (Glucosamine Chondroitin Tab) 750 Mg-600 Mg-55 Mg- 5 Mg Tablet, 1 EACH PO DAILY, (Reported) Discontinued Reason: Duplicate Order Entered as Reported by: ESAU WALTER on 11/19/22 1011 Last Action: Discontinued Loperamide HCl (Imodium A-D) 2 Mg Tablet, 2 MG PO BID, (Reported) Discontinued Reason: No Longer Taking Entered as Reported by: OLIVA FIELD on 11/24/21 1301 Last Action: Discontinued Metoprolol Succinate (Toprol Xl) 25 Mg Tab.er.24h, 25 MG PO DAILY Discontinued Reason: Duplicate Order Prescribed by: HUMPHREY GRIJALVA on 11/19/22 0811 Last Action: Discontinued Past Vgxmvuf-Mrkhfx-Mwdobd Hx Patient Social History Smoking Status: Former Smoker (quit 61 years ago) Former Smoker, Quit: Nov 24, 1971 Type Used: Cigarettes 2nd Hand Smoke Exposure: No Recent Hopitalizations: Yes Alcohol Use?: No Have you traveled recently?: No Immunizations Up To Date Date of Pneumonia Vaccine: Aug 18, 2021 Date of Influenza Vaccine: Sep 23, 2022 Seasonal Allergies Seasonal Allergies: Yes Surgeries History of Surgeries: Yes (carotid; pacemaker; defibrillator; stent; open heart surgery) Surgeries: Cardiac, CABG, Coronary Stent, Defibrillator, Pacemaker, Vascular Surgery Respiratory History of Respiratory Disorde: Yes (asthma, MILD COPD) Respiratory Disorders: Asthma, Pneumonia, Sleep Apnea, COPD Cardiovascular History of Cardiac Disorders: Yes (POSSIBLE HEART ATTACK PER DR. NARANJO) Cardiac Disorders: Atrial Fibrillation, Coronary Artery Disease, High Cholesterol, Hypertension, Syncope, Valvular Heart Disease Neurological History of Neurological Disord: No Reproductive System Hx Reproductive Disorders: No Genitourinary History of Genitourinary Disor: Yes (STAGE 3) Genitourinary Disorders: Renal Failure Gastrointestinal History of Gastrointestinal Di: Yes (HERNIA REPAIR, 3-4 MONTHS FREQUENT BM'S) Musculoskeletal History of Musculoskeletal Dis: Yes Musculoskeletal Disorders: Degenerate Disk Disease, Arthritis Endocrine History of Endocrine Disorders: Yes Endocrine Disorders: Diabetes, Non-Insulin dep HEENT History of HEENT Disorders: Yes Hearing Impairment: Hard of Hearing, Bilateral Hearing Aide Cancer History of Cancer: No Psychosocial History of Psychiatric Problem: No Behavioral Health Disorders: Anxiety Integumentary History of Skin or Integumenta: No Blood Transfusions History of Blood Disorders: No Family Medical History Significant Family History: Hypertension Review of Systems-General Constitutional: No chills, No diaphoresis EENTM: No mouth pain, No mouth swelling, No epistaxis Respiratory: No cough, No dyspnea on exertion; other (wears CPAP) Cardiovascular: No chest pain; edema, Hx of Intervention, palpitations, syncope, vascular heart diseas Gastrointestinal: No abdominal pain, No jaundice, No nausea, No vomiting Genitourinary: No hematuria; incontinence, other (has armendariz in place) Musculoskeletal: joint pain, joint swelling, muscle pain, muscle stiffness Skin: No change in color, No change in hair/nails Psychiatric/Neurological: Denies Anxiety, Denies Depressed; Paresthesia; Denies Seizure Physical Exam-General Problems Physical Exam Vital Signs Vital Signs - First Documented 02/16/23 02/16/23 12:17 12:29 Temp 36.6 Pulse 77 Resp 18 B/P (MAP) 143/67 (92) Pulse Ox 100 O2 Delivery Room Air Capillary Refill : General Appearance: no apparent distress, thin Eyes: Bilateral Eye PERRL, Bilateral Eye EOMI HEENT: pharynx normal; No scleral icterus (R), No scleral icterus (L) Neck: non-tender, supple Respiratory: lungs clear, normal breath sounds, no respiratory distress, no accessory muscle use Cardiovascular: regular rate, rhythm, other (edema) Gastrointestinal: non tender, soft, no organomegaly Back: no CVA tenderness, no vertebral tenderness Extremities: no calf tenderness, pedal edema, other (right foot, base of second toe is erythematous, swollen and also has some iodoform packing) Neurologic/Psychiatric: alert, oriented x 3 Skin: normal color, warm/dry, ecchymosis (on arms) Data Review Labs Laboratory Tests 02/16/23 20:17: Glucometer 169H 02/17/23 05:07: White Blood Count 8.5, Red Blood Count 4.73, Hemoglobin 13.6, Hematocrit 43, Mean Corpuscular Volume 90, Mean Corpuscular Hemoglobin 29, Mean Corpuscular Hemoglobin Concent 32, Red Cell Distribution Width 15.3H, Platelet Count 158, Mean Platelet Volume 9.1, Immature Granulocyte % (Auto) 1, Neutrophils (%) (Auto) 72, Lymphocytes (%) (Auto) 11L, Monocytes (%) (Auto) 14H, Eosinophils (%) (Auto) 2, Basophils (%) (Auto) 1, Neutrophils # (Auto) 6.1, Lymphocytes # (Auto) 0.9L, Monocytes # (Auto) 1.2H, Eosinophils # (Auto) 0.2, Basophils # (Auto) 0.1, Immature Granulocyte # (Auto) 0.1, Sodium Level 132L, Potassium Level 3.7, Chloride Level 99, Carbon Dioxide Level 20L, Anion Gap 13, Blood Urea Nitrogen 42H, Creatinine 1.43H, Estimat Glomerular Filtration Rate 49, BUN/Creatinine Ratio 29, Glucose Level 93, Calcium Level 8.4L 02/17/23 10:50: Glucometer 188H 02/17/23 16:08: Glucometer 148H Radiology Date of Exam:02/17/23 CT EXTREMITY LOWER RIGHT W EXAMINATION: CT right lower extremity with contrast from 02/17/2023. TECHNIQUE: Multiple contiguous axial CT images of the right extremity were obtained after intravenous administration of iodinated contrast. Auto Exposure Controls were utilized during the CT exam to meet ALARA standards for radiation dose reduction. INDICATION: Question osteomyelitis. Diabetic foot ulcer. COMPARISON: Correlation made to radiographs from 02/16/2023. FINDINGS: There are subchondral cystic changes throughout the midfoot. There are no fractures or dislocations. There are hammertoe deformities of the second, third, fourth, and possibly fifth toes. No destructive changes suggestive of osteomyelitis. However, early osteomyelitis can be missed on CT and better characterized with MRI if clinically warranted. There is fat stranding within the subcutaneous soft tissues about the foot, consistent with edema and/or cellulitis. There is a more focal abnormality within the plantar soft tissues of the great toe extending to overlie the second and possibly portions of the third metatarsophalangeal joint levels. There appears to be fluid within the plantar soft tissues with mild peripheral enhancement, suggesting abscess. This measures approximately 1.7 x 1.9 x 0.7 cm in size. IMPRESSION: 1. Abnormal soft tissue findings within the plantar aspect of the foot, suspicious for abscess, as described above. Otherwise, edema versus cellulitis throughout the remaining soft tissues of the forefoot. 2. Chronic changes within the osseous structures with no destructive findings to suggest osteomyelitis, however if there is continued concern, early osteomyelitis could be better characterized with MRI. Dictated on workstation # [id number] Dict: 02/17/23 1226 Trans: 02/17/23 1253 [id number] Interpreted by: HOLLY BANEGAS MD Assessment/Plan Assessment/Plan Assessment/Plan Right foot Abscess and Cellulitis CAD and Afib DM I reviewed the CT myself and discussed the case with Wound Care Physician. He appears to have some fluid collection and this will need an I&D and possible debridement. I did talk to the pt and his about surgery, explaining that in order to completely get rid of bacteria and antibiotics to work; it needs to be completely drained. I also told them he would have a little more bleeding because he is on Eliquis; they understood. All questions answered to their satisfaction. I will get consent and hold dmitri plan for surgery in . BO POTTER DO Feb 17, 2023 17:17
--- NOTE | 2023-02-17 17:23 | Progress Note - Hospitalist ---
Subjective HPI/CC On Admission Date Seen by Provider: Feb 17, 2023 Time Seen by Provider: 11:00 Edgar Byrne is an 82 year old male with PMH HTN, T2DM, CHF, BPH, depression, who presented with a foot wound. He was direct admitted from Dr. Means's clinic. He has a wound that has been present for a long time, but over the past couple days it worsened. He had it debrided today. He denies fevers. He denies nausea and vomiting. He denies chest pain. He denies shortness of breath. He denies abdominal pain. He has leg swelling. His says it has improved. Subjective/Events-last exam He is feeling ok. He has no complaints. He denies fevers. Objective Exam Vital Signs Vital Signs Date Time Temp Pulse Resp B/P (MAP) Pulse Ox O2 Delivery O2 Flow Rate FiO2 02/17/23 15:19 36.2 75 20 127/68 (87) 96 Room Air Capillary Refill : General Appearance: No Apparent Distress, WD/WN Respiratory: Lungs Clear, No Respiratory Distress Cardiovascular: Regular Rate, Rhythm, No Murmur Gastrointestinal: Normal Bowel Sounds, Soft Extremity: Other (right foot wound bandaged) Neurologic/Psychiatric: Alert, Normal Mood/Affect Results/Procedures Lab Laboratory Tests 02/17/23 05:07 Patient resulted labs reviewed. Imaging: Reviewed Imaging Report Assessment/Plan Assessment and Plan Assess & Plan/Chief Complaint Diabetic foot infection T2DM with foot ulcer Wound culture pending, MagLab XR negative for osteomyelitis Unable to get MRI due to pacemaker/defibrillator CT right foot with abscess Dr. Means notified, recommended consulting surgery General surgery consulted Wound care consulted Sliding scale insulin A1C 6.6% Debility PT/OT May require placement on discharge HTN CHF AFib BPH Depression Continue home meds as able Diagnosis/Problems Diagnosis/Problems (1) Diabetic foot ulcer Status: Acute (2) T2DM (type 2 diabetes mellitus) Status: Acute Qualifiers: Diabetes mellitus technician terminal and repeater insulin use: with technician terminal and repeater use Diabetes mellitus complication status: with skin complications Diabetes mellitus complication detail: with foot ulcer Qualified Codes: E11.621 - Type 2 diabetes mellitus with foot ulcer; L97.509 - Non-pressure chronic ulcer of other part of unspecified foot with unspecified severity; 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
[2023-02-17] MEDS: TAMSULOSIN 0.4 MG (FLOMAX) CAP PO SCH (17:48)
[2023-02-17] MEDS: MONTELUKAST 10 MG (SINGULAIR) TAB PO SCH (20:35)
[2023-02-17] MEDS: DIGOXIN 0.125 MG (LANOXIN) TAB PO SCH (20:35)
[2023-02-17] MEDS: MELATONIN 3 MG TABLET PO PRN (20:41)
[2023-02-17] MEDS: ALPRAZolam 0.25 MG (XANAX) TAB PO PRN (20:41)
[2023-02-18] VITALS (11 sets, daily range): BP systolic 116–134; BP diastolic 52–72
[2023-02-18] MEDS: PIPERACILLIN SODIUM/TAZOBACTAM 4.5 GM in NS (IVPB) 100 ML IV SCH ×3 (03:16→20:58)
[2023-02-18 06:03] LABS: BASOPHILS # (AUTO) 0.1 10^3/uL (0.0-0.1); BASOPHILS % (AUTO) 1 % (0-10); EOSINOPHILS # (AUTO) 0.3 10^3/uL (0.0-0.3); EOSINOPHILS % (AUTO) 3 % (0-10); HEMATOCRIT 42 % (40-54); HEMOGLOBIN 13.3 g/dL (13.3-17.7); LYMPHOCYTES # (AUTO) 1.4 10^3/uL (1.0-4.0); LYMPHOCYTES % (AUTO) 14 % (12-44); MEAN CORPUSCULAR HEMOGLOBIN 28 pg (25-34); MEAN CORPUSCULAR HGB CONC 32 g/dL (32-36); MEAN CORPUSCULAR VOLUME 89 fL (80-99); MEAN PLATELET VOLUME 9.4 fL (9.0-12.2); MONOCYTES # (AUTO) 1.5 10^3/uL (0.0-1.0); MONOCYTES % (AUTO) 15 % (0-12); NEUTROPHILS # (AUTO) 6.8 10^3/uL (1.8-7.8); NEUTROPHILS % (AUTO) 67 % (42-75); PLATELET COUNT 181 10^3/uL (130-400)
[2023-02-18] MEDS: inSUlin ASPART (NovoLOG) 1 UNIT/0.01 ML (CHARGE PER UNIT) SC SCH ×4 (06:15→20:53)
[2023-02-18 06:34] LABS: CREATININE SERUM 1.84 MG/DL (0.60-1.30); POTASSIUM 3.3 MMOL/L (3.6-5.0)
--- NOTE | 2023-02-18 08:31 | Progress Note - Surgery ---
SANFORD SALMON 02/18/23 0831: Subjective Date Seen by a Provider: Feb 18, 2023 Time Seen by a Provider: 07:45 Subjective/Events-last exam pt was seen lying comfortably in bed, he was A&O x3, he didnt realize he wasnt at his rehab center and that he was in the hospital. He is agreeable to the inc ision and drainage planned for today and has been compliant to his NPO orders, he denies any fevers, chills, n/v/d, new onset of pain, dizzyness, chest pain, or headaches. He admits to his right foot plantar surface still being tender and warm. Review of Systems General: No Chills, No Night Sweats, No Fatigue, No Malaise HEENT: No Head Aches, No Visual Changes, No Dysphasia, No Sinus Congestion Pulmonary: No Dyspnea, No Cough, No Pleuritic Chest Pain Cardiovascular: No: Chest Pain, Palpitations, Lt Headedness Gastrointestinal: No: Nausea, Vomiting, Abdominal Pain, Diarrhea, Constipation Genitourinary: No Dysuria, No Incontinence, No Hematuria; Other (Quiroz in place) Musculoskeletal: No: other, neck pain, shoulder pain, arm pain, back pain, hand pain, leg pain, foot pain Neurological: Numbness (some mild diabetic nueropathy of his feet); No: Weakness, Confusion Objective Exam Vital Signs Date Time Temp Pulse Resp B/P (MAP) Pulse Ox O2 Delivery O2 Flow Rate FiO2 02/18/23 07:48 35.8 76 18 126/64 (84) 95 Room Air 02/18/23 03:09 36.3 78 20 125/67 (86) 97 Room Air 02/17/23 23:13 36.8 75 18 126/70 (88) 95 Room Air 02/17/23 20:40 Room Air 02/17/23 19:23 36.3 78 17 134/65 (88) 95 Room Air 02/17/23 15:19 36.2 75 20 127/68 (87) 96 Room Air 02/17/23 11:00 36.8 72 20 122/62 (82) 94 Room Air 02/17/23 08:30 Room Air I & O 02/18/23 07:00 Intake Total 1876 ml Output Total 2150 ml Balance -274 ml Capillary Refill : General Appearance: No Apparent Distress, WD/WN HEENT: PERRL/EOMI; No Pale Conjunctivae (L), No Pale Conjunctivae (R), No Photophobia Neck: Supple; No Lymphadenopathy (L), No Lymphadenopathy (R), No Thyromegaly Respiratory: Lungs Clear, No Respiratory Distress Cardiovascular: Regular Rate, Rhythm, No Murmur Peripheral Pulses: 2+ Dorsalis Pedis (R), 2+ Left Dors-Pedis (L), 2+ Radial Pulses (R), 2+ Radial Pulses (L) Gastrointestinal: non tender, soft; No distended, No guarding Extremity: No Calf Tenderness, Inflammation (right foot plantar surface, distal > proximal), Swelling (right foot, first through third metatarsal palangeal joints), Other (right foot wound bandaged) Neurologic/Psychiatric: Alert, Oriented x3 (didnt know his location, but knew his name, date, and reason for being seen.); No Depressed Affect Skin: Normal Color, Warm/Dry, Ecchymosis (on his arms), Erythema (on right foot) Lymphatic: No Adenopathy (ant. Cervical ) Results Lab Laboratory Tests 02/17/23 10:50: Glucometer 188H 02/17/23 16:08: Glucometer 148H 02/17/23 20:50: Glucometer 196H 02/18/23 05:12: White Blood Count 10.0, Red Blood Count 4.70, Hemoglobin 13.3, Hematocrit 42, Mean Corpuscular Volume 89, Mean Corpuscular Hemoglobin 28, Mean Corpuscular Hemoglobin Concent 32, Red Cell Distribution Width 15.1H, Platelet Count 181, Mean Platelet Volume 9.4, Immature Granulocyte % (Auto) 0, Neutrophils (%) (Auto) 67, Lymphocytes (%) (Auto) 14, Monocytes (%) (Auto) 15H, Eosinophils (%) (Auto) 3, Basophils (%) (Auto) 1, Neutrophils # (Auto) 6.8, Lymphocytes # (Auto) 1.4, Monocytes # (Auto) 1.5H, Eosinophils # (Auto) 0.3, Basophils # (Auto) 0.1, Immature Granulocyte # (Auto) 0.0, Sodium Level 134L, Potassium Level 3.3L, Chloride Level 102, Carbon Dioxide Level 21, Anion Gap 11, Blood Urea Nitrogen 46H, Creatinine 1.84H, Estimat Glomerular Filtration Rate 36, BUN/Creatinine Ratio 25, Glucose Level 123H, Calcium Level 8.0L Assessment/Plan Assessment/Plan Assessment/Plan Right foot Abscess and Cellulitis CAD and Afib DM * heart and lungs stable today per AM visit * Pt is agreeable/consenting to I&D, has no concerns reported. CARLITOS BENTON DO 02/18/23 1007: Subjective Time Seen by a Provider: 09:58 Subjective/Events-last exam Pt seen and has no questions, ready for surgery. Assessment/Plan Assessment/Plan Assessment/Plan I&D today, all questions answered to his satisfaction Supervisory-Addendum Brief Verification & Attestation Participated in pt care: history, MDM, physical Personally performed: exam, history, MDM, supervision of care Care discussed with: Medical Student Procedures: n/a Verification and Attestation of Medical Student E/M Service A medical student performed and documented this service. I then reviewed and verified all information documented by the medical student and made modifications to such information, when appropriate. I personally performed a physical exam, medical decision making and then discussed any differences between the notes and made revisions as necessary to create one note. Carlitos Benton , 02/18/23 , 10:05 SANFORD SALMON Feb 18, 2023 08:31 CARLITOS BENTON DO Feb 18, 2023 10:07
[2023-02-18] MEDS: FINASTERIDE (PROSCAR) 5 MG TAB PO SCH (08:38)
[2023-02-18] MEDS: DOCUSATE SODIUM 100 MG (COLACE) CAP PO SCH ×2 (08:38→20:53)
[2023-02-18] MEDS: FUROSEMIDE 40 MG (LASIX) TAB PO SCH (08:38)
[2023-02-18] MEDS: ENALAPRIL 5 MG (VASOTEC) TAB PO SCH (08:38)
[2023-02-18] MEDS: ALLOPURINOL 100 MG (ZYLOPRIM) TAB PO SCH (08:38)
[2023-02-18] MEDS: SENNOSIDES 8.6 MG (SENOKOT) TAB PO SCH ×2 (08:39→20:53)
[2023-02-18] MEDS ORDERED: LIDOCAINE/EPI 1%-1:100,000 (XYLOCAINE) 20ML ONE (09:39)
[2023-02-18] MEDS ORDERED: PROPOFOL INJECTION 50 ML IV ONE (10:05)
[2023-02-18] MEDS ORDERED: LACTATED RINGERS 1,000 ML IV ONE (10:20)
--- NOTE | 2023-02-18 10:20 | Physical Therapy Daily Note ---
PT Daily Note-Current Subjective Patient continues to be slightly confused with noted difficulty with motor planning. Pain Section J - Health Conditions 1. Rarely or not at all 2. Occasionally 3. Frequently 4. Almost constantly 8. Unable to answer Pain Effect on Sleep: 1 Pain Interference with Therapy: 1 Pain Interference w/Day-to-Day: 1 Mental Status Patient Orientation: Person, Time, Situation Attachments: Quiroz Catheter, IV Transfers SCALE: Activities may be completed with or without assistive devices. 6-Kbezrmotre-rpfbryp completes the activity by him/herself with no assistance from a helper. 5-Set-up or Clean-up Assistance-helper sets up or cleans up; patient completes activity. [place] assists only prior to or following the activity. 4-Supervision or Touching Assistance-helper provides verbal cues and/or touching/steadying and/or contact guard assistance as patient completes activity. Assistance may be provided throughout the activity or intermittently. 3-Partial/Moderate Assistance-helper does LESS THAN HALF the effort. [place] lifts, holds or supports trunk or limbs, but provides less than half the effort. 2-Substantial/Maximal Assistance-helper does MORE THAN HALF the effort. [place] lifts or holds trunk or limbs and provides more than half the effort. 3-Pjjoybcyt-mzdegb does ALL the effort. Patient does none of the effort to complete the activity. Or, the assistance of 2 or more helpers is required for the patient to complete the activity. If activity was not attempted, code reason: 7-Patient Refused. 9-Not Applicable-not attempted and the patient did not perform the activity before the current illness, exacerbation or injury. 10-Not Attempted due to Environmental Limitations-(lack of equipment, weather restraints, etc.). 88-Not Attempted due to Medical Conditions or Safety Concerns. Sit to Lying (QC): 4 Lying to Sitting/Side of Bed(Q: 4 Sit to Stand (QC): 3 Patient sat EOB for several minutes performing scooting up toward HOB in seated position Weight Bearing Right Lower Extremity: Right Non Weight Bearing Left Lower Extremity: Left Non Weight Bearing Patient reports he was told by Dr. Means not to put weight on either foot, but patient is unsure why he cannot put weight on the left LE Gait Training Distance: 3' Gait Assistive Device: FWW NWB right foot with patient demonstrating the ability to "scoot" left foot with FWW use Assessment Patient continues to have difficulty with basic motor planning, however, improving slowly. Patient declined up to recliner and remains in bed with bed alarm activated. PT to increase activity as tolerated by patient. PT Whitesmith Goals Whitesmith Goals PT Prison Goals Time Frame: March 19, 2023 Roll Left & Right (QC): 6 Sit to Lying (QC): 6 Lying-Sitting on Side/Bed(QC): 6 Sit to Stand (QC): 4 Chair/Pyt-hb-Yqisu Xfer(QC): 4 Toilet Transfer (QC): 4 Does the Patient Walk: No and Walking Goal IS indicated Walk 10 feet (QC): 2 PT Plan Treatment/Plan Treatment Plan: Continue Plan of Care Treatment Plan: Bed Mobility, Education, Functional Activity Jeet, Functional Strength, Group Therapy, Gait, Safety, Therapeutic Exercise, Transfers Treatment Duration: March 19, 2023 Frequency: 6 times per week Estimated Hrs Per Day: .25 hour per day Patient and/or Family Agrees t: Yes Time Time In: 931 Time Out: 947 DATE: Feb 18, 2023 Total Billed Treatment Time: 16 Total Billed Treatment 1 visit FA 16 min DARELL CHRISTENSEN PT Feb 18, 2023 10:20
[2023-02-18] MEDS ORDERED: LIDOCAINE/EPI 1%-1:100,000 (XYLOCAINE) 20ML INJ ONE (10:21)
--- NOTE | 2023-02-18 10:26 | Occupational Ther Daily Note ---
OT Current Status-Daily Note Subjective Confusion slowly resolving. Agrees to therapy this morning Mental Status/Objective Patient Orientation: Confused Attachments: Quiroz Catheter, IV (port) ADL-Treatment Therapy Code Descriptions/Definitions Functional [place] Measure: 0=Not Assessed/NA 4=Minimal Assistance 1=Total Assistance 5=Supervision or Setup 2=Maximal Assistance 6=Modified [place] 3=Moderate Assistance 7=Complete IndependenceSCALE: Activities may be completed with or without assistive devices. 2-Crlaodxrcr-oukswfd completes the activity by him/herself with no assistance from a helper. 5-Set-up or Clean-up Assistance-helper sets up or cleans up; patient completes activity. [place] assists only prior to or following the activity. 4-Supervision or Touching Assistance-helper provides verbal cues and/or touching/steadying and/or contact guard assistance as patient completes activity. Assistance may be provided throughout the activity or intermittently. 3-Partial/Moderate Assistance-helper does LESS THAN HALF the effort. [place] lifts, holds or supports trunk or limbs, but provides less than half the effort. 2-Substantial/Maximal Assistance-helper does MORE THAN HALF the effort. [place] lifts or holds trunk or limbs and provides more than half the effort. 7-Yxvnoemxk-eruoza does ALL the effort. Patient does none of the effort to complete the activity. Or, the assistance of 2 or more helpers is required for the patient to complete the activity. If activity was not attempted, code reason: 7-Patient Refused. 9-Not Applicable-not attempted and the patient did not perform the activity before the current illness, exacerbation or injury. 10-Not Attempted due to Environmental Limitations-(lack of equipment, weather restraints, etc.). 88-Not Attempted due to Medical Conditions or Safety Concerns. Eating (QC): 88 (NPO) Oral Hygiene (QC): 88 (sponge only NPO) Shower/Bathe Self (QC): 7 (patient reports several sponge baths, OT provided shorty and BM residual hygiene) Upper Body Dressing (QC): 4 Lower Body Dressing (QC): 2 On/Off Footwear: 1 Toileting Hygiene (QC): 2 Toilet Transfer (QC): 3 Education OT Patient Education: Correct positioning, Exercise program, Modified ADL techniques, Progress toward Goal/Update tx plan, Purpose of tx/functional activities, Reviewed precautions, Rehab process, Safety issues, Transfer techniques Teaching Recipient: Patient Teaching Methods: Demonstration, Discussion Response to Teaching: Reinforcement Needed (continues to have confusion with motor planning of extremities and R/L discrimination) OT Computer Network Support Specialist Goals Intermediate Goals Eating (QC): 6 Oral Hygiene (QC): 6 Toileting Hygiene (QC): 4 Shower/Bathe Self (QC): 3 Upper Body Dressing (QC): 4 Lower Body Dressing (QC): 4 On/Off Footwear (QC): 4 1=Demonstrate adherence to instructed precautions during ADL tasks. 2=Patient will verbalize/demonstrate understanding of assistive devices /modifications for ADL. 3=Patient will improve strength/tolerance for activity to enable patient to perform ADL's. OT Education/Plan Problem List/Assessment Assessment: Decreased Activ Tolerance, Decreased Safety Aware (bed alarm), Decreased UE Strength, Impaired Cognition, Impaired Coordination (improved sitting balance from day before, able to sit unsupport. Unable to motor plan scooting on EOB), Impaired Self-Care Skills, Restricted Funct UE ROM (LUE 90 flexion and abd however patient reports he does not have a shoulder and self limits use) Discharge Recommendations Plan/Recommendations: Continue POC Therapy Discharge Recommendati: Post Acute OT Treatment Plan/Plan of Care Patient would benefit from OT for education, treatment and training to promote independence in ADL's, mobility, safety and/or upper extremity function for ADL's. Plan of Care: ADL Retraining, Cognitive Retraining, Concurrent Therapy, Functional Mobility, Group Exercise/Act as Ind, UE Funct Exercise/Act, UE Neuromus Re-Ed/Coord Treatment Duration: February 26, 2023 Frequency: 3 times per week (3-5 TIMES PER WEEK) Estimated Hrs Per Day: .25 hour per day Rehab Potential: Fair Time Start Time: 09:15 Stop Time: 09:47 DATE: Feb 18, 2023 Total Time Billed (hr/min): 32 Billed Treatment Time EX 1, ADL1 32 minutes CHRISTINE MAGDALENO OT Feb 18, 2023 10:26
--- NOTE | 2023-02-18 10:52 | Progress Note-Post Operative ---
Post-Operative Progess Note Surgeon (s)/Reverberatory Furnace Supervisor (s) Surgeon BO POTTER DO Reverberatory Furnace Supervisor: GUSTABO Wetzel Pre-Operative Diagnosis Right foot abscess Post-Operative Diagnosis same with necrotic tissue Procedure & Operative Findings Date of Procedure 02/18/23 Procedure Performed/Findings Incision and Drainage with debridement of necrotic tissue Anesthesia Type IV sedation by Anesthesia Estimated Blood Loss Estimated blood loss (mL): appx 15ml Specimens/Packing Specimens Removed necrotic tissue BO POTTER DO Feb 18, 2023 10:52
--- NOTE | 2023-02-18 11:24 | Anesthesia-General Post-Op ---
MAC Patient Condition Mental Status/LOC: Same as Preop Cardiovascular: Satisfactory Nausea/Vomiting: Absent Respiratory: Satisfactory Pain: Controlled Complications: Absent Post Op Complications Complications None Follow Up Care/Instructions Patient Instructions None needed. Anesthesiology Discharge Order Discharge Order Patient was doing well in PACU with no complaints, stable vital signs, no apparent adverse anesthesia problems. No complications reported per nursing. SEAN LAURA DO Feb 18, 2023 11:24
[2023-02-18] MEDS ORDERED: morphine INJ 10 MG/ML 1ML (SYR OR VIAL) IVP ONE (11:30)
[2023-02-18] MEDS ORDERED: ONDANSETRON 4 MG/2 ML (SDV) Z0FRAN IVP PRN (11:30)
--- NOTE | 2023-02-18 12:33 | Progress Note - Hospitalist ---
FILEMON NEW 02/18/23 1232: Subjective HPI/CC On Admission Date Seen by Provider: Feb 18, 2023 Edgar Byrne is an 82 year old male with PMH HTN, T2DM, CHF, BPH, depression, who presented with a foot wound. He was direct admitted from Dr. Means's clinic. He has a wound that has been present for a long time, but over the past couple days it worsened. He had it debrided today. He denies fevers. He denies nausea and vomiting. He denies chest pain. He denies shortness of breath. He denies abdominal pain. He has leg swelling. His says it has improved. Subjective/Events-last exam Pt was seen and interviewed today. Pt states that he is doing well and feels consistent with yesterday. Pt was seen by surgery and was told that he will receive an incision and drainage of R. Foot today. Pt denies chest pain, abdominal pain, palpitations, Fever, Chills, and N/V/D. Review of Systems General: No Chills Cardiovascular: No: Chest Pain, Palpitations Gastrointestinal: No: Nausea, Vomiting, Abdominal Pain, Diarrhea Objective Exam Vital Signs Vital Signs Date Time Temp Pulse Resp B/P (MAP) Pulse Ox O2 Delivery O2 Flow Rate FiO2 02/18/23 12:00 35.6 75 14 134/65 (88) 98 Room Air Capillary Refill : Less Than 3 Seconds General Appearance: No Apparent Distress Respiratory: Chest Non Tender, Lungs Clear, Normal Breath Sounds Cardiovascular: Regular Rate, Rhythm, No Murmur, Normal Peripheral Pulses Gastrointestinal: Normal Bowel Sounds, Non Tender, Soft Neurologic/Psychiatric: Alert, Oriented x3 Results/Procedures Lab Laboratory Tests 02/18/23 05:12 Patient resulted labs reviewed. Imaging: Reviewed Imaging Report Assessment/Plan Assessment and Plan Assess & Plan/Chief Complaint Diabetic Foot Ulcer Type II Diabetes Mellitus CT. R. Foot - Abscess General Surgery - Incision and Drainage Today Sliding Scale Insulin Continue IV Abx Debility PT/OT Evaluation HTN Enalapril CHF Furosemide Digoxin Atrial Fibrilation Eliquis Held Due to Surgical Procedure Metoprolol BPH Tamsulosin STEFAN CABAN MD 02/18/232027: Subjective HPI/CC On Admission Time Seen by Provider: 10:30 Assessment/Plan Assessment and Plan Assess & Plan/Chief Complaint s/p I&D 02/17. Continue IV antibiotics. Await culture results. Continue therapies. Likely placement early next week. Diagnosis/Problems Diagnosis/Problems (1) Diabetic foot ulcer Status: Acute (2) T2DM (type 2 diabetes mellitus) Status: Acute Qualifiers: Qualified Codes: E11.621 - Type 2 diabetes mellitus with foot ulcer; L97.509 - Non-pressure chronic ulcer of other part of unspecified foot with unspecified severity; Z79.4 - half-way (current) use of insulin (3) HTN (hypertension) Status: Chronic (4) Afib Status: Chronic (5) BPH (benign prostatic hyperplasia) Status: Chronic Supervisory-Addendum Brief Verification & Attestation Participated in pt care: history, MDM, physical Personally performed: exam, history, MDM, supervision of care Care discussed with: Medical Student Procedures: n/a Results interpretation: Verified all documentation A medical student performed and documented this service in my presence. I reviewed and verified all information documented by the medical student and made modifications to such information, when appropriate. I personally performed the physical exam and medical decision making. FILEMON NEW Feb 18, 2023 12:32 STEFAN CABAN MD Feb 18, 2023 20:28
[2023-02-18] MEDS ORDERED: TROUGH ORDER-PHARMACY XX NR (13:00)
[2023-02-18] MEDS: VANCOMYCIN 1 GM/NS 250 ML IVPB IV SCH ×2 (14:30)
--- NOTE | 2023-02-18 16:20 | Diagnostic Imaging Report ---
INDICATION: Peripheral arterial disease COMPARISON: Right lower extremity arterial Doppler duplex ultrasound was performed on 02/18/2023. FINDINGS: Monophasic waveforms are identified within the distal right posterior tibial artery as well as within the right dorsalis pedis artery. Otherwise, triphasic and biphasic waveforms are identified within the large arterial structures of the right lower extremity. Increased velocities are identified within the right dorsalis pedis artery. No additionally focally increased velocities within the large arterial structures of the right lower extremity. IMPRESSION: Findings consistent with distal tibioperoneal disease with monophasic waveforms are identified. No evidence of hemodynamically significant stenosis within the large arterial structures within the right thigh and right knee. Dictated by: Dictated on workstation # [id number]
[2023-02-18] MEDS: TAMSULOSIN 0.4 MG (FLOMAX) CAP PO SCH (17:19)
--- NOTE | 2023-02-18 19:36 | OPERATIVE REPORT ---
DATE OF SERVICE: 02/18/2023 PREOPERATIVE DIAGNOSIS: Right foot abscess. POSTOPERATIVE DIAGNOSES: 1. Right foot abscess. 2. Necrotic tissue. PROCEDURE: Incision and drainage with debridement of necrotic tissue, incision measuring approximately 2.1 x 1 x 0.7 cm deep into some of the subcutaneous fascia. SURGEON: Carlitos Benton DO TRIM MOUNTER: Sarbjit Gamboa MS3. ANESTHESIA: IV sedation by anesthesia with a local block. SPECIMEN: Necrotic tissue. ESTIMATED BLOOD LOSS: Approximately 30 mL FLUIDS: Per anesthesia. POSTOPERATIVE CONDITION: Stable. INDICATIONS FOR PROCEDURE: The patient is an 82-year-old male who has an abscess in his foot from a diabetic foot ulcer needed to get this drained, so the antibiotics could work. FINDINGS: The patient had a foot ulcer and some necrotic tissue. DESCRIPTION OF PROCEDURE: After informed consent was obtained, the patient was brought to the operating room. He was sterilely prepped and draped in normal fashion. I then performed a nerve block at the malleoli and then went down at the ball of the foot. I was on the second toe. There was an opening. I increased this opening to about 2.1 cm long by about 1 cm wide, carried out some necrotic skin as well as then some necrotic fat and what looked like may have been a little bit of fascia. This was cut out, passed off the table. There was some bleeding because of he was on Eliquis. I controlled this with Bovie electrocautery and then packed with 1/4-inch iodoform packing and then placed a pressure dressing. There was no bleeding with the pressure dressing in place. Area was then cleaned and dried. He was then transferred to recovery room in stable condition. Sponge and needle count correct at the end of the case. Job ID: [id number] DocumentID: [id number] Dictated Date: 02/18/2023 12:37:05 Embossing Machine Operator Helper Date: 02/18/2023 19:34:00 Dictated By: CARLITOS BENTON DO [facility]
[2023-02-18] MEDS: MONTELUKAST 10 MG (SINGULAIR) TAB PO SCH (20:58)
[2023-02-18] MEDS: DIGOXIN 0.125 MG (LANOXIN) TAB PO SCH (20:58)
[2023-02-19 03:06] VITALS: BP 125/75
[2023-02-19] MEDS: PIPERACILLIN SODIUM/TAZOBACTAM 4.5 GM in NS (IVPB) 100 ML IV SCH ×3 (04:47→20:31)
[2023-02-19] MEDS: inSUlin ASPART (NovoLOG) 1 UNIT/0.01 ML (CHARGE PER UNIT) SC SCH ×4 (05:14→20:34)
[2023-02-19 06:06] LABS: BASOPHILS # (AUTO) 0.1 10^3/uL (0.0-0.1); BASOPHILS % (AUTO) 1 % (0-10); EOSINOPHILS # (AUTO) 0.5 10^3/uL (0.0-0.3); EOSINOPHILS % (AUTO) 4 % (0-10); HEMATOCRIT 42 % (40-54); HEMOGLOBIN 13.5 g/dL (13.3-17.7); LYMPHOCYTES # (AUTO) 1.4 10^3/uL (1.0-4.0); LYMPHOCYTES % (AUTO) 13 % (12-44); MEAN CORPUSCULAR HEMOGLOBIN 28 pg (25-34); MEAN CORPUSCULAR HGB CONC 32 g/dL (32-36); MEAN CORPUSCULAR VOLUME 88 fL (80-99); MEAN PLATELET VOLUME 9.1 fL (9.0-12.2); MONOCYTES # (AUTO) 1.2 10^3/uL (0.0-1.0); MONOCYTES % (AUTO) 11 % (0-12); NEUTROPHILS # (AUTO) 7.6 10^3/uL (1.8-7.8); NEUTROPHILS % (AUTO) 71 % (42-75); PLATELET COUNT 183 10^3/uL (130-400); WHITE BLOOD COUNT 10.7 10^3/uL (4.3-11.0)
[2023-02-19 06:27] LABS: CREATININE SERUM 2.28 MG/DL (0.60-1.30); POTASSIUM 3.4 MMOL/L (3.6-5.0)
[2023-02-19 07:30] VITALS: BP 135/65
--- NOTE | 2023-02-19 07:58 | Progress Note - Surgery ---
NOEMI FINN 02/19/23 0758: Subjective Date Seen by a Provider: Feb 19, 2023 Time Seen by a Provider: 07:15 Subjective/Events-last exam Patient is doing well. S/p I&D of diabetic foot ulcer of right foot. Denies pain in the right foot, says his right ankle feels stiff but is better if he moves it. He is having BMs normally, has a armendariz catheter in place. On a regular diet and tolerating well. Review of Systems General: No Chills, No Night Sweats HEENT: No Head Aches, No Visual Changes Pulmonary: No Dyspnea, No Cough Cardiovascular: No: Chest Pain, Palpitations, Lt Headedness Gastrointestinal: No: Nausea, Vomiting, Abdominal Pain Genitourinary: No Hematuria; Other (armendariz in place, no complaints) Musculoskeletal: No: neck pain, shoulder pain, back pain Neurological: No: Weakness, Numbness Objective Exam Vital Signs Date Time Temp Pulse Resp B/P (MAP) Pulse Ox O2 Delivery O2 Flow Rate FiO2 02/19/23 03:06 36.5 77 16 125/75 (92) 94 Room Air 02/18/23 23:08 36.1 75 16 129/72 (91) 96 Room Air 02/18/23 20:54 Room Air 02/18/23 19:56 36.0 76 16 122/63 (82) 94 Room Air 02/18/23 16:02 36.1 75 18 122/59 (80) 94 Room Air 02/18/23 12:00 35.6 75 14 134/65 (88) 98 Room Air 02/18/23 11:20 36.2 20 116/60 (78) 100 Room Air 02/18/23 11:20 Room Air 02/18/23 11:15 Room Air 02/18/23 11:10 20 120/60 (80) 100 Room Air 02/18/23 11:00 Room Air 02/18/23 11:00 20 120/60 (80) 99 Room Air 02/18/23 10:50 20 120/60 (80) 98 Room Air 02/18/23 10:43 36.2 20 122/52 (75) 96 Room Air 02/18/23 10:43 Room Air 02/18/23 08:00 Room Air I & O 02/19/23 07:00 Intake Total 2437 ml Output Total 1800 ml Balance 637 ml Capillary Refill : Less Than 3 Seconds General Appearance: No Apparent Distress, WD/WN HEENT: PERRL/EOMI, Moist Mucous Membranes Neck: Non Tender, Supple Respiratory: No Accessory Muscle Use, No Respiratory Distress Cardiovascular: Regular Rate, Rhythm, Normal Peripheral Pulses Peripheral Pulses: 2+ Dorsalis Pedis (R), 2+ Left Dors-Pedis (L), 2+ Radial P ulses (R), 2+ Radial Pulses (L) Gastrointestinal: non tender, soft Extremity: Non Tender, No Calf Tenderness, Other (right foot wound bandaged, has not been taken down) Neurologic/Psychiatric: Alert, Oriented x3, Other (sensation intact b/l le) Skin: Warm/Dry, Other (bruising on both arms) Lymphatic: No Adenopathy Results Lab Laboratory Tests 02/18/23 11:41: Glucometer 121H 02/18/23 13:00: Vancomycin Level Trough 14.3 02/18/23 16:48: Glucometer 185H 02/18/23 20:51: Glucometer 154H 02/19/23 05:03: Glucometer 156H 02/19/23 05:25: White Blood Count 10.7, Red Blood Count 4.79, Hemoglobin 13.5, Hematocrit 42, Mean Corpuscular Volume 88, Mean Corpuscular Hemoglobin 28, Mean Corpuscular Hemoglobin Concent 32, Red Cell Distribution Width 15.3H, Platelet Count 183, Mean Platelet Volume 9.1, Immature Granulocyte % (Auto) 0, Neutrophils (%) (A uto) 71, Lymphocytes (%) (Auto) 13, Monocytes (%) (Auto) 11, Eosinophils (%) (Auto) 4, Basophils (%) (Auto) 1, Neutrophils # (Auto) 7.6, Lymphocytes # (Auto) 1.4, Monocytes # (Auto) 1.2H, Eosinophils # (Auto) 0.5H, Basophils # (Auto) 0.1, Immature Granulocyte # (Auto) 0.0, Sodium Level 134L, Potassium Level 3.4L, Chloride Level 103, Carbon Dioxide Level 19L, Anion Gap 12, Blood Urea Nitrogen 56H, Creatinine 2.28H, Estimat Glomerular Filtration Rate 28, BUN/Creatinine Ratio 25, Glucose Level 161H, Calcium Level 8.0L Microbiology 02/17/23 MRSA Screen - Final, Complete MRSA not isolated Assessment/Plan Assessment/Plan Assessment/Plan S/p I&D right foot for ulcer/abscess Hx of CAD, AFib Awaiting culture results Wound care consult appreciated, plan to take down dressing tomorrow Pt. on vanco and zosyn WBC 10.7, monitor with AM labs Pain control Remove armendariz Plan is for patient to go to inpatient rehab on Tuesday YANCI FIERRO DO 02/20/23 0256: Subjective Subjective/Events-last exam Doing well. Pain controlled. No complaints at this time. Denies n/v fever sweats chills shortness of breath or chest pain. Objective Exam General Appearance: No Apparent Distress, WD/WN HEENT: PERRL/EOMI, Moist Mucous Membranes Neck: Non Tender, Supple Respiratory: Chest Non Tender, No Accessory Muscle Use, No Respiratory Distress Cardiovascular: Regular Rate, Rhythm, No JVD Gastrointestinal: non tender, soft Extremity: Non Tender, No Calf Tenderness, Other (right foot wound bandaged, has not been taken down) Neurologic/Psychiatric: Alert, Oriented x3, Other (sensation intact b/l le) Skin: Warm/Dry, Other (bruising on both arms) Lymphatic: No Adenopathy Assessment/Plan Assessment/Plan Assessment/Plan S/p I&D right foot for ulcer/abscess Hx of CAD, AFib Awaiting culture results Wound care consult appreciated, plan to take down dressing tomorrow Pt. on vanco and zosyn Pain control Plan is for patient to go to inpatient rehab on Tuesday Supervisory-Addendum Brief Verification & Attestation Participated in pt care: history, MDM, physical Personally performed: exam, history, MDM, supervision of care Care discussed with: Medical Student Procedures: n/a Results interpretation: Verified all documentation Verification and Attestation of Medical Student E/M Service A medical student performed and documented this service in my presence. I reviewed and verified all information documented by the medical student and made modifications to such information, when appropriate. I personally performed the physical exam and medical decision making. Yanci Fierro Feb 19, 2023,22:56 NOEMI FINN Feb 19, 2023 07:58 YANCI FIERRO DO Feb 20, 2023 02:56
[2023-02-19] MEDS: SENNOSIDES 8.6 MG (SENOKOT) TAB PO SCH ×2 (09:05→19:38)
[2023-02-19] MEDS: FINASTERIDE (PROSCAR) 5 MG TAB PO SCH (09:05)
[2023-02-19] MEDS: ALLOPURINOL 100 MG (ZYLOPRIM) TAB PO SCH (09:05)
[2023-02-19] MEDS: ENALAPRIL 5 MG (VASOTEC) TAB PO SCH (09:05)
[2023-02-19] MEDS: DOCUSATE SODIUM 100 MG (COLACE) CAP PO SCH ×2 (09:06→19:37)
[2023-02-19] MEDS: LACTATED RINGERS 1,000 ML IV SCH ×2 (09:06→18:01)
--- NOTE | 2023-02-19 09:36 | Physical Therapy Daily Note ---
PT Daily Note-Current Subjective Pt in bed, family present. S/P I and D to (R) foot yesterday. Agreeable to up to chair. Denies pain, reports "The ankle just feels stiff". Pain Numeric Pain Scale: 0-No Pain Section J - Health Conditions 1. Rarely or not at all 2. Occasionally 3. Frequently 4. Almost constantly 8. Unable to answer Pain Effect on Sleep: 1 Pain Interference with Therapy: 1 Pain Interference w/Day-to-Day: 1 Mental Status Patient Orientation: Person, Place, Situation Attachments: Quiroz Catheter, IV Transfers SCALE: Activities may be completed with or without assistive devices. 0-Jtxjaukobn-dukrlgo completes the activity by him/herself with no assistance from a helper. 5-Set-up or Clean-up Assistance-helper sets up or cleans up; patient completes activity. [place] assists only prior to or following the activity. 4-Supervision or Touching Assistance-helper provides verbal cues and/or linda cheko/steadying and/or contact guard assistance as patient completes activity. Assistance may be provided throughout the activity or intermittently. 3-Partial/Moderate Assistance-helper does LESS THAN HALF the effort. [place] lifts, holds or supports trunk or limbs, but provides less than half the effort. 2-Substantial/Maximal Assistance-helper does MORE THAN HALF the effort. [place] lifts or holds trunk or limbs and provides more than half the effort. 3-Hwlamkuqf-geqprm does ALL the effort. Patient does none of the effort to complete the activity. Or, the assistance of 2 or more helpers is required for the patient to complete the activity. If activity was not attempted, code reason: 7-Patient Refused. 9-Not Applicable-not attempted and the patient did not perform the activity before the current illness, exacerbation or injury. 10-Not Attempted due to Environmental Limitations-(lack of equipment, weather restraints, etc.). 88-Not Attempted due to Medical Conditions or Safety Concerns. Lying to Sitting/Side of Bed(Q: 4 (Min A x 1) Sit to Stand (QC): 4 (Min A x 1) Chair/Nza-fe-Mmvyv Xfer(QC): 3 (SPT to (L) with min-mod A x 1; Pt able to maintain NWB on (R) with SPT) Pt unable to unweight (L) foot to step or scoot with FWW; able to maintain NWB on (R) LE with SPT to (L). Weight Bearing Right Lower Extremity: Right Non Weight Bearing Left Lower Extremity: Left Non Weight Bearing Patient reports he was told by Dr. Means not to put weight on either foot, but patient is unsure why he cannot put weight on the left LE Treatments Transfer to chair with SPT. Up in chair with family present. Nursing notified of Pt position and level of assist, transfer set-up. Assessment Current Status: Fair Progress Pt tolerated well. Able to maintain NWB on (R) with sit->stand and SPT; unable to unweight (L) foot enough to step or scoot this date. PT Publicity Director Goals Publicity Director Goals PT Publicity Director Goals Time Frame: March 19, 2023 Roll Left & Right (QC): 6 Sit to Lying (QC): 6 Lying-Sitting on Side/Bed(QC): 6 Sit to Stand (QC): 4 Chair/Ujz-th-Oaiyk Xfer(QC): 4 Toilet Transfer (QC): 4 Does the Patient Walk: No and Walking Goal IS indicated Walk 10 feet (QC): 2 PT Plan Problem List Problem List: Activity Tolerance, Functional Strength, Safety, Balance, Gait, Transfer, Bed Mobility Treatment/Plan Treatment Plan: Continue Plan of Care Treatment Plan: Bed Mobility, Education, Functional Activity Jeet, Functional Strength, Group Therapy, Gait, Safety, Therapeutic Exercise, Transfers Treatment Duration: March 19, 2023 Frequency: 6 times per week Estimated Hrs Per Day: .25 hour per day Patient and/or Family Agrees t: Yes Time Time In: 911 Time Out: 929 DATE: Feb 19, 2023 Total Billed Treatment Time: 18 Total Billed Treatment 1, FA x 18' DANIELLE COTTRELL DPBrittany Feb 19, 2023 09:36
[2023-02-19 11:18] VITALS: BP 124/66
--- NOTE | 2023-02-19 13:40 | Progress Note - Hospitalist ---
FILEMON NEW 02/19/23 1340: Subjective HPI/CC On Admission Date Seen by Provider: Feb 19, 2023 Edgar Byrne is an 82 year old male with PMH HTN, T2DM, CHF, BPH, depression, who presented with a foot wound. He was direct admitted from Dr. Means's clinic. He has a wound that has been present for a long time, but over the past couple days it worsened. He had it debrided today. He denies fevers. He denies nausea and vomiting. He denies chest pain. He denies shortness of breath. He denies abdominal pain. He has leg swelling. His says it has improved. Subjective/Events-last exam Pt is doing well s/p incision and drainage day 1. Pt was in good spirit and states that he didn't have any complaints. Minimal to no pain in R. foot post- surgery. Pt seems to be concerned about length of recovery time and not being able to bare weight on foot. Review of Systems General: No Chills Pulmonary: No Dyspnea, No Cough Cardiovascular: No: Chest Pain Gastrointestinal: No: Nausea, Vomiting, Abdominal Pain, Diarrhea Objective Exam Vital Signs Vital Signs Date Time Temp Pulse Resp B/P (MAP) Pulse Ox O2 Delivery O2 Flow Rate FiO2 02/19/23 11:18 36.2 75 18 124/66 (85) 99 Room Air Capillary Refill : Less Than 3 Seconds General Appearance: No Apparent Distress Respiratory: Chest Non Tender, Lungs Clear Cardiovascular: Regular Rate, Rhythm, No Edema, No Murmur, Normal Peripheral Pulses Gastrointestinal: Normal Bowel Sounds, Non Tender, Soft Neurologic/Psychiatric: Alert, Oriented x3 Skin: Normal Color, Warm/Dry Results/Procedures Lab Laboratory Tests 02/19/23 05:25 Patient resulted labs reviewed. Imaging: Reviewed Imaging Report Assessment/Plan Assessment and Plan Assess & Plan/Chief Complaint Diabetic Foot Ulcer Type II Diabetes Mellitus CT. R. Foot - Abscess General Surgery - Incision and Drainage Yesterday Sliding Scale Insulin Continue IV Abx Debility Continue PT HTN Continue Enalapril CHF Continue Furosemide Continue Digoxin Atrial Fibrilation Eliquis Held Continue Metoprolol BPH Continue Tamsulosin STEFAN CABAN MD 02/19/238: Subjective HPI/CC On Admission Time Seen by Provider: 10:55 Assessment/Plan Assessment and Plan Assess & Plan/Chief Complaint Continue antibiotics. Hold Lasix and begin gentle IV fluids due to JENNIFER on CKD. Surgery following. Diagnosis/Problems Diagnosis/Problems (1) Diabetic foot ulcer Status: Acute (2) T2DM (type 2 diabetes mellitus) Status: Acute Qualifiers: Qualified Codes: E11.621 - Type 2 diabetes mellitus with foot ulcer; L97.509 - Non-pressure chronic ulcer of other part of unspecified foot with unspecified severity; Z79.4 - watermaster (current) use of insulin (3) Acute kidney injury superimposed on chronic kidney disease Status: Acute (4) Afib Status: Chronic (5) BPH (benign prostatic hyperplasia) Status: Chronic (6) HTN (hypertension) Status: Chronic (7) CHF (congestive heart failure) Status: Chronic Supervisory-Addendum Brief Verification & Attestation Participated in pt care: history, MDM, physical Personally performed: exam, history, MDM, supervision of care Care discussed with: Medical Student Procedures: n/a Results interpretation: Verified all documentation A medical student performed and documented this service in my presence. I reviewed and verified all information documented by the medical student and made modifications to such information, when appropriate. I personally performed the physical exam and medical decision making. FILEMON NEW Feb 19, 2023 13:40 STEFAN CABAN MD Feb 19, 2023 19:28
[2023-02-19] MEDS: VANCOMYCIN 1 GM/NS 250 ML IVPB IV SCH ×2 (14:47)
[2023-02-19 16:00] VITALS: BP 140/73
[2023-02-19] MEDS ORDERED: DIPHENOXYLATE/ATROPINE 2.5MG/0.025MG (LOMOTIL) TAB ONE (17:52)
[2023-02-19] MEDS: TAMSULOSIN 0.4 MG (FLOMAX) CAP PO SCH (18:01)
[2023-02-19] MEDS: DIPHENOXYLATE/ATROPINE 2.5MG/0.025MG (LOMOTIL) TAB PO PRN (18:01)
[2023-02-19 20:06] VITALS: BP 134/70
[2023-02-19] MEDS: DIGOXIN 0.125 MG (LANOXIN) TAB PO SCH (20:31)
[2023-02-19] MEDS: CALCIUM CARBONATE 500 MG (TUMS) TAB.CHEW PO PRN (20:31)
[2023-02-19] MEDS: MONTELUKAST 10 MG (SINGULAIR) TAB PO SCH (20:31)
[2023-02-19] MEDS: MELATONIN 3 MG TABLET PO PRN (20:31)
[2023-02-20] VITALS (7 sets, daily range): BP systolic 121–142; BP diastolic 59–79
[2023-02-20] MEDS: LACTATED RINGERS 1,000 ML IV SCH ×2 (04:01→16:41)
[2023-02-20] MEDS: PIPERACILLIN SODIUM/TAZOBACTAM 4.5 GM in NS (IVPB) 100 ML IV SCH ×3 (04:01→20:05)
[2023-02-20 05:47] LABS: BASOPHILS # (AUTO) 0.1 10^3/uL (0.0-0.1); BASOPHILS % (AUTO) 1 % (0-10); EOSINOPHILS # (AUTO) 0.5 10^3/uL (0.0-0.3); EOSINOPHILS % (AUTO) 7 % (0-10); HEMATOCRIT 42 % (40-54); HEMOGLOBIN 13.3 g/dL (13.3-17.7); LYMPHOCYTES # (AUTO) 1.6 10^3/uL (1.0-4.0); LYMPHOCYTES % (AUTO) 19 % (12-44); MEAN CORPUSCULAR HEMOGLOBIN 28 pg (25-34); MEAN CORPUSCULAR HGB CONC 32 g/dL (32-36); MEAN CORPUSCULAR VOLUME 88 fL (80-99); MEAN PLATELET VOLUME 9.3 fL (9.0-12.2); MONOCYTES # (AUTO) 0.9 10^3/uL (0.0-1.0); MONOCYTES % (AUTO) 11 % (0-12); NEUTROPHILS # (AUTO) 5.1 10^3/uL (1.8-7.8); NEUTROPHILS % (AUTO) 62 % (42-75); PLATELET COUNT 170 10^3/uL (130-400); WHITE BLOOD COUNT 8.3 10^3/uL (4.3-11.0)
[2023-02-20 06:10] LABS: CALCIUM 7.9 MG/DL (8.5-10.1); CREATININE SERUM 2.8 MG/DL (0.60-1.30); POTASSIUM 3.5 MMOL/L (3.6-5.0)
[2023-02-20] MEDS: inSUlin ASPART (NovoLOG) 1 UNIT/0.01 ML (CHARGE PER UNIT) SC SCH ×5 (06:14→20:04)
[2023-02-20] MEDS: SENNOSIDES 8.6 MG (SENOKOT) TAB PO SCH ×2 (09:01→19:26)
[2023-02-20] MEDS: DOCUSATE SODIUM 100 MG (COLACE) CAP PO SCH ×2 (09:01→19:25)
[2023-02-20] MEDS: FINASTERIDE (PROSCAR) 5 MG TAB PO SCH (09:09)
[2023-02-20] MEDS: DIPHENOXYLATE/ATROPINE 2.5MG/0.025MG (LOMOTIL) TAB PO PRN (09:10)
[2023-02-20] MEDS: SODIUM BICARBONATE 650 MG TABLET PO SCH ×3 (09:10→20:07)
[2023-02-20] MEDS: ENALAPRIL 5 MG (VASOTEC) TAB PO SCH (09:10)
--- NOTE | 2023-02-20 09:10 | Progress Note - Surgery ---
[facility] 02/20/23 0910: Subjective Date Seen by a Provider: Feb 20, 2023 Time Seen by a Provider: 08:25 Subjective/Events-last exam Patient feeling well, no complaints today. Tolerating regular diet. Notes he is passing gas but did not have a BM yet today. Denies CP, SOB, nausea, vomiting, fevers. Review of Systems General: No Chills, No Night Sweats HEENT: No Head Aches, No Visual Changes Pulmonary: No Dyspnea, No Cough Cardiovascular: No: Chest Pain, Palpitations Gastrointestinal: No: Nausea, Vomiting Genitourinary: No Dysuria, No Frequency Musculoskeletal: No: neck pain, shoulder pain Neurological: No: Weakness, Numbness Objective Exam Vital Signs Date Time Temp Pulse Resp B/P (MAP) Pulse Ox O2 Delivery O2 Flow Rate FiO2 02/20/23 08:04 36.1 75 16 128/59 (82) 97 Room Air 02/20/23 04:00 36.9 78 18 122/68 (86) 95 Room Air 02/20/23 00:00 36.7 75 18 128/63 (84) 97 Room Air 02/19/23 20:41 Room Air 02/19/23 20:06 36.5 77 16 134/70 (91) 97 Room Air 02/19/23 16:00 36.3 75 16 140/73 (95) 97 Room Air 02/19/23 11:18 36.2 75 18 124/66 (85) 99 Room Air I & O 02/20/23 07:00 Intake Total 1830 ml Output Total 950 ml Balance 880 ml Capillary Refill : Less Than 3 Seconds General Appearance: No Apparent Distress, WD/WN HEENT: PERRL/EOMI, Moist Mucous Membranes Neck: Non Tender, Supple Respiratory: Chest Non Tender, No Accessory Muscle Use, No Respiratory Distress Cardiovascular: Regular Rate, Rhythm, No Edema, No JVD Peripheral Pulses: 2+ Radial Pulses (R), 2+ Radial Pulses (L) Gastrointestinal: non tender, soft Extremity: Non Tender, No Calf Tenderness, Other (ulcer on bottom of right foot clean with scant drainage and granulation tissue at base) Neurologic/Psychiatric: Alert, Oriented x3, Other (sensation intact b/l le) Skin: Warm/Dry, Other (bruising on both arms) Lymphatic: No Adenopathy Results Lab Laboratory Tests 02/19/23 11:16: Glucometer 141H 02/19/23 16:10: Glucometer 148H 02/19/23 20:33: Glucometer 156H 02/20/23 05:21: White Blood Count 8.3, Red Blood Count 4.71, Hemoglobin 13.3, Hematocrit 42, Mean Corpuscular Volume 88, Mean Corpuscular Hemoglobin 28, Mean Corpuscular Hemoglobin Concent 32, Red Cell Distribution Width 15.3H, Platelet Count 170, Mean Platelet Volume 9.3, Immature Granulocyte % (Auto) 1, Neutrophils (%) (Auto) 62, Lymphocytes (%) (Auto) 19, Monocytes (%) (Auto) 11, Eosinophils (%) (Auto) 7, Basophils (%) (Auto) 1, Neutrophils # (Auto) 5.1, Lymphocytes # (Auto) 1.6, Monocytes # (Auto) 0.9, Eosinophils # (Auto) 0.5H, Basophils # (Auto) 0.1, Immature Granulocyte # (Auto) 0.1, Sodium Level 137, Potassium Level 3.5L, C hloride Level 105, Carbon Dioxide Level 18L, Anion Gap 14, Blood Urea Nitrogen 65H, Creatinine 2.80#H, Estimat Glomerular Filtration Rate 22, BUN/Creatinine Ratio 23, Glucose Level 107H, Calcium Level 7.9L 02/20/23 06:14: Glucometer 114H Microbiology 02/17/23 MRSA Screen - Final, Complete MRSA not isolated Assessment/Plan Assessment/Plan Assessment/Plan S/p I&D right foot for ulcer/abscess Hx of CAD, AFib Dressing change q24h Pt on vanco and zosyn Pain control Plan is for patient to go to inpatient rehab on Tuesday YANCI FIERRO DO 02/20/23 1459: Subjective Subjective/Events-last exam No new complaints. Pain controlled. Denies n/v fever sweats chills shortness of breath or chest pain. Objective Exam General Appearance: No Apparent Distress HEENT: PERRL/EOMI Neck: Non Tender, Supple Respiratory: Chest Non Tender, No Accessory Muscle Use, No Respiratory Distress Cardiovascular: Regular Rate, Rhythm, No JVD Gastrointestinal: non tender, soft Extremity: Non Tender, No Calf Tenderness, Other (ulcer on bottom of right foot clean and granulation tissue at base) Neurologic/Psychiatric: Alert, Oriented x3, Other (sensation intact b/l le) Skin: Warm/Dry, Other (bruising on both arms) Lymphatic: No Adenopathy Assessment/Plan Assessment/Plan Assessment/Plan S/p I&D right foot for ulcer/abscess Hx of CAD, AFib Dressing change q24h Pt on vanco and zosyn Pain control Plan is for patient to go to inpatient rehab on Tuesday Supervisory-Addendum Brief Verification & Attestation Participated in pt care: history, MDM, physical Personally performed: exam, history, MDM, supervision of care Care discussed with: Medical Student Procedures: n/a Results interpretation: Verified all documentation Verification and Attestation of Medical Student E/M Service A medical student performed and documented this service in my presence. I reviewed and verified all information documented by the medical student and made modifications to such information, when appropriate. I personally performed the physical exam and medical decision making. Yanci Fierro, Feb 20, 2023,14:59 JASON CHEN Feb 20, 2023 09:10 YANCI FIERRO DO Feb 20, 2023 14:59
[2023-02-20] MEDS: ALLOPURINOL 100 MG (ZYLOPRIM) TAB PO SCH (09:22)
[2023-02-20] MEDS: VANCOMYCIN 1 GM/NS 250 ML IVPB IV SCH ×2 (13:49)
--- NOTE | 2023-02-20 15:15 | Progress Note - Hospitalist ---
FILEMON NEW 02/20/23 1515: Subjective HPI/CC On Admission Date Seen by Provider: Feb 20, 2023 Edgar Byrne is an 82 year old male with PMH HTN, T2DM, CHF, BPH, depression, who presented with a foot wound. He was direct admitted from Dr. Means's clinic. He has a wound that has been present for a long time, but over the past couple days it worsened. He had it debrided today. He denies fevers. He denies nausea and vomiting. He denies chest pain. He denies shortness of breath. He denies abdominal pain. He has leg swelling. His says it has improved. Subjective/Events-last exam Pt is doing well and doesn't have any complaints. Last night pt stated he had multiple bowel movements that was associated with his colitis. Per morning nurse, security shift manager didn't admin his lomotil. Pt denies fever, chill, abdominal pain, and nausea and vomiting. Review of Systems General: No Chills, No Night Sweats HEENT: No Head Aches Pulmonary: No Dyspnea, No Cough Cardiovascular: No: Chest Pain Gastrointestinal: No: Nausea, Vomiting, Abdominal Pain Objective Exam Vital Signs Vital Signs Date Time Temp Pulse Resp B/P (MAP) Pulse Ox O2 Delivery O2 Flow Rate FiO2 02/20/23 11:39 36.1 75 16 121/60 (80) 97 Room Air Capillary Refill : Less Than 3 Seconds General Appearance: No Apparent Distress Respiratory: Chest Non Tender, Lungs Clear, Normal Breath Sounds Cardiovascular: Regular Rate, Rhythm, No Edema, No Murmur, Normal Peripheral Pulses Gastrointestinal: Normal Bowel Sounds, Non Tender, Soft Extremity: Non Tender, No Calf Tenderness Neurologic/Psychiatric: Alert, Oriented x3 Skin: Normal Color, Warm/Dry Results/Procedures Lab Laboratory Tests 02/20/23 05:21 Patient resulted labs reviewed. Imaging: Reviewed Imaging Report Assessment/Plan Assessment and Plan Assess & Plan/Chief Complaint Diabetic Foot Ulcer Type II Diabetes Mellitus CT. R. Foot - Abscess General Surgery - Incision and Drainage Yesterday Sliding Scale Insulin Continue IV Abx JENNIFER on CKD Worsening Renal Function IVF Continue to Monitor Debility Continue PT HTN Continue Enalapril CHF Continue Digoxin Atrial Fibrilation Eliquis Held Continue Metoprolol BPH Continue Tamsulosin STEFAN CABAN MD 02/20/23 8847: Subjective HPI/CC On Admission Time Seen by Provider: 10:45 Assessment/Plan Assessment and Plan Assess & Plan/Chief Complaint Continue IV antibiotics. Continue IV fluids. May require nephrology consultation if kidney function continues to worsen. Diagnosis/Problems Diagnosis/Problems (1) Diabetic foot ulcer Status: Acute (2) T2DM (type 2 diabetes mellitus) Status: Acute Qualifiers: Qualified Codes: E11.621 - Type 2 diabetes mellitus with foot ulcer; L97.509 - Non-pressure chronic ulcer of other part of unspecified foot with unspecified severity; Z79.4 - skilled nursing (current) use of insulin (3) Acute kidney injury superimposed on chronic kidney disease Status: Acute (4) CHF (congestive heart failure) Status: Chronic (5) Afib Status: Chronic (6) BPH (benign prostatic hyperplasia) Status: Chronic Supervisory-Addendum Brief Verification & Attestation Participated in pt care: history, MDM, physical Personally performed: exam, history, MDM, supervision of care Care discussed with: Medical Student Procedures: n/a Results interpretation: Verified all documentation A medical student performed and documented this service in my presence. I revi ewed and verified all information documented by the medical student and made modifications to such information, when appropriate. I personally performed the physical exam and medical decision making. FILEMON NEW Feb 20, 2023 15:15 STEFAN CABAN MD Feb 20, 2023 22:58
[2023-02-20] MEDS: LOPERAMIDE 2 MG (IMODIUM) TABLET PO PRN (18:06)
[2023-02-20] MEDS: TAMSULOSIN 0.4 MG (FLOMAX) CAP PO SCH (18:06)
[2023-02-20] MEDS: MONTELUKAST 10 MG (SINGULAIR) TAB PO SCH (20:05)
[2023-02-20] MEDS: DIGOXIN 0.125 MG (LANOXIN) TAB PO SCH (20:05)
[2023-02-20] MEDS: MELATONIN 3 MG TABLET PO PRN (20:05)
[2023-02-21 03:26] VITALS: BP 124/67
[2023-02-21] MEDS: LACTATED RINGERS 1,000 ML IV SCH ×3 (03:44→20:52)
[2023-02-21] MEDS: PIPERACILLIN SODIUM/TAZOBACTAM 4.5 GM in NS (IVPB) 100 ML IV SCH (03:58)
[2023-02-21] MEDS: inSUlin ASPART (NovoLOG) 1 UNIT/0.01 ML (CHARGE PER UNIT) SC SCH ×4 (05:34→20:54)
[2023-02-21 06:02] LABS: BASOPHILS # (AUTO) 0.1 10^3/uL (0.0-0.1); BASOPHILS % (AUTO) 1 % (0-10); EOSINOPHILS # (AUTO) 0.6 10^3/uL (0.0-0.3); EOSINOPHILS % (AUTO) 7 % (0-10); HEMATOCRIT 42 % (40-54); HEMOGLOBIN 13.3 g/dL (13.3-17.7); LYMPHOCYTES # (AUTO) 1.6 10^3/uL (1.0-4.0); LYMPHOCYTES % (AUTO) 18 % (12-44); MEAN CORPUSCULAR HEMOGLOBIN 28 pg (25-34); MEAN CORPUSCULAR HGB CONC 32 g/dL (32-36); MEAN CORPUSCULAR VOLUME 89 fL (80-99); MEAN PLATELET VOLUME 8.9 fL (9.0-12.2); MONOCYTES # (AUTO) 0.8 10^3/uL (0.0-1.0); MONOCYTES % (AUTO) 9 % (0-12); NEUTROPHILS # (AUTO) 5.3 10^3/uL (1.8-7.8); NEUTROPHILS % (AUTO) 63 % (42-75); PLATELET COUNT 165 10^3/uL (130-400); WHITE BLOOD COUNT 8.4 10^3/uL (4.3-11.0)
[2023-02-21 06:18] LABS: CALCIUM 7.7 MG/DL (8.5-10.1); CREATININE SERUM 3.56 MG/DL (0.60-1.30); POTASSIUM 3.8 MMOL/L (3.6-5.0)
[2023-02-21 07:50] VITALS: BP 131/67
[2023-02-21] MEDS: DOCUSATE SODIUM 100 MG (COLACE) CAP PO SCH ×2 (09:38→20:53)
[2023-02-21] MEDS: SENNOSIDES 8.6 MG (SENOKOT) TAB PO SCH ×2 (09:39→20:53)
[2023-02-21] MEDS: FINASTERIDE (PROSCAR) 5 MG TAB PO SCH (09:55)
[2023-02-21] MEDS: SODIUM BICARBONATE 650 MG TABLET PO SCH ×3 (09:55→20:53)
[2023-02-21] MEDS: ALLOPURINOL 100 MG (ZYLOPRIM) TAB PO SCH (09:55)
[2023-02-21] MEDS: ENALAPRIL 5 MG (VASOTEC) TAB PO SCH (09:55)
--- NOTE | 2023-02-21 10:22 | Wound Care Assessment ---
Wound Care Assessment Date Seen by Provider: February 21, 2023 Time Seen by Provider: 10:14 Chief Complaint Abscess R. foot (diabetic foot ulcer) HPI This pleasant 82 year old gentleman presented to Dr. Means's office after 1 month h/o callosity on plantar foot. He is diabetic and noted increasing pain, redness and swelling prior to presentation. He has an extensive cardiac history and does have type 2 diabetes but it is well controlled (A1C 6.6 in hospital). Upon presentation, Dr. Means had concerns for deep infection and performed small bedside I&D. He was subsequently admitted to hospital and started on Vanc and Zosyn. (Discontinued at this time). CT appropriately ordered without obvious evidence of obvious osteomyelitis but there was a 1.7x1.9x0.7cm abscess. Dr. Benton did perform I&D on Tuesday with good results. Sed rate was reassuring but CRP quite elevated. As he is off antibiotics, we will switch to a Vashe WTD twice daily dressing (for antiinfective purposes). His would looks improved today and there is no obvious bone or tendon exposed). Once he is discharged he will need continued wound care and should be scheduled for follow up with Dr. Means as such. I did discuss with his and she noted that while he is usually independent, he has required more care in the last couple of w eeks. There was discussion last week of continued rehab. This would certainly be appropriate either with residential or inpatient rehab (should he meet the criteria). We will follow along while he is in the hospital. His kidney function continues to decline and this is his more pressing issue today. Arterial doppler confirms distal PAD but it is unlikely he is a candidate for intervention at this time due to his kidney issues. He is a long time patient of Dr. Villatoro'tiki and consultation in the future would be reasonable if deemed necessary. Past Medical History: Admits Diabetes Type II, Admits Heart Disease Smoking Status: Former Smoker (quit 61 years ago) Recreational Drug Use: No Alcohol Use: Denies Use Review of Systems General: Fatigue Neurological: Weakness, Numbness, Incoordination Exam Vital Signs Date Time Temp Pulse Resp B/P (MAP) Pulse Ox O2 Delivery O2 Flow Rate FiO2 02/21/23 07:50 36.0 76 14 131/67 (88) 96 Room Air Capillary Refill : Less Than 3 Seconds General Appearance: WD/WN, no apparent distress HEENT: other (Normal hearing) Neck: full range of motion Cardiovascular: no edema Respiratory: no respiratory distress, no accessory muscle use Extremities: non-tender, no pedal edema Neurologic/Psychiatric: alert, normal mood/affect, oriented x 3 Skin Character: abscess Wound assessment: 2.5x1.0x1.0 with undermining of 1.2 from 12-5. Drainage is large and serosanguinous. Necrotic is large and slough. There is no granulation. Heavy callosity in periwound with epibole. There is no epithelialization. Results Laboratory Tests 02/20/23 11:24: Glucometer 166H 02/20/23 15:53: Glucometer 180H 02/20/23 19:42: Glucometer 139H 02/21/23 05:23: Glucometer 113H 02/21/23 05:51: White Blood Count 8.4, Red Blood Count 4.73, Hemoglobin 13.3, Hematocrit 42, Mean Corpuscular Volume 89, Mean Corpuscular Hemoglobin 28, Mean Corpuscular Hemoglobin Concent 32, Red Cell Distribution Width 15.5H, Platelet Count 165, Mean Platelet Volume 8.9L, Immature Granulocyte % (Auto) 1, Neutrophils (%) (Auto) 63, Lymphocytes (%) (Auto) 18, Monocytes (%) (Auto) 9, Eosinophils (%) (Auto) 7, Basophils (%) (Auto) 1, Neutrophils # (Auto) 5.3, Lymphocytes # (Auto) 1.6, Monocytes # (Auto) 0.8, Eosinophils # (Auto) 0.6H, Basophils # (Auto) 0.1, Immature Granulocyte # (Auto) 0.1, Sodium Level 134L, Potassium Level 3.8, Chloride Level 104, Carbon Dioxide Level 18L, Anion Gap 12, Blood Urea Nitrogen 73H, Creatinine 3.56#H, Estimat Glomerular Filtration Rate 16, BUN/Creatinine Ratio 21, Glucose Level 121H, Calcium Level 7.7L Microbiology 02/17/23 MRSA Screen - Final, Complete MRSA not isolated Assessment/Plan/Dx Assessment: 1. Cutaneous Abscess plantar R. foot 2. Diabetes with foot ulcer and associated abscess 3. CHF/CAD/atrial fibrillation with pace maker 4. Acute on Chronic renal disease. 5. PAD RLE Plan: 1. I did discuss with Dr. Pollard today. Transition to Vashe WTD bid dressings with BFD. 2. Tight glycemic control indicated. Defer to primary team. 3. Defer cardiology consultation to primary team. Renal issues would prevent peripheral intervention locally at this time. 4. Defer to primary team. 5. Defer to PCP/cardiology 6. Disp: Defer to primary team. Rehab would certainly be indicated either in skilled or inpatient setting (dependent on his abilities). MAYRA CRONIN MD February 21, 2023 10:22
--- NOTE | 2023-02-21 11:13 | Progress Note - Hospitalist ---
Subjective HPI/CC On Admission Date Seen by Provider: February 21, 2023 Edgar Byrne is an 82 year old male with PMH HTN, T2DM, CHF, BPH, depression, who presented with a foot wound. He was direct admitted from Dr. Means's clinic. He has a wound that has been present for a long time, but over the past couple days it worsened. He had it debrided today. He denies fevers. He denies nausea and vomiting. He denies chest pain. He denies shortness of breath. He denies abdominal pain. He has leg swelling. His says it has improved. Subjective/Events-last exam Pt reports doing ok. No specific complaints. Wound Care team at bedside as well. Discussed his lab results with him and worsening renal function. Objective Exam Vital Signs Vital Signs Date Time Temp Pulse Resp B/P (MAP) Pulse Ox O2 Delivery O2 Flow Rate FiO2 02/21/23 07:50 36.0 76 14 131/67 (88) 96 Room Air Capillary Refill : Less Than 3 Seconds General Appearance: No Apparent Distress, Chronically ill Respiratory: Lungs Clear, No Respiratory Distress Cardiovascular: Regular Rate, Rhythm, No Murmur Extremity: Other (wound care team dressing DFU but I did visualize briefly- on ball of right foot with erythema and roughly 1x2.5cm ) Neurologic/Psychiatric: Alert, Oriented x3 Results/Procedures Lab Laboratory Tests 02/21/23 05:51 Patient resulted labs reviewed. Imaging: Reviewed Imaging Report Assessment/Plan Assessment and Plan Assess & Plan/Chief Complaint JENNIFER on CKD Creatinine up further today to 3.[address] Kyleigh Lucio who will see in consult [facility]-ed yesterday Continue IVF UOP adequate but watch closely Diabetic Foot Ulcer Type II Diabetes Mellitus I&D done by surgery on 02/18 Cultures pending Sliding Scale Insulin Completed 5 day course of abx [facility]-ed due to renal function Debility Continue PT/OT HTN Hold Enalapril due to renal function CHF Continue Digoxin but check level due to renal function Hold Lasix still- monitor closely for fluid overload Last echo shows EF 35% with grade 3 dHF Cardiology consulted, appreciate recs Atrial Fibrilation Resume Eliquis- will renally dose Continue Metoprolol BPH Continue Tamsulosin Quiroz in place TARAH GUTIERREZ MD February 21, 2023 11:13
--- NOTE | 2023-02-21 11:28 | Physical Therapy Daily Note ---
PT Daily Note-Current Subjective Patient agrees to PT. Very confused. Pain Section J - Health Conditions 1. Rarely or not at all 2. Occasionally 3. Frequently 4. Almost constantly 8. Unable to answer Pain Effect on Sleep: 1 Pain Interference with Therapy: 1 Pain Interference w/Day-to-Day: 1 Mental Status Patient Orientation: Confused Transfers SCALE: Activities may be completed with or without assistive devices. 0-Cqcbnmpvlf-pyhndia completes the activity by him/herself with no assistance from a helper. 5-Set-up or Clean-up Assistance-helper sets up or cleans up; patient completes activity. [place] assists only prior to or following the activity. 4-Supervision or Touching Assistance-helper provides verbal cues and/or touching/steadying and/or contact guard assistance as patient completes activity. Assistance may be provided throughout the activity or intermittently. 3-Partial/Moderate Assistance-helper does LESS THAN HALF the effort. [place] lifts, holds or supports trunk or limbs, but provides less than half the effort. 2-Substantial/Maximal Assistance-helper does MORE THAN HALF the effort. [place] lifts or holds trunk or limbs and provides more than half the effort. 5-Mtoefkxqw-cifuwf does ALL the effort. Patient does none of the effort to complete the activity. Or, the assistance of 2 or more helpers is required for the patient to complete the activity. If activity was not attempted, code reason: 7-Patient Refused. 9-Not Applicable-not attempted and the patient did not perform the activity before the current illness, exacerbation or injury. 10-Not Attempted due to Environmental Limitations-(lack of equipment, weather restraints, etc.). 88-Not Attempted due to Medical Conditions or Safety Concerns. Lying to Sitting/Side of Bed(Q: 3 Sit to Stand (QC): 3 Chair/Rcn-kq-Ifdhs Xfer(QC): 2 (patient impulsively and unsafely "launched" himself into the chair sideways. ) Weight Bearing Right Lower Extremity: Right Non Weight Bearing Left Lower Extremity: Left Non Weight Bearing Patient reports he was told by Dr. Means not to put weight on either foot, but patient is unsure why he cannot put weight on the left LE Gait Training Distance: 3' Gait Assistive Device: FWW unable to maintain NWB right foot Assessment Education with patient on safety with transfers and patient became agitated and said he didn't have a choice. Patient demonstrated appropriate strength during transfer until he "launched" himself sideways into the chair impulsively. Patient confused on this date. PT Plaster Mold Maker Goals Plaster Mold Maker Goals PT Plaster Mold Maker Goals Time Frame: March 19, 2023 Roll Left & Right (QC): 6 Sit to Lying (QC): 6 Lying-Sitting on Side/Bed(QC): 6 Sit to Stand (QC): 4 Chair/Pla-lk-Wlrhr Xfer(QC): 4 Toilet Transfer (QC): 4 Does the Patient Walk: No and Walking Goal IS indicated Walk 10 feet (QC): 2 PT Plan Treatment/Plan Treatment Plan: Continue Plan of Care Treatment Plan: Bed Mobility, Education, Functional Activity Jeet, Functional Strength, Group Therapy, Gait, Safety, Therapeutic Exercise, Transfers Treatment Duration: March 19, 2023 Frequency: 6 times per week Estimated Hrs Per Day: .25 hour per day Patient and/or Family Agrees t: Yes Time Time In: 1051 Time Out: 1103 DATE: February 21, 2023 Total Billed Treatment Time: 12 Total Billed Treatment 1 visit FA 13 min DARELL CHRISTENSEN PT February 21, 2023 11:28
--- NOTE | 2023-02-21 11:29 | Consultation ---
History of Present Illness History of Present Illness Patient Consulted On(eder/time) 02/21/23 11:23 Date Seen by Provider: February 21, 2023 Time Seen by Provider: 11:24 Reason for Visit: sirisha History of Present Illness Mr Byrne is a 82-year-old [place] male with h/o HTN, T2DM, CHF, BPH, and depression who was admitted with a diabetic foot ulcer requiring Zanc and Zosyn noted to have rising creatinine from his baseline with creatinine of 1.6 on admission. Pt states he has some edema. no nsaid use. Allergies and Home Medications Allergies Coded Allergies: No Known Drug Allergies (Verified , 11/24/21) Patient Home Medication List Home Medication List Reviewed: Yes ALPRAZolam (ALPRAZolam) 0.25 Mg Tablet, 0.25 MG PO HS PRN for SLEEP, (Reported) Entered as Reported by: ESAU WALTER on 02/17/23 1239 Last Action: Reviewed Allopurinol (Allopurinol) 100 Mg Tablet, 100 MG PO DAILY, (Reported) Entered as Reported by: DEVEN CARBALLO on 09/07/22 1015 Last Action: Reviewed Apixaban (Eliquis) 5 Mg Tablet, 2.5 MG PO BID, (Reported) Entered as Reported by: DEVEN CARBALLO on 09/07/22 1015 Last Action: Reviewed Calcitriol (Calcitriol) 0.5 Mcg Capsule, 0.5 MCG PO WED, (Reported) Entered as Reported by: ESAU WALTER on 11/19/22 1021 Last Action: Reviewed Cetirizine HCl (Cetirizine HCl) 10 Mg Tablet, 10 MG PO HS, (Reported) Entered as Reported by: DEVEN CARBALLO on 09/07/22 1015 Last Action: Reviewed Cholecalciferol (Vitamin D3) (Vitamin D3) 125 Mcg (5000 Unit) Tablet, 125 MCG PO MON,WED,SAT, (Reported) Entered as Reported by: DEVEN CARBALLO on 09/07/22 1015 Last Action: Reviewed Dapagliflozin Propanediol (Farxiga) 10 Mg Tablet, 10 MG PO DAILY, (Reported) Entered as Reported by: DEVEN CARBALLO on 09/07/22 1015 Last Action: Reviewed Digoxin (Digoxin) 125 Mcg (0.125 Mg) Tablet, 125 MCG PO HS, (Reported) Entered as Reported by: OLIVA FIELD on 11/24/21 1301 Last Action: Reviewed Diphenoxylate HCl/Atropine (Diphenoxylate-Atrop 2.5-0.025) 2.5 Mg-0.025 Mg Tablet, 1 EA PO DAILY, (Reported) Entered as Reported by: ESAU WALTER on 02/17/23 1025 Last Action: Reviewed Diphenoxylate HCl/Atropine (Lomotil 2.5-0.025 mg Tablet) 2.5 Mg-0.025 Mg Tablet, 1 EACH PO HS PRN for DIARRHEA, (Reported) Entered as Reported by: ESAU WALTER on 02/17/23 1025 Last Action: Reviewed Enalapril Maleate (Enalapril Maleate) 5 Mg Tablet, 2.5 MG PO BID, (Reported) Entered as Reported by: ESAU WALTER on 02/17/23 1239 Last Action: Reviewed Escitalopram Oxalate (Escitalopram Oxalate) 10 Mg Tablet, 10 MG PO DAILY, (Reported) Entered as Reported by: OLIVA FIELD on 11/24/21 1301 Last Action: Reviewed Finasteride (Finasteride) 5 Mg Tablet, 5 MG PO HS, (Reported) Entered as Reported by: OLIVA FIELD on 11/24/21 130 Last Action: Reviewed Fluticasone Propionate (Flonase Allergy Relief) 50 Mcg/Actuation [place].susp, 2 SPRAY NSEACH DAILY, (Reported) Entered as Reported by: DEVEN CARBALLO on 09/07/22 1015 Last Action: Reviewed Fluticasone/Vilanterol (Breo Ellipta 100-25 Mcg INH) 100 Mcg-25 Mcg/Dose Blst.w.dev, 1 EACH IH DAILY, (Reported) Entered as Reported by: DEVEN CARBALLO on 09/07/22 1015 Last Action: Reviewed Furosemide (Furosemide) 80 Mg Tablet, 40 MG PO DAILY, (Reported) Entered as Reported by: DEVEN CARBALLO on 09/07/22 102 Last Action: Reviewed Gluc Webster/Chondro Webster A/Vit C/Mn (Glucosamine Chondroitin Tab) 750 Mg-600 Mg-55 Mg- 5 Mg Tablet, 1 EACH PO DAILY, (Reported) Entered as Reported by: ESAU WALTER on 02/17/23 1025 Last Action: Reviewed Metoprolol Succinate (Metoprolol Succinate) 25 Mg Tab.er.24h, 25 MG PO DAILY, (Reported) Entered as Reported by: ESAU WALTER on 02/17/23 1239 Last Action: Reviewed Montelukast Sodium (Montelukast Sodium) 10 Mg Tablet, 10 MG PO HS, (Reported) Entered as Reported by: DEVEN CARBALLO on 09/07/22 1015 Last Action: Reviewed Multivitamin (Multivitamin) 1 Each Tablet, 1 EACH PO DAILY, (Reported) Entered as Reported by: DEVEN CARBALLO on 09/07/22 1015 Last Action: Reviewed [place]-3/Dha/Epa/Fish Oil (Fish Oil 1,000 mg Softgel) 1,000 Mg (120 Mg-180 Mg) Capsule, 1,000 MG PO HS, (Reported) Entered as Reported by: DEVEN CARBALLO on 09/07/22 101 Last Action: Reviewed Spironolactone (Spironolactone) 25 Mg Tablet, 25 MG PO Q48H @HS, (Reported) Entered as Reported by: ESAU WALTER on 11/19/22 1021 Last Action: Reviewed Tamsulosin HCl (Flomax) 0.4 Mg Cap, 0.4 MG PO HS, (Reported) Entered as Reported by: DEVEN CARBALLO on 09/07/22 101 Last Action: Reviewed Discontinued Medications Enalapril Maleate (Enalapril Maleate) 2.5 Mg Tablet, 2.5 MG PO BID Discontinued Reason: No Longer Taking Prescribed by: HUMPHREY GRIJALVA on 11/19/22 0843 Last Action: Discontinued Gluc Webster/Chondro Webster A/Vit C/Mn (Glucosamine Chondroitin Tab) 750 Mg-600 Mg-55 Mg- 5 Mg Tablet, 1 EACH PO DAILY, (Reported) Discontinued Reason: Duplicate Order Entered as Reported by: ESAU WALTER on 11/19/22 1011 Last Action: Discontinued Loperamide HCl (Imodium A-D) 2 Mg Tablet, 2 MG PO BID, (Reported) Discontinued Reason: No Longer Taking Entered as Reported by: OLIVA FIELD on 11/24/21 1301 Last Action: Discontinued Metoprolol Succinate (Toprol Xl) 25 Mg Tab.er.24h, 25 MG PO DAILY Discontinued Reason: Duplicate Order Prescribed by: HUMPHREY GRIJALVA on 11/19/22 0811 Last Action: Discontinued Past Nvzcgrm-Trhaxt-Vybcpv Hx Patient Social History Tobacco Use?: No Smoking Status: Former Smoker (quit 61 years ago) Use of E-Cig and/or Vaping dev: No Substance use?: No Alcohol Use?: No Pt feels they are or have been: No Immunizations Up To Date Influenza Vaccine Up-to-Date: Yes; Up-to-Date First/Initial COVID19 Vaccinat: DEC 14 Second COVID19 Vaccination Eder: DEC 14 Third COVID19 Vaccination Date: JUN Seasonal Allergies Seasonal Allergies: Yes Past Medical History Surgery/Hospitalization HX: Open heart bypass; Carotid artery stent; renal stent x2; tonsilectomy; pacemaker/defib placement x2; gallbladder removed and hernia repair Medical history: CHF; AFIB; Cardiomegaly; Left rotator cuff injury; diabetic ulcer to right foot; DM; PVD; COPD; CPAP; [place]; Stage 3 kidney disease with improvement due to new medications; Cardiac cirrohsis; frequent stools Surgeries: Yes (carotid; pacemaker; defibrillator; stent; open heart surgery) Cardiac, CABG, Coronary Stent, Defibrillator, Pacemaker, Vascular Surgery Respiratory: Yes (asthma, MILD COPD) Asthma, Pneumonia, Sleep Apnea, COPD Currently Using CPAP: No Currently Using BIPAP: No Cardiac: Yes (POSSIBLE HEART ATTACK PER DR. NARANJO) Atrial Fibrillation, Coronary Artery Disease, High Cholesterol, Hypertension, Syncope, Valvular Heart Disease Neurological: No Reproductive Disorders: No Genitourinary: Yes (STAGE 3) Renal Failure Gastrointestinal: Yes (HERNIA REPAIR, 3-4 MONTHS FREQUENT BM'S) Musculoskeletal: Yes Degenerate Disk Disease, Arthritis Endocrine: Yes Diabetes, Non-Insulin dep HEENT: Yes Hearing Impairment: Hard of Hearing, Bilateral Hearing Aide Cancer: No Psychosocial: No Anxiety Integumentary: No Blood Disorders: No Family Medical History Hypertension Review of Systems-General Constitutional: see HPI Physical Exam-General Problems Physical Exam Vital Signs Vital Signs - First Documented 02/16/23 02/16/23 12:17 12:29 Temp 36.6 Pulse 77 Resp 18 B/P (MAP) 143/67 (92) Pulse Ox 100 O2 Delivery Room Air Capillary Refill : Less Than 3 Seconds General Appearance: no apparent distress Respiratory: no respiratory distress Cardiovascular: no JVD, other (2+ edema) Skin: No cyanosis Assessment/Plan Assessment/Plan Admission Diagnosis/Plan Acute renal failure on CKD3b Baseline, creatinine 1.6, was at baseline on admission R renal artery stenosis, per u/s at [facility] on 05/27/16 suspect rising cr due to infection vs vanc toxicity continue to monitor urine output Avoid nephrotoxins renally dose medications metabolic acidosis replace with po bicarb 1300 bid replace potassium prn anemia monitor for bleeding diabetic foot ulcer s/p abx wound care DRISS BOATENG MD February 21, 2023 11:29
[2023-02-21] MEDS: FLUTICASONE/VILANTEROL 100 MCG 14'S (BREO) IH SCH (11:35)
[2023-02-21 12:00] VITALS: BP 132/72
--- NOTE | 2023-02-21 12:54 | Occupational Ther Daily Note ---
OT Current Status-Daily Note Subjective chair, agreeable to OT, remains confused Mental Status/Objective Patient Orientation: Person Patient is confused about medication, discussed w/ RN and RN reports she has verified and answered all concerns repetitively, Johanna is confused about why he cant stand on his Right leg, also continues to report he has a 12 inch tear of rotator cuff and his shoulder doesn't work. ADL-Treatment Therapy Code Descriptions/Definitions Functional [place] Measure: 0=Not Assessed/NA 4=Minimal Assistance 1=Total Assistance 5=Supervision or Setup 2=Maximal Assistance 6=Modified [place] 3=Moderate Assistance 7=Complete IndependenceSCALE: Activities may be completed with or without assistive devices. 2-Wgipghoobb-fhtcpxo completes the activity by him/herself with no assistance from a helper. 5-Set-up or Clean-up Assistance-helper sets up or cleans up; patient completes activity. [place] assists only prior to or following the activity. 4-Supervision or Touching Assistance-helper provides verbal cues and/or touching/steadying and/or contact guard assistance as patient completes activity. Assistance may be provided throughout the activity or intermittently. 3-Partial/Moderate Assistance-helper does LESS THAN HALF the effort. [place] lifts, holds or supports trunk or limbs, but provides less than half the effort. 2-Substantial/Maximal Assistance-helper does MORE THAN HALF the effort. [place] lifts or holds trunk or limbs and provides more than half the effort. 0-Nvzxsofcn-cvmfxa does ALL the effort. Patient does none of the effort to complete the activity. Or, the assistance of 2 or more helpers is required for the patient to complete the activity. If activity was not attempted, code reason: 7-Patient Refused. 9-Not Applicable-not attempted and the patient did not perform the activity before the current illness, exacerbation or injury. 10-Not Attempted due to Environmental Limitations-(lack of equipment, weather restraints, etc.). 88-Not Attempted due to Medical Conditions or Safety Concerns. Eating (QC): 5 Oral Hygiene (QC): 5 Shower/Bathe Self (QC): 7 Upper Body Dressing (QC): 4 Lower Body Dressing (QC): 2 (extreme posterior lean w/ transfera nd standing, patienr has difficulty sustian COG, ) On/Off Footwear: 3 Toileting Hygiene (QC): 2 Toilet Transfer (QC): 2 Other Treatment repeat sit/stand w/ VC for hands, ADS and sequences x10 Education OT Patient Education: Disease process, Modified ADL techniques, Progress toward Goal/Update tx plan, Reviewed precautions, Rehab process, Safety issues, Transfer techniques, Use of adapted equipment Teaching Recipient: Patient Teaching Methods: Demonstration, Discussion Response to Teaching: Unable to Comprehend, Reinforcement Needed OT Mcc Goals Sandwich Maker Goals Eating (QC): 6 Oral Hygiene (QC): 6 Toileting Hygiene (QC): 4 Shower/Bathe Self (QC): 3 Upper Body Dressing (QC): 4 Lower Body Dressing (QC): 4 On/Off Footwear (QC): 4 1=Demonstrate adherence to instructed precautions during ADL tasks. 2=Patient will verbalize/demonstrate understanding of assistive devices/modifications for ADL. 3=Patient will improve strength/tolerance for activity to enable patient to perform ADL's. OT Education/Plan Problem List/Assessment Assessment: Decreased Activ Tolerance, Decreased Safety Aware, Impaired Cognition, Impaired Coordination, Impaired Funct Balance, Impaired Self-Care Skills Discharge Recommendations Plan/Recommendations: Continue POC Treatment Plan/Plan of Care Treatment,Training & Education: Yes Patient would benefit from OT for education, treatment and training to promote independence in ADL's, mobility, safety and/or upper extremity function for ADL's. Plan of Care: ADL Retraining, Cognitive Retraining, Concurrent Therapy, Functional Mobility, Group Exercise/Act as Ind, UE Funct Exercise/Act, UE Neuromus Re-Ed/Coord Treatment Duration: February 26, 2023 Frequency: 3 times per week (3-5 TIMES PER WEEK) Estimated Hrs Per Day: .25 hour per day Rehab Potential: Fair OT assisted patient for upright sitting for telehealth call w/ RN Time Start Time: 11:05 Stop Time: 11:20 DATE: February 21, 2023 Total Time Billed (hr/min): 15 Billed Treatment Time ADL 1 15 min CHRISTINE MAGDALENO OT February 21, 2023 12:54
[2023-02-21 15:45] VITALS: BP 131/75
[2023-02-21] MEDS: TAMSULOSIN 0.4 MG (FLOMAX) CAP PO SCH (17:02)
--- NOTE | 2023-02-21 18:46 | Consultation-Cardiology ---
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 We have been asked to see him today because R leg u/s showed distal arterial disease. He denies pain in the leg or discoloration or change in temp/color. He denies cp. He has chronic, exertional shortness of breath. He denies palp. No recent syncope. Chronic gen weakness. Has had considerable wgt loss in the recent past. Review of Systems-Cardiology Review of Systems Constitutional: As described under HPI Eyes: No vision change Ears/Nose/Throat: No ear discharge, No nasal drainage, No recent hearing loss Respiratory: As described under HPI Cardiovascular: As described under HPI Gastrointestinal: No diarrhea, No nausea, No vomiting Genitourinary: No dysuria, No hematuria Musculoskeletal: back pain (chronic) Skin: No rash; other (R foot abscess recently diagnosed and now s/p debridemen t); No ulcerations Psychiatric/Neurological: No focal weakness, No syncope Hematologic: No bleeding abnormalities IFY-Lusobm-Spfpns Hx Patient Social History Smoking Status: Former Smoker (quit 61 years ago) Former smoker/When Quit: Jul 19, 1943 2nd Hand Smoke Exposure: No Have you traveled recently?: No Alcohol Use?: No Pt feels they are or have been: No Immunizations Up To Date Date of Pneumonia Vaccine: Aug 18, 2021 Date of Influenza Vaccine: Sep 23, 2022 Past Medical History PMH As described under Assessment. Family Medical History Family Medical History: No reported family h/o CAD. Allergies and Home Medications Allergies Coded Allergies: No Known Drug Allergies (Verified , 11/24/21) Patient Home Medication List Home Medication List Reviewed: Yes ALPRAZolam (ALPRAZolam) 0.25 Mg Tablet, 0.25 MG PO HS PRN for SLEEP, (Reported) Entered as Reported by: ESAU WALTER on 02/17/23 1239 Last Action: Reviewed Allopurinol (Allopurinol) 100 Mg Tablet, 100 MG PO DAILY, (Reported) Entered as Reported by: DEVEN CARBALLO on 09/07/22 101 Last Action: Reviewed Apixaban (Eliquis) 5 Mg Tablet, 2.5 MG PO BID, (Reported) Entered as Reported by: DEVEN CARBALLO on 09/07/22 101 Last Action: Reviewed Calcitriol (Calcitriol) 0.5 Mcg Capsule, 0.5 MCG PO WED, (Reported) Entered as Reported by: ESAU WALTER on 11/19/22 102 Last Action: Reviewed Cetirizine HCl (Cetirizine HCl) 10 Mg Tablet, 10 MG PO HS, (Reported) Entered as Reported by: DEVEN CARBALLO on 09/07/22 101 Last Action: Reviewed Cholecalciferol (Vitamin D3) (Vitamin D3) 125 Mcg (5000 Unit) Tablet, 125 MCG PO MON,WED,SAT, (Reported) Entered as Reported by: DEVEN CARBALLO on 09/07/22 101 Last Action: Reviewed Dapagliflozin Propanediol (Farxiga) 10 Mg Tablet, 10 MG PO DAILY, (Reported) Entered as Reported by: DEVEN CARBALLO on 09/07/221014 Last Action: Reviewed Digoxin (Digoxin) 125 Mcg (0.125 Mg) Tablet, 125 MCG PO HS, (Reported) Entered as Reported by: OLIVA FIELD on 11/24/21 1301 Last Action: Reviewed Diphenoxylate HCl/Atropine (Diphenoxylate-Atrop 2.5-0.025) 2.5 Mg-0.025 Mg Tablet, 1 EA PO DAILY, (Reported) Entered as Reported by: ESAU WALTER on 02/17/23 1025 Last Action: Reviewed Diphenoxylate HCl/Atropine (Lomotil 2.5-0.025 mg Tablet) 2.5 Mg-0.025 Mg Tablet, 1 EACH PO HS PRN for DIARRHEA, (Reported) Entered as Reported by: ESAU WALTER on 02/17/23 1025 Last Action: Reviewed Enalapril Maleate (Enalapril Maleate) 5 Mg Tablet, 2.5 MG PO BID, (Reported) Entered as Reported by: ESAU WATLER on 02/17/23 1239 Last Action: Reviewed Escitalopram Oxalate (Escitalopram Oxalate) 10 Mg Tablet, 10 MG PO DAILY, (Reported) Entered as Reported by: OLIVA FIELD on 11/24/21 1301 Last Action: Reviewed Finasteride (Finasteride) 5 Mg Tablet, 5 MG PO HS, (Reported) Entered as Reported by: OLIVA FIELD on 11/24/21 1301 Last Action: Reviewed Fluticasone Propionate (Flonase Allergy Relief) 50 Mcg/Actuation [place].susp, 2 SPRAY NSEACH DAILY, (Reported) Entered as Reported by: DEVEN CARBALLO on 09/07/22 1015 Last Action: Reviewed Fluticasone/Vilanterol (Breo Ellipta 100-25 Mcg INH) 100 Mcg-25 Mcg/Dose Blst.w.dev, 1 EACH IH DAILY, (Reported) Entered as Reported by: DEVEN CARBALLO on 09/07/22 1015 Last Action: Reviewed Furosemide (Furosemide) 80 Mg Tablet, 40 MG PO DAILY, (Reported) Entered as Reported by: DEVEN CARBALLO on 09/07/22 1021 Last Action: Reviewed Gluc Webster/Chondro Webster A/Vit C/Mn (Glucosamine Chondroitin Tab) 750 Mg-600 Mg-55 Mg- 5 Mg Tablet, 1 EACH PO DAILY, (Reported) Entered as Reported by: ESAU WALTER on 02/17/23 1025 Last Action: Reviewed Metoprolol Succinate (Metoprolol Succinate) 25 Mg Tab.er.24h, 25 MG PO DAILY, (Reported) Entered as Reported by: ESAU WALTER on 02/17/23 1239 Last Action: Reviewed Montelukast Sodium (Montelukast Sodium) 10 Mg Tablet, 10 MG PO HS, (Reported) Entered as Reported by: DEVEN CARBALLO on 09/07/22 1015 Last Action: Reviewed Multivitamin (Multivitamin) 1 Each Tablet, 1 EACH PO DAILY, (Reported) Entered as Reported by: DEVEN CARBALLO on 09/07/22 1015 Last Action: Reviewed [place]-3/Dha/Epa/Fish Oil (Fish Oil 1,000 mg Softgel) 1,000 Mg (120 Mg-180 Mg) Capsule, 1,000 MG PO HS, (Reported) Entered as Reported by: DEVEN CARBALLO on 09/07/22 1015 Last Action: Reviewed Spironolactone (Spironolactone) 25 Mg Tablet, 25 MG PO Q48H @HS, (Reported) Entered as Reported by: ESAU WALTER on 11/19/22 1021 Last Action: Reviewed Tamsulosin HCl (Flomax) 0.4 Mg Cap, 0.4 MG PO HS, (Reported) Entered as Reported by: DEVEN CARBALLO on 09/07/22 1015 Last Action: Reviewed Discontinued Medications Enalapril Maleate (Enalapril Maleate) 2.5 Mg Tablet, 2.5 MG PO BID Discontinued Reason: No Longer Taking Prescribed by: HUMPHREY GRIJALVA on 11/19/22 0843 Last Action: Discontinued Gluc Webster/Chondro Webster A/Vit C/Mn (Glucosamine Chondroitin Tab) 750 Mg-600 Mg-55 Mg- 5 Mg Tablet, 1 EACH PO DAILY, (Reported) Discontinued Reason: Duplicate Order Entered as Reported by: ESAU WALTER on 11/19/22 1011 Last Action: Discontinued Loperamide HCl (Imodium A-D) 2 Mg Tablet, 2 MG PO BID, (Reported) Discontinued Reason: No Longer Taking Entered as Reported by: OLIVA FIELD on 11/24/21 1301 Last Action: Discontinued Metoprolol Succinate (Toprol Xl) 25 Mg Tab.er.24h, 25 MG PO DAILY Discontinued Reason: Duplicate Order Prescribed by: HUMPHREY GRIJALVA on 11/19/22 0811 Last Action: Discontinued Physical Exam-Cardiology Physical Exam Vital Signs/I&O 02/21/23 02/21/23 02/21/23 02/21/23 07:50 08:00 11:38 12:00 Temp 36.0 36.4 Pulse 76 74 Resp 14 18 B/P (MAP) 131/67 (88) 132/72 (92) Pulse Ox 96 98 99 O2 Delivery Room Air Room Air Room Air Room Air 02/21/23 15:45 Temp 36.4 Pulse 77 Resp 18 B/P (MAP) 131/75 (93) Pulse Ox 99 O2 Delivery Room Air 02/21/23 00:00 Intake Total 2170 ml Output Total 600 ml Balance 1570 ml Capillary Refill : Less Than 3 Seconds Constitutional: AAO x 3, well-developed, other (thin, frail, and weak appearing) HEENT: PERRL, EOMI, hearing is well preserved; No xanthelasmas are seen Neck: carotid pulses are 2 + bilaterally, with good upstrokes Respiratory: No accessory muscle use; other (fair to good, bilateral air entry) Cardiovascular: systolic murmur (3/6 HSM) Gastrointestinal: No tender; soft; No guarding, No rebound; audible bowel sounds Extremities: other (R forefoot under dressing); No clubbing, No cyanosis Neurologic/Psychiatric: oriented x 3, other (moves all limbs) Skin: normal color, warm/dry; No cyanosis, No cool; other (R forefoot under dressing) Data Review Labs Laboratory Tests 02/20/23 19:42: Glucometer 139H 02/21/23 05:23: Glucometer 113H 02/21/23 05:51: White Blood Count 8.4, Red Blood Count 4.73, Hemoglobin 13.3, Hematocrit 42, Mean Corpuscular Volume 89, Mean Corpuscular Hemoglobin 28, Mean Corpuscular Hemoglobin Concent 32, Red Cell Distribution Width 15.5H, Platelet Count 165, Mean Platelet Volume 8.9L, Immature Granulocyte % (Auto) 1, Neutrophils (%) (Auto) 63, Lymphocytes (%) (Auto) 18, Monocytes (%) (Auto) 9, Eosinophils (%) (Auto) 7, Basophils (%) (Auto) 1, Neutrophils # (Auto) 5.3, Lymphocytes # (Auto) 1.6, Monocytes # (Auto) 0.8, Eosinophils # (Auto) 0.6H, Basophils # (Auto) 0.1, Immature Granulocyte # (Auto) 0.1, Sodium Level 134L, Potassium Level 3.8, Chloride Level 104, Carbon Dioxide Level 18L, Anion Gap 12, Blood Urea Nitrogen 73H, Creatinine 3.56#H, Estimat Glomerular Filtration Rate 16, BUN/Creatinine Ratio 21, Glucose Level 121H, Calcium Level 7.7L 02/21/23 10:47: Glucometer 185H 02/21/23 15:47: Glucometer 187H Microbiology 02/17/23 MRSA Screen - Final, Complete MRSA not isolated Laboratory Tests 02/20/23 05:21 02/21/23 05:51 A/P-Cardiology Assessment/Admission Diagnosis 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 - managed by [facility] and Surg and Wound services - no evidence of osteomyelitis on CT foot with contrast on 02/17/23 Worsening of renal function likely due to contrast nephropathy (CT with contrast of the R foot on 02/17/23) CKD stage 3-4 - Cr chronically around 2.2 (Cr 1.4 on 06/15/22) - R renal artery stenosis, per u/s at [facility] on 05/27/16 PAD - u/s of R leg on 02/18/23: distal R tibioperoneal disease with monophasic waveforms are identified (moderate to moderate severe disease suspected) Severe dilated cardiomyopathy and severe mitral regurg - with an ejection fraction of 15% on echocardiography of November 2011, improved after treatment - Echo of 05/26/16 at the [facility]: LVEF 47%, borderline LVE, inf and inf-lat hypokinesis, mod RVE, severe MR (posteriorly directed), mod to sev TR, asc aortic dilatation 43 mm at mid level). - He has not been considered to be a suitable candidate for MV surg or MitraClip at the [facility]. - Last echo was in April 2019 at [place] LVEF 48%, mod RV enlargement and dysfunction, severe MR, mod TR, RVSP 33 mmHg - Echocardiogram of 04-19-22 showed LVEF 35-40%. Mod diffuse hypokinesis. Grade 3 diastolic dysfunction. LA and RA are severely dilated. Mod to severe mitral regurg. Trivial AoR. Mild to mod TR. PASP 35-40 mmHg - TTE by Dr Lopez at [facility] on 01/24/23: mod dil LV with global hypokinesis and LVEF 20%, moderately dilated R, severe biatrial enlargement, mod sev MR, severe tricuspid regurg Chronic systolic heart failure, NYHA III - currently clinically compensated Cardiac cachexia, cardiac congestive cirrhosis, and cardiac enteropathy Syncope, likely due to postural hypotension on 06/13/22 and on 11/18/22 Hyperlipidemia - statin tx - managed by PCP Anomalous pulmonary venous return (as mentioned in his letter from the [facility] dated 06/18/16) Chronic atrial fibrillation, longstanding. - Chronic anticoagulation for stroke prophylaxis with Eliquis GI/Surgery - History of bowel surgery that included surgery for incarcerated hernia and surgery of bowel perforation and removal of a segment of small bowel with a significant amount of weight loss postoperatively. Coronary artery disease - with a history of left internal mammary artery graft to left anterior descendi ng and a saphenous vein to left circumflex obtuse marginal system in 1988. (CABG) - Last cardiac catheterization was in February 2009 and has showed severe [place] coronary artery disease with widely patent left internal mammary artery graft to mid left anterior descending and widely patent vein graft to obtuse marginal system of the left circumflex. The right coronary artery was very small. The left ventricular ejection fraction at the time of cardiac catheterization was 25 to 30%. History of pacemaker/ defibrillator implantation - by Dr. Lopez in September 2008. 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 - This was replaced at [place] in February 2019. Replaced again on 09/07/22 Chronic intraventricular conduction delay. Carotid arterial disease - with a history of carotid endarterectomy. - Ultrasound of of January 2017: 50-60% R ICA and 40% LICA stenoses. Ultrasound of 07/29/17: approx 40% R ICA and less than 40% L ICA stenoses - Carotid u/s of 09-21-21: 60-79% R ICA stenosis; less than 40% L ICA stenosis History of anxiety - currently controlled. History of prostate enlargement - managed by Dr Reid Hypertension - controlled Sleep apnea - being treated with C-PAP therapy Discussion and Recomendations * Please continue patient's previous cardiac regimen as far as possible * Resume SGLT-2 inhibitors when allowable from a renal standpoint * Continue anticoag * There does not appear a distinct need for peripheral angiography (disease appears noncritical on u/s). Also not suitable for contrast, given renal failure. Monitor closely * Monitor labs JAIME NARANJO MD FACP FAC CCDS February 21, 2023 18:46
[2023-02-21 20:06] VITALS: BP 136/67
[2023-02-21] MEDS: MONTELUKAST 10 MG (SINGULAIR) TAB PO SCH (20:52)
[2023-02-21] MEDS: MELATONIN 3 MG TABLET PO PRN (20:52)
[2023-02-21] MEDS: DIGOXIN 0.125 MG (LANOXIN) TAB PO SCH (20:53)
[2023-02-21] MEDS: APIXABAN 2.5 MG (ELIQUIS) TABLET PO SCH (20:53)
[2023-02-21] MEDS: ACETAMINOPHEN 325 MG TABLET PO PRN (21:00)
[2023-02-21 23:45] VITALS: BP 133/72
[2023-02-22 03:02] VITALS: BP 135/71
[2023-02-22 05:45] LABS: BASOPHILS # (AUTO) 0.1 10^3/uL (0.0-0.1); BASOPHILS % (AUTO) 1 % (0-10); EOSINOPHILS # (AUTO) 0.5 10^3/uL (0.0-0.3); EOSINOPHILS % (AUTO) 6 % (0-10); HEMATOCRIT 43 % (40-54); HEMOGLOBIN 13.7 g/dL (13.3-17.7); LYMPHOCYTES # (AUTO) 1.6 10^3/uL (1.0-4.0); LYMPHOCYTES % (AUTO) 18 % (12-44); MEAN CORPUSCULAR HEMOGLOBIN 28 pg (25-34); MEAN CORPUSCULAR HGB CONC 32 g/dL (32-36); MEAN CORPUSCULAR VOLUME 88 fL (80-99); MEAN PLATELET VOLUME 9.5 fL (9.0-12.2); MONOCYTES # (AUTO) 0.8 10^3/uL (0.0-1.0); MONOCYTES % (AUTO) 9 % (0-12); NEUTROPHILS # (AUTO) 5.9 10^3/uL (1.8-7.8); NEUTROPHILS % (AUTO) 65 % (42-75); PLATELET COUNT 211 10^3/uL (130-400)
[2023-02-22 06:12] LABS: CALCIUM 8.1 MG/DL (8.5-10.1); CREATININE SERUM 3.83 MG/DL (0.60-1.30); POTASSIUM 3.8 MMOL/L (3.6-5.0)
[2023-02-22] MEDS: inSUlin ASPART (NovoLOG) 1 UNIT/0.01 ML (CHARGE PER UNIT) SC SCH ×4 (06:14→21:22)
[2023-02-22] MEDS: LACTATED RINGERS 1,000 ML IV SCH ×2 (06:20→18:13)
[2023-02-22] MEDS: SENNOSIDES 8.6 MG (SENOKOT) TAB PO SCH ×2 (08:35→19:57)
[2023-02-22] MEDS: SODIUM BICARBONATE 650 MG TABLET PO SCH ×3 (08:35→19:59)
[2023-02-22] MEDS: DOCUSATE SODIUM 100 MG (COLACE) CAP PO SCH ×2 (08:35→19:57)
[2023-02-22] MEDS: FINASTERIDE (PROSCAR) 5 MG TAB PO SCH (08:35)
[2023-02-22] MEDS: APIXABAN 2.5 MG (ELIQUIS) TABLET PO SCH ×2 (08:35→19:59)
--- NOTE | 2023-02-22 11:40 | Progress Note - Hospitalist ---
Subjective HPI/CC On Admission Date Seen by Provider: February 22, 2023 Edgar Byrne is an 82 year old male with PMH HTN, T2DM, CHF, BPH, depression, who presented with a foot wound. He was direct admitted from Dr. Means's clinic. He has a wound that has been present for a long time, but over the past couple days it worsened. He had it debrided today. He denies fevers. He denies nausea and vomiting. He denies chest pain. He denies shortness of breath. He denies abdominal pain. He has leg swelling. His says it has improved. Subjective/Events-last exam Pt reports feeling great today. Did have some loose stools overnight. sh owed up in the middle of visit and she states this is a long standing issue but does well with lomitil and a probiotic at home. We discussed his labs and indications for holding certain medications and plan going forward. All questions answered. Objective Exam Vital Signs Vital Signs Date Time Temp Pulse Resp B/P (MAP) Pulse Ox O2 Delivery O2 Flow Rate FiO2 02/22/23 03:02 36.2 75 18 135/71 (92) 95 Room Air Capillary Refill : Less Than 3 Seconds General Appearance: No Apparent Distress, Chronically ill Respiratory: Lungs Clear, No Accessory Muscle Use Cardiovascular: Regular Rate, Rhythm Neurologic/Psychiatric: Alert, Oriented x3 Results/Procedures Lab Laboratory Tests 02/22/23 05:07 Patient resulted labs reviewed. Imaging: Reviewed Imaging Report Assessment/Plan Assessment and Plan Assess & Plan/Chief Complaint JENNIFER on CKD Creatinine up further today to 3.8 but hopefully this is peak and will start trending down Telenephrology consulted, appreciate recs Continue IVF UOP adequate but watch closely Diabetic Foot Ulcer Type II Diabetes Mellitus I&D done by surgery on 02/18 Cultures pending Sliding Scale Insulin Resume Zosyn x1 today until culture results back Debility Continue PT/OT HTN Hold Enalapril due to renal function CHF Continue Digoxin but check level due to renal function Hold Lasix still- monitor closely for fluid overload Last echo shows EF 35% with grade 3 dHF Cardiology consulted, appreciate recs Atrial Fibrilation Resume Eliquis- will renally dose Continue Metoprolol BPH Continue Tamsulosin and Proscar Quiroz in place TARAH GUTIERREZ MD February 22, 2023 11:40
--- NOTE | 2023-02-22 12:28 | Cardiology Progress Note ---
Subjective Date Seen by Provider: February 22, 2023 Time Seen by Provider: 08:15 Subjective/Events-last exam Patient is sitting up in bed, denies any chest pain or dyspnea. Objective-Cardiology Exam Last Set of Vital Signs Vital Signs 02/22/23 03:02 Temp 36.2 Pulse 75 Resp 18 B/P (MAP) 135/71 (92) Pulse Ox 95 O2 Delivery Room Air I&O Intake and Output 02/22/23 00:00 Intake Total 2320 ml Output Total 550 ml Balance 1770 ml Intake Oral 1320 ml IV Total 1000 ml Output Urine Total 550 ml # Bowel Movements 3 General: Alert, Oriented X3, Cooperative HEENT: Atraumatic, PERRLA Lungs: Clear to Auscultation, Normal Air Movement Heart: Regular Rate Abdomen: Normal Bowel Sounds, Soft Skin: No Rashes Neuro: Normal Speech Psych/Mental Status: Mental Status NL Results Lab Laboratory Tests 02/22/23 05:07 A/P-Cardiology Admission Diagnosis Right foot nonhealing wound PAD CHF CKD Assessment/Plan 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 on 05/27/16 PAD - u/s of R leg on 02/18/23: distal R tibioperoneal disease with monophasic waveforms are identified (moderate to moderate severe disease suspected) -There does not appear a distinct need for peripheral angiography (disease appears noncritical on u/s). Also not suitable for contrast, given renal failure. Monitor closely Severe dilated cardiomyopathy and severe mitral regurg - with an ejection fraction of 15% on echocardiography of November 2011, improved after treatment - Echo of 05/26/16 at the [facility]: LVEF 47%, borderline LVE, inf and inf-lat hypokinesis, mod RVE, severe MR (posteriorly directed), mod to sev TR, asc a ortic dilatation 43 mm at mid level). - He has not been considered to be a suitable candidate for MV surg or MitraClip at the [facility]. - Last echo was in April 2019 at [place] LVEF 48%, mod RV enlargement and dysfunction, severe MR, mod TR, RVSP 33 mmHg - Echocardiogram of 04-19-22 showed LVEF 35-40%. Mod diffuse hypokinesis. Grade 3 diastolic dysfunction. LA and RA are severely dilated. Mod to severe mitral regurg. Trivial AoR. Mild to mod TR. PASP 35-40 mmHg - TTE by Dr Lopez at [facility] on 01/24/23: mod dil LV with global hypokinesis and LVEF 20%, moderately dilated R, severe biatrial enlargement, mod sev MR, severe tricuspid regurg Chronic systolic heart failure, NYHA III - currently clinically compensated Cardiac cachexia, cardiac congestive cirrhosis, and cardiac enteropathy Syncope, likely due to postural hypotension on 06/13/22 and on 11/18/22 Hyperlipidemia, maintained on statin Anomalous pulmonary venous return (as mentioned in his letter from the [facility] dated 06/18/16) Chronic atrial fibrillation, longstanding. - Chronic anticoagulation for stroke prophylaxis with Eliquis GI/Surgery - History of bowel surgery that included surgery for incarcerated hernia and olea rgery of bowel perforation and removal of a segment of small bowel with a significant amount of weight loss postoperatively. Coronary artery disease - with a history of left internal mammary artery graft to left anterior descending and a saphenous vein to left circumflex obtuse marginal system in 1988. (CABG) - Last cardiac catheterization was in February 2009 and has showed severe [place] coronary artery disease with widely patent left internal mammary artery graft to mid left anterior descending and widely patent vein graft to obtuse marginal system of the left circumflex. The right coronary artery was very small. The left ventricular ejection fraction at the time of cardiac catheterization was 25 to 30%. History of pacemaker/ defibrillator implantation - by Dr. Lopez in September 2008. 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 - This was replaced at [place] in February 2019. Replaced again on 09/07/22 Chronic intraventricular conduction delay. Carotid arterial disease - with a history of carotid endarterectomy. - Ultrasound of of January 2017: 50-60% R ICA and 40% LICA stenoses. Ultrasound of 07/29/17: approx 40% R ICA and less than 40% L ICA stenoses - Carotid u/s of 09-21-21: 60-79% R ICA stenosis; less than 40% L ICA stenosis History of anxiety - currently controlled. Hypertension - controlled Sleep apnea - being treated with C-PAP therapy Supervisory-Addendum Brief Supervisory Addendum Participated in pt care: history, MDM, physical Personally performed: exam, history, MDM Care discussed with: LIANA Results interpretation: Verified all documentation Notes: Patient was seen and evaluated with Clayton, examination performed, management plan was discussed, agree with the current scribed note, I made few changes to the note using Italic font Patient was seen at bedside, laying down comfortably Continue with current treatment CLAYTON THOMAS February 22, 2023 12:28 CHARY CORLEY MD February 22, 2023 16:16
[2023-02-22] MEDS ORDERED: PIPERACILLIN SODIUM/TAZOBACTAM 4.5 GM in NS (IVPB) 100 ML IV NR (15:00)
[2023-02-22 15:30] VITALS: BP 156/80
[2023-02-22] MEDS ORDERED: DIPHENOXYLATE/ATROPINE 2.5MG/0.025MG (LOMOTIL) TAB PO PRN (17:00)
[2023-02-22] MEDS: TAMSULOSIN 0.4 MG (FLOMAX) CAP PO SCH (18:13)
[2023-02-22] MEDS: LACTOBACILLUS ACIDOPHILUS (PROBIOTIC) CAPSULE PO SCH (18:13)
[2023-02-22] MEDS: FLUTICASONE/VILANTEROL 100 MCG 14'S (BREO) IH SCH (18:50)
[2023-02-22] MEDS: MONTELUKAST 10 MG (SINGULAIR) TAB PO SCH (19:59)
[2023-02-22] MEDS: MELATONIN 3 MG TABLET PO PRN (20:00)
[2023-02-22] MEDS: ALPRAZolam 0.25 MG (XANAX) TAB PO PRN (20:00)
[2023-02-22] MEDS: DIGOXIN 0.125 MG (LANOXIN) TAB PO SCH (20:00)
[2023-02-22 20:05] VITALS: BP 146/67
[2023-02-22 23:22] VITALS: BP 150/81
[2023-02-23] MEDS: LACTATED RINGERS 1,000 ML IV SCH ×3 (01:55→14:29)
[2023-02-23 03:46] VITALS: BP 145/76
[2023-02-23] MEDS: inSUlin ASPART (NovoLOG) 1 UNIT/0.01 ML (CHARGE PER UNIT) SC SCH ×4 (05:32→21:46)
[2023-02-23 06:22] LABS: BASOPHILS # (AUTO) 0.2 10^3/uL (0.0-0.1); BASOPHILS % (AUTO) 2 % (0-10); EOSINOPHILS # (AUTO) 0.5 10^3/uL (0.0-0.3); EOSINOPHILS % (AUTO) 5 % (0-10); HEMATOCRIT 43 % (40-54); HEMOGLOBIN 14.1 g/dL (13.3-17.7); LYMPHOCYTES # (AUTO) 1.4 10^3/uL (1.0-4.0); LYMPHOCYTES % (AUTO) 15 % (12-44); MEAN CORPUSCULAR HEMOGLOBIN 29 pg (25-34); MEAN CORPUSCULAR HGB CONC 33 g/dL (32-36); MEAN CORPUSCULAR VOLUME 88 fL (80-99); MEAN PLATELET VOLUME 9.2 fL (9.0-12.2); MONOCYTES # (AUTO) 0.8 10^3/uL (0.0-1.0); MONOCYTES % (AUTO) 9 % (0-12); NEUTROPHILS # (AUTO) 6.9 10^3/uL (1.8-7.8); NEUTROPHILS % (AUTO) 70 % (42-75); PLATELET COUNT 238 10^3/uL (130-400); WHITE BLOOD COUNT 9.9 10^3/uL (4.3-11.0)
[2023-02-23] MEDS: FLUTICASONE/VILANTEROL 100 MCG 14'S (BREO) IH SCH (06:39)
[2023-02-23 06:45] LABS: CALCIUM 8.5 MG/DL (8.5-10.1); POTASSIUM 3.9 MMOL/L (3.6-5.0); URIC ACID 5.1 MG/DL (2.6-7.2)
[2023-02-23] MEDS: LOPERAMIDE 2 MG (IMODIUM) TABLET PO PRN (06:52)
[2023-02-23 07:00] LABS: CREATININE SERUM 3.45 MG/DL (0.60-1.30)
[2023-02-23 07:20] VITALS: BP 153/85
[2023-02-23] MEDS: SENNOSIDES 8.6 MG (SENOKOT) TAB PO SCH ×2 (10:05→19:22)
[2023-02-23] MEDS: LACTOBACILLUS ACIDOPHILUS (PROBIOTIC) CAPSULE PO SCH ×3 (10:05→17:39)
[2023-02-23] MEDS: FINASTERIDE (PROSCAR) 5 MG TAB PO SCH (10:05)
[2023-02-23] MEDS: SODIUM BICARBONATE 650 MG TABLET PO SCH ×3 (10:05→19:30)
[2023-02-23] MEDS: APIXABAN 2.5 MG (ELIQUIS) TABLET PO SCH ×2 (10:05→19:30)
[2023-02-23 11:23] VITALS: BP 150/72
[2023-02-23] MEDS: DOCUSATE SODIUM 100 MG (COLACE) CAP PO SCH ×2 (11:42→19:22)
--- NOTE | 2023-02-23 11:50 | Physical Therapy Daily Note ---
PT Daily Note-Current Subjective Patient sitting in chair upon PT arrival, agreeable to treatment. Patient rates pain at 0/10 at rest. Pain Section J - Health Conditions 1. Rarely or not at all 2. Occasionally 3. Frequently 4. Almost constantly 8. Unable to answer Pain Effect on Sleep: 1 Pain Interference with Therapy: 1 Pain Interference w/Day-to-Day: 1 Mental Status Patient Orientation: Person Transfers SCALE: Activities may be completed with or without assistive devices. 0-Tlkwuzxdvv-fiigwem completes the activity by him/herself with no assistance from a helper. 5-Set-up or Clean-up Assistance-helper sets up or cleans up; patient completes activity. [place] assists only prior to or following the activity. 4-Supervision or Touching Assistance-helper provides verbal cues and/or touching/steadying and/or contact guard assistance as patient completes activity. Assistance may be provided throughout the activity or intermittently. 3-Partial/Moderate Assistance-helper does LESS THAN HALF the effort. Palm lifts, holds or supports trunk or limbs, but provides less than half the effort. 2-Substantial/Maximal Assistance-helper does MORE THAN HALF the effort. [place] lifts or holds trunk or limbs and provides more than half the effort. 3-Iunfhdurh-zuhecj does ALL the effort. Patient does none of the effort to complete the activity. Or, the assistance of 2 or more helpers is required for the patient to complete the activity. If activity was not attempted, code reason: 7-Patient Refused. 9-Not Applicable-not attempted and the patient did not perform the activity before the current illness, exacerbation or injury. 10-Not Attempted due to Environmental Limitations-(lack of equipment, weather restraints, etc.). 88-Not Attempted due to Medical Conditions or Safety Concerns. Sit to Stand (QC): 2 Chair/Itu-nc-Jvdzv Xfer(QC): 2 Weight Bearing Right Lower Extremity: Right Non Weight Bearing Left Lower Extremity: Left Non Weight Bearing Patient reports he was told by Dr. Means not to put weight on either foot, but patient is unsure why he cannot put weight on the left LE Gait Training Does the Patient Walk?: No and Walking Goal IS indicated Exercises Supine Ex: Ankle pumps, Quad Set, Glut sets Supine Reps: 20 Seated Therapy Exercises: Long arc quads, Hamstring Curls, Hip abd/add Seated Reps: 20 Assessment Current Status: Fair Progress Patient tolerated treatment fair, but reports he feels better today. Patient performs LE therapeutic exercise as listed above. Patient performs sit to stand with max A. He attempts to take a step, but is unable to push with his UEs nathalia ugh to hop and maintain right LE NWB. Patient in chair post treatment with all needs met, nursing notified, call light in hand. PT Fci Goals Fci Goals PT Fci Goals Time Frame: March 19, 2023 Roll Left & Right (QC): 6 Sit to Lying (QC): 6 Lying-Sitting on Side/Bed(QC): 6 Sit to Stand (QC): 4 Chair/Vrr-wp-Zonys Xfer(QC): 4 Toilet Transfer (QC): 4 Does the Patient Walk: No and Walking Goal IS indicated Walk 10 feet (QC): 2 PT Plan Treatment/Plan Treatment Plan: Continue Plan of Care Treatment Plan: Bed Mobility, Education, Functional Activity Jeet, Functional Strength, Group Therapy, Gait, Safety, Therapeutic Exercise, Transfers Treatment Duration: March 19, 2023 Frequency: 6 times per week Estimated Hrs Per Day: .25 hour per day Patient and/or Family Agrees t: Yes Safety Risks/Education Patient Education: Gait Training, Transfer Techniques Teaching Recipient: Patient Teaching Methods: Demonstration, Discussion Response to Teaching: Verbalize Understanding, Return Demonstration Time Time In: 1046 Time Out: 1110 DATE: February 23, 2023 Total Billed Treatment Time: 24 Total Billed Treatment Visit, ExRONALDO JOHN A PT February 23, 2023 11:50
--- NOTE | 2023-02-23 11:58 | Progress Note - Hospitalist ---
Subjective HPI/CC On Admission Date Seen by Provider: February 23, 2023 Edgar Byrne is an 82 year old male with PMH HTN, T2DM, CHF, BPH, depression, who presented with a foot wound. He was direct admitted from Dr. Means's clinic. He has a wound that has been present for a long time, but over the past couple days it worsened. He had it debrided today. He denies fevers. He denies nausea and vomiting. He denies chest pain. He denies shortness of breath. He denies abdominal pain. He has leg swelling. His says it has improved. Subjective/Events-last exam pt reports not feeling well today but that is because he just had a BM in bed. not at bedside (she is at a doctor's visit herself). I called and spoke with her and discussed lab results and plan for tomorrow if labs continue to improve. Objective Exam Vital Signs Vital Signs Date Time Temp Pulse Resp B/P (MAP) Pulse Ox O2 Delivery O2 Flow Rate FiO2 02/23/23 11:23 35.8 75 20 150/72 (98) 96 Room Air Capillary Refill : Less Than 3 Seconds General Appearance: No Apparent Distress, Chronically ill Respiratory: Lungs Clear, No Respiratory Distress Cardiovascular: Regular Rate, Rhythm, No Murmur Gastrointestinal: Normal Bowel Sounds, Soft Neurologic/Psychiatric: Alert, Oriented x3 Results/Procedures Lab Laboratory Tests 02/23/23 05:16 Patient resulted labs reviewed. Imaging: Reviewed Imaging Report Assessment/Plan Assessment and Plan Assess & Plan/Chief Complaint JENNIFER on CKD Creatinine down to 3.45 today Telenephrology consulted, appreciate recs Continue IVF UOP adequate Diabetic Foot Ulcer Type II Diabetes Mellitus I&D done by surgery on 02/18 Cultures pending from outside facility Sliding Scale Insulin Switch to oral antibiotics Debility Continue PT/OT HTN Hold Enalapril due to renal function CHF Continue Digoxin, Level low but just barely under threshold Hold Lasix still- monitor closely for fluid overload Last echo shows EF 35% with grade 3 dHF Cardiology consulted, appreciate recs Atrial Fibrilation Continue Eliquis- will renally dose Continue Metoprolol BPH Continue Tamsulosin and Proscar Quiroz in place TARAH GUTIERREZ MD February 23, 2023 11:58
[2023-02-23] MEDS ORDERED: AUGMENTIN 875 MG TAB (AMOXICILLIN/CLAVULANATE) PO SCH (12:00)
--- NOTE | 2023-02-23 12:10 | Progress Note - Cardiology ---
Cardiology SOAP Progress Note Subjective: No cp or palp or syncope Gen weakness and malaise No focal weakness No n/v/d. Does have a chronic h/o frequent bowel movements. Was up several times during the night (formed stools) Objective: I&O/Vital Signs 02/23/23 02/23/23 02/23/23 02/23/23 03:46 06:39 07:20 08:00 Temp 36.5 35.6 Pulse 78 75 Resp 20 16 B/P (MAP) 145/76 (99) 153/85 (107) Pulse Ox 96 93 97 O2 Delivery Room Air Room Air Room Air Room Air 02/23/23 11:23 Temp 35.8 Pulse 75 Resp 20 B/P (MAP) 150/72 (98) Pulse Ox 96 O2 Delivery Room Air 02/23/23 00:00 Intake Total 980 ml Output Total 800 ml Balance 180 ml Weight (Pounds): 198 Weight (Ounces): 0.0 Weight (Calculated Kilograms): 89.168883 Constitutional: AAO x 3, well-developed, other (thin, frail, and weak appearing) Respiratory: No accessory muscle use; other (fair to good, bilateral air entry) Cardiovascular: systolic murmur (3/6 HSM) Gastrointestional: No tender; soft; No guarding, No rebound; audible bowel sounds Extremities: other (R forefoot under dressing); No clubbing, No cyanosis Neurologic/Psychiatric: oriented x 3, other (moves all limbs) Skin: normal color, warm/dry; No cyanosis, No cool; other (R forefoot under dressing) Results/Procedures: Labs Laboratory Tests 02/22/23 15:28: Glucometer 202H 02/22/23 20:18: Glucometer 166H 02/23/23 04:58: Glucometer 139H 02/23/23 05:16: White Blood Count 9.9, Red Blood Count 4.92, Hemoglobin 14.1, Hematocrit 43, Mean Corpuscular Volume 88, Mean Corpuscular Hemoglobin 29, Mean Corpuscular Hemoglobin Concent 33, Red Cell Distribution Width 15.7H, Platelet Count 238, Mean Platelet Volume 9.2, Immature Granulocyte % (Auto) 1, Neutrophils (%) (Auto) 70, Lymphocytes (%) (Auto) 15, Monocytes (%) (Auto) 9, Eosinophils (%) (Auto) 5, Basophils (%) (Auto) 2, Neutrophils # (Auto) 6.9, Lymphocytes # (Auto) 1.4, Monocytes # (Auto) 0.8, Eosinophils # (Auto) 0.5H, Basophils # (Auto) 0.2H, Immature Granulocyte # (Auto) 0.1, Sodium Level 139, Potassium Level 3.9, Chloride Level 105, Carbon Dioxide Level 20L, Anion Gap 14, Blood Urea Nitrogen 80H, Creatinine 3.45H, Estimat Glomerular Filtration Rate 17, BUN/Creatinine Ratio 23, Glucose Level 136H, Uric Acid 5.1, Calcium Level 8.5 02/23/23 11:18: Glucometer 209H Microbiology 02/17/23 MRSA Screen - Final, Complete MRSA not isolated Laboratory Tests 02/22/23 05:07 02/23/23 05:16 A/P: Assessment: 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 - managed by [facility] and Wound services - no evidence of osteomyelitis on CT foot with contrast on 02/17/23 Worsening of renal function likely due to contrast nephropathy (CT with contrast of the R foot on 02/17/23) CKD stage 3-4 - Cr chronically around 2.2 (Cr 1.4 on 06/15/22) - R renal artery stenosis, per u/s at [facility] on 05/27/16 PAD - u/s of R leg on 02/18/23: distal R tibioperoneal disease with monophasic waveforms are identified (moderate to moderate severe disease suspected) Severe dilated cardiomyopathy and severe mitral regurg - with an ejection fraction of 15% on echocardiography of November 2011, improved after treatment - Echo of 05/26/16 at the [facility]: LVEF 47%, borderline LVE, inf and inf-lat hypokinesis, mod RVE, severe MR (posteriorly directed), mod to sev TR, asc aortic dilatation 43 mm at mid level). - He has not been considered to be a suitable candidate for MV surg or MitraClip at the [facility]. - Last echo was in April 2019 at [facility] LVEF 48%, mod RV enlargement and dysfunction, severe MR, mod TR, RVSP 33 mmHg - Echocardiogram of 04-19-22 showed LVEF 35-40%. Mod diffuse hypokinesis. Grade 3 diastolic dysfunction. LA and RA are severely dilated. Mod to severe mitral regurg. Trivial AoR. Mild to mod TR. PASP 35-40 mmHg - TTE by Dr Lopez at [facility] on 01/24/23: mod dil LV with global hypokinesis and LVEF 20%, moderately dilated R, severe biatrial enlargement, mod sev MR, severe tricuspid regurg Chronic systolic heart failure, NYHA III - currently clinically compensated Cardiac cachexia, cardiac congestive cirrhosis, and cardiac enteropathy Syncope, likely due to postural hypotension on 06/13/22 and on 11/18/22 Hyperlipidemia - statin tx - managed by PCP Anomalous pulmonary venous return (as mentioned in his letter from the [facility] dated 06/18/16) Chronic atrial fibrillation, longstanding. - Chronic anticoagulation for stroke prophylaxis with Eliquis GI/Surgery - History of bowel surgery that included surgery for incarcerated hernia and surgery of bowel perforation and removal of a segment of small bowel with a significant amount of weight loss postoperatively. Coronary artery disease - with a history of left internal mammary artery graft to left anterior descending and a saphenous vein to left circumflex obtuse marginal system in 1988. (CABG) - Last cardiac catheterization was in February 2009 and has showed severe [place] coronary artery disease with widely patent left internal mammary artery graft to mid left anterior descending and widely patent vein graft to obtuse marginal system of the left circumflex. The right coronary artery was very small. The left ventricular ejection fraction at the time of cardiac catheterization was 25 to 30%. History of pacemaker/ defibrillator implantation - by Dr. Lopez in September 2008. - This was upgraded to a DIRECTOR OF PROMOTIONS-D at the [facility] in 2010. - This was replaced at [place] in February 2019. Replaced again on 09/07/22 Chronic intraventricular conduction delay. Carotid arterial disease - with a history of carotid endarterectomy. - Ultrasound of of January 2017: 50-60% R ICA and 40% LICA stenoses. Ultrasound of 07/29/17: approx 40% R ICA and less than 40% L ICA stenoses - Carotid u/s of 09-21-21: 60-79% R ICA stenosis; less than 40% L ICA stenosis History of anxiety - currently controlled. History of prostate enlargement - managed by Dr Reid Hypertension - controlled Sleep apnea - being treated with C-PAP therapy Plan: * Please continue patient's previous cardiac regimen as far as possible * Resume SGLT-2 inhibitors and RAFFAELE-inhib when allowable from a renal standpoint * Continue anticoag * There does not appear a distinct need for peripheral angiography (disease appears noncritical on u/s). Also not suitable for contrast, given renal failure. Monitor closely * Monitor labs JAIME NARANJO MD FACP MERGED WITH [facility] February 23, 2023 12:10
--- NOTE | 2023-02-23 13:31 | Occupational Ther Daily Note ---
OT Current Status-Daily Note Subjective On arrival patient saw therapist and hollers out "NO", patient encouraged to participate by PCT,RN and OT. Patient agrees for therapist to assist in BM hygiene and transfers Mental Status/Objective Patient Orientation: Person, Place, Time, Situation Attachments: Quiroz Catheter, IV ADL-Treatment Therapy Code Descriptions/Definitions Functional [place] Measure: 0=Not Assessed/NA 4=Minimal Assistance 1=Total Assistance 5=Supervision or Setup 2=Maximal Assistance 6=Modified [place] 3=Moderate Assistance 7=Complete IndependenceSCALE: Activities may be completed with or without assistive devices. 6-Ybiwbejqib-zuqpjzn completes the activity by him/herself with no assistance from a helper. 5-Set-up or Clean-up Assistance-helper sets up or cleans up; patient completes activity. [place] assists only prior to or following the activity. 4-Supervision or Touching Assistance-helper provides verbal cues and/or touching/steadying and/or contact guard assistance as patient completes activity. Assistance may be provided throughout the activity or intermittently. 3-Partial/Moderate Assistance-helper does LESS THAN HALF the effort. [place] lifts, holds or supports trunk or limbs, but provides less than half the effort. 2-Substantial/Maximal Assistance-helper does MORE THAN HALF the effort. [place] lifts or holds trunk or limbs and provides more than half the effort. 1-Toymunfjg-ptzmsb does ALL the effort. Patient does none of the effort to complete the activity. Or, the assistance of 2 or more helpers is required for the patient to complete the activity. If activity was not attempted, code reason: 7-Patient Refused. 9-Not Applicable-not attempted and the patient did not perform the activity before the current illness, exacerbation or injury. 10-Not Attempted due to Environmental Limitations-(lack of equipment, weather restraints, etc.). 88-Not Attempted due to Medical Conditions or Safety Concerns. Eating (QC): 6 Oral Hygiene (QC): 5 Shower/Bathe Self (QC): 7 (Declined) Upper Body Dressing (QC): 4 Lower Body Dressing (QC): 1 On/Off Footwear: 2 Toileting Hygiene (QC): 1 Toilet Transfer (QC): 2 During transfer patient required increased assistance to release repatcher of chair arm rest, and manual assistance to pivot LLE to sit in recliner Other Treatment OT instructed patient in BUE exercises for strengthening for ADL, mobility and transfers. Patient reports has band at home. Patient demonstrated several appropriate HEP Education OT Patient Education: Correct positioning, Exercise program Teaching Recipient: Patient, Family (spouse present) Teaching Methods: Demonstration, Discussion Response to Teaching: Reinforcement Needed OT Deputy Clerk Of Court Goals Deputy Clerk Of Court Goals Eating (QC): 6 Oral Hygiene (QC): 6 Toileting Hygiene (QC): 4 Shower/Bathe Self (QC): 3 Upper Body Dressing (QC): 4 Lower Body Dressing (QC): 4 On/Off Footwear (QC): 4 1=Demonstrate adherence to instructed precautions during ADL tasks. 2=Patient will verbalize/demonstrate understanding of assistive devices/modifications for ADL. 3=Patient will improve strength/tolerance for activity to enable patient to perform ADL's. OT Education/Plan Problem List/Assessment Assessment: Decreased Activ Tolerance, Decreased Safety Aware, Decreased UE Strength, Dependent Transfers, Impaired Bed Mobility, Impaired Cognition, Impaired Coordination, Impaired Funct Balance, Impaired Self-Care Skills Discharge Recommendations Plan/Recommendations: Continue POC Therapy Discharge Recommendati: Post Acute OT Treatment Plan/Plan of Care Treatment,Training & Education: Yes Patient would benefit from OT for education, treatment and training to promote independence in ADL's, mobility, safety and/or upper extremity function for ADL's. Plan of Care: ADL Retraining, Cognitive Retraining, Concurrent Therapy, Functional Mobility, Group Exercise/Act as Ind, UE Funct Exercise/Act, UE Neuromus Re-Ed/Coord Treatment Duration: February 26, 2023 Frequency: 3 times per week (3-5 TIMES PER WEEK) Estimated Hrs Per Day: .25 hour per day Rehab Potential: Fair Time Start Time: 10:00 Stop Time: 10:41 DATE: February 23, 2023 Total Time Billed (hr/min): 41 Billed Treatment Time ADL, EX2 41 min CHRISTINE MAGDALENO OT February 23, 2023 13:31
[2023-02-23 15:35] VITALS: BP 143/81
[2023-02-23] MEDS: TAMSULOSIN 0.4 MG (FLOMAX) CAP PO SCH (17:39)
[2023-02-23] MEDS ORDERED: ARTIFICAL TEARS 0.4 ML UNIT DOSE (REFRESH PLUS) OD PRN (18:15)
[2023-02-23] MEDS: MONTELUKAST 10 MG (SINGULAIR) TAB PO SCH (19:29)
[2023-02-23] MEDS: MELATONIN 3 MG TABLET PO PRN (19:29)
[2023-02-23] MEDS: DIGOXIN 0.125 MG (LANOXIN) TAB PO SCH (19:30)
[2023-02-23] MEDS: ALPRAZolam 0.25 MG (XANAX) TAB PO PRN (19:30)
[2023-02-23] MEDS: AUGMENTIN 500 MG TAB (AMOXICILLIN/CLAVULANATE) PO SCH (19:30)
[2023-02-23] MEDS: CALCIUM CARBONATE 500 MG (TUMS) TAB.CHEW PO PRN (19:34)
[2023-02-23 19:57] VITALS: BP 149/76
[2023-02-23] MEDS: HYPOCHLOROUS ACID/NaCl (VASHE) 250 ML IR PRN (21:52)
[2023-02-24] VITALS (7 sets, daily range): BP systolic 145–161; BP diastolic 71–82
[2023-02-24] MEDS: LACTATED RINGERS 1,000 ML IV SCH (00:44)
[2023-02-24] MEDS: inSUlin ASPART (NovoLOG) 1 UNIT/0.01 ML (CHARGE PER UNIT) SC SCH ×4 (04:49→20:23)
[2023-02-24 05:52] LABS: BASOPHILS # (AUTO) 0.1 10^3/uL (0.0-0.1); BASOPHILS % (AUTO) 1 % (0-10); EOSINOPHILS # (AUTO) 0.6 10^3/uL (0.0-0.3); EOSINOPHILS % (AUTO) 6 % (0-10); HEMATOCRIT 41 % (40-54); LYMPHOCYTES # (AUTO) 1.4 10^3/uL (1.0-4.0); LYMPHOCYTES % (AUTO) 15 % (12-44); MEAN CORPUSCULAR HEMOGLOBIN 29 pg (25-34); MEAN CORPUSCULAR HGB CONC 32 g/dL (32-36); MEAN CORPUSCULAR VOLUME 90 fL (80-99); MEAN PLATELET VOLUME 9.3 fL (9.0-12.2); MONOCYTES # (AUTO) 0.8 10^3/uL (0.0-1.0); MONOCYTES % (AUTO) 9 % (0-12); NEUTROPHILS # (AUTO) 6.4 10^3/uL (1.8-7.8); NEUTROPHILS % (AUTO) 68 % (42-75); PLATELET COUNT 231 10^3/uL (130-400); WHITE BLOOD COUNT 9.4 10^3/uL (4.3-11.0)
[2023-02-24 06:11] LABS: CALCIUM 8.6 MG/DL (8.5-10.1)
[2023-02-24 06:15] LABS: CREATININE SERUM 2.66 MG/DL (0.60-1.30)
[2023-02-24] MEDS: FLUTICASONE/VILANTEROL 100 MCG 14'S (BREO) IH SCH (08:20)
[2023-02-24] MEDS: LACTOBACILLUS ACIDOPHILUS (PROBIOTIC) CAPSULE PO SCH ×3 (08:56→17:17)
[2023-02-24] MEDS: FINASTERIDE (PROSCAR) 5 MG TAB PO SCH (08:56)
[2023-02-24] MEDS: SENNOSIDES 8.6 MG (SENOKOT) TAB PO SCH ×2 (08:57→20:24)
[2023-02-24] MEDS: EMPAGLIFLOZIN 10 MG TABLET (JARDIANCE) PO SCH (08:57)
[2023-02-24] MEDS: APIXABAN 2.5 MG (ELIQUIS) TABLET PO SCH ×2 (08:57→20:23)
[2023-02-24] MEDS: AUGMENTIN 500 MG TAB (AMOXICILLIN/CLAVULANATE) PO SCH ×2 (08:57→20:23)
[2023-02-24] MEDS: SODIUM BICARBONATE 650 MG TABLET PO SCH ×3 (08:57→20:23)
[2023-02-24] MEDS: DOCUSATE SODIUM 100 MG (COLACE) CAP PO SCH ×2 (08:58→20:23)
[2023-02-24] MEDS ORDERED: NON-FORMULARY MEDICATION 1 EA EA (Dapagliflozin Propanediol (Farxiga) 10 MG) PO SCH (09:00)
[2023-02-24] MEDS ORDERED: amLODIPine 5 MG (NORVASC) TAB ONE (10:00)
[2023-02-24] MEDS ORDERED: FUROSEMIDE 40 MG/4 ML INJ (LASIX) IVP NR (10:00)
--- NOTE | 2023-02-24 11:06 | Progress Note - Cardiology ---
Cardiology SOAP Progress Note Subjective: Short of breath this am No cp or palp or syncope or ICD d/c No n/v Chronic, frequent bowel movements Mild leg swelling Gen weakness No focal weakness Objective: I&O/Vital Signs 02/24/23 02/24/23 02/24/23 02/24/23 00:44 07:17 08:20 09:12 Temp 36.2 36.1 Pulse 76 76 Resp 20 20 B/P (MAP) 149/74 (99) 145/82 (103) Pulse Ox 96 95 95 O2 Delivery Room Air Room Air Room Air Room Air O2 Flow Rate 0.00 0.00 02/24/23 00:00 Intake Total 1320 ml Output Total 1600 ml Balance -280 ml Weight (Pounds): 198 Weight (Ounces): 0.0 Weight (Calculated Kilograms): 89.803948 Constitutional: AAO x 3, well-developed, other (thin, frail, and weak appearing) Respiratory: No accessory muscle use; other (fair to good, bilateral air entry) Cardiovascular: systolic murmur (3/6 HSM) Gastrointestional: No tender; soft; No guarding, No rebound; audible bowel sounds Extremities: other (R forefoot under dressing); No clubbing, No cyanosis Neurologic/Psychiatric: oriented x 3, other (moves all limbs) Skin: normal color, warm/dry; No cyanosis, No cool; other (R forefoot under dressing) Results/Procedures: Labs Laboratory Tests 02/23/23 11:18: Glucometer 209H 02/23/23 15:34: Glucometer 149H 02/23/23 20:44: Glucometer 183H 02/24/23 04:35: Glucometer 126H 02/24/23 05:37: White Blood Count 9.4, Red Blood Count 4.56, Hemoglobin 13.0L, Hematocrit 41, Mean Corpuscular Volume 90, Mean Corpuscular Hemoglobin 29, Mean Corpuscular Hemoglobin Concent 32, Red Cell Distribution Width 16.1H, Platelet Count 231, Mean Platelet Volume 9.3, Immature Granulocyte % (Auto) 1, Neutrophils (%) (Auto) 68, Lymphocytes (%) (Auto) 15, Monocytes (%) (Auto) 9, Eosinophils (%) (Auto) 6, Basophils (%) (Auto) 1, Neutrophils # (Auto) 6.4, Lymphocytes # (Auto) 1.4, Monocytes # (Auto) 0.8, Eosinophils # (Auto) 0.6H, Basophils # (Auto) 0.1, Immature Granulocyte # (Auto) 0.1, Sodium Level 140, Potassium Level 4.0, Chloride Level 108H, Carbon Dioxide Level 18L, Anion Gap 14, Blood Urea Nitrogen 80H, Creatinine 2.66#H, Estimat Glomerular Filtration Rate 23, BUN/Creatinine Ratio 30, Glucose Level 138H, Calcium Level 8.6 Microbiology 02/17/23 MRSA Screen - Final, Complete MRSA not isolated Laboratory Tests 02/23/23 05:16 02/24/23 05:37 A/P: Assessment: Ac on ch systolic CHF - precipitated by iv fluids for renal failure 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 - managed by [facility] and Surg and Wound services - no evidence of osteomyelitis on CT foot with contrast on 02/17/23 Contrast nephropathy (CT with contrast of the R foot on 02/17/23) on top or CKD 3b - slowly improving CKD stage 3-4 - Cr chronically around 2.2 (Cr 1.4 on 06/15/22) - R renal artery stenosis, per u/s at [facility] on 05/27/16 PAD - u/s of R leg on 02/18/23: distal R tibioperoneal disease with monophasic wav eforms are identified (moderate to moderate severe disease suspected) Severe dilated cardiomyopathy and severe mitral regurg - with an ejection fraction of 15% on echocardiography of November 2011, i mproved after treatment - Echo of 05/26/16 at the [facility]: LVEF 47%, borderline LVE, inf and inf-lat hypokinesis, mod RVE, severe MR (posteriorly directed), mod to sev TR, asc aortic dilatation 43 mm at mid level). - He has not been considered to be a suitable candidate for MV surg or MitraClip at the [facility]. - Last echo was in April 2019 at [facility] LVEF 48%, mod RV enlargement and dysfunction, severe MR, mod TR, RVSP 33 mmHg - Echocardiogram of 04-19-22 showed LVEF 35-40%. Mod diffuse hypokinesis. Grade 3 diastolic dysfunction. LA and RA are severely dilated. Mod to severe mitral regurg. Trivial AoR. Mild to mod TR. PASP 35-40 mmHg - TTE by Dr Lopez at [facility] on 01/24/23: mod dil LV with global hypokinesis and LVEF 20%, moderately dilated R, severe biatrial enlargement, mod sev MR, s evere tricuspid regurg Chronic systolic heart failure, NYHA III - currently clinically compensated Cardiac cachexia, cardiac congestive cirrhosis, and cardiac enteropathy Syncope, likely due to postural hypotension on 06/13/22 and on 11/18/22 Hyperlipidemia - statin tx - managed by PCP Anomalous pulmonary venous return (as mentioned in his letter from the [facility] dated 06/18/16) Chronic atrial fibrillation, longstanding. - Chronic anticoagulation for stroke prophylaxis with Eliquis GI/Surgery - History of bowel surgery that included surgery for incarcerated hernia and surgery of bowel perforation and removal of a segment of small bowel with a significant amount of weight loss postoperatively. Coronary artery disease - with a history of left internal mammary artery graft to left anterior descending and a saphenous vein to left circumflex obtuse marginal system in 1988. (CABG) - Last cardiac catheterization was in February 2009 and has showed severe [place] coronary artery disease with widely patent left internal mammary artery graft to mid left anterior descending and widely patent vein graft to obtuse marginal system of the left circumflex. The right coronary artery was very small. The left ventricular ejection fraction at the time of cardiac catheterization was 25 to 30%. History of pacemaker/ defibrillator implantation - by Dr. Lopez in September 2008. - This was upgraded to a MANAGER CONFIGURATION-D at the [facility] in 2010. - This was replaced at [facility] in February 2019. Replaced again on 09/07/22 Chronic intraventricular conduction delay. Carotid arterial disease - with a history of carotid endarterectomy. - Ultrasound of of January 2017: 50-60% R ICA and 40% LICA stenoses. Ultrasound of 07/29/17: approx 40% R ICA and less than 40% L ICA stenoses - Carotid u/s of 09-21-21: 60-79% R ICA stenosis; less than 40% L ICA stenosis History of anxiety - currently controlled. History of prostate enlargement - managed by Dr Reid Hypertension - controlled Sleep apnea - being treated with C-PAP therapy Plan: * Complex management due to multiple comorbidities * Reduce iv fluids and give furosemide today because of evidence of decomp CHF * SGLT-2 inhib resumed * Resume SGLT-2 RAFFAELE-inhib when allowable from a renal standpoint * Continue anticoag * There does not appear a distinct need for peripheral angiography (disease appears noncritical on u/s). Also not suitable for contrast, given renal failure. Monitor closely * I discussed his case with Dr Pollard this am * I also spoke with the patient and his and answered CV-related questions JAIME NARANJO MD [facility] February 24, 2023 11:06
--- NOTE | 2023-02-24 11:25 | Physical Therapy Daily Note ---
PT Daily Note-Current Subjective Patient agrees to PT. Pain Section J - Health Conditions 1. Rarely or not at all 2. Occasionally 3. Frequently 4. Almost constantly 8. Unable to answer Pain Effect on Sleep: 1 Pain Interference with Therapy: 1 Pain Interference w/Day-to-Day: 1 Mental Status Patient Orientation: Person, Time, Situation Attachments: Quiroz Catheter, IV Transfers SCALE: Activities may be completed with or without assistive devices. 5-Rvfyziphkd-tsgvvoc completes the activity by him/herself with no assistance from a helper. 5-Set-up or Clean-up Assistance-helper sets up or cleans up; patient completes activity. [place] assists only prior to or following the activity. 4-Supervision or Touching Assistance-helper provides verbal cues and/or touching/steadying and/or contact guard assistance as patient completes activity. Assistance may be provided throughout the activity or intermittently. 3-Partial/Moderate Assistance-helper does LESS THAN HALF the effort. [place] lifts, holds or supports trunk or limbs, but provides less than half the effort. 2-Substantial/Maximal Assistance-helper does MORE THAN HALF the effort. [place] lifts or holds trunk or limbs and provides more than half the effort. 2-Sppmmzqpw-sdlwor does ALL the effort. Patient does none of the effort to complete the activity. Or, the assistance of 2 or more helpers is required for the patient to complete the activity. If activity was not attempted, code reason: 7-Patient Refused. 9-Not Applicable-not attempted and the patient did not perform the activity before the current illness, exacerbation or injury. 10-Not Attempted due to Environmental Limitations-(lack of equipment, weather restraints, etc.). 88-Not Attempted due to Medical Conditions or Safety Concerns. Lying to Sitting/Side of Bed(Q: 3 Sit to Stand (QC): 2 Chair/Dxk-pk-Jyjvh Xfer(QC): 2 unable to maintain NWB right foot Weight Bearing Right Lower Extremity: Right Non Weight Bearing Left Lower Extremity: Left Non Weight Bearing Patient reports he was told by Dr. Means not to put weight on either foot, but patient is unsure why he cannot put weight on the left LE Exercises Supine Ex: Ankle pumps, Quad Set, Glut sets, Heel Slides, Straight leg raise Supine Reps: 20 (x 2 sets) Seated Therapy Exercises: Long arc quads Seated Reps: 20 Assessment Patient tolerated exercises and is up in recliner with needs met. Patient less confused on this date. Patient unable to maintain NWB right foot. PT Usp Goals Insole Bottom Filler Goals PT Usp Goals Time Frame: March 19, 2023 Roll Left & Right (QC): 6 Sit to Lying (QC): 6 Lying-Sitting on Side/Bed(QC): 6 Sit to Stand (QC): 4 Chair/Ixz-rh-Aomii Xfer(QC): 4 Toilet Transfer (QC): 4 Does the Patient Walk: No and Walking Goal IS indicated Walk 10 feet (QC): 2 PT Plan Treatment/Plan Treatment Plan: Continue Plan of Care Treatment Plan: Bed Mobility, Education, Functional Activity Jeet, Functional Strength, Group Therapy, Gait, Safety, Therapeutic Exercise, Transfers Treatment Duration: March 19, 2023 Frequency: 6 times per week Estimated Hrs Per Day: .25 hour per day Patient and/or Family Agrees t: Yes Time Time In: 931 Time Out: 954 DATE: February 24, 2023 Total Billed Treatment Time: 23 Total Billed Treatment 1 visit EX x 2 23 min DARELL CHRISTENSEN PT February 24, 2023 11:25
--- NOTE | 2023-02-24 11:45 | Progress Note - Hospitalist ---
Subjective HPI/CC On Admission Date Seen by Provider: February 24, 2023 Edgar Byrne is an 82 year old male with PMH HTN, T2DM, CHF, BPH, depression, who presented with a foot wound. He was direct admitted from Dr. Means's clinic. He has a wound that has been present for a long time, but over the past couple days it worsened. He had it debrided today. He denies fevers. He denies nausea and vomiting. He denies chest pain. He denies shortness of breath. He denies abdominal pain. He has leg swelling. His says it has improved. Subjective/Events-last exam Pt reports doing better today. States his mood is better and he knows he has good days and bad days and today is a good day for his mood. He is about to work with PT. I discussed his labs and status with his when she was in the waiting room this morning. Creatinine improved. Plan to restart normal home meds and if doing well DC to [facility] tomorrow. We briefly discussed his complex medical condition and consideration for [facility]iative Care program. is open to this after things settle at the senior living. Objective Exam Vital Signs Vital Signs Date Time Temp Pulse Resp B/P (MAP) Pulse Ox O2 Delivery O2 Flow Rate FiO2 02/24/23 09:12 95 Room Air 0.00 02/24/23 07:17 36.1 76 20 145/82 (103) Capillary Refill : Less Than 3 Seconds General Appearance: No Apparent Distress, Chronically ill Cardiovascular: Regular Rate, Rhythm, No Murmur Gastrointestinal: Normal Bowel Sounds, Soft Extremity: Pedal Edema (slight bilateral) Neurologic/Psychiatric: Alert, Oriented x3, Normal Mood/Affect Results/Procedures Lab Laboratory Tests 02/24/23 05:37 Patient resulted labs reviewed. Imaging: Reviewed Imaging Report Assessment/Plan Assessment and Plan Assess & Plan/Chief Complaint JENNIFER on CKD Creatinine continues to improve Telenephrology consulted, appreciate recs DC IVF UOP much improved Diabetic Foot Ulcer Type II Diabetes Mellitus I&D done by surgery on 02/18 Requested culture results from [facility] but none available Sliding Scale Insulin Continue oral antibiotics Debility Continue PT/OT Plan to DC to [facility] tomorrow HTN BP well controlled CHF Continue Digoxin Last echo shows EF 35% with grade 3 dHF Cardiology consulted, appreciate recs Farxiga resumed today, DC IVF Resume Lasix Atrial Fibrilation Continue Eliquis- will renally dose Continue Metoprolol BPH Continue Tamsulosin and Proscar Quiroz in place TARAH GUTIERREZ MD February 24, 2023 11:45
--- NOTE | 2023-02-24 11:52 | Occupational Ther Daily Note ---
OT Current Status-Daily Note Subjective PATIENT IN BETTER SPIRITS AND MORE ALERT. Mental Status/Objective Patient Orientation: Person, Place, Time, Situation Attachments: IV ADL-Treatment Therapy Code Descriptions/Definitions Functional [place] Measure: 0=Not Assessed/NA 4=Minimal Assistance 1=Total Assistance 5=Supervision or Setup 2=Maximal Assistance 6=Modified [place] 3=Moderate Assistance 7=Complete IndependenceSCALE: Activities may be completed with or without assistive devices. 5-Ubgnnlrboq-lrauhyi completes the activity by him/herself with no assistance from a helper. 5-Set-up or Clean-up Assistance-helper sets up or cleans up; patient completes activity. [place] assists only prior to or following the activity. 4-Supervision or Touching Assistance-helper provides verbal cues and/or touchin g/steadying and/or contact guard assistance as patient completes activity. Assistance may be provided throughout the activity or intermittently. 3-Partial/Moderate Assistance-helper does LESS THAN HALF the effort. [place] lifts, holds or supports trunk or limbs, but provides less than half the effort. 2-Substantial/Maximal Assistance-helper does MORE THAN HALF the effort. [place] lifts or holds trunk or limbs and provides more than half the effort. 2-Hdlugjwdt-lygpgu does ALL the effort. Patient does none of the effort to complete the activity. Or, the assistance of 2 or more helpers is required for the patient to complete the activity. If activity was not attempted, code reason: 7-Patient Refused. 9-Not Applicable-not attempted and the patient did not perform the activity before the current illness, exacerbation or injury. 10-Not Attempted due to Environmental Limitations-(lack of equipment, weather restraints, etc.). 88-Not Attempted due to Medical Conditions or Safety Concerns. Eating (QC): 6 Oral Hygiene (QC): 5 Shower/Bathe Self (QC): 7 (SET UP FOR SHOWER W/ SHOWER CHAIR W/ NURSING, THERAPY RECOMMENDED ALTERNATE SHOWER CHAIR TO FIT IN SHOWER W/ PATIENT SITITNG) Upper Body Dressing (QC): 4 Lower Body Dressing (QC): 1 On/Off Footwear: 1 Toileting Hygiene (QC): 2 Toilet Transfer (QC): 2 Other Treatment RED THERAPY BAND BUE 10 REPS OFF HORZ. ABD, SHOULDER FLEX/EXT Education OT Patient Education: Correct positioning, Exercise program, Modified ADL techniques, Progress toward Goal/Update tx plan, Purpose of tx/functional act ivities, Reviewed precautions, Rehab process, Safety issues, Transfer techniques, Use of adapted equipment Teaching Recipient: Patient Teaching Methods: Demonstration, Discussion Response to Teaching: Reinforcement Needed OT Senior Living Goals Senior Living Goals Eating (QC): 6 Oral Hygiene (QC): 6 Toileting Hygiene (QC): 4 Shower/Bathe Self (QC): 3 Upper Body Dressing (QC): 4 Lower Body Dressing (QC): 4 On/Off Footwear (QC): 4 1=Demonstrate adherence to instructed precautions during ADL tasks. 2=Patient will verbalize/demonstrate understanding of assistive devices/modifications for ADL. 3=Patient will improve strength/tolerance for activity to enable patient to perform ADL's. OT Education/Plan Problem List/Assessment Assessment: Decreased Safety Aware, Impaired Self-Care Skills Discharge Recommendations Plan/Recommendations: Continue POC Treatment Plan/Plan of Care Treatment,Training & Education: Yes Patient would benefit from OT for education, treatment and training to promote independence in ADL's, mobility, safety and/or upper extremity function for ADL's. Plan of Care: ADL Retraining, Cognitive Retraining, Concurrent Therapy, Functional Mobility, Group Exercise/Act as Ind, UE Funct Exercise/Act, UE Neuromus Re-Ed/Coord Treatment Duration: February 26, 2023 Frequency: 3 times per week (3-5 TIMES PER WEEK) Estimated Hrs Per Day: .25 hour per day Rehab Potential: Fair ALL NEEDS MET Time Start Time: 09:30 Stop Time: 09:53 DATE: February 24, 2023 Total Time Billed (hr/min): 23 Billed Treatment Time ADL, EX 23 MIN CHRISTINE MAGDALENO OT February 24, 2023 11:52
--- NOTE | 2023-02-24 13:35 | Discharge Inst-Skilled Nursing ---
Discharge Inst-Skilled NF Chief Complaint Edgar Byrne is an 82 year old male with PMH HTN, T2DM, CHF, BPH, depression, who presented with a foot wound. He was direct admitted from Dr. Means's clinic. He has a wound that has been present for a long time, but over the past couple days it worsened. He had it debrided today. He denies fevers. He denies nausea and vomiting. He denies chest pain. He denies shortness of breath. He denies abdominal pain. He has leg swelling. His says it has improved. Consult/Follow Up/Orders Skilled NF Admit to: [facility] Certification ([facility]) I certify that SNF services are required to be given on an inpatient basis because of the above named patient's need for senior care care on a continuing basis for the conditions(s) for which he/she was receiving inpatient hospital services prior to his/her transfer to the SNF. Alf Facility Order: Nursing Services, [place]-Evaluate & Treat, Physical Therapy-Evaluate & Treat, Wound Care-Eval/Treat Oxygen Delivery Method: Room Air Discharge Diet: Low Sodium Diet, ADA Diet, Cardiac Diet Daily Activity as Tolerated: Yes New & Resume Previous Orders Tarah Pollard February 24, 2023 13:35 TARAH POLLARD MD February 24, 2023 13:35
[2023-02-24] MEDS ORDERED: SODI475I IR (13:42)
[2023-02-24] MEDS ORDERED: APIX5TAB PO (13:42)
[2023-02-24] MEDS ORDERED: CALC0.5C11 PO (13:42)
[2023-02-24] MEDS ORDERED: DIPH1TAB25 PO (13:42)
[2023-02-24] MEDS ORDERED: CETI10TA17 PO (13:42)
[2023-02-24] MEDS ORDERED: ESCI-2 PO (13:42)
[2023-02-24] MEDS ORDERED: MULT-1136 PO (13:42)
[2023-02-24] MEDS ORDERED: DAPA10TA PO (13:42)
[2023-02-24] MEDS ORDERED: ALLO100T PO (13:42)
[2023-02-24] MEDS ORDERED: AMOX1TAB11 PO (13:42)
[2023-02-24] MEDS ORDERED: FLUT1AER IH (13:42)
[2023-02-24] MEDS ORDERED: DIPH1TAB PO (13:42)
[2023-02-24] MEDS ORDERED: MONT-40 PO (13:42)
[2023-02-24] MEDS ORDERED: GLUC1TAB21 PO (13:42)
[2023-02-24] MEDS ORDERED: ALPR0.254 PO (13:42)
[2023-02-24] MEDS ORDERED: MTP25TSR PO (13:42)
[2023-02-24] MEDS ORDERED: TMSL.4C PO (13:42)
[2023-02-24] MEDS ORDERED: ENAL-66 PO (13:42)
[2023-02-24] MEDS ORDERED: CALC-250 PO (13:42)
[2023-02-24] MEDS ORDERED: NF-SODBICA PO (13:42)
[2023-02-24] MEDS ORDERED: FINA5TAB6 PO (13:42)
[2023-02-24] MEDS ORDERED: SPIR25TA5 PO (13:42)
[2023-02-24] MEDS ORDERED: LACT1CAP7 PO (13:42)
[2023-02-24] MEDS ORDERED: DIGO125T3 PO (13:42)
[2023-02-24] MEDS ORDERED: FURO80TA3 PO (13:42)
[2023-02-24] MEDS ORDERED: OMEG100032 PO (13:42)
[2023-02-24] MEDS ORDERED: FLUT9.9S NSEACH (13:42)
[2023-02-24] MEDS: TAMSULOSIN 0.4 MG (FLOMAX) CAP PO SCH (17:17)
[2023-02-24] MEDS: MONTELUKAST 10 MG (SINGULAIR) TAB PO SCH (20:23)
[2023-02-24] MEDS: DIGOXIN 0.125 MG (LANOXIN) TAB PO SCH (20:23)
[2023-02-25 04:00] VITALS: BP 157/79
[2023-02-25] MEDS: inSUlin ASPART (NovoLOG) 1 UNIT/0.01 ML (CHARGE PER UNIT) SC SCH (05:46)
[2023-02-25 06:04] LABS: BASOPHILS # (AUTO) 0.1 10^3/uL (0.0-0.1); BASOPHILS % (AUTO) 1 % (0-10); EOSINOPHILS # (AUTO) 0.3 10^3/uL (0.0-0.3); EOSINOPHILS % (AUTO) 3 % (0-10); HEMATOCRIT 38 % (40-54); HEMOGLOBIN 12.1 g/dL (13.3-17.7); LYMPHOCYTES # (AUTO) 1.6 10^3/uL (1.0-4.0); LYMPHOCYTES % (AUTO) 16 % (12-44); MEAN CORPUSCULAR HEMOGLOBIN 29 pg (25-34); MEAN CORPUSCULAR HGB CONC 32 g/dL (32-36); MEAN CORPUSCULAR VOLUME 90 fL (80-99); MEAN PLATELET VOLUME 9.3 fL (9.0-12.2); MONOCYTES % (AUTO) 10 % (0-12); NEUTROPHILS # (AUTO) 6.4 10^3/uL (1.8-7.8); NEUTROPHILS % (AUTO) 68 % (42-75); PLATELET COUNT 250 10^3/uL (130-400); WHITE BLOOD COUNT 9.5 10^3/uL (4.3-11.0)
[2023-02-25 06:23] LABS: CALCIUM 8.7 MG/DL (8.5-10.1); CREATININE SERUM 2.55 MG/DL (0.60-1.30); POTASSIUM 4.2 MMOL/L (3.6-5.0)
[2023-02-25] MEDS: FLUTICASONE/VILANTEROL 100 MCG 14'S (BREO) IH SCH (07:25)
[2023-02-25] MEDS: AUGMENTIN 500 MG TAB (AMOXICILLIN/CLAVULANATE) PO SCH (08:50)
[2023-02-25] MEDS: APIXABAN 2.5 MG (ELIQUIS) TABLET PO SCH (08:50)
[2023-02-25] MEDS: LACTOBACILLUS ACIDOPHILUS (PROBIOTIC) CAPSULE PO SCH (08:50)
[2023-02-25] MEDS: SODIUM BICARBONATE 650 MG TABLET PO SCH (08:50)
[2023-02-25] MEDS: EMPAGLIFLOZIN 10 MG TABLET (JARDIANCE) PO SCH (08:50)
[2023-02-25] MEDS: SENNOSIDES 8.6 MG (SENOKOT) TAB PO SCH (08:51)
[2023-02-25] MEDS: DOCUSATE SODIUM 100 MG (COLACE) CAP PO SCH (08:51)
[2023-02-25 08:52] VITALS: BP 161/75
[2023-02-25] MEDS ORDERED: FINASTERIDE (PROSCAR) 5 MG TAB PO SCH (09:00)
[2023-02-25] MEDS ORDERED: FUROSEMIDE 40 MG/4 ML INJ (LASIX) IVP SCH (09:00)
--- NOTE | 2023-02-25 09:37 | Discharge Summary ---
Diagnosis/Chief Complaint Date of Admission Feb 16, 2023 at 11:55 Date of Discharge Discharge Date: February 25, 2023 Admission Diagnosis Diabetic foot infection Primary Care Marek Tamayo DO Discharge Diagnosis (1) Diabetic foot ulcer Status: Acute (2) T2DM (type 2 diabetes mellitus) Status: Acute (3) Acute kidney injury superimposed on chronic kidney disease Status: Acute (4) CHF (congestive heart failure) Status: Chronic (5) Afib Status: Chronic (6) BPH (benign prostatic hyperplasia) Status: Chronic Discharge Summary Procedures/Consulations Surgery Cardiology Nephrology Discharge Physical Exam Allergies: Coded Allergies: No Known Drug Allergies (Verified , 11/24/21) Vitals & I&Os Vital Signs Date Time Temp Pulse Resp B/P (MAP) Pulse Ox O2 Delivery O2 Flow Rate FiO2 02/25/23 10:00 35.8 74 18 161/75 97 Room Air 0.00 General Appearance: No Apparent Distress, Chronically ill Respiratory: Lungs Clear Cardiovascular: Regular Rate, Rhythm Gastrointestinal: Non Tender, Soft Hospital Course Patient was admitted to the hospital secondary to a diabetic foot ulcer with abscess formation. He was seen by surgery and underwent I&D. He was treated with vancomycin and Zosyn and subsequently developed an acute kidney injury likely due to the vancomycin. This was discontinued and his antibiotics were de-escalated. He was treated with IV fluids cautiously given his history of heart failure. His creatinine improved and his home medications were restarted. He did require some subsequent Lasix following hydration for his JENNIFER but had a good response to this. In discussions with his regarding his multiple chronic medical illnesses we discussed the natural course of these and that while he does not seem appropriate for hospice at this time he could benefit from the palliative care bridge program they were interested in this. A referral was placed. In the interim he was discharged to [facility] for skilled therapies in hopes of returning home once functional status is improved. Labs (last 24 hrs) Microbiology 02/17/23 MRSA Screen - Final, Complete MRSA not isolated Patient resulted labs reviewed. Pending Labs Imaging: Reviewed Imaging Report Discussion & Recommendations Discharge Planning: >30 minutes discharge planning Discharge Home Medications: Active Scripts Active Vashe Wound Therapy Solution (Sodium Chlor/Hypochlorous Acid) 0.033 % Irrig.soln 0 Ml IR BID PRN for dressing changes Acidophilus-Pectin Capsule (Lactobacillus Acidophilus/Pect) 75 Million Cell-100 Mg Capsule 1 Each PO TIDWM Sodium Bicarbonate 650 Mg Tablet 650 Mg PO TID Amox Tr-K Clv 500-125 mg Tab (Amoxicillin/Potassium Clav) 500 Mg-125 Mg Tablet 500 Mg PO BID ALPRAZolam 0.25 Mg Tablet 0.25 Mg PO HS PRN Metoprolol Succinate 25 Mg Tab.er.24h 25 Mg PO DAILY Enalapril Maleate 5 Mg Tablet 2.5 Mg PO BID Glucosamine Chondroitin Tab (Gluc [place]/Chondro [place] A/Vit C/Mn) 750 Mg-600 Mg-55 Mg- 5 Mg Tablet 1 Each PO DAILY Lomotil 2.5-0.025 mg Tablet (Diphenoxylate HCl/Atropine) 2.5 Mg-0.025 Mg Tablet 1 Each PO HS PRN Diphenoxylate-Atrop 2.5-0.025 (Diphenoxylate HCl/Atropine) 2.5 Mg-0.025 Mg Tablet 1 Ea PO DAILY Spironolactone 25 Mg Tablet 25 Mg PO Q48H @HS Calcitriol 0.5 Mcg Capsule 0.5 Mcg PO WED Furosemide 80 Mg Tablet 40 Mg PO DAILY Multivitamin 1 Each Tablet 1 Each PO DAILY Breo Ellipta 100-25 Mcg INH (Fluticasone/Vilanterol) 100 Mcg-25 Mcg/Dose Blst.w.dev 1 Each IH DAILY Eliquis (Apixaban) 5 Mg Tablet 2.5 Mg PO BID Flomax (Tamsulosin HCl) 0.4 Mg Cap 0.4 Mg PO HS Fish Oil 1,000 mg Softgel ([place]-3/Dha/Epa/Fish Oil) 1,000 Mg (120 Mg-180 Mg) Capsule 1,000 Mg PO HS Montelukast Sodium 10 Mg Tablet 10 Mg PO HS Flonase Allergy Relief (Fluticasone Propionate) 50 Mcg/Actuation [place].susp 2 [place] NSEACH DAILY Farxiga (Dapagliflozin Propanediol) 10 Mg Tablet 10 Mg PO DAILY Vitamin D3 (Cholecalciferol (Vitamin D3)) 125 Mcg (5000 Unit) Tablet 125 Mcg PO MON,WED,SAT Cetirizine HCl 10 Mg Tablet 10 Mg PO HS Allopurinol 100 Mg Tablet 100 Mg PO DAILY Digoxin 125 Mcg (0.125 Mg) Tablet 125 Mcg PO HS Finasteride 5 Mg Tablet 5 Mg PO HS Escitalopram Oxalate 10 Mg Tablet 10 Mg PO DAILY Instructions to patient/family Please see electronic discharge instructions given to patient. Problem Qualifiers (1) T2DM (type 2 diabetes mellitus): Diabetes mellitus skilled nursing insulin use: with skilled nursing use Diabetes mellitus complication status: with skin complications Diabetes mellitus complication detail: with foot ulcer Qualified Codes: E11.621 - Type 2 diabetes mellitus with foot ulcer; L97.509 - Non-pressure chronic ulcer of other part of unspecified foot with unspecified severity; Z79.4 - USP (current) use of insulin TARAH GUTIERREZ MD February 25, 2023 09:37
[2023-02-25 10:00] VITALS: BP 161/75
--- NOTE | 2023-02-25 17:56 | Physician Query Clarification ---
Physician Query-General Query to Physician: The medical record reflects the following clinical scenario: The patient, in the setting of History/Risk factors, Documentation of Chronic Systolic Heart failure, on admission documented to be "clinically compensated", Clinical Findings Per Dr. Villatoro Acute on chronic systolic CHF " precipitated by IV fluids for renal failure", Wt increased by 8.4 Kg from admission wt. 1+ pitting edema lower extremities on the 02/25, Cr increased since admission despite IV fluids, Treatment IV Lasix given on 02/24 and 02/25, Lasix 80 mg PO above normal daily dose of 40 mg per day, I and O, Daily wt, Question: Do you agree with the impression of Acute on Chronic Systolic CHF per Dr. Malena Villatoro? Yes; will document Acute on Chronic Systolic Heart Failure in the Progress Notes No; will continue current documentation in the Progress Notes Other; will document explanation of clinical findings Clinically undetermined; no explanation for clinical findings Please clarify and document your clinical opinion in the Progress Notes and Discharge Summary including the definitive and/or presumptive diagnosis, (suspected or probable), related to the above clinical findings. Please include clinical findings supporting your diagnosis. In responding to this query, please exercise your independent professional judgment. The purpose of this communication is to more accurately reflect the complexity of your patients condition. The fact that a question is asked does not imply that any particular answer is desired or expected. Thank you for timely response to this clarification. Tammy Cook, MSN, RN Clinical Parking Enforcement Officer [phone] [email or web address] PHYSICIAN RESPONSE: Based on the clinical findings in the record, please respond to the query above on this document as an addendum. Physician Response: Physician Response Yes I agree with acute on chronic CHF If you have questions please contact: Conformal Pad Former: Ext: Thank you for your time and cooperation. Clinical Parking Enforcement Officer/Conformal Pad Former This is a permanent part of the medical record TAMMY COOK February 25, 2023 17:56 TARAH GUTIERREZ MD February 26, 2023 10:40
== END 2023-02-25 11:05 | DRG 622 ==
LOC: 4TH 11:55
PROVIDERS: ADMIT Internal Medicine; ATTEND Internal Medicine
PROC: 0JBR0ZZ Excision of Left Foot Subcutaneous Tissue and Fascia, Open Approach (ICD-10-PCS; principal; 2023-02-18 10:03)
DX: E11.621 Type 2 diabetes mellitus with foot ulcer (principal); I50.23 Acute on chronic systolic (congestive) heart failure; L02.612 Cutaneous abscess of left foot; I48.20 Chronic atrial fibrillation, unspecified; I13.0 Hypertensive heart and chronic kidney disease with heart failure and stage 1 through stage 4 chronic kidney disease, or unspecified chronic kidney disease; E87.20 Acidosis, unspecified; I42.0 Dilated cardiomyopathy; R64 Cachexia; L97.521 Non-pressure chronic ulcer of other part of left foot limited to breakdown of skin; Z79.4 Long term (current) use of insulin; N17.9 Acute kidney failure, unspecified; N40.0 Benign prostatic hyperplasia without lower urinary tract symptoms; T36.8X5A Adverse effect of other systemic antibiotics, initial encounter; F32.A Depression, unspecified; R53.81 Other malaise; Z79.01 Long term (current) use of anticoagulants; Z79.899 Other long term (current) drug therapy; E11.51 Type 2 diabetes mellitus with diabetic peripheral angiopathy without gangrene; J44.9 Chronic obstructive pulmonary disease, unspecified; Z95.5 Presence of coronary angioplasty implant and graft; Z95.810 Presence of automatic (implantable) cardiac defibrillator; I25.10 Atherosclerotic heart disease of native coronary artery without angina pectoris; E78.00 Pure hypercholesterolemia, unspecified; M19.90 Unspecified osteoarthritis, unspecified site; F41.9 Anxiety disorder, unspecified; D64.9 Anemia, unspecified; Z87.891 Personal history of nicotine dependence; Z95.1 Presence of aortocoronary bypass graft; I34.0 Nonrheumatic mitral (valve) insufficiency; N18.4 Chronic kidney disease, stage 4 (severe); I77.9 Disorder of arteries and arterioles, unspecified; G47.30 Sleep apnea, unspecified; Z68.31 Body mass index [BMI] 31.0-31.9, adult
CPT/HCPCS: 36415; 71045; 73630; 73701; 80048; 80162; 80202; 82947; 83036; 84134; 84550; 85007; 85025; 85027; 85652; 86141; 87081; 88304; 93926; 94640; 94760

== ENCOUNTER → 2023-03-01 | Outpatient (CLI) | payer MEDICARE ==
[~2023-03-01] MED LIST changes: +ALPR0.254 PO; +AMOX1TAB11 PO; +DIPH1TAB PO; +DIPH1TAB25 PO; +LACT1CAP7 PO; +NF-SODBICA PO; +SODI475I IR
[2023-03-01 20:41] LABS: BASOPHILS # (AUTO) 0.1 10^3/uL (0.0-0.1); BASOPHILS % (AUTO) 1 % (0-10); EOSINOPHILS # (AUTO) 0.4 10^3/uL (0.0-0.3); EOSINOPHILS % (AUTO) 3 % (0-10); HEMATOCRIT 38 % (40-54); HEMOGLOBIN 11.8 g/dL (13.3-17.7); LYMPHOCYTES # (AUTO) 1.4 10^3/uL (1.0-4.0); LYMPHOCYTES % (AUTO) 9 % (12-44); MEAN CORPUSCULAR HEMOGLOBIN 29 pg (25-34); MEAN CORPUSCULAR HGB CONC 31 g/dL (32-36); MEAN CORPUSCULAR VOLUME 93 fL (80-99); MEAN PLATELET VOLUME 10.2 fL (9.0-12.2); MONOCYTES # (AUTO) 1.3 10^3/uL (0.0-1.0); MONOCYTES % (AUTO) 9 % (0-12); NEUTROPHILS # (AUTO) 11.2 10^3/uL (1.8-7.8); NEUTROPHILS % (AUTO) 78 % (42-75); PLATELET COUNT 284 10^3/uL (130-400); WHITE BLOOD COUNT 14.4 10^3/uL (4.3-11.0)
[2023-03-01 21:05] LABS: ANISOCYTOSIS SLIGHT; EOSINOPHILS % (MANUAL) 1 %; LYMPHOCYTES % (MANUAL) 7 %; MONOCYTES % (MANUAL) 12 %; NEUTROPHILS % (MANUAL) 80 %; PLATELET ESTIMATE NORMAL
== END ==
LOC: LAB 20:19
PROVIDERS: ATTEND Family Medicine
DX: D64.9 Anemia, unspecified (principal)
CPT/HCPCS: 36415; 82274; 85007; 85027

== ENCOUNTER 2023-03-02 15:40 | Emergency (ER) | payer MEDICARE ==
[~2023-03-02] VITALS: Ht 177.8 cm; Wt 77.6 kg
[2023-03-02 16:11] LABS: BASOPHILS # (AUTO) 0.1 10^3/uL (0.0-0.1); BASOPHILS % (AUTO) 1 % (0-10); EOSINOPHILS # (AUTO) 0.4 10^3/uL (0.0-0.3); EOSINOPHILS % (AUTO) 3 % (0-10); HEMATOCRIT 35 % (40-54); HEMOGLOBIN 10.8 g/dL (13.3-17.7); LYMPHOCYTES # (AUTO) 1.6 10^3/uL (1.0-4.0); LYMPHOCYTES % (AUTO) 11 % (12-44); MEAN CORPUSCULAR HEMOGLOBIN 29 pg (25-34); MEAN CORPUSCULAR HGB CONC 31 g/dL (32-36); MEAN CORPUSCULAR VOLUME 93 fL (80-99); MEAN PLATELET VOLUME 9.3 fL (9.0-12.2); MONOCYTES # (AUTO) 1.4 10^3/uL (0.0-1.0); MONOCYTES % (AUTO) 10 % (0-12); NEUTROPHILS # (AUTO) 10.2 10^3/uL (1.8-7.8); NEUTROPHILS % (AUTO) 75 % (42-75); PLATELET COUNT 262 10^3/uL (130-400); WHITE BLOOD COUNT 13.8 10^3/uL (4.3-11.0)
[2023-03-02 16:14] LABS: ALBUMIN 3.4 GM/DL (3.2-4.5)
[2023-03-02 16:15] LABS: POTASSIUM 4.2 MMOL/L (3.6-5.0)
[2023-03-02 16:16] LABS: CALCIUM 8.9 MG/DL (8.5-10.1)
[2023-03-02 16:17] LABS: TOTAL PROTEIN 6.9 GM/DL (6.4-8.2)
[2023-03-02 16:19] LABS: BILIRUBIN,TOTAL 1.2 MG/DL (0.1-1.0)
[2023-03-02 16:21] LABS: CREATININE SERUM 1.94 MG/DL (0.60-1.30)
--- NOTE | 2023-03-02 16:23 | ED GI ---
General Chief Complaint: Abdominal/GI Problems Stated Complaint: POSSIBLE GI BLEED Nursing Triage Note: PT TO ED BY EMS FROM [facility] WITH C/O DARK, TARRY STOOLS AND DECREASED HGB. PT REPORTS DARK TARRY STOOLS X 5 DAYS. DENIES ABD PAIN, N/V/D, DIZZINESS, OR ANY OTHER SX AT THIS TIME. PT HGB 10.9 THIS MORNING AND HAD POSITIVE FECAL OCCULT. Source of Information: Patient Exam Limitations: No Limitations History of Present Illness Date Seen by Provider: March 02, 2023 Time Seen by Provider: 16:05 Initial Comments 82-year-old male presents to the ER via EMS from [facility] is for black tarry stools and decrease in hemoglobin. Patient reports has had black tarry stools over the last 5 to 6 days. Labs from [facility] does show his hemoglobin went from 11.8 yesterday at 8 PM to 10.9 this morning at 11 AM a pproximately 15 hours later. Patient reports some abdominal pain after having a bowel movement. Denies fevers, chest pain, shortness of air, nausea, vomiting, diarrhea, dizziness. arrived later and voiced concerns that patient has had frequent urination. Patient denies dysuria. Patient is incontinent of urine at times, wears a brief. Allergies and Home Medications Allergies Coded Allergies: No Known Drug Allergies (Verified , 11/24/21) Patient Home Medication List Home Medication List Reviewed: Yes ALPRAZolam (ALPRAZolam) 0.25 Mg Tablet, 0.25 MG PO HS PRN for SLEEP Prescribed by: TARAH GUTIERREZ on 02/24/23 1343 Allopurinol (Allopurinol) 100 Mg Tablet, 100 MG PO DAILY Prescribed by: TARAH GUTIERREZ on 02/24/23 1342 Amoxicillin/Potassium Clav (Amox Tr-K Clv 500-125 mg Tab) 500 Mg-125 Mg Tablet, 500 MG PO BID Prescribed by: TARAH GUTIERREZ on 02/24/23 1342 Apixaban (Eliquis) 5 Mg Tablet, 2.5 MG PO BID Prescribed by: TARAH GUTIERREZ on 02/24/23 1342 Calcitriol (Calcitriol) 0.5 Mcg Capsule, 0.5 MCG PO WED Prescribed by: TARAH GUTIERREZ on 02/24/23 1342 Cetirizine HCl (Cetirizine HCl) 10 Mg Tablet, 10 MG PO HS Prescribed by: TARAH GUTIERREZ on 02/24/23 134 Cholecalciferol (Vitamin D3) (Vitamin D3) 125 Mcg (5000 Unit) Tablet, 125 MCG PO MON,WED,SAT Prescribed by: TARAH GUTIERREZ on 02/24/23 134 Dapagliflozin Propanediol (Farxiga) 10 Mg Tablet, 10 MG PO DAILY Prescribed by: TARAH GUTIERREZ on 02/24/23 134 Digoxin (Digoxin) 125 Mcg (0.125 Mg) Tablet, 125 MCG PO HS Prescribed by: TARAH GUTIERREZ on 02/24/23 134 Diphenoxylate HCl/Atropine (Diphenoxylate-Atrop 2.5-0.025) 2.5 Mg-0.025 Mg Tablet, 1 EA PO DAILY Prescribed by: TARAH GUTIERREZ on 02/24/23 134 Diphenoxylate HCl/Atropine (Lomotil 2.5-0.025 mg Tablet) 2.5 Mg-0.025 Mg Tablet, 1 EACH PO HS PRN for DIARRHEA Prescribed by: TARAH GUTIERREZ on 02/24/23 134 Enalapril Maleate (Enalapril Maleate) 5 Mg Tablet, 2.5 MG PO BID Prescribed by: TARAH GUTIERREZ on 02/24/23 134 Escitalopram Oxalate (Escitalopram Oxalate) 10 Mg Tablet, 10 MG PO DAILY Prescribed by: TARAH GUTIERREZ on 02/24/23 134 Finasteride (Finasteride) 5 Mg Tablet, 5 MG PO HS Prescribed by: TARAH GUTIERREZ on 02/24/23 134 Fluticasone Propionate (Flonase Allergy Relief) 50 Mcg/Actuation Joaquin.susp, 2 SPRAY NSEACH DAILY Prescribed by: TARAH GUTIERREZ on 02/24/23 134 Fluticasone/Vilanterol (Breo Ellipta 100-25 Mcg INH) 100 Mcg-25 Mcg/Dose Blst.w.dev, 1 EACH IH DAILY Prescribed by: TARAH GUTIERREZ on 02/24/23 134 Furosemide (Furosemide) 80 Mg Tablet, 40 MG PO DAILY Prescribed by: TARAH GUTIERREZ on 02/24/23 134 Gluc Webster/Chondro Webster A/Vit C/Mn (Glucosamine Chondroitin Tab) 750 Mg-600 Mg-55 Mg- 5 Mg Tablet, 1 EACH PO DAILY Prescribed by: TARAH GUTIERREZ on 02/24/23 134 Lactobacillus Acidophilus/Pect (Acidophilus-Pectin Capsule) 75 Million Cell-100 Mg Capsule, 1 EACH PO TIDWM Prescribed by: TARAH GUTIERREZ on 02/24/23 134 Metoprolol Succinate (Metoprolol Succinate) 25 Mg Tab.er.24h, 25 MG PO DAILY Prescribed by: TARAH GUTIERREZ on 02/24/23 134 Montelukast Sodium (Montelukast Sodium) 10 Mg Tablet, 10 MG PO HS Prescribed by: TARAH GUTIERREZ on 02/24/23 134 Multivitamin (Multivitamin) 1 Each Tablet, 1 EACH PO DAILY Prescribed by: TARAH GUTIERREZ on 02/24/23 134 Bimble-3/Dha/Epa/Fish Oil (Fish Oil 1,000 mg Softgel) 1,000 Mg (120 Mg-180 Mg) Capsule, 1,000 MG PO HS Prescribed by: TARAH GUTIERREZ on 02/24/23 134 Sodium Bicarbonate (Sodium Bicarbonate) 650 Mg Tablet, 650 MG PO TID Prescribed by: TARAH GUTIERREZ on 02/24/23 134 Sodium Chlor/Hypochlorous Acid (Vashe Wound Therapy Solution) 0.033 % Irrig.soln, 0 ML IR BID PRN for IRRIGATION Prescribed by: TARAH GUTIERREZ on 02/24/23 134 Spironolactone (Spironolactone) 25 Mg Tablet, 25 MG PO Q48H @HS Prescribed by: TARAH GUTIERREZ on 02/24/23 134 Tamsulosin HCl (Flomax) 0.4 Mg Cap, 0.4 MG PO HS Prescribed by: TARAH GUTIERREZ on 02/24/23 134 Review of Systems Review of Systems Constitutional: see HPI Past Tldnegg-Naukry-Clgktv Hx Patient Social History Tobacco Use?: No Smoking Status: Former Smoker Use of E-Cig and/or Vaping dev: No Substance use?: No Alcohol Use?: No Pt feels they are or have been: No Immunizations Up To Date Influenza Vaccine Up-to-Date: Yes; Up-to-Date First/Initial COVID19 Vaccinat: X4 Second COVID19 Vaccination Eder: X4 Third COVID19 Vaccination Date: X4 Seasonal Allergies Seasonal Allergies: Yes Past Medical History Surgery/Hospitalization HX: Open heart bypass; Carotid artery stent; renal stent x2; tonsilectomy; pacemaker/defib placement x2; gallbladder removed and hernia repair Medical history: CHF; AFIB; Cardiomegaly; Left rotator cuff injury; diabetic ulcer to right foot; DM; PVD; COPD; CPAP; SOA; [place]; Stage 3 kidney disease with improvement due to new medications; Cardiac cirrohsis; frequent stools Surgeries: Yes (carotid; pacemaker; defibrillator; stent; open heart surgery) Cardiac, CABG, Coronary Stent, Defibrillator, Pacemaker, Vascular Surgery Respiratory: Yes (asthma, MILD COPD) Asthma, Pneumonia, Sleep Apnea, COPD Currently Using CPAP: No Currently Using BIPAP: No Cardiac: Yes (POSSIBLE HEART ATTACK PER DR. NARANJO) Atrial Fibrillation, Coronary Artery Disease, High Cholesterol, Hypertension, Syncope, Valvular Heart Disease Neurological: No Reproductive Disorders: No Genitourinary: Yes (STAGE 3) Renal Failure Gastrointestinal: Yes (HERNIA REPAIR, 3-4 MONTHS FREQUENT BM'S) Musculoskeletal: Yes Degenerate Disk Disease, Arthritis Endocrine: Yes Diabetes, Non-Insulin dep HEENT: Yes Hearing Impairment: Hard of Hearing, Bilateral Hearing Aide Cancer: No Psychosocial: No Anxiety Integumentary: No Blood Disorders: No Family Medical History Hypertension Physical Exam Vital Signs Vital Signs - First Documented 03/02/23 15:40 Temp 35.9 Pulse 75 Resp 14 B/P (MAP) 135/71 (92) Pulse Ox 96 O2 Delivery Room Air Capillary Refill : Less Than 3 Seconds Height/Weight/BMI Height: 5'10.00" Weight: 198lbs. 0.0oz. [id number]; 24.00 BMI Method:Stated General Appearance: WD/WN, no apparent distress Neck: supple, normal inspection Respiratory: lungs clear, normal breath sounds, no respiratory distress, no accessory muscle use Cardiovascular: regular rate, rhythm, systolic murmur Gastrointestinal: normal bowel sounds, non tender, soft Genital/Rectal: normal rectal exam, heme positive stool, other (Stool brown in color, no bright red blood, no external hemorrhoids visualized, no internal hemorrhoids palpated) Neurologic/Psychiatric: alert, normal mood/affect Skin: normal color, warm/dry Progress/Results/Core Measures Results/Orders Lab Results Laboratory Tests Test 03/02/23 15:50 03/02/23 18:08 Range/Units White Blood Count 13.8 H 4.3-11.0 10^3/uL Red Blood Count 3.78 L 4.30-5.52 10^6/uL Hemoglobin 10.8 L 13.3-17.7 g/dL Hematocrit 35 L 40-54 % Mean Corpuscular Volume 93 80-99 fL Mean Corpuscular Hemoglobin 29 25-34 pg Mean Corpuscular Hemoglobin Concent 31 L 32-36 g/dL Red Cell Distribution Width 16.4 H 10.0-14.5 % Platelet Count 262 130-400 10^3/uL Mean Platelet Volume 9.3 9.0-12.2 fL Immature Granulocyte % (Auto) 0 % Neutrophils (%) (Auto) 75 42-75 % Lymphocytes (%) (Auto) 11 L 12-44 % Monocytes (%) (Auto) 10 0-12 % Eosinophils (%) (Auto) 3 0-10 % Basophils (%) (Auto) 1 0-10 % Neutrophils # (Auto) 10.2 H 1.8-7.8 10^3/uL Lymphocytes # (Auto) 1.6 1.0-4.0 10^3/uL Monocytes # (Auto) 1.4 H 0.0-1.0 10^3/uL Eosinophils # (Auto) 0.4 H 0.0-0.3 10^3/uL Basophils # (Auto) 0.1 0.0-0.1 10^3/uL Immature Granulocyte # (Auto) 0.1 0.0-0.1 10^3/uL Sodium Level 139 135-145 MMOL/L Potassium Level 4.2 3.6-5.0 MMOL/L Chloride Level 98 98-107 MMOL/L Carbon Dioxide Level 25 21-32 MMOL/L Anion Gap 16 H 5-14 MMOL/L Blood Urea Nitrogen 53 H 7-18 MG/DL Creatinine 1.94 H 0.60-1.30 MG/DL Estimat Glomerular Filtration Rate 34 BUN/Creatinine Ratio 27 Glucose Level 99 70-105 MG/DL Calcium Level 8.9 8.5-10.1 MG/DL Corrected Calcium 9.4 8.5-10.1 MG/DL Total Bilirubin 1.2 H 0.1-1.0 MG/DL Aspartate Amino Transf (AST/SGOT) 20 5-34 U/L Alanine Aminotransferase (ALT/SGPT) 22 0-55 U/L Alkaline Phosphatase 236 H 40-136 U/L Total Protein 6.9 6.4-8.2 GM/DL Albumin 3.4 3.2-4.5 GM/DL Urine Color YELLOW Urine Clarity SL CLOUDY Urine pH 8.0 5-9 Urine Specific [place] 1.010 L 1.016-1.022 Urine Protein NEGATIVE NEGATIVE Urine Glucose (UA) 2+ H NEGATIVE Urine Ketones NEGATIVE NEGATIVE Urine Nitrite NEGATIVE NEGATIVE Urine Bilirubin NEGATIVE NEGATIVE Urine Urobilinogen 0.2 < = 1.0 MG/DL Urine Leukocyte Esterase NEGATIVE NEGATIVE Urine RBC (Auto) NEGATIVE NEGATIVE Urine RBC NONE /HPF Urine WBC NONE /HPF Urine Squamous Epithelial Cells NONE /HPF Urine Crystals NONE /LPF Urine Bacteria NEGATIVE /HPF Urine Casts NONE /LPF Urine Mucus NEGATIVE /LPF Urine Culture Indicated NO My Orders Orders - EMMETT LUND APRN Comprehensive Metabolic Panel (03/02/23 16:04) Cbc With Automated Diff (03/02/23 16:04) Fecal Occult Bedside (03/02/23 16:04) Urinalysis (03/02/23 16:30) Pantoprazole Injection (Protonix Injecti (03/02/23 18:45) Vital Signs/I&O 03/02/23 03/02/23 15:40 19:09 Temp 35.9 36.7 Pulse 75 76 Resp 14 16 B/P (MAP) 135/71 (92) 118/75 Pulse Ox 96 97 O2 Delivery Room Air Room Air Blood Pressure Mean: 92 Progress Progress Note : Progress Note Patient seen and evaluated, resting comfortably in bed, no acute distress. Work-up initiated including CBC, CMP, fecal occult blood, UA. Labs reviewed. WBC elevateddd 13.8, hemoglobin remains stable at 10.8, hematocrit 35. CMP shows BUN 53, creatinine 1.94, and GFR 34. These are improved from previous labs. UA negative for infection. Fecal occult positive. Results d iscussed with patient and . I informed them that the next step is to follow up with Dr. Rodríguez for a colonoscopy and endoscopy. Patient reports he had a poor outcome after his last colonoscopy and states he will not have another one. I discussed the important of this test. I will give one dose of IV protonix before discharge. Patient was already started on oral protonix today by his primary care provider. Discharge instructions and return precautions provided. Departure Impression Primary Impression: GI bleed Disposition: HOME, SELF-CARE Condition: Stable Departure-Patient Inst. Decision time for Depature: 18:32 Referrals: NICHOLAS OLIVEROS DO (PCP/Family) Primary Care Physician RACHEL RODRÍGUEZ MD Patient Instructions: Gastrointestinal Bleeding (DC) Add. Discharge Instructions: Continue taking your Protonix as prescribed. Follow-up with Dr. Naranjo regarding your Eliquis. Follow-up with Dr. Oliveros. Follow-up with Dr. Rodríguez to discuss your gastrointestinal bleed. Return for dizziness, passing out, chest pain, shortness of air, or any other new, concerning, or worsening symptoms. All discharge instructions reviewed with patient and/or family. Voiced understanding. EMMETT LUND APRN March 02, 2023 16:23
[2023-03-02 18:11] LABS: BILIRUBIN,URINE NEGATIVE (NEGATIVE); CLARITY,URINE SL CLOUDY; COLOR,URINE YELLOW; GLUCOSE, URINE (UA) 2+ (NEGATIVE); KETONES,URINE NEGATIVE (NEGATIVE); LEUKOCYTE ESTERASE ,URINE NEGATIVE (NEGATIVE); NITRITE,URINE NEGATIVE (NEGATIVE); PROTEIN,URINE NEGATIVE (NEGATIVE)
[2023-03-02 18:21] LABS: BACTERIA,URINE NEGATIVE /HPF
[2023-03-02] MEDS ORDERED: PANTOPRAZOLE 40 MG (PROTONIX) VIAL IV ONE (18:45)
[2023-03-02 19:09] VITALS: BP 118/75
== END 2023-03-02 19:15 | disposition home or self-care (01) ==
LOC: EDUNIT# 15:40 → ER 15:42
DX: K92.1 Melena (principal); D72.829 Elevated white blood cell count, unspecified; Z87.891 Personal history of nicotine dependence; Z90.49 Acquired absence of other specified parts of digestive tract; Z98.890 Other specified postprocedural states
CPT/HCPCS: 36415; 80053; 81000; 82274; 85025

== ENCOUNTER → 2023-03-10 | Outpatient (CLI) | payer MEDICARE | LOC: LABNPT 16:28 | PROVIDERS: ATTEND Family Medicine | DX: I10 Essential (primary) hypertension (principal); D64.9 Anemia, unspecified | CPT/HCPCS: 82274 ==

== ENCOUNTER 2023-04-12 09:25 | Emergency (ER) | payer MEDICARE ==
[~2023-04-12] VITALS: Ht 177.8 cm; Wt 78.9 kg
[2023-04-12 10:14] LABS: BASOPHILS # (AUTO) 0.1 10^3/uL (0.0-0.1); BASOPHILS % (AUTO) 1 % (0-10); EOSINOPHILS # (AUTO) 0.2 10^3/uL (0.0-0.3); EOSINOPHILS % (AUTO) 2 % (0-10); HEMATOCRIT 41 % (40-54); HEMOGLOBIN 12.1 g/dL (13.3-17.7); LYMPHOCYTES # (AUTO) 1.3 10^3/uL (1.0-4.0); LYMPHOCYTES % (AUTO) 12 % (12-44); MEAN CORPUSCULAR HEMOGLOBIN 27 pg (25-34); MEAN CORPUSCULAR HGB CONC 30 g/dL (32-36); MEAN CORPUSCULAR VOLUME 89 fL (80-99); MEAN PLATELET VOLUME 9.5 fL (9.0-12.2); MONOCYTES # (AUTO) 1.3 10^3/uL (0.0-1.0); MONOCYTES % (AUTO) 11 % (0-12); NEUTROPHILS # (AUTO) 8.7 10^3/uL (1.8-7.8); NEUTROPHILS % (AUTO) 74 % (42-75); PLATELET COUNT 283 10^3/uL (130-400); WHITE BLOOD COUNT 11.7 10^3/uL (4.3-11.0)
[2023-04-12 10:23] LABS: ALBUMIN 3.6 GM/DL (3.2-4.5)
[2023-04-12 10:24] LABS: POTASSIUM 4.7 MMOL/L (3.6-5.0)
[2023-04-12 10:25] LABS: CALCIUM 8.7 MG/DL (8.5-10.1)
[2023-04-12 10:26] LABS: TOTAL PROTEIN 7.9 GM/DL (6.4-8.2)
[2023-04-12 10:30] LABS: CREATININE SERUM 1.78 MG/DL (0.60-1.30)
--- NOTE | 2023-04-12 10:33 | ED Lower Extremity ---
General Chief Complaint: Lower Extremity Stated Complaint: LT LEG PAIN Nursing Triage Note: patient c/o increased redness, swelling and pain when touched in his left lower extremity. redness started this am. Dr Villatoro's office recommended patient be seen in ED this am. Source: patient, family Exam Limitations: no limitations (RYAN CAMPO) History of Present Illness Date Seen by Provider: Apr 12, 2023 Time Seen by Provider: 10:02 Initial Comments Pt is a 82 year old male, who was referred to the ED by Lesley Molina APRN, from Dr. Villatoro's office for acute onset of redness of his lower left extremity, in the presents of chronic pedal edema. Pt's family member states that the redness started yesterday and she noticed that his leg was weeping this morning, which prompted her to contact Dr. Villatoro's office. Pt presents with bilateral pedal edema, 2+ up to knee, and apparent cellulitis of lower 1/3 of left extremity. Erythematous changes, tightness and weeping noted of the medial of the mac, circumferential to posterior calf. Pt report tenderness upon palpation of lower extremity. Palatable dorsal pedal pulse 2+ and posterior tibial 2+, delayed capillary of 4 seconds noted. (RYAN CAMPO) Allergies and Home Medications Allergies Coded Allergies: No Known Drug Allergies (Verified , 11/24/21) Patient Home Medication List Home Medication List Reviewed: Yes (ALYSON CASTILLO MD) ALPRAZolam (ALPRAZolam) 0.25 Mg Tablet, 0.25 MG PO HS PRN for SLEEP Prescribed by: TARAH UGTIERREZ on 02/24/23 1343 Allopurinol (Allopurinol) 100 Mg Tablet, 100 MG PO DAILY Prescribed by: TARAH GUTIERREZ on 02/24/23 1342 Amoxicillin/Potassium Clav (Amox Tr-K Clv 500-125 mg Tab) 500 Mg-125 Mg Tablet, 500 MG PO BID Prescribed by: TARAH GUTIERREZ on 02/24/23 1342 Apixaban (Eliquis) 5 Mg Tablet, 2.5 MG PO BID Prescribed by: TARAH GUTIERREZ on 02/24/23 1342 Calcitriol (Calcitriol) 0.5 Mcg Capsule, 0.5 MCG PO WED Prescribed by: TARAH GUTIERREZ on 02/24/23 1342 Cephalexin (Cephalexin) 500 Mg Tablet, 500 MG PO TID Prescribed by: ALYSON LOPEZ on 04/12/23 1135 Cetirizine HCl (Cetirizine HCl) 10 Mg Tablet, 10 MG PO HS Prescribed by: TARAH GUTIERREZ on 02/24/23 1342 Cholecalciferol (Vitamin D3) (Vitamin D3) 125 Mcg (5000 Unit) Tablet, 125 MCG PO MON,TUE,SAT Prescribed by: TARAH GUTIERREZ on 02/24/23 1342 Dapagliflozin Propanediol (Farxiga) 10 Mg Tablet, 10 MG PO DAILY Prescribed by: TARAH GUTIERREZ on 02/24/23 1342 Digoxin (Digoxin) 125 Mcg (0.125 Mg) Tablet, 125 MCG PO HS Prescribed by: TARAH GUTIERREZ on 02/24/23 1342 Diphenoxylate HCl/Atropine (Diphenoxylate-Atrop 2.5-0.025) 2.5 Mg-0.025 Mg Tablet, 1 EA PO DAILY Prescribed by: TARAH GUTIERREZ on 02/24/23 134 Diphenoxylate HCl/Atropine (Lomotil 2.5-0.025 mg Tablet) 2.5 Mg-0.025 Mg Tablet, 1 EACH PO HS PRN for DIARRHEA Prescribed by: TARAH GUTIERREZ on 02/24/23 1343 Enalapril Maleate (Enalapril Maleate) 5 Mg Tablet, 2.5 MG PO BID Prescribed by: TARAH GUTIERREZ on 02/24/23 1342 Escitalopram Oxalate (Escitalopram Oxalate) 10 Mg Tablet, 10 MG PO DAILY Prescribed by: TARAH GUTIERREZ on 02/24/23 1342 Finasteride (Finasteride) 5 Mg Tablet, 5 MG PO HS Prescribed by: TARAH GUTIERREZ on 02/24/23 134 Fluticasone Propionate (Flonase Allergy Relief) 50 Mcg/Actuation [place].susp, 2 SPRAY NSEACH DAILY Prescribed by: TARAH GUTIERREZ on 02/24/23 1342 Fluticasone/Vilanterol (Breo Ellipta 100-25 Mcg INH) 100 Mcg-25 Mcg/Dose Blst.w.dev, 1 EACH IH DAILY Prescribed by: TARAH GUTIERREZ on 02/24/23 134 Furosemide (Furosemide) 80 Mg Tablet, 40 MG PO DAILY Prescribed by: TARAH GUTIERREZ on 02/24/23 134 Gluc Webster/Chondro Webster A/Vit C/Mn (Glucosamine Chondroitin Tab) 750 Mg-600 Mg-55 Mg- 5 Mg Tablet, 1 EACH PO DAILY Prescribed by: TARAH GUTIERREZ on 02/24/23 134 Lactobacillus Acidophilus/Pect (Acidophilus-Pectin Capsule) 75 Million Cell-100 Mg Capsule, 1 EACH PO TIDWM Prescribed by: TARAH GUTIERREZ on 02/24/23 134 Metoprolol Succinate (Metoprolol Succinate) 25 Mg Tab.er.24h, 25 MG PO DAILY Prescribed by: TARAH GUTIERREZ on 02/24/231341 Montelukast Sodium (Montelukast Sodium) 10 Mg Tablet, 10 MG PO HS Prescribed by: TARAH GUTIERREZ on 02/24/23 134 Multivitamin (Multivitamin) 1 Each Tablet, 1 EACH PO DAILY Prescribed by: TARAH GUTIERREZ on 02/24/23 134 Lamar-3/Dha/Epa/Fish Oil (Fish Oil 1,000 mg Softgel) 1,000 Mg (120 Mg-180 Mg) Capsule, 1,000 MG PO HS Prescribed by: TARAH GUTIERREZ on 02/24/23 134 Sodium Bicarbonate (Sodium Bicarbonate) 650 Mg Tablet, 650 MG PO TID Prescribed by: TARAH GUTIERREZ on 02/24/23 134 Sodium Chlor/Hypochlorous Acid (Vashe Wound Therapy Solution) 0.033 % Irrig.soln, 0 ML IR BID PRN for IRRIGATION Prescribed by: TARAH GUTIERREZ on 02/24/23 134 Spironolactone (Spironolactone) 25 Mg Tablet, 25 MG PO Q48H @HS Prescribed by: TARAH GUTIERREZ on 02/24/23 134 Tamsulosin HCl (Flomax) 0.4 Mg Cap, 0.4 MG PO HS Prescribed by: TARAH GUTIERREZ on 02/24/23 134 Past Ccxcuns-Leciig-Knxlfu Hx Patient Social History Tobacco Use?: No Use of E-Cig and/or Vaping dev: No Substance use?: No Alcohol Use?: No Pt feels they are or have been: No (RYAN CAMPO) Immunizations Up To Date Influenza Vaccine Up-to-Date: Yes; Up-to-Date First/Initial COVID19 Vaccinat: X4 Second COVID19 Vaccination Eder: X4 Third COVID19 Vaccination Date: X4 (RYAN CAMPO) Seasonal Allergies Seasonal Allergies: Yes (RYAN CAMPO) Past Medical History Surgery/Hospitalization HX: Open heart bypass; Carotid artery stent; renal stent x2; tonsilectomy; pacemaker/defib placement x2; gallbladder removed and hernia repair Medical history: CHF; AFIB; Cardiomegaly; Left rotator cuff injury; diabetic ulcer to right foot; DM; PVD; COPD; CPAP; [place]A; [place]; Stage 3 kidney disease with improvement due to new medications; Cardiac cirrohsis; frequent stools Surgeries: Yes (carotid; pacemaker; defibrillator; stent; open heart surgery) Cardiac, CABG, Coronary Stent, Defibrillator, Pacemaker, Vascular Surgery Respiratory: Yes (asthma, MILD COPD) Asthma, Pneumonia, Sleep Apnea, COPD Currently Using CPAP: No Currently Using BIPAP: No Cardiac: Yes (POSSIBLE HEART ATTACK PER DR. VILLATORO) Atrial Fibrillation, Coronary Artery Disease, High Cholesterol, Hypertension, Syncope, Valvular Heart Disease Neurological: No Reproductive Disorders: No Genitourinary: Yes (STAGE 3) Renal Failure Gastrointestinal: Yes (HERNIA REPAIR, 3-4 MONTHS FREQUENT BM'S) Musculoskeletal: Yes Degenerate Disk Disease, Arthritis Endocrine: Yes Diabetes, Non-Insulin dep HEENT: Yes Hearing Impairment: Hard of Hearing, Bilateral Hearing Aide Cancer: No Psychosocial: No Anxiety Integumentary: No Blood Disorders: No (RYAN CAMPO) Family Medical History Hypertension (RYAN CAMPO) Physical Exam Vital Signs Vital Signs - First Documented 04/12/23 09:35 Temp 36.6 Pulse 76 Resp 18 B/P (MAP) 127/67 (87) Pulse Ox 95 O2 Delivery Room Air (ALYSON CASTILLO MD) Vital Signs Capillary Refill : Less Than 3 Seconds (RYAN CAMPO) Height, Weight, BMI Height: 5'10.00" Weight: 198lbs. 0.0oz. 89.481420si; 24.00 BMI Method:Stated General Appearance: WD/WN, no apparent distress Cardiovascular: systolic murmur Respiratory: chest non-tender, lungs clear, normal breath sounds Gastrointestinal: non tender, soft Back: normal inspection Hips: bilateral hip non-tender; right hip normal inspection; bilateral hip normal inspection; right hip normal range of motion; bilateral hip normal range of motion; right hip no evidence of injury; bilateral hip no evidence of injury; right hip bone tenderness, right hip deformity, right hip ecchymosis Legs: right leg non-tender, right leg normal inspection; left leg soft tissue tenderness; bilateral leg swelling; left leg other (Redness noted one lower 1/3 of left extermity) Knees: right knee non-tender; bilateral knee non-tender; right knee normal inspection; bilateral knee normal inspection, bilateral knee normal range of motion, bilateral knee no evidence of injury Ankles: right ankle non-tender; left ankle pain, left ankle soft tissue tenderness, left ankle swelling Feet: left foot pain, left foot soft tissue tenderness, left foot swelling; bilateral foot other (Right foot was bandaged and recieving treatment by wound care and in protect boot for diabetic foot ulcer. Bandage was not remove and wound was not visual inspected. Left foot was remarkable for warm, erythematous and pedal edema. Left was tender to palpation. Normal dorsal pedal and posterior tibail pulse) Neurologic/Psychiatric: no motor/sensory deficits, alert, normal mood/affect, oriented x 3 Skin: damp (weeping left lower extermity) Lymphatic: no adenopathy (O'DELL,RYAN) Progress/Results/Core Measures Results/Orders Lab Results Laboratory Tests Test 04/12/23 09:40 Range/Units White Blood Count 11.7 H 4.3-11.0 10^3/uL Red Blood Count 4.54 4.30-5.52 10^6/uL Hemoglobin 12.1 L 13.3-17.7 g/dL Hematocrit 41 40-54 % Mean Corpuscular Volume 89 80-99 fL Mean Corpuscular Hemoglobin 27 25-34 pg Mean Corpuscular Hemoglobin Concent 30 L 32-36 g/dL Red Cell Distribution Width 16.5 H 10.0-14.5 % Platelet Count 283 130-400 10^3/uL Mean Platelet Volume 9.5 9.0-12.2 fL Immature Granulocyte % (Auto) 0 % Neutrophils (%) (Auto) 74 42-75 % Lymphocytes (%) (Auto) 12 12-44 % Monocytes (%) (Auto) 11 0-12 % Eosinophils (%) (Auto) 2 0-10 % Basophils (%) (Auto) 1 0-10 % Neutrophils # (Auto) 8.7 H 1.8-7.8 10^3/uL Lymphocytes # (Auto) 1.3 1.0-4.0 10^3/uL Monocytes # (Auto) 1.3 H 0.0-1.0 10^3/uL Eosinophils # (Auto) 0.2 0.0-0.3 10^3/uL Basophils # (Auto) 0.1 0.0-0.1 10^3/uL Immature Granulocyte # (Auto) 0.0 0.0-0.1 10^3/uL Sodium Level 134 L 135-145 MMOL/L Potassium Level 4.7 3.6-5.0 MMOL/L Chloride Level 99 98-107 MMOL/L Carbon Dioxide Level 24 21-32 MMOL/L Anion Gap 11 5-14 MMOL/L Blood Urea Nitrogen 49 H 7-18 MG/DL Creatinine 1.78 H 0.60-1.30 MG/DL Estimat Glomerular Filtration Rate 38 BUN/Creatinine Ratio 28 Glucose Level 118 H 70-105 MG/DL Calcium Level 8.7 8.5-10.1 MG/DL Corrected Calcium 9.0 8.5-10.1 MG/DL Total Bilirubin 1.0 0.1-1.0 MG/DL Aspartate Amino Transf (AST/SGOT) 31 5-34 U/L Alanine Aminotransferase (ALT/SGPT) 17 0-55 U/L Alkaline Phosphatase 236 H 40-136 U/L C-Reactive Protein High Sensitivity 1.56 H 0.00-0.50 MG/DL B-Type Natriuretic Peptide 1652.3 H <100.0 PG/ML Total Protein 7.9 6.4-8.2 GM/DL Albumin 3.6 3.2-4.5 GM/DL (ALYSON CASTILLO MD) My Orders Orders - ALYSON CASTILLO MD Cbc With Automated Diff (04/12/23 10:08) Comprehensive Metabolic Panel (04/12/23 10:08) Hs C Reactive Protein (04/12/23 10:08) Ed Iv/Invasive Line Start (04/12/23 10:08) Bnp Lexie (04/12/23 10:27) Ceftriaxone Iv/Im (Rocephin Iv/Im) (04/12/23 11:26) (ALYSON CASTILLO MD) Vital Signs/I&O 04/12/23 04/12/23 09:35 11:55 Temp 36.6 Pulse 76 75 Resp 18 18 B/P (MAP) 127/67 (87) 128/67 Pulse Ox 95 96 O2 Delivery Room Air Room Air (ALYSON CASTILLO MD) Blood Pressure Mean: 87 Progress Progress Note : Progress Note Patient and family were interviewed and examined by me along with Manuel Amezquita, MS 2. Labs were obtained, interpreted, and reviewed by me in their entirety. Patient had slight leukocytosis of 11.7. CBC was otherwise unremarkable. Chemistry was pertinent for creatinine of 1.78 which is well within his baseline renal function. Alkaline phosphatase was noted to be mildly elevated at 236. CRP was only slightly notable at 1.56. BNP was 1652, but this is in the context of renal failure. (ALYSON CASTILLO MD) Departure Impression Primary Impression: Cellulitis of left leg Disposition: 01 HOME, SELF-CARE Condition: Stable Departure-Patient Inst. Referrals: NICHOLAS OLIVEROS DO (PCP/Family) Primary Care Physician Patient Instructions: Cellulitis (Skin Infection), Adult ED Add. Discharge Instructions: Complete antibiotics as prescribed. You may start the prescription for oral antibiotics tomorrow morning. Continue to work with the cardiology office to manage heart failure and s welling. Elevate the left foot toward the level of the heart is much as possible. When elevating the foot, be sure the foot is level with or higher than the knee. Monitor progression of the area of cellulitis. You may use a skin marker to janell the margins of redness. Take a photo daily to monitor the progress. You should start noticing some improvement within 48 hours of starting antibiotics. Follow-up with Dr. Oliveros next week for reevaluation. Return to the emergency room if there are worsening symptoms despite following these instructions or if new symptoms such as fever develop. All discharge instructions reviewed with patient and/or family. Voiced understanding. Scripts Cephalexin (Cephalexin) 500 Mg Tablet 500 MG PO TID, #21 TAB Prov: ALYSON CASTILLO MD 04/12/23 Copy Copies To 1: JAIME VILLATORO MD [facility] CCDS Copies To 2: NICHOLAS OLIVEROS MACKENZIE Apr 12, 2023 10:32 ALYSON CASTILLO MD Apr 12, 2023 11:35
[2023-04-12] MEDS ORDERED: cefTRIAXone IV/IM 1,000 MG in NS (IVPB) 50 ML IV STA (11:26)
[2023-04-12] MEDS ORDERED: CEPH500T PO (11:35)
[2023-04-12 11:55] VITALS: BP 128/67
== END 2023-04-12 11:55 | disposition home or self-care (01) ==
LOC: EDUNIT# 09:25 → ER 09:27
DX: L03.116 Cellulitis of left lower limb (principal); R74.8 Abnormal levels of other serum enzymes
CPT/HCPCS: 36415; 80053; 83880; 85025; 86141

== ENCOUNTER 2023-06-28 03:08 | Emergency (ER) | payer MEDICARE ==
[~2023-06-28 03:08] MED LIST changes: +CEPH500T PO
[2023-06-28 03:11] VITALS: BP 136/69
[2023-06-28] MEDS ORDERED: Tetanus/Diphtheria/Pertussis (Acell) ADULT Vaccine 0.5 ML IM ONE (03:30)
--- NOTE | 2023-06-28 03:44 | ED Fall/Injury ---
General Chief Complaint: Trauma-Non Activation Stated Complaint: FALL Nursing Triage Note: Pt presents with c/o head injury after a fall. Pt states he fell going to the bathroom, he denies losing consciousness. Pt states he turned and took a step and he felt himself falling. Pt denies light headed, dizziness, states he felt fine when going to bed. Pt reports hx of balance problems. Recently had 2 surgeries on R foot. Pt states he's been in the hospital or in rehab since January. Pt AOx3 Source: patient, EMS Exam Limitations: no limitations History of Present Illness Date Seen by Provider: Jun 28, 2023 Time Seen by Provider: 03:09 Initial Comments This 83 year old gentleman presents to the ER via EMS after having a fall with head injury in his home. He woke from sleep and went the restroom. He lost balance on the way and fell backward causing a large laceration on the scalp There was no LOC. He had recent right foot surgery and is in a post op shoe. He also experienced diarrhea yesterday. He is anticoagulated. C-collar applied. Allergies and Home Medications Allergies Coded Allergies: No Known Drug Allergies (Verified , 11/24/21) Patient Home Medication List Home Medication List Reviewed: Yes ALPRAZolam (ALPRAZolam) 0.25 Mg Tablet, 0.25 MG PO HS PRN for SLEEP Prescribed by: TARAH GUTIERREZ on 02/24/23 1343 Allopurinol (Allopurinol) 100 Mg Tablet, 100 MG PO DAILY Prescribed by: TARAH GUTIERREZ on 02/24/23 1342 Amoxicillin/Potassium Clav (Amox Tr-K Clv 500-125 mg Tab) 500 Mg-125 Mg Tablet, 500 MG PO BID Prescribed by: TARAH GUTIERREZ on 02/24/23 1342 Apixaban (Eliquis) 5 Mg Tablet, 2.5 MG PO BID Prescribed by: TARAH GUTIERREZ on 02/24/23 1342 Calcitriol (Calcitriol) 0.5 Mcg Capsule, 0.5 MCG PO WED Prescribed by: TARAH GUTIERREZ on 02/24/23 1342 Cephalexin (Cephalexin) 500 Mg Tablet, 500 MG PO TID Prescribed by: ALYSON LOPEZ on 04/12/23 1135 Cetirizine HCl (Cetirizine HCl) 10 Mg Tablet, 10 MG PO HS Prescribed by: TARAH GUTIERREZ on 02/24/23 134 Cholecalciferol (Vitamin D3) (Vitamin D3) 125 Mcg (5000 Unit) Tablet, 125 MCG PO MON,TUE,SAT Prescribed by: TARAH GUTIERREZ on 02/24/23 134 Dapagliflozin Propanediol (Farxiga) 10 Mg Tablet, 10 MG PO DAILY Prescribed by: TARAH GUTIERREZ on 02/24/23 134 Digoxin (Digoxin) 125 Mcg (0.125 Mg) Tablet, 125 MCG PO HS Prescribed by: TARAH GUTIERREZ on 02/24/23 134 Diphenoxylate HCl/Atropine (Diphenoxylate-Atrop 2.5-0.025) 2.5 Mg-0.025 Mg Tablet, 1 EA PO DAILY Prescribed by: TARAH GUTIERREZ on 02/24/23 134 Diphenoxylate HCl/Atropine (Lomotil 2.5-0.025 mg Tablet) 2.5 Mg-0.025 Mg Tablet, 1 EACH PO HS PRN for DIARRHEA Prescribed by: TARAH GUTIERREZ on 02/24/23 134 Enalapril Maleate (Enalapril Maleate) 5 Mg Tablet, 2.5 MG PO BID Prescribed by: TARAH GUTIERREZ on 02/24/23 134 Escitalopram Oxalate (Escitalopram Oxalate) 10 Mg Tablet, 10 MG PO DAILY Prescribed by: TARAH GUTIERREZ on 02/24/23 134 Finasteride (Finasteride) 5 Mg Tablet, 5 MG PO HS Prescribed by: TARAH GUTIERREZ on 02/24/23 134 Fluticasone Propionate (Flonase Allergy Relief) 50 Mcg/Actuation Carney.susp, 2 SPRAY NSEACH DAILY Prescribed by: TARAH GUTIERREZ on 02/24/23 134 Fluticasone/Vilanterol (Breo Ellipta 100-25 Mcg INH) 100 Mcg-25 Mcg/Dose Blst.w.dev, 1 EACH IH DAILY Prescribed by: TARAH GUTIERREZ on 02/24/23 134 Furosemide (Furosemide) 80 Mg Tablet, 40 MG PO DAILY Prescribed by: TARAH GUTIERREZ on 02/24/23 134 Gluc Webster/Chondro Webster A/Vit C/Mn (Glucosamine Chondroitin Tab) 750 Mg-600 Mg-55 Mg- 5 Mg Tablet, 1 EACH PO DAILY Prescribed by: TARAH GUTIERREZ on 02/24/23 134 Lactobacillus Acidophilus/Pect (Acidophilus-Pectin Capsule) 75 Million Cell-100 Mg Capsule, 1 EACH PO TIDWM Prescribed by: TARHA GUTIERREZ on 02/24/23 134 Metoprolol Succinate (Metoprolol Succinate) 25 Mg Tab.er.24h, 25 MG PO DAILY Prescribed by: TARAH GUTIERREZ on 02/24/23 134 Montelukast Sodium (Montelukast Sodium) 10 Mg Tablet, 10 MG PO HS Prescribed by: TARAH GUTIERREZ on 02/24/23 134 Multivitamin (Multivitamin) 1 Each Tablet, 1 EACH PO DAILY Prescribed by: TARAH GUTIERREZ on 02/24/23 134 [place]-3/Dha/Epa/Fish Oil (Fish Oil 1,000 mg Softgel) 1,000 Mg (120 Mg-180 Mg) Capsule, 1,000 MG PO HS Prescribed by: TARAH GUTIERREZ on 02/24/23 134 Sodium Bicarbonate (Sodium Bicarbonate) 650 Mg Tablet, 650 MG PO TID Prescribed by: TARAH GUTIERREZ on 02/24/23 134 Sodium Chlor/Hypochlorous Acid (Vashe Wound Therapy Solution) 0.033 % Irrig.soln, 0 ML IR BID PRN for IRRIGATION Prescribed by: TARAH GUTIERREZ on 02/24/23 134 Spironolactone (Spironolactone) 25 Mg Tablet, 25 MG PO Q48H @HS Prescribed by: TARAH GUTIERREZ on 02/24/23 134 Tamsulosin HCl (Flomax) 0.4 Mg Cap, 0.4 MG PO HS Prescribed by: TARAH GUTIERREZ on 02/24/23 134 Review of Systems Review of Systems Constitutional: no symptoms reported Eyes: No Symptoms Reported Ears, Nose, Mouth, Throat: no symptoms reported Respiratory: no symptoms reported Cardiovascular: no symptoms reported Genitourinary: no symptoms reported Musculoskeletal: see HPI Skin: no symptoms reported, see HPI Psychiatric/Neurological: See HPI Past Hrgascj-Jmyjgd-Ndqufi Hx Immunizations Up To Date First/Initial COVID19 Vaccinat: X4 Second COVID19 Vaccination Eder: X4 Third COVID19 Vaccination Date: X4 Seasonal Allergies Seasonal Allergies: Yes Past Medical History Surgery/Hospitalization HX: Open heart bypass; Carotid artery stent; renal stent x2; tonsilectomy; pacemaker/defib placement x2; gallbladder removed and hernia repair Medical history: CHF; AFIB; Cardiomegaly; Left rotator cuff injury; diabetic ulcer to right foot; DM; PVD; COPD; CPAP; SOA; [place]; Stage 3 kidney disease with improvement due to new medications; Cardiac cirrohsis; frequent stools Surgeries: Yes (carotid; pacemaker; defibrillator; stent; open heart surgery) Cardiac, CABG, Coronary Stent, Defibrillator, Orthopedic, Pacemaker, Vascular Surgery Respiratory: Yes (asthma, MILD COPD) Asthma, Pneumonia, Sleep Apnea, COPD Currently Using CPAP: No Currently Using BIPAP: No Cardiac: Yes (POSSIBLE HEART ATTACK PER DR. NARANJO) Atrial Fibrillation, Coronary Artery Disease, High Cholesterol, Hypertension, Syncope, Valvular Heart Disease Neurological: No Reproductive Disorders: No Genitourinary: Yes (STAGE 3) Renal Failure Gastrointestinal: Yes (HERNIA REPAIR, 3-4 MONTHS FREQUENT BM'S) Musculoskeletal: Yes Degenerate Disk Disease, Arthritis Endocrine: Yes Diabetes, Non-Insulin dep HEENT: Yes Hearing Impairment: Hard of Hearing, Bilateral Hearing Aide Cancer: No Psychosocial: No Anxiety Integumentary: No Blood Disorders: No Family Medical History Hypertension Physical Exam Vital Signs Vital Signs - First Documented 06/28/23 03:11 Temp 36.7 Pulse 75 Resp 18 B/P (MAP) 136/69 (91) Capillary Refill : Less Than 3 Seconds Height, Weight, BMI Height: 5'10.00" Weight: 198lbs. 0.0oz. 89.025830bf; 24.00 BMI Method:Stated General Appearance: WD/WN, no apparent distress HEENT: PERRL/EOMI, other ( large left occipital scalp laceration) Neck: normal inspection, tender midline Cardiovascular: regular rate, rhythm, no edema, no murmur Respiratory: lungs clear, normal breath sounds, no respiratory distress Gastrointestinal: non tender, soft Extremities: non-tender, normal inspection, no pedal edema Neurologic/Psychiatric: director energy II-XII nml as tested, no motor/sensory deficits, alert, normal mood/affect, oriented x 3 Skin: normal color, warm/dry [place] Coma Score Best Eye Response: (4) Open Spontaneously Best Verbal Response: (5) Oriented Best Motor Response: (6) Obeys Commands Stefania Total: 15 Procedures/Interventions Wound Location: Scalp Other Wound Location Left occipital scalp Wound Length (cm): 6 Wound's Depth, Shape: linear, irregular, sub Q Wound Explored: clean Irrigated w/ Saline (ccs): 250 Betadine Prep?: Yes Anesthesia: 1% Lidocaine Volume Anesthetic (ccs): 4 Staple Repair: Stapler 35W (5 breanne) Progress/Results/Core Measures Results/Orders Lab Results Laboratory Tests Test 06/28/23 04:38 06/28/23 05:20 Range/Units Urine Color YELLOW Urine Clarity CLEAR Urine pH 5.5 5-9 Urine Specific [place] 1.010 L 1.016-1.022 Urine Protein 1+ H NEGATIVE Urine Glucose (UA) 3+ H NEGATIVE Urine Ketones NEGATIVE NEGATIVE Urine Nitrite NEGATIVE NEGATIVE Urine Bilirubin NEGATIVE NEGATIVE Urine Urobilinogen 1.0 < = 1.0 MG/DL Urine Leukocyte Esterase NEGATIVE NEGATIVE Urine RBC (Auto) NEGATIVE NEGATIVE Urine RBC NONE /HPF Urine WBC NONE /HPF Urine Crystals NONE /LPF Urine Bacteria NEGATIVE /HPF Urine Casts NONE /LPF Urine Mucus NEGATIVE /LPF Urine Culture Indicated NO White Blood Count 8.4 4.3-11.0 10^3/uL Red Blood Count 4.52 4.30-5.52 10^6/uL Hemoglobin 11.8 L 13.3-17.7 g/dL Hematocrit 39 L 40-54 % Mean Corpuscular Volume 87 80-99 fL Mean Corpuscular Hemoglobin 26 25-34 pg Mean Corpuscular Hemoglobin Concent 30 L 32-36 g/dL Red Cell Distribution Width 18.9 H 10.0-14.5 % Platelet Count 198 130-400 10^3/uL Mean Platelet Volume 8.7 L 9.0-12.2 fL Immature Granulocyte % (Auto) 1 % Neutrophils (%) (Auto) 74 42-75 % Lymphocytes (%) (Auto) 11 L 12-44 % Monocytes (%) (Auto) 11 0-12 % Eosinophils (%) (Auto) 2 0-10 % Basophils (%) (Auto) 1 0-10 % Neutrophils # (Auto) 6.2 1.8-7.8 10^3/uL Lymphocytes # (Auto) 0.9 L 1.0-4.0 10^3/uL Monocytes # (Auto) 1.0 0.0-1.0 10^3/uL Eosinophils # (Auto) 0.2 0.0-0.3 10^3/uL Basophils # (Auto) 0.1 0.0-0.1 10^3/uL Immature Granulocyte # (Auto) 0.1 0.0-0.1 10^3/uL Sodium Level 135 135-145 MMOL/L Potassium Level 4.2 3.6-5.0 MMOL/L Chloride Level 102 98-107 MMOL/L Carbon Dioxide Level 24 21-32 MMOL/L Anion Gap 9 5-14 MMOL/L Blood Urea Nitrogen 50 H 7-18 MG/DL Creatinine 1.32 H 0.60-1.30 MG/DL Estimat Glomerular Filtration Rate 54 BUN/Creatinine Ratio 38 Glucose Level 140 H 70-105 MG/DL Calcium Level 8.3 L 8.5-10.1 MG/DL Magnesium Level 2.2 1.6-2.4 MG/DL My Orders Orders - ALYSON CASTILLO MD Ct Head/Cervical Spine Wo (06/28/23 03:16) Dipht/Pertuss(Acell)/Tet Adult (Dipht/Pe (06/28/23 03:30) Basic Metabolic Panel (06/28/23 04:25) Cbc With Automated Diff (06/28/23 04:25) Magnesium (06/28/23 04:25) Ua Culture If Indicated (06/28/23 04:25) Lidocaine 1% Inj 10 Ml (Xylocaine 1% Inj (06/28/23 04:45) Medications Given in ED Vital Signs/I&O 06/28/23 03:11 Temp 36.7 Pulse 75 Resp 18 B/P (MAP) 136/69 (91) Blood Pressure Mean: 91 Progress Progress Note : Progress Note CT head and c-spine viewed by me and no acute injuries appreciated by my interpretation. Report reviewed. Abnormality at C7 did not correlate with any exam findings. C-spine was cleared. Basic labs including CBC, BMP, Magnesium and UA were interpreted by me as unremarkable when compared with baseline. Larger scalp laceration was irrigated and stapled. Tetanus booster administered. Diagnostic Imaging Diagonstic Imaging: CT Plain Films/CT/US/NM/MRI: c-spine, head Comments [facility] report reviewed. No acute injures. Abnormality at C7 did not correlate with exam findings. Departure Impression Primary Impression: Fall on same level as cause of accidental injury Additional Impressions: Anticoagulated Laceration of scalp Qualified Codes: S01.01XA - Laceration without foreign body of scalp, initial encounter Disposition: HOME, SELF-CARE Condition: Improved Departure-Patient Inst. Decision time for Depature: 06:14 Referrals: NICHOLAS OLIVEROS DO (PCP/Family) Primary Care Physician Patient Instructions: Laceration Repair With Breanne (DC) Add. Discharge Instructions: Keep the wound clean and dry except for normal showering. After 12 hours you ma y apply antibiotic ointment if desired. Do not submerge until breanne are removed. Return in 7 to 10 days for staple removal. Monitor for signs of infection such as increasing redness, increasing swelling, puslike drainage, or fever. Return to care if you notice these symptoms. Your lab work was relatively unremarkable in the emergency room. Please follow-up with your primary care provider regarding your balance issues and falls. All discharge instructions reviewed with patient and/or family. Voiced understanding. Copy Copies To 1: NICHOLAS OLIVEROS JOSHUA T MD Jun 28, 2023 03:44
[2023-06-28] MEDS ORDERED: LIDOCAINE 1% INJ 10 ML VIAL INJ ONE (04:45)
[2023-06-28 05:21] LABS: CLARITY,URINE CLEAR; COLOR,URINE YELLOW; GLUCOSE, URINE (UA) 3+ (NEGATIVE); KETONES,URINE NEGATIVE (NEGATIVE); NITRITE,URINE NEGATIVE (NEGATIVE); PH,URINE 5.5 (5-9); PROTEIN,URINE 1+ (NEGATIVE)
[2023-06-28 05:22] LABS: BACTERIA,URINE NEGATIVE /HPF; BILIRUBIN,URINE NEGATIVE (NEGATIVE); LEUKOCYTE ESTERASE ,URINE NEGATIVE (NEGATIVE)
[2023-06-28 05:30] LABS: BASOPHILS # (AUTO) 0.1 10^3/uL (0.0-0.1); BASOPHILS % (AUTO) 1 % (0-10); EOSINOPHILS # (AUTO) 0.2 10^3/uL (0.0-0.3); EOSINOPHILS % (AUTO) 2 % (0-10); HEMATOCRIT 39 % (40-54); HEMOGLOBIN 11.8 g/dL (13.3-17.7); LYMPHOCYTES # (AUTO) 0.9 10^3/uL (1.0-4.0); LYMPHOCYTES % (AUTO) 11 % (12-44); MEAN CORPUSCULAR HEMOGLOBIN 26 pg (25-34); MEAN CORPUSCULAR HGB CONC 30 g/dL (32-36); MEAN CORPUSCULAR VOLUME 87 fL (80-99); MEAN PLATELET VOLUME 8.7 fL (9.0-12.2); MONOCYTES % (AUTO) 11 % (0-12); NEUTROPHILS # (AUTO) 6.2 10^3/uL (1.8-7.8); NEUTROPHILS % (AUTO) 74 % (42-75); PLATELET COUNT 198 10^3/uL (130-400); WHITE BLOOD COUNT 8.4 10^3/uL (4.3-11.0)
[2023-06-28 05:52] LABS: CALCIUM 8.3 MG/DL (8.5-10.1); CREATININE SERUM 1.32 MG/DL (0.60-1.30); MAGNESIUM 2.2 MG/DL (1.6-2.4); POTASSIUM 4.2 MMOL/L (3.6-5.0)
--- NOTE | 2023-06-28 07:58 | Diagnostic Imaging Report ---
PROCEDURE: CT head and CT cervical spine without contrast. TECHNIQUE: Multiple contiguous axial images were obtained through the brain and cervical spine without the use of intravenous contrast. Sagittal and coronal reformations through the cervical spine were then performed. Auto Exposure Controls were utilized during the CT exam to meet ALARA standards for radiation dose reduction. INDICATION: Fall, head and neck pain, head laceration COMPARISON: 11/18/2022 FINDINGS: CT HEAD: The ventricles and cortical sulci are diffusely prominent. There is no significant midline shift or mass effect. No acute intracranial hemorrhage or CT evidence of acute territorial ischemia is seen. There are senescent calcifications in the basal ganglia. There is calcific atherosclerosis. No acute intracranial hemorrhage is seen. The calvarium appears intact. Visualized paranasal sinuses are clear. CT CERVICAL SPINE: There is grade 1 anterolisthesis at C7-T1. There is severe degenerative change at multiple levels in the cervical spine, from C3-C4 to C6-C7. There is multilevel facet arthropathy. Soft tissues about the cervical spine demonstrate no acute abnormality. No definite acute fracture is seen. There is slight cortical irregularity at the left superior articular process of T1 and inferior articular process of C7. This is thought to be due to degenerative change. IMPRESSION: 1. No acute intracranial hemorrhage or CT evidence of acute territorial ischemia. 2. Mild cortical irregularity at the left C7-T1 facets, thought to be secondary to degenerative change rather than an acute fracture. If pain localizes to this region, MRI could be considered. No definite acute fracture is seen in the cervical spine. No significant changes from the preliminary report. Dictated by: Dictated on workstation # [id number]
== END 2023-06-28 06:41 | disposition home or self-care (01) ==
LOC: EDUNIT# 03:08 → ER 03:09
DX: S01.01XA Laceration without foreign body of scalp, initial encounter (principal); Z79.01 Long term (current) use of anticoagulants; Z23 Encounter for immunization; W18.30XA Fall on same level, unspecified, initial encounter; Y92.009 Unspecified place in unspecified non-institutional (private) residence as the place of occurrence of the external cause
CPT/HCPCS: 36415; 70450; 72125; 80048; 81000; 83735; 85025; 90715